=== PATIENT | male | born 1950 | race Caucasian/White ===

== ENCOUNTER 2016-06-23 19:14 | Inpatient (IN) | payer MEDICARE, OTHER ==
[~2016-06-23] VITALS: Ht 188 cm; Wt 160.0 kg
--- NOTE | ~2016-06-23 | HEMODYNAMI ---
PATIENT:MONIQUE BEDOLLA MEDICAL RECORD: [id number] : 46 LOCATION:[facility] D.2102 ADMISSION DATE: 06/23/16 Generatedon:06/27/20169:20 Patient name: MONIQUE BEDOLLA Patient #: [id number] SSN: DO B: 1950 Date of study: 06/27/2016 Page: Of Hemodynamic Procedure Report Patient Data Patient Demographics Procedure consent was obtained First Name: MONIQUE Gender: Male Last Name: GRAEME : 1950 Middle Initial: W Age: 66 year(s) Patient #: [id number] Race: Unknown Additional ID: [id number] Contact details [address]: [address] [place] [address] State: [place] City: [place] Zip code: [address] Past Medical History Allergies Allergen Reaction Date Comments Reported Other allergy 06/27/2016 POTASSIUM CHLORIDE Admission Admission Data Admission Date: 06/23/2016 Admission Time: 20:17 Room #: D2102 Lab Results Lab Result Date: 06/27/2016 Lab Result Time: 0:00 Biochemistry Name Units Result Min Max BUN mg/dl 31 --(----)-* 7 18 Creatinine mg/dl 1.2 --(---*)-- 0.6 1.3 CBC Name Units Result Min Max Hemoglobin g/dl 12.3 *-(----)-- 13.5 17.5 Coagulation Name Units Result Min Max INR units 1.59 --(----)-* 0.85 1.17 PT sec 18.9 --(----)-* 11.6 15 Procedure Procedure Types Cath Procedure Diagnostic Procedure [facility] w/Coronaries PCI Procedure Coronary Stent Initial Miscellaneous Procedures Moderate Sedation up to 45 minutes Procedure Description Procedure Date Procedure Date: 06/27/2016 Procedure Start Time: 8:50 Procedure End Time: 9:16 Procedure Staff Name Function Rogelio Whyte MD Performing Physician Nasrin Wolf RN Nurse Ron Suit RT Monitor Tai Diego RT Scrub Procedure Data Cath Procedure Fluoroscopy Diagnostic fluoroscopy Total fluoroscopy Time: time: 11.1 min 11.1 min Diagnostic fluoroscopy Total fluoroscopy dose: dose: 1395 mGy 1395 mGy Contrast Material Contrast Material Type Amount (ml) Isovue 300 131 Entry Location Entry Primary Successful Side Size Upsize Upsize Entry Closure Marcelino ccessful Closure Location (Fr) 1 (Fr) 2 (Fr) Remarks Device Remarks Radial Right 6 Fr Mechanical artery Short Compression Diagnostic catheters Device Type Used For End Catheter Placement Terumo 5Fr Plaza 110cm LV Angiography catheter Procedure Complications No complications Procedure Medications Medication Administration Route Dosage Oxygen NC 3 l/min Heparin Flush Bag added to field 2 bags (1000units/500ml NS) Lidocaine 2% added to field 20 Radial Cocktail added to field 1 syringe (Verapomil 2mg/Nitro 400mcg/Heparin 1500units) Versed I.V. 1 mg Fentanyl I.V. 50 mcg Versed I.V. 0.5 mg Fentanyl I.V. 25 mcg Fentanyl I.V. 25 mcg Versed I.V. 0.5 mg Radial Cocktail I.A. 1 syringe (Verapomil 2mg/Nitro 400mcg/Heparin 1500units) Integrilin (Bolus I.V. 11.3 ml 2mg/ml) Heparin Bolus I.V. 5000 units Plavix P.O. 600 mg Hemodynamics Rest HGB: 12.3 (g/dl) Heart Rate: 80 (bpm) Snapshots Pre Cath Intra NCS Post Cath Vital Signs Time Heart Resp SPO2 etCO2 OA6egmm NIBP (mmHg) Rhythm Pain Sedation Rate (ipm) (%) (mmHg) (mmHg) Status Level (bpm) 8:31:16 90 15 98 0 0 No Cuff NSR 0 (11) 10(A) , No pain 8:33:13 94 22 98 0 0 153/96(126) NSR 0 (11) 10(A) , No pain 8:37:39 91 16 99 0 0 154/95(121) NSR 0 (11) 10(A) , No pain 8:42:10 80 15 97 0 0 145/78(116) NSR 0 (11) 10(A) , No pain 8:47:09 101 19 96 0 0 Measuring NSR 0 (11) 10(A) , No pain 8:47:40 96 14 96 0 0 136/82(103) NSR 0 (11) 10(A) , No pain 8:52:04 94 13 96 0 0 136/78(105) NSR 0 (11) 10(A) , No pain 8:56:26 83 13 95 0 0 122/66(89) NSR 0 (11) 10(A) , No pain 9:00:48 93 15 97 0 0 118/66(85) NSR 0 (11) 10(A) , No pain 9:05:08 95 15 96 0 0 128/67(92) NSR 0 (11) 10(A) , No pain 9:09:32 93 15 96 0 0 128/68(102) NSR 0 (11) 10(A) , No pain 9:13:54 93 15 97 0 0 133/74(97) NSR 0 (11) 10(A) , No pain 9:15:27 93 15 96 0 0 127/71(103) NSR 0 (11) 10(A) , No pain Medications Time Medication Route Dose Verified Delivered Reason Notes Effectiveness by by 8:32:10 Oxygen NC 3 l/min Rogelio Nasrin Per physician Isabell Wolf RN 8:32:29 Heparin Flush added 2 bags Rogelio Rogelio used for Bag to Isabell Whyte MD procedure (1000units/500ml field NS) 8:32:36 Lidocaine 2% added 20ml Rogelio Rogelio used for to vial Isabell Whyte MD procedure field 8:32:44 Radial Cocktail added 1 Rogelio Rogelio used for (Verapomil to syringe Isabell Whyte MD procedure 2mg/Nitro field 400mcg/Heparin 1500units) 8:41:42 Versed I.V. 1 mg Rogelio Nasrin for sedation Isabell Wolf RN 8:41:48 Fentanyl I.V. 50 mcg Rogelio Nasrin for sedation Isabell Wolf RN 8:44:18 Versed I.V. 0.5 mg Rogelio Nasrin for sedation Isabell Wolf RN 8:45:29 Fentanyl I.V. 25 mcg Rogelio Nasrin for sedation Isabell Wolf RN 8:47:42 Fentanyl I.V. 25 mcg Rogelio Nasrin for sedation Isabell Wolf RN 8:51:42 Versed I.V. 0.5 mg Rogelio Ochoaca for sedation Isabell Wolf RN 8:51:47 Radial Cocktail I.A. 1 Rogelio Mercado for (Verapomil syringe Isabell Whyte MD vasodilation 2mg/Nitro 400mcg/Heparin 1500units) 8:57:32 Heparin Bolus I.V. 5000 Rogelio Alexandra for dose units Isabell Wolf RN anticoagulation verified with dr whyte 9:01:00 Integrilin I.V. 11.3 ml Rogelio Alexandra for 8.7 m l (Bolus 2mg/ml) Isabell Wolf RN antiplatelet wasted therapy 9:14:09 Plavix P.O. 600 mg Rogelio Nasrin for Isabell Wolf RN antiplatelet therapy Procedure Log Time Note 8:07:35 Tai Diego RT(R) sent for patient. Start room use. 8:07:36 Time tracking: Regular hours 8:07:40 Plan of Care:Hemodynamics will remain stable., Cardiac rhythm will remain stable., Comfort level will be maintained., Respiratory function will remain adequate., Patient/ family verbilizes understanding of procedure., Procedure tolerated without complication., Recovers from procedure without complications.. 8:16:20 Patient received from Med II to CCL 1 Alert and oriented. Tansferred to table in Supine position. 8:16:21 Warm blankets applied, and bassem hugger turned on for patient comfort. 8:16:21 Correct patient and procedure confirmed by team. 8:16:23 Signed procedure consent form obtained from patient. 8:16:23 ECG and BP/O2 sat monitors applied to patient. 8:16:43 H&P Date Dictated: 06/25/2016 Within 30 days and on chart.. 8:30:26 Vital chart was started 8:32:10 Oxygen 3 l/min NC was given by Nasrin Wolf RN; Per physician; 8:32:29 Heparin Flush Bag (1000units/500ml NS) 2 bags added to field was given by Rogelio Whyte MD; used for procedure; 8:32:36 Lidocaine 2% 20ml vial added to field was given by Rogelio Whyte MD; used for procedure; 8:32:44 Radial Cocktail (Verapomil 2mg/Nitro 400mcg/Heparin 1500units) 1 syringe added to field was given by Rogelio Whyte MD; used for procedure; 8:34:29 ACC Patient presents with Unstable Angina CCS Anginal Class 3--Marked limitation of physical activity, angina occurs with ordinary activity.. 8:34:31 Diagnostic Cath status Urgent 8:34:33 Baseline sample Acquired. 8:34:42 Rhythm: sinus rhythm 8:34:43 Full Disclosure recording started 8:34:44 Pre-procedure instructions explained to patient. 8:34:45 Pre-op teaching completed and patient verbalized understanding. 8:34:46 Family in waiting room. 8:34:48 Patient NPO since Midnight. 8:35:07 Patient allergic to Other allergyPOTASSIUM CHLORIDE 8:35:09 Is the patient allergic to Iodine/contrast media? No. 8:35:11 Was the patient premedicated? No 8:36:14 Is patient on blood thinner?Yes 8:36:21 Patient diabetic? No. 8:36:24 ----Pre-sedation anethsthesia assessment.---- 8:36:26 Previous problem with sedation/anesthesia? No ? 8:36:27 Snore? Yes 8:36:28 Sleep apnea? Yes 8:36:29 Deviated septum? No 8:36:31 Opens mouth fully? Yes 8:36:32 Sticks out tongue? Yes 8:36:39 Airway obstruction? Yes COPD 8:36:43 Dentures? No OUT 8:37:00 Pre procedure: right dorsailis pedis pulse 1+ Palpable, but thready & weak; easily obliterated 8:37:21 Modified Clayton's test Ulnar < 7 seconds 8:37:23 Patient pain scale 0/10 ?. 8:37:42 IV patent on arrival in left forearm with 0.9% NaCl at 10ml/hr. 8:40:15 Lab Result : BUN 31 mg/dl 8:40:15 Lab Result : Creatinine 1.2 mg/dl 8:40:15 Lab Result : Hemoglobin 12.3 g/dl 8:40:15 Lab Result : PT 18.9 sec 8:40:15 Lab Result : INR 1.59 units 8:41:07 Lab results completed and on chart. 8:41:09 Right Radial & Right Groin area was prepped with chlora-prep and draped in sterile fashion 8:41:10 Alarms reviewed by R. N. 8:41:11 Sharps counted by scrub and verified by R.N. 8:41:16 --------ALL STOP TIME OUT------ 8:41:16 Final Timeout: patient, procedure, and site verified with staff and physician. All members of the team are in agreement. 8:41:20 Right Radial & Right Groin site verified by team. 8:41:23 Physical assessment completed. ASA score P 2 - A patient with mild systemic disease as per Rogelio Whyte MD. 8:41:26 Sedation plan: IV Moderate Sedation Versed, Fentanyl 8:41:42 Versed 1 mg I.V. was given by Nasrin Wolf RN; for sedation; 8:41:48 Fentanyl 50 mcg I.V. was given by Nasrin Wolf RN; for sedation; 8:42:17 Use device set Radial Dx 8:42:18 Acist Syringe opened to sterile field. 8:42:18 Medline Cath Pack opened to sterile field. 8:42:18 Bag Decanter opened to sterile field. 8:42:19 Terumo 6Fr Slender Glidesheath opened to sterile field. 8:42:19 St Ralf 260cm J .035 wire opened to sterile field. 8:42:19 Acist Hand Control opened to sterile field. 8:42:20 Acist Manifold opened to sterile field. 8:42:20 Tegaderm 4 x 4 opened to sterile field. 8:44:18 Versed 0.5 mg I.V. was given by Nasrin Wolf RN; for sedation; 8:45:29 Fentanyl 25 mcg I.V. was given by Nasrin Wolf RN; for sedation; 8:45:43 Zero performed for pressure channel P1 8:47:14 Procedure started. 8:47:42 Fentanyl 25 mcg I.V. was given by Nasrin Wolf RN; for sedation; 8:50:45 Local anesthetic to right radial artery with Lidocaine 2% by Rogelio Whyte MD.INITIAL ACCESS ONLY 8:50:53 A 6 Fr Short sheath was inserted into the Right Radial artery 8:51:42 Versed 0.5 mg I.V. was given by Nasrin Wolf RN; for sedation; 8:51:47 Radial Cocktail (Verapomil 2mg/Nitro 400mcg/Heparin 1500units) 1 syringe I.A. was given by Rogelio Whyte MD; for vasodilation; 8:51:54 A Terumo 5Fr Plaza 110cm catheter was advanced over the wire and used for LV Angiography. 8:53:06 LV angiography performed. 8:53:13 EF : 40 % 8:53:15 LV gram done using SNYDER 8:53:17 Injector settings: Ml/sec: 5, Volume: 15, 8:53:49 RCA angiography performed. 8:54:48 Catheter removed. 8:55:18 6 Fr EBU 3.5 guide catheter was inserted over the wire 8:56:23 Medtronic Launcher 6Fr EBU 3.5 guide catheter opened to sterile field. 8:56:30 LCA angiography performed. 8:56:31 Catheter removed. 8:56:39 6 Fr AR 2 guide catheter was inserted over the wire 8:56:47 Medtronic Launcher 6Fr AR 2.0 guide catheter opened to sterile field. 8:56:49 Chambers Night Upisper J 300cm 0.014 guide wire opened to sterile field. 8:56:50 SIGFOX BasixCompak Inflation Kit opened to sterile field. 8:57:32 Heparin Bolus 5000 units I.V. was given by Nasrin Wolf RN; for anticoagulation; dose verified with dr whyte 8:57:32 WHISPER wire advanced. 9:00:41 The Medtronic Integrity 4.0 X 26 stent was advanced then removed because of failure to cross lesion 9:01:00 Integrilin (Bolus 2mg/ml) 11.3 ml I.V. was given by Nasrin Wolf RN; for antiplatelet therapy; 8.7 ml wasted 9:01:12 Inflation number: 1 A Sublimity Sci Martin 3.5 X 20 balloon was prepped and advanced across the Prox RCA1, then inflated to 13 RADHA for 0:07 (min:sec). 9:01:33 Inflation number: 2 The Sublimity Sci Martin 3.5 X 20 balloon was reinflated across the Prox RCA1, to 17 RADHA for 0:13 (min:sec). 9:01:43 Balloon removed over the wire. 9:01:53 ACC PCI Site: pRCA has 85% stenosis. 9:01:55 ACC Pre-intervention SANTIAGO Flow is 3. 9:03:30 The Medtronic Integrity 4.0 X 26 stent was advanced then removed because of failure to cross lesion 9:03:46 Sublimity Sci Choice PT Extra Support J 300cm .014 gu opened to sterile field. 9:04:04 CPTES wire advanced. 9:04:10 SHAHAB 9:05:32 The Medtronic Integrity 4.0 X 26 stent was advanced then removed because of failure to cross lesion 9:07:00 Inflation number: 1 A Euphora 4.0 x 20 Balloon was prepped and advanced across the Prox RCA, then inflated to 17 RADHA for 0:10 (min:sec). 9:07:40 Balloon removed over the wire. 9:09:25 Wire removed. 9:09:26 Inflation Number: 2 A Medtronic Integrity 4.0 X 26 stent was prepped and advanced across the Prox RCA. The stent was deployed at 21 RADHA for 0:13 (min:sec). 9:10:06 Inflation number: 3 The stent balloon was then re-inflated across the Prox RCA to 21 RADHA for 0:17 (min:sec). 9:12:43 Inflation Number: 4 A Medtronic Integrity 4.0 X 9 stent was prepped and advanced across the Prox RCA. The stent was deployed at 21 RADHA for 0:11 (min:sec). 9:13:15 Terumo TR Band Large opened to sterile field. 9:13:22 Stent catheter was removed intact over wire. 9:13:24 Wire removed. 9:13:25 Guide catheter removed. 9:14:09 Plavix 600 mg P.O. was given by Nasrin Wolf RN; for antiplatelet therapy; 9:14:10 Sheath removed intact; hemostasis achieved with Mechanical Compression to the Right Radial artery. 9:14:12 Procedure ended.(Physican Out) 9:14:47 Procedure type changed to Cath procedure, Diagnostic procedure, LHC, LHC w/Coronaries, PCI procedure, Coronary Stent Initial, Miscellaneous Procedures, Moderate Sedation up to 45 minutes 9:14:58 Fluoroscopy time 11.10 minutes. 9:15:04 Fluoroscopy dose: 1395 mGy 9:15:04 Flurop Dose total: 1395 9:15:08 Contrast amount:Isovue 300 131ml. 9:15:09 Sharps counted by scrub and verified by R.N. 9:15:12 TR band inflated with 10cc of air. 9:15:13 Insertion/operative site no bleeding no hematoma. 9:15:23 Post right radial artery:stable 9:15:25 Post Procedure Pulses reassessed and unchanged 9:15:27 Post procedure rhythm: sinus rhythm 9:15:34 Post procedure instruction explained to patient.Patient verbalizes understanding. 9:16:14 Procedure and supply charges have been captured, reviewed, submitted and are correct. 9:16:18 Procedure Complication : No complications 9:16:30 Vital chart was stopped 9:16:34 See physician's report for complete and final results. 9:16:36 Report given to PCU. 9:16:39 Patient transfered to PCU with Bed. 9:16:41 Procedure ended. 9:16:41 Full Disclosure recording stopped 9:16:44 End room use (Document Last) Intervention Summary Intervention Notes Time ActionType Lesion and Equipment Action# Pressure Duration Attributes Used 9:00:41 Discard Medtronic Stent Integrity 4.0 X 26 stent 9:01:12 Inflate Prox RCA1 Sublimity 1 13 00:07 balloon Sci Martin 3.5 X 20 balloon 9:01:33 Reinflate Prox RCA1 Sublimity 2 17 00:14 balloon Sci Martin 3.5 X 20 balloon 9:03:30 Discard Medtronic Stent Integrity 4.0 X 26 stent 9:05:32 Discard Medtronic Stent Integrity 4.0 X 26 stent 9:07:00 Inflate Prox RCA Euphora 1 17 00:10 balloon 4.0 x 20 Balloon 9:09:26 Place stent Prox RCA Medtronic 2 21 00:13 Integrity 4.0 X 26 stent 9:10:06 Reinflate Prox RCA Medtronic 3 21 00:17 stent Integrity balloon 4.0 X 26 stent 9:12:43 Place stent Prox RCA Medtronic 4 21 00:11 Integrity 4.0 X 9 stent Device Usage Item Name Manufacture Quantity Catalog Number Hospital Part Current Mini mal Lot# / Charge Number Stock Stock Serial# Code Acist Acist 1 60873 628616 199547 357729 20 [employer] Inc Medline Cardinal 1 [id number] 426310 59486 202324 5 Cath Pack Health Bag Microtek 1 [id number] 240195 81058 375532 5 Pymetrics Inc. Terumo 6Fr Terumo 1 [id number] 965798 606317 182721 [address] R[address] St Ralf 1 073669 527567 426322 222802 30 260cm J .035 wire Acist Hand Acist 1 12336 396777 169365 125153 5 Control Medical Systems Inc Acist Acist 1 95871 792841 438810 305087 5 Manifold Medical Systems Inc Tegaderm 4 3M 1 [id number] 231352 506614 783298 5 x 4 Terumo 5Fr Terumo 1 21-9622 184360 259291 752733 5 Plaza 110cm catheter Medtronic Medtronic 1 [id number] 298680 16436 086168 3 Launcher 6Fr EBU 3.5 guide catheter Medtronic Medtronic 1 [id number] 504616 02620 304794 1 Launcher 6Fr AR 2.0 guide catheter Chambers Chambers 1 [id number] 096443 477477 348009 5 Whisper J Vascular 300cm 0.014 guide wire Merit Merit 1 [id number] 753405 612834 659539 15 [facility]ation [facility] Medtronic Medtronic 1 [id number] 869888 975250 834822 7 [id number] Integrity 4.0 X 26 stent Sublimity Sci Sublimity 1 [id number] 388484 119662 835800 1 [id number] [employer] 3.5 X 20 balloon Sublimity Sci Sublimity 1 [id number] 709796 20181028 653589 5 Choice PT Scientific Extra Support J 300cm .014 gu Euphora 4.0 Medtronic 1 [id number] 403525 021566 649083 5 [id number] x 20 Balloon Medtronic Medtronic 1 [id number] 003569 898502 2327546 7 [id number] Integrity 4.0 X 9 stent Terumo TR Terumo 1 [id number] 417772 028519 40 Band Large Signature Audit [place] Stage Time Signature Unsigned Intra-Procedure 06/27/2016 Ron Fraga 9:20:29 AM RT(R) Signatures Monitor : Ron Fraga RT Signature : Date : Time : [address] [address] [place] [address]
[2016-06-23 19:45] LABS: BASOPHILS 0.4 % (0.0-2.0); EOSINOPHILS 5.5 % (0-7); HEMATOCRIT 43.5 % (42.0-54.0); IMMATURE GRANULOCYTES 0.4 % (0-5); LYMPHOCYTES 26.9 % (15-50); MCH 26.4 pg (26.0-34.0); MCHC 29.9 g/dL (31.0-37.0); MCV 88.4 fL (80.0-100.0); MEAN PLATELET VOLUME 8.8 fL (7.4-10.4); MONOCYTES 7.8 % (2-11); PLATELET COUNT 269 10x3/uL (130-400); RBC 4.92 10x6/uL (4.20-6.10); RDW 16.8 % (11.5-14.5); WBC 8.2 10x3/uL (4.8-10.8)
[2016-06-23 20:00] VITALS: BP 102/66
[2016-06-23 20:03] LABS: APTT 54.5 SECONDS (22.8-39.4); INR 3.19 (0.85-1.17)
[2016-06-23 20:04] LABS: D-DIMER-QUANTITATIVE 1.22 ug/mLFEU (0.20-0.54)
[2016-06-23 20:27] LABS: ALBUMIN 3.4 g/dL (3.4-5.0); ALKALINE PHOSPHATASE 138 U/L (46-116); ALT (SGPT) 17 U/L (10-68); AMYLASE - SERUM 50 U/L (25-115); CARBON DIOXIDE 34.1 mmol/L (21.0-32.0); CHLORIDE - SERUM 94 mmol/L (98-107); CREATINE KINASE 38 UL (21-232); CREATININE - SERUM 0.9 mg/dL (0.6-1.3); LIPASE 141 U/L (73-393); POTASSIUM - SERUM 4.6 mmol/L (3.5-5.1); PRO BNP 2216 pg/mL (0-125); SODIUM 133 mmol/L (136-145); TROPONIN-I 0.018 ng/mL (0.000-0.060); UREA NITROGEN 10 mg/dL (7-18); eGFR NON AFRICAN AMERICAN 89 mL/min (90-120)
[2016-06-23 20:28] LABS: CALC OSMOLALITY 267 mosm/kg (275-300); CALCIUM 9.1 mg/dL (8.5-10.1); GLUCOSE 154 mg/dL (74-106)
--- NOTE | 2016-06-23 21:16 | NUR ---
RECIEVED TO ROOM 2101 FROM ER VIA WC. PLACED ON TELEMETRY, SR PER MT. PLACED ON O2 AT 4 LITER VIA NC, ADDED HUMIDIFICATION FOR PTS COMFORT. IV TO LEFT ARM WITH LEVAQUIN INFUSING, SITE CLEAN AND DRY. DRSGS NOTED TO BILATERAL LOWER EXTREMITES, PT STATED THAT HE SEES DR NEGRETE AT THE [facility] FOR A FEW SORES ON HIS LEGS. SANDWHICH TRAY GIVEN AT PT REQUEST, DENIES PAIN OR NEEDS. WILL CONT TO MONITOR.
[2016-06-23] MEDS ORDERED: JANUMET XR 50-1 EACH PO (22:11)
[2016-06-23] MEDS ORDERED: COUMADIN10 MG PO (22:11)
[2016-06-23] MEDS ORDERED: LIPITOR20 MG PO (22:12)
[2016-06-23] MEDS ORDERED: ZESTRIL20 MG PO (22:12)
[2016-06-23] MEDS ORDERED: NEXIUM40 MG PO (22:12)
[2016-06-23] MEDS ORDERED: XALATAN 0.0052.5 ML EACH EYE (22:13)
[2016-06-23] MEDS ORDERED: CHOLESTYRAMIN4 G/PK1 PO (22:13)
[2016-06-23] MEDS ORDERED: GLIMEPIRIDE4 MG PO (22:14)
[2016-06-23] MEDS ORDERED: METOPROLOL TART25 MG PO (22:14)
[2016-06-23] MEDS ORDERED: LASIX40 MG PO (22:15)
--- NOTE | 2016-06-23 22:40 | NUR ---
ENTERED ROOM TO GIVEN PT LASIX AND NITRO PASTE THAT HAD BEEN ORDERED BY THE ER PHYSICIAN, INFORMED PT OF THE MEDICATIONS ORDERED, PT REFUSED NITRO PASTE STATING THAT HE IS NOT HAVING CHEST PAIN AND DOESNT WANT THE HEADACHE THAT COMES WITH IT AND DECLINED THE LASIX STATING THAT HE HAD ALREADY TAKEN HIS HOME DOSE OF LASIX AND IS ALREADY HAVING A HARD TIME GETTING UP TO GO TO THE BATHROOM AND DOESNT WANT ANYTHING ELSE THAT WILL MAKE HIM HAVE TO GO TO THE BATHROOM.
[2016-06-24] VITALS (7 sets, daily range): BP systolic 102–186; BP diastolic 66–98; BMI 45.7
--- NOTE | 2016-06-24 00:52 | NUR ---
RT AT BED SIDE FOR UPDRAFT.
[2016-06-24] MEDS ORDERED: AFRIN15 ML NASAL (03:20)
--- NOTE | 2016-06-24 04:41 | NUR ---
AFRIN NASAL 2 PUFFS GIVEN ORDERED.
--- NOTE | 2016-06-24 07:00 | NUR ---
RECEIVED REPORT. ASSUMED CARE OF PATIENT. PATIENT SITTING TO SIDE OF BED. ALERT/ORIENTED. RESP EVEN AND UNLABORED. REQUESTING COFFEE. CALL LIGHT WITHIN REACH. NO ACUTE DISTRESS.
--- NOTE | 2016-06-24 07:15 | NUR ---
BLACK COFFEE PROVIDED UPON REQUEST. SPOKE TO PATIENT IN REGARDS TO HIS BILATERAL LOWER EXTREMITIES WITH DRESSINGS INTACT. RIGHT LOWER EXTREMITY WITH SKIN SLEEVE TO HELP WITH SWELLING. NO LESIONS. LEFT LEFT HAS FEW SCABS BUT PATIENT REFUSED TO LET THIS MEDICATION AID REMOVE LAYERED DRESSING TO INSPECT SKIN. PATIENT STATES HE SEES FROM [facility]IN[facility] AND HE GOES EVERY SATURDAY AND HE STATED HE WOULD PREFER TO CONTINUE WITH HIS REGULAR SCHEDULE AND NOT CHANGE THE DRESSING.
--- NOTE | 2016-06-24 10:30 | NUR ---
NEW SLIDE PROOF SOCKS PLACED ON PATIENT AT THIS TIME. NO DISTRESS.
--- NOTE | 2016-06-24 11:19 | NUR ---
SITTING ON BEDSIDE. FAMILY VISITING WITH SMALL CHILDREN. NO DISTRES. DENIES NEEDS AT THIS TIME.
--- NOTE | 2016-06-24 16:46 | NUR ---
FSBS 156. REFUSED INSULIN AT THIS TIME. NO DISTRESS.
--- NOTE | 2016-06-24 17:15 | NUR ---
TECHS AT BEDSIDE FOR ECHO AND VENOUS DOPPLER AT THIS TIME.
--- NOTE | 2016-06-24 20:35 | NUR ---
PT AWAKE, ALERT, ORIENTED, SITTING IN CHAIR LOOKING AT TV. PT DENIES ANY NEEDS. PT DID ACCEPT HUMALOG THIS EVENING. I DID TEACHING ON WHY WE ARE USING HUMALOG FOR HIS GLUCOSE CONTROL. PT STATES THAT HE UNDERSTANDS AND DENIES ANY QUESTIONS. WILL CONTINUE TO MONITOR CLOSELY. PT REFUSES SCD'S R/T HIS CHRONIC LLE WOUND AND BLE EDEMA.
[2016-06-25] VITALS: BP 158/54
--- NOTE | 2016-06-25 01:27 | NUR ---
PT LYING IN BED ON HIS BACK, HOB 30 DEGREES, EYES CLOSED, RESPIRATIONS EVEN AND UNLABORED, ACTIVELY SNORING. CONTINUE TO MONITOR CLOSELY.
--- NOTE | 2016-06-25 02:00 | NUR ---
PT WAS FOUND WALKING AROUND THE UNIT, CONFUSED, DISORIENTED, AND VERY SLEEPY. PT DID DRIFT OFF TO SLEEP FOR 1 1/2 HOURS BEFORE BEING FOUND LIKE THIS. FSBS WAS 210. B/P IS 162/68, WHICH IS IN LINE WITH WHAT HIS PRESSURES HAVE BEEN. PT STATES HE DID FEEL SHAKEN UP BUT IS NOW BETTER. PT IS SITTING IN HIS CHAIR, LOOKING AT THE TV, DENIES ANY ACUTE NEEDS. WILL CONTINUE TO MONITOR CLOSELY.
[2016-06-25 04:00] VITALS: BP 150/62
[2016-06-25 05:10] LABS: BASOPHILS 0 % (0.0-2.0); EOSINOPHILS 0 % (0-7); HEMATOCRIT 40.8 % (42.0-54.0); HEMOGLOBIN 12.3 g/dL (13.5-17.5); IMMATURE GRANULOCYTES 0.2 % (0-5); LYMPHOCYTES 12.5 % (15-50); MCH 26.2 pg (26.0-34.0); MCHC 30.1 g/dL (31.0-37.0); MCV 86.8 fL (80.0-100.0); MONOCYTES 1.8 % (2-11); NEUTROPHILS 85.5 % (40-80); PLATELET COUNT 231 10x3/uL (130-400); RDW 16.4 % (11.5-14.5); WBC 5.7 10x3/uL (4.8-10.8)
[2016-06-25 05:20] LABS: INR 2.4 (0.85-1.17); PROTIME 26.3 SECONDS (11.6-15.0)
[2016-06-25 05:40] LABS: ALBUMIN 3.2 g/dL (3.4-5.0); ALKALINE PHOSPHATASE 112 U/L (46-116); ALT (SGPT) 16 U/L (10-68); BILIRUBIN - TOTAL 0.49 mg/dL (0.2-1.3); CHLORIDE - SERUM 93 mmol/L (98-107); POTASSIUM - SERUM 5.1 mmol/L (3.5-5.1); PROTEIN - SERUM 7.2 g/dL (6.4-8.2); SODIUM 133 mmol/L (136-145); eGFR NON AFRICAN AMERICAN 79 mL/min (90-120)
[2016-06-25 05:42] LABS: CALC OSMOLALITY 275 mosm/kg (275-300); GLUCOSE 253 mg/dL (74-106); UREA NITROGEN 16 mg/dL (7-18)
--- NOTE | 2016-06-25 06:13 | NUR ---
PT REMAINS AWAKE, ALERT, ORIENTED, SITTING IN CHAIR, DRINKING BLACK COFFEE. PT DENIES ANY ACUTE NEEDS AT THIS TIME. CONTINUE TO MONITOR CLOSELY.
--- NOTE | 2016-06-25 07:30 | NUR ---
AM ROUDNING- PT SITTING UP IN CHAIR WITH EYES OPEN WATCHING TV, PT STATES HE IS WAITING ON HIS BREAKFAST TRAY. ON MONITOR SHOWING SR, HR 79 WITH PVCS. FSBS ACHS THAT WAS COVERED THIS AM BY CAREER LAW CLERK NURSE GARRISON. ON HUMIDIFIED 02 AT 3L VIA NC. 20G IV SEEN TO LEFT WRIST THAT IS CURRENTLY SALINE LOCKED. PER REPORT PT REFUSES SCDS. DRESSING WITH WRAP SEEN TO LLE THAT PER REPORT PT GETS CHANGED AT DR. OFFICE. PER REPORT PT WILL NOT LET NURSE TOUCH HIS WRAP/DRESSING TO LOWER EXTREMITIES. PT IS ALERT AND ORIENTED. NO NEED AT CURRENT TIME. WILL CONTINUE TO MONITOR.
[2016-06-25 07:42] VITALS: BP 147/69
--- NOTE | 2016-06-25 08:44 | NUR ---
TO CT VIA BED.
[2016-06-25] MEDS ORDERED: LIPITOR40 MG PO (10:42)
[2016-06-25] MEDS ORDERED: COUMADIN7.5 MG PO (10:44)
[2016-06-25 11:50] VITALS: BP 141/63
[2016-06-25 12:15] VITALS: Ht 188 cm; Wt 160.0 kg
[2016-06-25 16:01] VITALS: BP 140/49
--- NOTE | 2016-06-25 17:40 | NUR ---
PT SITTING UP IN CHAIR WITH EYES OPEN WATCHING TV. DENIES ANY NEED AT CURRENT TIME. WILL CONTINUE TO MONITOR.
[2016-06-25 20:00] VITALS: BP 136/56
[2016-06-26] VITALS: BP 138/64
--- NOTE | 2016-06-26 01:22 | NUR ---
NURSE ROUNDS 19:30 - PT AWAKE, ALERT, ORIENTED, SITTING IN CHAIR AT BEDSIDE. PT REQUESTING SOMETHING FOR SLEEP. I DID SPEAK WITH NATASHA MADDOX, [employer] SMOOTHER FOR [employer]. SHE DID OK MELATONIN 6MG PO Q HS PRN. PT DENIES ANY NEEDS. CONTINUE TO MONITOR CLOSELY.
[2016-06-26 04:00] VITALS: BP 136/66
--- NOTE | 2016-06-26 05:08 | NUR ---
PT LYING IN BED, EYES CLOSED, RESPIRATIONS EVEN AND UNLABORED. CONTINUE TO MONITOR CLOSELY.
[2016-06-26 05:36] LABS: BASOPHILS 0 % (0.0-2.0); EOSINOPHILS 0 % (0-7); HEMATOCRIT 39.6 % (42.0-54.0); IMMATURE GRANULOCYTES 0.2 % (0-5); LYMPHOCYTES 10.9 % (15-50); MCH 26.3 pg (26.0-34.0); MCHC 30.3 g/dL (31.0-37.0); MCV 86.8 fL (80.0-100.0); MEAN PLATELET VOLUME 9.1 fL (7.4-10.4); MONOCYTES 5.8 % (2-11); NEUTROPHILS 83.1 % (40-80); PLATELET COUNT 251 10x3/uL (130-400); RBC 4.56 10x6/uL (4.20-6.10); RDW 16.7 % (11.5-14.5)
[2016-06-26 05:58] LABS: WBC 10.6 10x3/uL (4.8-10.8)
[2016-06-26 06:04] LABS: INR 1.8 (0.85-1.17); PROTIME 20.9 SECONDS (11.6-15.0)
[2016-06-26 06:13] LABS: ALBUMIN 3.2 g/dL (3.4-5.0); ANION GAP 15.8 mmol/L (8-16); BILIRUBIN - TOTAL 0.36 mg/dL (0.2-1.3); CALCIUM 9.1 mg/dL (8.5-10.1); CARBON DIOXIDE 29.3 mmol/L (21.0-32.0); CREATININE - SERUM 1.1 mg/dL (0.6-1.3); MAGNESIUM - SERUM 1.6 mg/dL (1.8-2.4); PHOSPHOROUS 4.3 mg/dL (2.5-4.9); POTASSIUM - SERUM 5.1 mmol/L (3.5-5.1); PROTEIN - SERUM 7.2 g/dL (6.4-8.2)
--- NOTE | 2016-06-26 07:50 | NUR ---
ASSESSMENT DONE. PT SITTING UP IN CHAIR AT BEDSIDE A/O. WEARING O2 AT 3LITERS VIA NC. STATES SOB IMPROVING. NO DISTRESS NOTED. DENIES NEEDS AT THIS TIME. CALL LIGHT WITH IN REACH. WILL CONT. TO MONITOR.
[2016-06-26 07:52] VITALS: BP 125/60
--- NOTE | 2016-06-26 10:32 | CN ---
PATIENT NAME:MONIQUE BEDOLLA MEDICAL RECORD: [id number] : 46 LOCATION:. D.2102 ADMIT DATE: 06/23/16 ACCOUNT: [id number] CONSULTING PHYSICIAN: MOHSEN DONALDSON MD REFERRING PHYSICIAN: LEROY VEGAS M.D. DATE OF CONSULTATION: 06/25/2016 DIAGNOSES: 1. Cardiomyopathy. 2. Shortness of breath, dyspnea on exertion. 3. Pneumonia. 4. Lower extremity edema. 5. Coumadin anticoagulation. 6. Smoking history. 7. Chronic obstructive pulmonary disease. 8. Hypertension. 9. Hyperlipidemia. HISTORY OF PRESENT ILLNESS: This is a gentleman who presents with shortness of breath and was treated for pneumonia. Echocardiogram reveals severe cardiomyopathy, ejection fraction 25%. He has not been told he has cardiomyopathy in the past. He has been followed by Dr. Moreno, but has not been told a lot about his heart function. He has chronic lower extremity edema, diabetes, hypertension, hyperlipidemia. PHYSICAL EXAMINATION: GENERAL APPEARANCE: Well-nourished, well-developed, appears stated age. Level of distress, comfortable. PSYCHIATRIC: Mental status, alert, normal affect. Orientation, oriented to time, place and person. EYES: Lids and conjunctiva, noninjected. No discharge, no pallor. ENT: Lips, teeth, gums, normal dentition. Oropharynx, no cyanosis, no pallor. NECK: Carotid arteries, bilateral normal upstroke, no bruits, no thrills. JUGULAR VEINS: No jugular venous pressure or distention. CERVICAL LYMPH NODES: Nontender, nonenlarged. THYROID: Not enlarged. Nontender. No nodules. LUNGS: Respiratory effort, unlabored. CHEST: Normal curvature. No thoracic deformity. No chest wall tenderness. Percussion, resonant. Auscultation, clear. No wheezes, no rales, no rhonchi. CARDIOVASCULAR: Precordial exam, nondisplaced. No heaves or pericardial thrills. Rate and rhythm, regular. Heart sounds, normal S1, normal S2. No S3, no gallop, no rub. Systolic murmur, not heard. Diastolic murmur, not heard. EXTREMITIES: No cyanosis, no edema. Peripheral pulses, full and equal in all extremities, except as noted. No bruits appreciated. ABDOMEN: Soft, nondistended. Normal aorta. No bruit. Nontender. No masses. Liver, nontender, no hepatomegaly. Spleen, nontender, no splenomegaly. MUSCULOSKELETAL: No joint tenderness. No joint swelling. No erythema. NEUROLOGICAL: Normal gait, normal strength, normal tone. SKIN: Warm and dry. REVIEW OF SYSTEMS: The patient reports easy bruising but reports no swollen glands. The patient reports no fever, no night sweats, no significant weight gain, no significant weight loss. No significant exercise tolerance. The patient reports no dry eyes, no irritation, no vision change. Patient reports no difficulty hearing and no ear pain. Patient reports no frequent nose bleeds CONSULT REPORT [id number] BEDOLLAMONIQUE W or nose and sinus problems. Patient reports on arm pain on exertion. No shortness of breath while lying down. No history of heart murmur. Patient reports no cough, no wheezing or coughing up blood. Patient reports no abdominal pain, no vomiting. Normal appetite. No diarrhea and not vomiting blood. No nausea and no constipation. Patient reports no incontinence. No difficulty urinating. No hematuria. No increased frequency. Patient reports no muscle aches. No weakness, no arthralgias, no back pain. No swelling of the extremities. Patient reports no abnormal mole, no jaundice, no rashes. Reports no loss of consciousness. No weakness and no numbness. No seizures, dizziness, or headaches. The patient reports no depression, no sleep disturbance, feeling safe in a relationship and no alcohol abuse. Patient reports on fatigue. Reports no runny nose or sinus pressure. No itching, no hives, and no frequent sneezing. OVERALL IMPRESSION: Severe cardiomyopathy. At this time, he is on Lasix. He was previously on Coumadin, it appears that his Coumadin is on hold. We will give him FFP. Plan for coronary angiography in the near future. TRANSINT:[id number] Voice Confirmation ID: [id number] DOCUMENT ID: [id number] MOHSEN DONALDSON MD at 1032 CC: [id number] DICTATION DATE: 06/25/16 1239 GARDENING MANAGER: 06/25/16 1619 [place] [address]
--- NOTE | 2016-06-26 10:42 | NUR ---
PATIENT SITTING UP ON SIDE OF BED. O2 ON VIA NC. EDEMA NOTED IN LLE. WILL CONITOR TO MONITOR.
[2016-06-26 11:34] VITALS: BP 138/60
--- NOTE | 2016-06-26 11:49 | NUR ---
PT WITH BILATERAL JAMES BOOTS WHICH PT HAD ON ADMISSION. PT REFUSES TO ALLOW STAFF TO REMOVE. STATES THE WOUND CARE CLINIC NURSE IS COMING SOMETIME TODAY TO CHANGE THE DRESSINGS.
--- NOTE | 2016-06-26 12:54 | NUR ---
HEART CATH PROCEDURE EXPLAINED TO PT AND CONSENTS SIGNED.
[2016-06-26 16:05] VITALS: BP 132/58
--- NOTE | 2016-06-26 16:36 | NUR ---
FFP FINISHED. PT TOLERATED WELL. DENIES CP, SOB OR REACTION S/S OF ANY KIND.
--- NOTE | 2016-06-26 16:58 | NUR ---
Patient Name: MONIQUE BEDOLLA Admission Status: ER Accout number: [id number] Admission Date: 06-23-2016 : 1950 Admission Diagnosis:SHORTNESS OF BREATH Attending: JEREMIAS Current LOS: 3 Anticipated DC Date: Planned Disposition: Home Primary Insurance: MEDICARE A & B Discharge Planning Comments: * Is the patient Alert and Oriented? Yes 0 * How many steps to enter\exit or inside your home? 7 0 * PCP DR. BERNAL 0 * [facility] * Preadmission Environment Home with Family 0 * ADLs Independent 0 * Equipment Nebulizer Oxygen 0 * Other Equipment HOME AND PORTABLE OXYGEN [facility] - MEDICAL EQUIPMENT PROVIDER 0 * List name and contact numbers for known caregivers / representatives who currently or will assist patient after discharge: ARIAN BEDOLLA,SPOUSE, VICTORIANO BEDOLLA, SON, DAVID BEDOLLA, SON, 0 * Community resources currently utilized None 0 * Please name any agencies selected above. NONE 0 * Additional services required to return to the preadmission environment? No 0 * Can the patient safely return to the preadmission environment? Yes 0 * Has this patient been hospitalized within the prior 30 days at any hospital? No 0 CM MET WITH PT IN ROOM TO DISCUSS DISCHARGE PLANNING AND NEEDS. PT REPORTS LIVING AT HOME INDEPENDENTLY WITH SPOUSE. PT HAS NEBULIZER, HOME AND PORTABLE OXYGEN FROM [facility]. PT HAS NO OUTSIDE SERVICES ASSISTING IN THE HOME. CM DISCUSSED AVAILABILITY OF HOME HEALTH, REHAB SERVICES AND MEDICAL EQUIPMENT. PT DENIES DISCHARGE NEEDS, REPORTS HAVING A SON THAT IS A NURSE THAT TAKES CARE OF ALL OF HIS DRESSING CHANGES AND WRAPS AT HOME. PT REPORTS HIS FAMILY WILL PICK HIM UP FOR DISCHARGE HOME. PT PLANS TO DISCHARGE HOME WITH SPOUSE, REPORTS HAVING ASSISTANCE OF HIS SON WHO IS A NURSE. PT DOES NOT ANTICIPATE ANY DISCHARGE NEEDS. CM TO FOLLOW AND ASSIST IF NEEDED. Slide Fastener Chain Assembler: Philip Patel
--- NOTE | 2016-06-26 17:37 | NUR ---
PT SITTING IN CHAIR AT BEDSIDE. DENIES NEEDS AT THIS TIME. NO DISTRESS NOTED. CALL LIGHT WITH IN REACH. WILL CONT. TO MONITOR. NURSE FROM WOUND CLINIC HAS YET TO SHOW UP. PT INSIST SHE IS COMING.
[2016-06-26 20:00] VITALS: BP 149/63
--- NOTE | 2016-06-26 20:05 | NUR ---
PT AWAKE, ALERT, ORIENTED, SITTING IN CHAIR. DENIES ANY ACUTE NEEDS. CONTINUE TO MONITOR CLOSELY.
[2016-06-27] VITALS: BP 135/82
[2016-06-27 04:00] VITALS: BP 148/71
--- NOTE | 2016-06-27 04:08 | NUR ---
PT SITTING IN CHAIR, EYES CLOSED, RESPIRATIONS EVEN AND UNLABORED. PT IS EASILY ROUSABLE TO VERBAL STIMULI. CONTINUE TO MONITOR CLOSELY.
[2016-06-27 05:04] LABS: BASOPHILS 0 % (0.0-2.0); EOSINOPHILS 0 % (0-7); HEMATOCRIT 41.4 % (42.0-54.0); HEMOGLOBIN 12.3 g/dL (13.5-17.5); IMMATURE GRANULOCYTES 0.3 % (0-5); LYMPHOCYTES 10.7 % (15-50); MCH 25.9 pg (26.0-34.0); MCHC 29.7 g/dL (31.0-37.0); MCV 87.2 fL (80.0-100.0); MEAN PLATELET VOLUME 9.2 fL (7.4-10.4); MONOCYTES 3.1 % (2-11); NEUTROPHILS 85.9 % (40-80); PLATELET COUNT 242 10x3/uL (130-400); RBC 4.75 10x6/uL (4.20-6.10); RDW 16.6 % (11.5-14.5); WBC 9.1 10x3/uL (4.8-10.8)
[2016-06-27 05:34] LABS: INR 1.59 (0.85-1.17); PROTIME 18.9 SECONDS (11.6-15.0)
[2016-06-27 05:51] LABS: ALBUMIN 3.3 g/dL (3.4-5.0); ANION GAP 9.9 mmol/L (8-16); BILIRUBIN - TOTAL 0.44 mg/dL (0.2-1.3); CALCIUM 9.3 mg/dL (8.5-10.1); CARBON DIOXIDE 34.2 mmol/L (21.0-32.0); CREATININE - SERUM 1.2 mg/dL (0.6-1.3); POTASSIUM - SERUM 5.1 mmol/L (3.5-5.1); PROTEIN - SERUM 7.2 g/dL (6.4-8.2)
--- NOTE | 2016-06-27 07:42 | NUR ---
ASSESSMENT DONE. PT SITTING IN CHAIR AT BEDSIDE. A/O. PT NPO FOR HEART CATH THIS AM. PT NOW REQUESTING WOUND CARE CONSULT D/T THE NURSE AT HIS WOUND CLINIC NOT COMING TO CHANGE HIS BILATERAL JAMES BOOTS YESTERDAY. CALL LIGHT WITH IN REACH. WILL CONT. TO MONITOR.
[2016-06-27 08:00] VITALS: BP 143/69
--- NOTE | 2016-06-27 08:13 | NUR ---
PT TO FIELD CROP FARMWORKER VIA BED. THIS NURSE EXPRESS TO FIELD CROP FARMWORKER NURSE MY CONCERN OF PT'S SOB WHEN LAYING FLAT, AND THE CONCERN IF DR. DONALDSON WAS TO GO THROUGH PT'S GROIN AND HE WOULD HAVE TO LAY FLAT FOR 4HRS. THIS NURE TOLD FIELD CROP FARMWORKER NURSE THAT PT HAS BEEN SLEEPING IN HIS CHAIR TO STAY UPRIGHT.
--- NOTE | 2016-06-27 08:47 | NUR ---
SPOKE WITH LEIGHA RN/WOUND CARE NURSE ABOUT CHANGING PT'S BILATERAL LEG DRESSINGS.
--- NOTE | 2016-06-27 09:19 | NUR ---
OUT OF ROOM FOR PROCEDURE AT THIS TIME. WILL CONT. PLAN OF CARE.
--- NOTE | 2016-06-27 09:35 | NUR ---
PT BACK FROM VAULT ATTENDANT. TR BAND TO RIGHT WRIST WITH WRIST SPLINT IN PLACE TO ALLOW PT TO KEEP WRIST STRAIGHT. NO S/S OF BLEEDING OR HEMATOMA. RIGHT BRACIAL PULSE PALPABLE. PT'S SPOUSE IN ROOM. PT A/O. HOB ELEVATED. SLIGHT SOB NOTED. WILL CONT. TO MONITOR.
--- NOTE | 2016-06-27 10:16 | NUR ---
PT SITTING UP IN BED WATCHING TV. REMINDED PT NOT TO USE RIGHT HAND OR ARM. PT'S SPOUSE IN ROOM. TR BAND TO RIGHT WRIST INTACT, NO S/S OF BLEEDING OR HEMATOMA. WILL CONT. TO MONITOR.
[2016-06-27 12:00] VITALS: BP 113/54
--- NOTE | 2016-06-27 12:33 | NUR ---
4ML OF AIR RELEASED FROM TR BAND AND SPLINT REMOVED. NO S/S OF BLEEDING OR HEMATOMA. WILL MONITOR.
--- NOTE | 2016-06-27 12:35 | NUR ---
3ML OF AIR (7ML) TOTAL REMOVED FROM TR BAND. NO BLEEDING NOTED. WILL CONT. TO MONITOR.
--- NOTE | 2016-06-27 12:37 | NUR ---
Nutrition follow-up: Diet: Low sodium PO intake 100% of meals Labs: FSBS elevated Wt: 355# PO intake is good at this time. Recommend changing diet to consistent CHO due to elevated glucose. RDN following.
--- NOTE | 2016-06-27 12:48 | NUR ---
REMAINDER OF AIR REMOVED FROM TR BAND. BAND LEFT IN PLACE. PT ATTEMPTED TO PULL SELF INTO A STANDING POSITION. NURSE NOTED BRUISING BEGINING TO FORM UNDER BAND. 12ML OF AIR INSERTED BACK INTO BAND AND SPLINT PLACED BACK ONTO PT'S WRIST. WILL CONT. TO MONITOR. RADIAL PULSE PALPABLE. BEFORE AIR REPLACE BACK INTO BAND.
--- NOTE | 2016-06-27 12:55 | NUR ---
ASSISTED PT TO RESTROOM. BRUISING UNDER TR BAND STABLE. WILL CONT. TO MONITOR. PT TRYING TO USE RIGHT HAND TO STEADY SELF WHILE AMBULATING. REMINDED PT SEVERAL TIMES TO AVOID USING RIGHT ARM/HAND AT ALL. PT HOLDING SYRINGE AND WEARING SPLINT TO ASSIST WITH REMINDING.
--- NOTE | 2016-06-27 13:52 | NUR ---
PT REFUSES BED ALARM. REFUSAL PAPER SIGNED. PT UNDERSTANDS FALL RISK. SPOUSE IN ROOM WELL.
--- NOTE | 2016-06-27 15:18 | NUR ---
PT SITTING IN CHAIR AT BEDSIDE. A/O. BRUISING UNDER TR BAND STABLE. WILL KEEP AIR IN BAND ANOTHER 30-45 MINS THEN ATTEMPT TO RELEASE AIR AGAIN. CALL LIGHT WITH IN REACH. WILL CONT. TO MONITOR.
[2016-06-27 16:00] VITALS: BP 126/55
--- NOTE | 2016-06-27 16:12 | NUR ---
5ML OF AIR RELEASED FROM TR BAND. BRUISING STABLE. WRIST SPLINT STILL IN PLACE FOR NOW. WILL CONT. TO MONITOR FOR INCREASE IN BRUISING/HEMATOMA FOR ARRPOX 15-20 MIN BEFORE LETTING ANYMORE AIR OUT. PT DOES NOT SEEM TO UNDERSTAND HE IS AT RISK FOR BLEEDING. NURSE HAVING TO REMIND PT OVER AND OVER TO KEEP FROM USING RIGHT HAND. PT GETS AGGITATED WHEN NURSE REMINDS PT OF RISK OF USING HAND. STATES " THAT BRACELET IS COMING OFF BEFORE MY SUPPER GETS HERE! I CAN'T EAT WITH MY LEFT HAND!" NURSE EDUCATED PT ON RISKS FOR HEMATOMA, OR BLEEDING WELL DEVELOPING A CLOT. PT SHOOK HIS HEAD AND DID NOT REPLY. WILL MONITOR.
--- NOTE | 2016-06-27 17:23 | NUR ---
PT CALLED NURSE INTO ROOM. STATES THE STRAP ON HIS SPLINT CAME LOOSE BECAUSE HE GOT IT CAUGHT ON THE CHAIR WHEN HE WAS ATTEMPTING TO GET UP TO USE THE RESTROOM. STATES " I WAS USING MY ARM TO PUSH UP. NOT MY HAND. MY WRIST DIDN'T BEND." BRUISING STABLE. FIRMNESS NOTED ON ULNAR SIDE OF FOREARM, BUT UNCHANGED FROM PREVIOUS EXAM. 2ML OF AIR REMOVED FROM TR BAND. WILL MONITOR.
--- NOTE | 2016-06-27 17:51 | NUR ---
REMAINDER OF AIR RELEASED FROM TR BAND, AND BAND REMOVED. BRUISING AND FIRMNESS STABLE. WILL MONITOR.
--- NOTE | 2016-06-27 18:24 | NUR ---
PT REFUSES TO URINATE IN URINAL OR [place] HAT. STATES HE IS TO [place] AND CANNOT SEE TO "GET IT IN THERE."
--- NOTE | 2016-06-27 19:20 | NUR ---
PT SITTING UP IN CHAIR, ASSESSMENT COMPLETED, NO ACUTE DISTRESS NOTED, DSG'S TO BLE INTACT, DENIES NEEDS AT THIS TIME, CL IN REACH, WILL MONITOR
--- NOTE | 2016-06-27 21:36 | NUR ---
MEDS GIVEN PER MAR, MARISSA WELL, DENIES PAIN OR NEEDS AT THIS TIME, CL IN REACH
[2016-06-27 21:56] VITALS: BP 85/46
--- NOTE | 2016-06-27 23:25 | NUR ---
PT UP TO RESTROOM, REMINDED THAT WE NEED A URINE SAMPLE, NO DISTRESS NOTED
[2016-06-28 00:53] LABS: APPEARANCE CLEAR (CLEAR); BILIRUBIN NEGATIVE (NEGATIVE); COLOR YELLOW (YELLOW); GLUCOSE 1000 mg/dL (NEGATIVE); KETONE NEGATIVE (NEGATIVE); LEUKOCYTE ESTERASE NEGATIVE (NEGATIVE); NITRITE NEGATIVE (NEGATIVE); PROTEIN NEGATIVE (NEGATIVE); SPECIFIC GRAVITY 1.015 (1.005-1.020); UROBILINOGEN NORMAL (NORMAL)
--- NOTE | 2016-06-28 01:09 | NUR ---
UP TO RESTROOM, NO DISTRESS NOTED, DENIES NEEDS, CL IN REACH
[2016-06-28 01:17] VITALS: BP 116/56
[2016-06-28 04:55] LABS: BASOPHILS 0 % (0.0-2.0); EOSINOPHILS 0 % (0-7); HEMATOCRIT 39.4 % (42.0-54.0); IMMATURE GRANULOCYTES 0.3 % (0-5); LYMPHOCYTES 10.1 % (15-50); MCH 26.6 pg (26.0-34.0); MCHC 30.5 g/dL (31.0-37.0); MCV 87.4 fL (80.0-100.0); MEAN PLATELET VOLUME 9.2 fL (7.4-10.4); MONOCYTES 3.9 % (2-11); NEUTROPHILS 85.7 % (40-80); PLATELET COUNT 248 10x3/uL (130-400); RBC 4.51 10x6/uL (4.20-6.10); RDW 16.7 % (11.5-14.5); WBC 8.9 10x3/uL (4.8-10.8)
[2016-06-28 05:04] LABS: INR 1.48 (0.85-1.17); PROTIME 17.9 SECONDS (11.6-15.0)
[2016-06-28 05:11] VITALS: BP 148/80
[2016-06-28 05:20] LABS: ALBUMIN 3.1 g/dL (3.4-5.0); ANION GAP 6.4 mmol/L (8-16); BILIRUBIN - TOTAL 0.4 mg/dL (0.2-1.3); CALCIUM 8.8 mg/dL (8.5-10.1); CARBON DIOXIDE 36.5 mmol/L (21.0-32.0); CREATININE - SERUM 1.1 mg/dL (0.6-1.3); POTASSIUM - SERUM 4.9 mmol/L (3.5-5.1); PROTEIN - SERUM 6.9 g/dL (6.4-8.2)
--- NOTE | 2016-06-28 07:39 | NUR ---
AM ROUNDING- PT SITTING UP IN CHAIR WITH EYES OPEN RESTING. ON MONITOR SHOWING SR, HR 73. FSBS ACHS 268 THIS AM THAT WAS COVERED BY DIRECTOR OF LAND ACQUISITION NURSE MAISHA. IV SEEN TO LEFT WRIST THAT IS CURRENTLY SALINE LOCKED. ON 02 AT 3L VIA NC. YELLOW ID BAND ON. PER REPORT PT SIGNED BED ALARM WAIVER THAT IS IN CHART PER REPORT FROM DIRECTOR OF LAND ACQUISITION NURSE MAISHA. BILATERAL WOUND DRESSINGS SEEN TO LE. PER REPORT PT GOES AND HAS THEM CHANGED AT A WOUND CARE CLINIC, PT WILL NOT LET NURSING STAFF CHANGE DRESSINGS HERE. NO NEED AT CURRENT TIME. WILL CONTINUE TO MONITOR.
[2016-06-28 08:10] VITALS: BP 126/72
[2016-06-28 12:25] VITALS: BP 141/71
--- NOTE | 2016-06-28 15:56 | NUR ---
PT IS WANTING HIS DRESSING CHANGED TO LOWER LEFT EXTREMITY. PT IS REQUESTING THE WOUND CARE NURSE TO CHANGE DRESSING. I INFORMED PT THAT THE WOUND CARE NURSE IS NOT HERE TODAY AND WILL NOT BE HERE TOMORROW. PT STATED THAT HE GOES TO THE WOUND CARE CLINIC EVERY WEEK TO HAVE IT CHANGED. ADRIANNA BELL, SCRUBBER SYSTEM ATTENDANT IS IN ROOM, INFORMED PT THAT ALESIA WITH WOUND CARE WILL BE BACK SATURDAY. I INFORMED PT THAT I WOULD BE HAPPY TO CHANGE IT FOR HIM TODAY. PT STATED HE WILL JUST WAIT BECAUSE HE STATED HE MIGHT BE GOING HOME TOMORROW. WILL PASS THIS ON AND CONTINUE TO MONITOR.
[2016-06-28 16:18] VITALS: BP 139/66
--- NOTE | 2016-06-28 17:32 | NUR ---
PT SITTING UP IN CHAIR WITH EYES OPEN WATCHING TV. DENIES ANY NEED AT CURRENT TIME. WILL CONTINUE TO MONITOR.
[2016-06-28 20:00] VITALS: BP 109/54
[2016-06-29] VITALS: BP 134/71
--- NOTE | 2016-06-29 03:32 | NUR ---
API PRODUCT MANAGER AT BEDSIDE TO OBTAIN VITALS, CALL LIGHT IN REACH. WILL CONTINUE WITH PLAN OF CARE.
[2016-06-29 04:00] VITALS: BP 139/74
[2016-06-29 06:22] LABS: BASOPHILS 0 % (0.0-2.0); EOSINOPHILS 0.3 % (0-7); HEMATOCRIT 42.7 % (42.0-54.0); HEMOGLOBIN 12.7 g/dL (13.5-17.5); IMMATURE GRANULOCYTES 0.5 % (0-5); LYMPHOCYTES 25.7 % (15-50); MCH 26.2 pg (26.0-34.0); MCHC 29.7 g/dL (31.0-37.0); MCV 88.2 fL (80.0-100.0); MEAN PLATELET VOLUME 9.3 fL (7.4-10.4); MONOCYTES 8.4 % (2-11); NEUTROPHILS 65.1 % (40-80); PLATELET COUNT 232 10x3/uL (130-400); RBC 4.84 10x6/uL (4.20-6.10); RDW 16.7 % (11.5-14.5); WBC 9.4 10x3/uL (4.8-10.8)
[2016-06-29 06:28] LABS: INR 1.32 (0.85-1.17); PROTIME 16.3 SECONDS (11.6-15.0)
[2016-06-29 06:42] LABS: ALBUMIN 3.3 g/dL (3.4-5.0); ALKALINE PHOSPHATASE 78 U/L (46-116); BILIRUBIN - TOTAL 0.54 mg/dL (0.2-1.3); CALC OSMOLALITY 280 mosm/kg (275-300); CALCIUM 9.2 mg/dL (8.5-10.1); CARBON DIOXIDE 36.6 mmol/L (21.0-32.0); CHLORIDE - SERUM 95 mmol/L (98-107); GLUCOSE 162 mg/dL (74-106); POTASSIUM - SERUM 4.4 mmol/L (3.5-5.1); PROTEIN - SERUM 6.9 g/dL (6.4-8.2); SODIUM 135 mmol/L (136-145); UREA NITROGEN 32 mg/dL (7-18); eGFR NON AFRICAN AMERICAN 79 mL/min (90-120)
[2016-06-29 06:43] LABS: ALT (SGPT) 33 U/L (10-68)
--- NOTE | 2016-06-29 07:29 | NUR ---
FSBS 162 PT. REFUSED COVERAGE STATES MY AT HOME SAYS IF SUGAR IS UNDER 200 I DON'T NEED INSULIN COVERAGE
--- NOTE | 2016-06-29 07:30 | NUR ---
AM ROUNDING- PT SITTING UP ON SIDE OF THE BED WITH EYES OPEN RESTING ON SIDE TABLE. DENIES ANY NEED AT CURRENT TIME. PT STATES THE DOCTOR SAYS HE CAN GO HOME TODAY BUT HE IS NOT SURE IF HE IS READY FOR THAT. PT STATES HE THINKS HE NEEDS TO BUILD UP HIS STRENGTH BEFORE GOING HOME. FSBS ACHS, 162 THIS AM. PT REFUSED INSULIN ORDERED PER SLIDING SCALE. PT STATED TO SQUADRON WORKER NURSE HE WILL NOT TAKE INSULIN IF HIS BS IS LESS THAN 200. ON 02 AT 3L VIA NC. IV SEEN TO LEFT WRIST THAT IS CURRENTLY SALINE LOCKED. ON MONITOR SHOWING SR, HR 77. NO NEED AT CURRENT TIME. WILL CONTINUE TO MONITOR AND FOLLOW PLAN OF CARE.
[2016-06-29 07:56] VITALS: BP 134/80
[2016-06-29 12:22] VITALS: BP 149/68
--- NOTE | 2016-06-29 13:21 | NUR ---
CALLED NATASHA TO SEE WHAT SHE WANTED ME TO DO ABOUT PTS DRESSINGS WITH WRAPS TO LOWER EXTREMIEITES. NATASHA STATED SHE CONSULTED WOUND CARE. I INFORMED NATASHA MADDOX NP THAT ALESIA WITH WOUND CARE WAS GONE AND WOUNLD'NT BE BACK UNTIL SATURDAY. NATASHA STATED TO CALL PTS USUAL WOUND CARE CLINIC TO SEE WHAT THEY DO. INFORMED NATASHA THAT PT STATED WOUND CARE CLINIC IS CLOSED EARLY ON [place]IDA[place] AND WOULD NOT BE OPEN. NATASHA MADDOX NP STATED TO ASK ADRIANNA BELL, UNDERGROUND CONDUIT INSTALLER WHAT WOULD BE THE BEST OPTION. ADRIANNA BELL INFORMED ME THAT IF PTS DRESSING WAS NOT BOTHERING HIM TO TRY AND WAIT UNITL SATURDAY IF PT WILL STILL BE HERE FOR THE WOUND CARE NURSEALESIA TO CHANGE PTS DRESSING WOUND CARE CLINIC DOES. ASKED PT IF DRESSING WAS BOTHERING HIM OR IF HE WAS EXPERIENCING ANY PAIN. PT STATED HE FELT FINE AND IT IS CURRENTLY NOT BOTHERING HIM. PT STATED TO ME THAT IT WAS OKAY TO WAIT UNTIL SATURDAY WHEN WOUND CARE NURSE WOULD BE HERE TO CHANGE IT WOUND CARE CLINIC DOES. I INFORMED PT THAT I WOULD BE HAPPY TO CHANGE IT TODAY, PT STATED HE WOULD WAIT UNTIL SATURDAY. WILL CHANGE HOSE TO RLE WHEN GETS BACK WITH NEW HOSE PT HAS AT HOME. WILL CONTINUE TO MONITOR.
--- NOTE | 2016-06-29 14:28 | NUR ---
NUTRITION MONITORING & EVAL CHART REVIEWED. PT VISIT. TOLERATING CURRENT DIET, 100% INTAKE RECENT MEALS. RD FOLLOWING
[2016-06-29 16:06] VITALS: BP 115/63
--- NOTE | 2016-06-29 16:06 | NUR ---
Rehab Prescreening Consult recieved and the chart has been reviewed. According to the PT notes he walked 250 ft on 02, which is what he uses at home. He walked without device. This is to high functioning to qualify for IRF at this time. Heather Thompson RN Clinical Liaison, Rehab
--- NOTE | 2016-06-29 17:02 | NUR ---
CHANGED PTS HOSE (FROM HOME) TO RLE. SKIN TEARS SEEN. COVERED WITH 4X4 GAUZE PADS AND COVERED WITH KERLIX. APPLIED PTS CLEAN HOSE FROM HOME THAT BROUGHT AND APPLIED NEW NON-SKID SOCKS REQUESTED BY PT. TOLERATED WELL.
--- NOTE | 2016-06-29 17:47 | NUR ---
PT SITTING UP IN CHAIR WITH EYES OPEN RESING WATCHING TV. DENIES ANY NEED AT CURRENT TIME. WILL CONTINUE TO MONITOR.
[2016-06-29 20:31] VITALS: BP 131/60
--- NOTE | 2016-06-29 21:27 | NUR ---
PT LAYING IN BED NO DISTRESS OBSERVED CALL LIGHT IN REACH SRX2 BED LOW AND LOCKED WILL MONITOR
[2016-06-30 00:15] VITALS: BP 140/70
[2016-06-30 04:30] VITALS: BP 129/59
--- NOTE | 2016-06-30 04:57 | NUR ---
PT DENIES NEED OR WANT FOR NITRO PATCH R/T NO CHEST PAIN. PT IS RESTING QUIETLY IN BEDSIDE CHAIR. DENIES ANY CURRENT NEEDS AT THIS TIME. CL IN REACH. WILL CPOC.
[2016-06-30 04:59] LABS: BASOPHILS 0 % (0.0-2.0); EOSINOPHILS 0.5 % (0-7); HEMATOCRIT 43.1 % (42.0-54.0); HEMOGLOBIN 12.9 g/dL (13.5-17.5); IMMATURE GRANULOCYTES 0.7 % (0-5); LYMPHOCYTES 14.1 % (15-50); MCH 26.2 pg (26.0-34.0); MCHC 29.9 g/dL (31.0-37.0); MCV 87.6 fL (80.0-100.0); MONOCYTES 4.8 % (2-11); NEUTROPHILS 79.9 % (40-80); PLATELET COUNT 221 10x3/uL (130-400); RBC 4.92 10x6/uL (4.20-6.10); RDW 16.5 % (11.5-14.5); WBC 8.4 10x3/uL (4.8-10.8)
[2016-06-30 05:08] LABS: INR 1.37 (0.85-1.17); PROTIME 16.7 SECONDS (11.6-15.0)
[2016-06-30 05:22] LABS: CALCIUM 9.3 mg/dL (8.5-10.1); CARBON DIOXIDE 35.2 mmol/L (21.0-32.0); CHLORIDE - SERUM 95 mmol/L (98-107); SODIUM 133 mmol/L (136-145); UREA NITROGEN 29 mg/dL (7-18); eGFR NON AFRICAN AMERICAN 79 mL/min (90-120)
[2016-06-30 05:23] LABS: CALC OSMOLALITY 279 mosm/kg (275-300); GLUCOSE 243 mg/dL (74-106); POTASSIUM - SERUM 5.1 mmol/L (3.5-5.1)
--- NOTE | 2016-06-30 07:10 | NUR ---
PT REC'D FROM [facility]. SITTING UP IN CHAIR AT BEDSIDE WATCHING TV. AAOX4. NO COMPLAINTS OF PAIN. DRESSING TO BLE DIANA, DRY, AND INTACT. +2 PEDAL PULSES. PIV TO L WRIST FREE OF REDDNESS AND SWELLING. BED LOW, CALL LIGHT IN REACH, DENIES NEEDS. CPOC.
[2016-06-30 07:55] VITALS: BP 145/75
--- NOTE | 2016-06-30 08:25 | NUR ---
MORNING MEDS PASSED AT THIS TIME. STILL SITTING UP IN CHAIR AT BEDSIDE. BREAKFAST TRAY IN ROOM. BED LOW, CALL LIGHT IN REACH, DENIES NEEDS, CPOC.
--- NOTE | 2016-06-30 10:05 | NUR ---
UP IN CHAIR. BILAT LOWER EXTREMETRY DSGS INTACT. CALL LIGHT IN REACH. WILL MONITOR.
[2016-06-30 11:47] VITALS: BP 159/87
--- NOTE | 2016-06-30 12:00 | NUR ---
CURRENT FSBS 273. 10 UNITS OF INSULIN ADMINISTERED PER SS. LUNCH TRAY IN ROOM. BED LOW, CALL LIGHT IN REACH, DENIES NEEDS. CPOC.
[2016-06-30 15:30] VITALS: BP 151/75
--- NOTE | 2016-06-30 19:17 | NUR ---
INITIAL ROUNDS COMPLETED. PT SITTING UP IN A CHAIR. DENIES ANY DISCOMFORT. CALL LIGHT WITHIN REACH.
[2016-06-30 20:26] VITALS: BP 139/64
--- NOTE | 2016-06-30 22:14 | NUR ---
ASSESSMENT COMPLETED AT 1950 HRS. VSS. SR PER CM HR 75. IV TO L HAND SL. BILAT LEG DRESSING CLEAN. DRY AND INTACT. PT STATED WOUND CARE NURSE WILL CHANGE ON SATURDAY. DECLINED OFFER TO CHANGE. NO LEAKAGE NOTED. PALBABLE PEDAL PULSES. 2+ BILAT PEDAL EDEMA NOTED. FEET WARM TO TOUCH WITH BRISK CAP REFILL TO TOES. LUNGS DIMINISHED TO LOWER LOBES WITH SCATTERED INSP WHEEZES NOTED TO LLL. R WRIST CLEAN, DRY AND INTACT. O2 2LNC. PM FSBS 185. DECLINED INSULIN. PM SNACK SERVED. PT CURRENTLY WATCHING TV. DENIES ANY DISCOMFORT. SR UP X2, CALL LIGHT WITHIN REACH.
--- NOTE | 2016-06-30 23:16 | NUR ---
OFFERED TO RESITE IV. PT DECLINED AT THIS TIME STATING HE WANTS TO SLEEP AND MAYBE RESITE IN AM.
[2016-07-01] VITALS (7 sets, daily range): BP systolic 136–168; BP diastolic 56–76
--- NOTE | 2016-07-01 00:24 | NUR ---
PT UP IN RECLINER RESTING WITH EYES CLOSED. RESP EVEN AND REGULAR. CALL LIGHT WITHIN REACH.
--- NOTE | 2016-07-01 02:57 | NUR ---
PT RESTING WITH EYES CLOSED IN RECLINER. RESP EVEN AND REGULAR. SR UP X2, CALL LIGHT WITHIN REACH.
--- NOTE | 2016-07-01 04:21 | NUR ---
PT SITTING UP IN A CHAIR. DENIES ANY DISCOMFORT. WILL CONTINUE TO MONITOR.
--- NOTE | 2016-07-01 04:48 | NUR ---
ATTEMPTED X2 NEW IV SITE WITHOUT SUCCESS. PT TOLERATED ACTIVITY WELL. IV TO L WRIST REDRESSED. SITE CLEAN AND DRY WITH NO REDNESS NOTED. GOOD FLASHBACK. WILL CONTINUE TO MONITOR.
[2016-07-01 05:03] LABS: BASOPHILS 0.1 % (0.0-2.0); EOSINOPHILS 1.5 % (0-7); HEMATOCRIT 42.4 % (42.0-54.0); HEMOGLOBIN 12.9 g/dL (13.5-17.5); IMMATURE GRANULOCYTES 1.5 % (0-5); LYMPHOCYTES 15.7 % (15-50); MCH 26.4 pg (26.0-34.0); MCHC 30.4 g/dL (31.0-37.0); MCV 86.9 fL (80.0-100.0); MEAN PLATELET VOLUME 9.4 fL (7.4-10.4); MONOCYTES 5.7 % (2-11); NEUTROPHILS 75.5 % (40-80); PLATELET COUNT 235 10x3/uL (130-400); RBC 4.88 10x6/uL (4.20-6.10); RDW 16.4 % (11.5-14.5); WBC 8.8 10x3/uL (4.8-10.8)
[2016-07-01 05:30] LABS: CALC OSMOLALITY 280 mosm/kg (275-300); CALCIUM 9.4 mg/dL (8.5-10.1); CARBON DIOXIDE 35.8 mmol/L (21.0-32.0); CHLORIDE - SERUM 96 mmol/L (98-107); CREATININE - SERUM 0.9 mg/dL (0.6-1.3); GLUCOSE 224 mg/dL (74-106); POTASSIUM - SERUM 5.1 mmol/L (3.5-5.1); SODIUM 134 mmol/L (136-145); UREA NITROGEN 28 mg/dL (7-18); eGFR NON AFRICAN AMERICAN 89 mL/min (90-120)
[2016-07-01 05:33] LABS: INR 1.59 (0.85-1.17); PROTIME 18.9 SECONDS (11.6-15.0)
--- NOTE | 2016-07-01 06:38 | NUR ---
VSS THROUGHOUT NIGHT. SR PER CM. PT DENIED ANY DISCOMFORT. AM FSBS 197. PT STAES WILL DECLINE IT IS LESS THAN 200. NEEDS MET; WILL CONTINUE TO MONTIOR.
--- NOTE | 2016-07-01 14:48 | NUR ---
ALERT AND ORIENTED X4. SITTING UP IN CHAIR. GUEST IN ROOM. DENIES SOB OR PAIN. ASK AGAIN TO CHANGE LEG DRESSINGS BILATERALLY. REFUSE DRESSING CHANGE. CONTINUE PLAN OF CARE. BED LOCKED AND LOW. CALL LIGHT IN REACH. TWO SIDERAILS UP. SINUS RHYTHM 81bpm ON TELEMETRY.
--- NOTE | 2016-07-01 20:24 | NUR ---
INITIAL ROUNDS COMPLETED AT 1930 HRS. PT RESTING WITH EYES CLOSED IN RECLINER. RESP EVEN AND REGULAR. ASSESSMENT COMPLETED AT 2009 HRS. VSS. SR PER CM HR 73. IV TO L WRIST SL. DRESSING TO BILAT LOWER LEGS CLEAN, DRY AND INTACT. PT DECLINES OFFFER TO JORDAN DRESSINGS. STATES WOUND CARE NURSE WILL DUE IN AM. 2+ PEDAL EDEMA NOTED. PALPABLE PEDAL PULSES. TOES WARM TO TOUCH WITH BRISK CAP REFILL. O2 2LNC. LUNGS DIMINISHED IN BASES BILAT. PM FSBS 201. PT DECLINES INSULIN. WILL CONTINUE TO MONITOR. CALL LIGHT WITHIN REACH.
--- NOTE | 2016-07-01 21:54 | NUR ---
PM MEDS GIVEN. PT DENIES ANY DISCOMFORT. WILL CONTINUE TO MONITOR.
--- NOTE | 2016-07-01 23:39 | NUR ---
PT RESTING WITH EYES CLOSED IN THE RECLINER. RESP EVEN AND REGULAR. CALL LIGHT WITHIN REACH.
[2016-07-02 00:30] VITALS: BP 132/55
--- NOTE | 2016-07-02 02:07 | NUR ---
PT RESTING WITH EYES CLOSED. RESP EVEN AND REGULAR. CALL LIGHT WITHIN REACH.
--- NOTE | 2016-07-02 04:41 | NUR ---
PT RESTING WITH EYES CLOSED IN THE RECLINER. RESP EVEN AND REGULAR. CALL LIGHT WITH IN REACH.
[2016-07-02 04:45] VITALS: BP 145/66
[2016-07-02 05:24] LABS: BASOPHILS 0.1 % (0.0-2.0); EOSINOPHILS 3.8 % (0-7); HEMATOCRIT 41.8 % (42.0-54.0); HEMOGLOBIN 12.7 g/dL (13.5-17.5); IMMATURE GRANULOCYTES 1.9 % (0-5); LYMPHOCYTES 23.4 % (15-50); MCH 26.3 pg (26.0-34.0); MCHC 30.4 g/dL (31.0-37.0); MCV 86.5 fL (80.0-100.0); MEAN PLATELET VOLUME 9.3 fL (7.4-10.4); MONOCYTES 6.4 % (2-11); NEUTROPHILS 64.4 % (40-80); PLATELET COUNT 218 10x3/uL (130-400); RBC 4.83 10x6/uL (4.20-6.10); RDW 16.5 % (11.5-14.5); WBC 9.3 10x3/uL (4.8-10.8)
[2016-07-02 05:53] LABS: INR 1.82 (0.85-1.17); PROTIME 21.1 SECONDS (11.6-15.0)
[2016-07-02 06:07] LABS: CALC OSMOLALITY 280 mosm/kg (275-300); CALCIUM 9.2 mg/dL (8.5-10.1); CARBON DIOXIDE 38.5 mmol/L (21.0-32.0); CHLORIDE - SERUM 94 mmol/L (98-107); CREATININE - SERUM 0.8 mg/dL (0.6-1.3); GLUCOSE 164 mg/dL (74-106); POTASSIUM - SERUM 4.5 mmol/L (3.5-5.1); SODIUM 136 mmol/L (136-145); UREA NITROGEN 27 mg/dL (7-18); eGFR NON AFRICAN AMERICAN > 90 mL/min (90-120)
--- NOTE | 2016-07-02 06:14 | NUR ---
VSS THROUGHOUT NIGHT. SR PER CM. PT DENIED ANY DISCOMFORT. AM FSBS 152. PT DECLINED INSULIN. NEEDS MET; WILL CONTINUE TO MONITOR.
--- NOTE | 2016-07-02 07:24 | NUR ---
PT SITTING UP IN CHAIR. DENIES NEEDS WILL CONT TO MONITOR.
[2016-07-02 08:00] VITALS: BP 145/57
[2016-07-02 12:00] VITALS: BP 159/89
--- NOTE | 2016-07-02 12:26 | NUR ---
PT SITTING UP IN CHAIR DENIES NEEDS. PT WAS REFUSING FOR STAFF TO CHANGE HIS BILATERAL DRESSINGS ON HIS LEGS. WANTED WOUND CARE NURSE TO DO THEM. ALESIA DID THEM THIS MORNING.
--- NOTE | 2016-07-02 12:51 | NUR ---
WOUND CARE CONSULT: NOTED PT TO HAVE A PROFORE 4 LAYER COMPRESSION DRESSING ON HIS LEFT LOWER LEG. REMOVED DRESSING AND NOTED DRY, FLAKY, SCALEY SKIN WITH EDEMA. HE IS A CURRENT PT OF DR. ALEGRE AT WOUND CLINIC (WEEKLY FOR COMPRESSION DRESSING CHANGES). NOTED 2 SCABBED AREAS THAT RESTORE SILVER DRESSING WAS APPLIED. THESE WOUND ARE ALMOST HEALED. CLEANSED WELL WITH WOUND PLANT UTILITIES ENGINEER AND 4X4S AND PATTED DRY. APPLIED UNNA BOOT TO LEFT LOWER LEG AND COVERED WITH COBAN. RIGHT LOWER LEG IS WEEPING AND IS EDEMATOUS. IT IS COVERED BY COMPRESSION SPANDAGE STOCKING. CLEANSED WELL AND DRIED. PLACED MAXORB AG OVER WEEPING AREAS, COVERED WITH 4X4S AND SECURED WITH KERLIX THEN APPLIED CLEAN SPANDAGE. PT TOLERATED WELL. WILL CONTINUE TO MONITOR.
--- NOTE | 2016-07-02 14:20 | NUR ---
Patient Name: MONIQUE BEDOLLA Encounter No: [id number] : 1950 Primary Insurance: MEDICARE A & B Anticipated DC Date: Planned Disposition: Inpatient Rehab External Planned Provider: [facility] DCP follow-up note: CM SPOKE TO [facility] OF INPATIENT REHAB, THEY PLAN TO ACCEPT PT TODAY FOR REHAB. PT NOTIFIED, IN AGREEMENT WITH DISCHARGE TO INPATIENT REHAB. IMPORTANT MESSAGE FROM MEDICARE PROVIDED AND EXPLAINED. [facility] TO CONTACT MED 2 NURSE WITH ROOM NUMBER WHEN READY TO ACCEPT PT AND NURSE REPORT. Philip Patel, CASE MANAGEMENT
[2016-07-02] MEDS ORDERED: BROVANA15 MCG/2 M INH (15:31)
[2016-07-02] MEDS ORDERED: COUMADIN10 MG PO (15:31)
[2016-07-02] MEDS ORDERED: IPRAT-ALBUT 0.5-3 ML INH (15:31)
[2016-07-02] MEDS ORDERED: BENZONATATE200 MG PO (15:32)
[2016-07-02] MEDS ORDERED: PULMICORT0.5 MG/21 UPD (15:32)
[2016-07-02] MEDS ORDERED: COREG12.5 MG PO (15:32)
[2016-07-02] MEDS ORDERED: MUCINEX DM ER1 EAC1 PO (15:32)
[2016-07-02] MEDS ORDERED: MELATONIN 3 MG1 TAB PO (15:33)
[2016-07-02] MEDS ORDERED: HUMALOG 30100 UNITS/ SC (15:35)
--- NOTE | 2016-07-02 18:03 | NUR ---
PT SITTING UP IN CHAIR. HAVE TRIED TO CALL REPORT TO REHAB X3 NOW STILL NO ANSWER WILL KEEP TRYING
--- NOTE | 2016-07-02 18:18 | NUR ---
CALLED REPORT TO [facility]ANO IN REHAB. WENT OVER DC PAPERWORK WITH PT. PT VERBALIZES UNDERSTANDING. DC PIV WITH CATHETER TIP INTACT. GIVEN PT CARDIAC STENT CARD. PT GOING TO REHAB ON TELE. COMPUTER REPAIRER TO TAKE PT DOWNSTAIRS.
--- NOTE | 2016-07-02 18:43 | NUR ---
EDGE BANDING MACHINE OFFBEARER WHEELED PT DOWNSTAIRS TO REHAB ROOM [id number]
--- NOTE | 2016-07-09 10:08 | OP ---
PATIENT NAME: MONIQUE BEDOLLA MEDICAL RECORD: [id number] :48 LOCATION:D.M2 D.2102 ADMISSION DATE:06/23/16 SURGEON: MOHSNE DONALDSON MD DATE OF OPERATION: 06/27/2016 PROCEDURES: 1. PTCA stent RCA. 2. Left heart catheterization. 3. Selective coronary angiography. 4. Left ventriculogram. INDICATION: Angina and coronary artery disease. PROCEDURE IN DETAIL: After informed consent was obtained and after detailed explanation of risks, benefits as well as alternative therapies, the patient elected to proceed with angiogram and angioplasty. The right radial area was prepped and draped in normal sterile fashion. The right radial artery was cannulated via modified Seldinger technique with placement of 6-Chinese sheath. All catheters exchanged through this sheath. FINDINGS: The left ventriculogram was performed in the standard 30-degree SNYDER view reveals global hypokinesis. Overall ejection fraction in the 25% to 30% range. SELECTIVE CORONARY ANGIOGRAPHY: 1. Left main has no significant angiographic disease. 2. Left anterior descending has mild irregularities, but no flow-limiting stenosis. 3. The left circumflex has mild irregularities, but no flow-limiting stenosis. 4. The right coronary is very large, dominant with a 95% stenosis in the proximal vessel. PTCA STENT OF THE RCA: The stents used were 4.0 x 26 and 4.0 x 9 both Integrity stents. Result was 0% residual stenosis. OVERALL IMPRESSION: Successful percutaneous transluminal coronary angioplasty stent of the right coronary artery going from 90% to 95% initial stenosis to 0% residual. TRANSINT:[id number] Voice Confirmation ID: [id number] DOCUMENT ID: [id number] MOHSEN DONALDSON MD at 1008 CC: [id number] DICTATION DATE: 06/27/16 0918 DIRECTOR HEALTH: 06/27/16 1311 DIS IN 07/02/16 [place] [address]
--- NOTE | 2016-07-17 08:17 | EC ---
PATIENT:MONIQUE BEDOLLA DATE OF SERVICE: 06/23/16 SEX: M MEDICAL RECORD: [id number] DATE OF : [birth year] LOCATION:D.M2 D.210 AGE OF PATIENT: 66 ADMISSION DATE: 06/23/16 REFERRING PHYSICIAN: INTERPRETING PHYSICIAN: CAREY WADE M.D. ECHOCARDIOGRAM REPORT ECHO CHARGES 4 ECHO COMPLETE CLINICAL DIAGNOSIS: DYSPNEA ECHOCARDIOGRAPHIC MEASUREMENTS (adult normal given) AC root (d.<3.7cm) 3.5 LV Septum d (<1.2 cm> 1.4 Valve Excursion 2.3 LV Septum (systole) 1.7 Left Atria (s.<4.0cm> 5.0 LVPW d(<1.2cm) 1.4 RV (d.<2.3cm) 4.6 LVPW (sytole) 1.8 LV diastole(<5.6CM) 7.1 MV E-F(>70mm/sec) LV systole 5.6 LVOT Diameter 2.2 MV exc.(>10mm) Est.ejection fraction (50-75%) Pericardial Effusion N DOPPLER: LVIT A 48.0 E 77.0 LA RVSP 51.4 LVOT 76.0 AOP1/2T Asc. Ao 108 RVOT 42.0 RA PA 64.0 AV Gradient Peak 4.7 AV Mean 2.4 AV Area 2.7 MV Gradient Peak 5.2 MV Mean 1.6 MV Area COMMENTS: Lawyer Probate: Jacki BONDOE Pay Station Attendant:2 Dr. Wade TAPE# PACS DATE OF SERVICE: 06/24/2016 REFERRING PHYSICIAN: Aly Dee MD. INDICATION: Dyspnea. DESCRIPTION: Left ventricle was moderately to severely dilated. There is severe LV dysfunction noted. Estimated ejection is in the order of 25%. Mitral valve is structurally normal. There is mild regurgitation seen. Left atrium is moderately dilated. The aortic valve is trileaflet. There is no stenosis or ECHOCARDIOGRAM REPORT [id number] MONIQUE BEDOLLA regurgitation seen. Right ventricle is mildly dilated. Tricuspid valve is normal. There is moderate regurgitation seen. Right ventricular systolic pressure is elevated at 51 mmHg. There is no pericardial effusion noted. IMPRESSION: 1. Moderate to severe left ventricular dilation with severe left ventricular dysfunction with ejection fraction of 25%. 2. Mild mitral regurgitation. 3. Moderate tricuspid regurgitation with elevated pulmonary pressures. TRANSINT:[id number] Voice Confirmation ID: [id number] DOCUMENT ID: [id number] CAREY WADE M.D. at 0817 CC: [id number] DICTATION DATE: 06/25/16 0729 DITCH RIDER: 06/25/16 1011 DIS IN 07/02/16 [place] [id number] [place] [id number]
--- NOTE | 2016-07-20 13:49 | CN ---
PATIENT NAME:MONIQUE BEDOLLA MEDICAL RECORD: [id number] : 46 LOCATION:[facility] D.2102 ADMIT DATE: 06/23/16 ACCOUNT: [id number] CONSULTING PHYSICIAN: ENRIQUE REN MD REFERRING PHYSICIAN: LEROY VEGAS M.D. DATE OF CONSULTATION: 06/24/2016 CONSULT REQUESTING PHYSICIAN: Leroy Vegas MD. REASON FOR CONSULTATION: Pneumonia, COPD, pulmonary edema. HISTORY OF PRESENT ILLNESS: Mr. Bedolla is a 66-year-old gentleman who has a history of COPD, home oxygen dependent. According to patient, he is fighting cold for the last 3 weeks, he cough with white yellow color sputum production. But for the last few days, he has worsening shortness of breath with swelling of the lower extremity as well as weakness of the legs. He is also having orthopnea and he started using his oxygen a little bit more regular. The patient came into the ER, workup showed that he had pneumonia and pulmonary edema. REVIEW OF SYSTEMS: Mainly in the history of present illness. PAST MEDICAL HISTORY: 1. Chronic obstructive pulmonary disease, home oxygen dependent. 2. Hyperlipidemia. 3. Hypertension. 4. Diabetes mellitus. 5. History of deep venous thrombosis. PAST SURGICAL HISTORY: 1. He has Tonsillectomy. 2. Hemorrhoidectomy. ALLERGIES: HE IS ALLERGIC TO POTASSIUM CHLORIDE. PRESENT MEDICATIONS: On [employer] was reviewed. PERSONAL AND SOCIAL HISTORY: The patient was active smoker. He quitted a year ago. He is a nondrinker. FAMILY HISTORY: Noncontributory. PHYSICAL EXAMINATION: GENERAL: Now, the patient is sitting in chair. He is not in acute distress. He is wearing nasal cannula oxygen. VITAL SIGNS: The blood pressure is 168/84, pulse is 87, respiration is 18, temperature 97.7, and SpO2 is 98%, 3.5 liter nasal cannula. HEENT: Conjunctivae pink, sclerae nonicteric. NECK: Supple, no JVD. CHEST: Bilateral crackles. No wheezing. HEART: Rhythm regular, normal sound, no murmur. ABDOMEN: Soft. Bowel sounds present. No hepatosplenomegaly. RECTAL: Deferred. EXTREMITIES: No cyanosis, no clubbing. There is 3+ pedal edema. SKIN: Warm, normal turgor. CONSULT REPORT [id number] MONIQUE BEDOLLA CENTRAL NERVOUS SYSTEM: The patient is awake and alert. There are no obvious cranial nerve abnormality. The gait was not tested. IMPRESSION: 1. Acute exacerbation of chronic obstructive pulmonary disease. 2. Pneumonia, right middle lobe, possible community-acquired pneumonia. 3. Pulmonary edema. 4. Congestive heart failure, most likely suspect systolic dysfunction. 5. Nxesw-xn-vxaicnz hypoxic respiratory failure. 6. Bilateral lower extremity ulcer, possible stasis ulcers. RECOMMENDATION: 1. Continue Levaquin. I will add Rocephin. 2. Supplemental oxygen. 3. Methylprednisolone IV. 4. Start Brovana and budesonide nebulizers. 5. Albuterol and ipratropium nebulizer. 6. Follow up labs and chest radiograph in the morning. Dr. Vegas, once again thanks for involving me in the care of Mr. Bedolla. TRANSINT:[id number] Voice Confirmation ID: [id number] DOCUMENT ID: [id number] ENRIQUE REN MD at 1349 CC: CONNIE BERNAL MD [id number] DICTATION DATE: 06/24/16 1537 ASSISTANT ASSOCIATE PROFESSOR: 06/24/16 1739 DIS IN 07/02/[address] [facility] [address] [place] [address]
== END 2016-07-02 18:43 | DRG 248 ==
LOC: D.ER 19:14 → D.M2 20:17
PROVIDERS: Emergency Medicine; Family Medicine; Internal Medicine Interventional Cardiology; ADMIT Family Medicine
PROC: B211YZZ Fluoroscopy of Multiple Coronary Arteries using Other Contrast (ICD-10-PCS; 2016-06-27)
PROC: B215YZZ Fluoroscopy of Left Heart using Other Contrast (ICD-10-PCS; 2016-06-27)
PROC: 02703DZ Dilation of Coronary Artery, One Artery with Intraluminal Device, Percutaneous Approach (ICD-10-PCS; principal; 2016-06-27 08:30)
PROC: 4A023N7 Measurement of Cardiac Sampling and Pressure, Left Heart, Percutaneous Approach (ICD-10-PCS; 2016-06-27 08:30)
DX: I11.0 Hypertensive heart disease with heart failure (principal); J96.21 Acute and chronic respiratory failure with hypoxia; J15.6 Pneumonia due to other Gram-negative bacteria; J13 Pneumonia due to Streptococcus pneumoniae; J44.0 Chronic obstructive pulmonary disease with (acute) lower respiratory infection; J44.1 Chronic obstructive pulmonary disease with (acute) exacerbation; I50.23 Acute on chronic systolic (congestive) heart failure; I42.9 Cardiomyopathy, unspecified; E11.65 Type 2 diabetes mellitus with hyperglycemia; E11.40 Type 2 diabetes mellitus with diabetic neuropathy, unspecified; Z86.718 Personal history of other venous thrombosis and embolism; Z79.01 Long term (current) use of anticoagulants; E78.5 Hyperlipidemia, unspecified; G47.33 Obstructive sleep apnea (adult) (pediatric); I27.2 Other secondary pulmonary hypertension; I08.1 Rheumatic disorders of both mitral and tricuspid valves; Z99.81 Dependence on supplemental oxygen; I25.10 Atherosclerotic heart disease of native coronary artery without angina pectoris; Z87.891 Personal history of nicotine dependence

== ENCOUNTER 2016-07-02 18:34 | Inpatient (IN) | payer MEDICARE, OTHER ==
[~2016-07-02] VITALS: Ht 190.5 cm; Wt 113.4 kg
[~2016-07-02 18:34] MED LIST: AFRIN15 ML NASAL; BENZONATATE200 MG PO; BROVANA15 MCG/2 M INH; CHOLESTYRAMIN4 G/PK1 PO; COREG12.5 MG PO; COUMADIN10 MG PO; COUMADIN7.5 MG PO; GLIMEPIRIDE4 MG PO; HUMALOG 30100 UNITS/ SC; IPRAT-ALBUT 0.5-3 ML INH; JANUMET XR 50-1 EACH PO; LASIX40 MG PO; LIPITOR20 MG PO; LIPITOR40 MG PO; MELATONIN 3 MG1 TAB PO; METOPROLOL TART25 MG PO; MUCINEX DM ER1 EAC1 PO; NEXIUM40 MG PO; PULMICORT0.5 MG/21 UPD; XALATAN 0.0052.5 ML EACH EYE; ZESTRIL20 MG PO
--- NOTE | 2016-07-02 19:30 | NUR ---
PT IN BED AT 45 DEGREES. NO COMPLAINTS MADE KNOWN. DID REQUEST A SNACK WHICH PUDDING AND 2%MILK GIVEN PER REQUEST. NO SIGN/SYMPTOMS OF DISTRESS. ORIENTED TO ROOM, PHONE, AND CALL LIGHT SYSTEM. CALL LIGHT IN REACH. WILL CONTINUE TO OBSERVE.
[2016-07-02 23:33] VITALS: BP 138/78
--- NOTE | 2016-07-03 00:25 | NUR ---
PT IN BED WITH LIGHTS OUT EXCEPT FOR VANITY AND BATHROOM PER REQUEST. SUPERVISION ASSIST WHILE AMBULATING TO BATHROOM NO DIFFICULTIES NOTED. SLOW STEADY GAIT. CALL LIGHT IN REACH.
--- NOTE | 2016-07-03 05:12 | NUR ---
PT IN BED WATCHING TV. SLEPT FOR A FEW HOURS. NO CONCERNS OR NEEDS MADE KNOWN. CALL LIGHT IN REACH.
[2016-07-03 05:57] LABS: BASOPHILS 0.1 % (0.0-2.0); EOSINOPHILS 3.7 % (0-7); HEMATOCRIT 40.7 % (42.0-54.0); HEMOGLOBIN 12.3 g/dL (13.5-17.5); IMMATURE GRANULOCYTES 1.7 % (0-5); LYMPHOCYTES 24.1 % (15-50); MCH 26.2 pg (26.0-34.0); MCHC 30.2 g/dL (31.0-37.0); MCV 86.8 fL (80.0-100.0); MEAN PLATELET VOLUME 9.1 fL (7.4-10.4); MONOCYTES 5.9 % (2-11); NEUTROPHILS 64.5 % (40-80); PLATELET COUNT 189 10x3/uL (130-400); RBC 4.69 10x6/uL (4.20-6.10); RDW 16.6 % (11.5-14.5); WBC 10.7 10x3/uL (4.8-10.8)
[2016-07-03 06:27] LABS: CALC OSMOLALITY 279 mosm/kg (275-300); CALCIUM 9.4 mg/dL (8.5-10.1); CHLORIDE - SERUM 97 mmol/L (98-107); GLUCOSE 138 mg/dL (74-106); POTASSIUM - SERUM 4.8 mmol/L (3.5-5.1); SODIUM 137 mmol/L (136-145); UREA NITROGEN 25 mg/dL (7-18); eGFR NON AFRICAN AMERICAN 79 mL/min (90-120)
--- NOTE | 2016-07-03 08:00 | NUR ---
PT IS RESTING IN HIS ROOM SITTING ON THE SIDE OF HIS BED. ALERT AND ORIENTED X 4. DENIES ACUTE DISCOMFORT AT THIS TIME. NO SOB NOTED. 02 IS ON @ 2LPM PER NC. TELEMETRY BOX IS ON AND INTACT. KRISS. LEG DRESSINGS ARE CDI. SR'S ARE UP X 2 IN BED. CALL LIGHT AND BEDSIDE TABLE ARE WITHIN EASY REACH.
--- NOTE | 2016-07-03 09:16 | NUR ---
PT IS PARTICIPATING IN THERAPY AT THIS TIME.
[2016-07-03 09:44] VITALS: BP 144/67
--- NOTE | 2016-07-03 12:13 | NUR ---
PT IS FEEDING SELF LUNCH IN HIS ROOM. NO NEEDS VOICED.
[2016-07-03 13:48] VITALS: Ht 190.5 cm; Wt 113.4 kg
--- NOTE | 2016-07-03 15:09 | NUR ---
PT IS RESTING IN HIS ROOM TALKING TO HIS NEW ROOMMATE. NO NEEDS VOICED.
--- NOTE | 2016-07-03 17:00 | NUR ---
SITTING UP IN BED.DENIES NEEDS.
--- NOTE | 2016-07-03 17:54 | NUR ---
PT IS RESTING IN HIS ROOM VISITING HIS ROOM MATE. PT DENIES PAIN OR DISCOMFORT. NO SOB NOTED.
[2016-07-03 19:00] VITALS: BP 143/61
--- NOTE | 2016-07-03 19:30 | NUR ---
PT IN RECEIVED IN BED WATCHING TV. NO COMPLAINTS OR CONCERNS NOTED. NO SIGN/SYMPTOMS OF DISTRESS. WATER AND CALL LIGHT IN REACH.
--- NOTE | 2016-07-04 04:08 | NUR ---
PT IN BED WITH EYES CLOSED AND CHEST RISING. UP FREQUENTLY STATING UNABLE TO SLEEP. SLEEPING MORE TONIGHT THAN PREVIOUS. NO COMPLAINTS OF PAIN OR OTHER NEEDS NOTED. CALL LIGHT IN REACH.
[2016-07-04 07:15] LABS: BASOPHILS 0.1 % (0.0-2.0); EOSINOPHILS 5.3 % (0-7); HEMATOCRIT 40.8 % (42.0-54.0); HEMOGLOBIN 12.2 g/dL (13.5-17.5); IMMATURE GRANULOCYTES 1.5 % (0-5); LYMPHOCYTES 20.2 % (15-50); MCH 26.2 pg (26.0-34.0); MCHC 29.9 g/dL (31.0-37.0); MCV 87.7 fL (80.0-100.0); MEAN PLATELET VOLUME 9.2 fL (7.4-10.4); MONOCYTES 7.3 % (2-11); NEUTROPHILS 65.6 % (40-80); PLATELET COUNT 199 10x3/uL (130-400); RBC 4.65 10x6/uL (4.20-6.10); RDW 16.6 % (11.5-14.5); WBC 10.1 10x3/uL (4.8-10.8)
[2016-07-04 07:36] LABS: CALC OSMOLALITY 280 mosm/kg (275-300); CALCIUM 9.4 mg/dL (8.5-10.1); CHLORIDE - SERUM 97 mmol/L (98-107); CREATININE - SERUM 0.9 mg/dL (0.6-1.3); GLUCOSE 119 mg/dL (74-106); POTASSIUM - SERUM 4.7 mmol/L (3.5-5.1); SODIUM 138 mmol/L (136-145); UREA NITROGEN 24 mg/dL (7-18); eGFR NON AFRICAN AMERICAN 89 mL/min (90-120)
--- NOTE | 2016-07-04 07:40 | NUR ---
RECEIVED RESTING QUIETLY IN BED WITH EYES CLOSED.AROUSES EASILY.DENIES NEEDS.ASSESSMENT COMPLETED.CL IN EASY REACH,BED IN LOW POSITION.NO SIGNS OF ACUTE DISTRESS.
[2016-07-04 09:42] VITALS: BP 151/69
--- NOTE | 2016-07-04 15:00 | NUR ---
CARE TEAM MEETING: PATIENT TENATIVE DISCHARGE DATE IS 07/13/16. PCP IS [facility] ON [address]. PATIENT HAS NEBULIZER AND O2 FROM [facility]. WILL CONTINUE TO FOLLOW WITH PATIENT UNTIL DISCHARGED.
[2016-07-04 19:00] VITALS: BP 131/55
--- NOTE | 2016-07-04 19:40 | NUR ---
PT. IN BED WITH HOB AND FOB ELEVATED FOR COMFORT. LE DRESSINGS C/D/I AND SOCKS REMOVED FOR ASSESSMENT OF EXPOSED TOES/TOPS OF FEET. ASSESSMENT COMPLETED. PT. SIGNED BED/CHAIR ALARM WAIVER. CALL LIGHT WITHIN REACH FOR ANY NEEDS.
--- NOTE | 2016-07-04 22:51 | NUR ---
PT. IN BED WITH HOB UP FOR COMFORT WITH EYES CLOSED AND RESP. DEEP AND EVEN. CALL LIGHT IS WITHIN REACH.
--- NOTE | 2016-07-05 01:01 | NUR ---
PT. HAS BEEN UP TO THE BR A COUPLE OF TIMES AND IS NOW IN BED WATCHING TV. HAS NO VOICED NEEDS AT THIS TIME AND HAS HIS CALL LIGHT WITHIN REACH.
--- NOTE | 2016-07-05 03:20 | NUR ---
PT. CALLED ME INTO HIS ROOM TO LET ME KNOW WHY HE WAS SITTING UP IN THE CHAIR-HE CAN'T SLEEP, AND HE JUST WANTED TO LET ME KNOW WHAT WAS GOING ON. CALL LIGHT WITHIN REACH.
--- NOTE | 2016-07-05 04:11 | NUR ---
PT. SITTING UP IN RECLINER WITH EYES CLOSED AND RESP. EVEN. CALL LIGHT IS WITHIN HIS REACH.
[2016-07-05 06:43] LABS: INR 1.97 (0.85-1.17); PROTIME 22.5 SECONDS (11.6-15.0)
--- NOTE | 2016-07-05 07:40 | NUR ---
RECEIVED RESTING QUIETLY IN BED WITH EYES CLOSED,AROUSES EASILY.NO SIGNS OF ACUTE DISTRESS.DENIES NEEDS.ASSESSMENT COMPLETED.CL IN EASY REACH,BED IN LOW POSITION.HAS SIGNED BED ALARM WAIVER.
[2016-07-05 09:00] VITALS: BP 139/65
--- NOTE | 2016-07-05 10:06 | RHP ---
PATIENT: MONIQUE BEDOLLA MEDICAL RECORD: [id number] ACCOUNT: [id number] LOCATION:[facility]1112 : 48 ADMISSION DATE: 07/02/16 REHABILITATION HISTORY AND PHYSICAL EXAMINATION POST ADMISSION PHYSICIAN EXAMINATION DATE OF ADMISSION: 07/02/2016 ADMITTING DIAGNOSES: Acute exacerbation of chronic obstructive pulmonary disease, right middle lobe pneumonia and pulmonary edema. HISTORY OF PRESENT ILLNESS: The patient is a gentleman, who is admitted to inpatient rehabilitation for acute exacerbation of COPD, right middle lobe pneumonia and pulmonary edema. He is a 66-year-old gentleman, who has got a history of COPD, oxygen dependence. According to Mr. Bedolla, he was fighting the cold for about 3 weeks prior to coming in. He had cough with white yellow sputum at times, stated that he had been having worsening shortness of breath with swelling of the lower extremity as well as weakness of his legs a few days prior to ____. He was also having some orthopnea, started noticing that he is having to use his oxygen a lot more than normal. The patient came in to the ER. Workup showed he had pneumonia and pulmonary edema. He has got a history of cardiac workup during his acute hospital stay with an echo showing an EF of 25% to 30%. A heart cath was done on June 27 with stent placement and the patient states he feels much better and stronger since having this done. He is doing somewhat better. He is morbidly obese and is diabetic with chronic wounds to bilateral lower extremities. He lives at home with his . He has 6 steps to get into his house, independent with ADLs and mobility prior hospitalization. He is currently max assist with all mobility and ADLs. He is also very eager to participate in therapy, so he can return back home and get back to his prior level of function. COMORBIDITIES: In this patient, include pneumonia, COPD, [id number] respiratory failure, morbid obesity, cardiomegaly, cardiomyopathy, congestive heart failure, central vascular congestion on his x-ray; diabetes, history of DVT, chronic Coumadin anticoagulation, smoking history, chronic hypertension, and hyperlipidemia. PAST MEDICAL HISTORY: Significant for chronic obstructive pulmonary disease, hyperlipidemia, hypertension, diabetes, history of DVT and neuropathy. PAST SURGICAL HISTORY: Includes tonsillectomy, hemorrhoidectomy and gallbladder surgery. ALLERGIES: POTASSIUM. CURRENT MEDICATIONS: Include Januvia 50 mg b.i.d., metformin 500 mg b.i.d., polyethylene glycol 17 grams in 8 ounces of water daily, Brovana 15 mcg b.i.d., warfarin 10 mg daily, lisinopril 20 mg daily, Amaryl 4 mg daily, furosemide 40 mg b.i.d., Protonix 40 mg daily, Afrin nasal spray p.r.n., melatonin 6 mg q.h.s., Xalatan eye drops daily, and DuoNeb updrafts as needed. He is on intermediate resistance sliding scale with Humalog. He is on Mucinex D b.i.d., Questran 1 packet b.i.d., carvedilol 12.5 mg b.i.d., Pulmicort 0.5 mg b.i.d., Tessalon Perles 200 mg t.i.d., and atorvastatin 40 mg at q.h.s. HABITS: Does have a history of tobacco use. HISTORY AND PHYSICAL [id number] MONIQUE BEDOLLA FAMILY HISTORY: Noncontributory. SOCIAL HISTORY: The patient hopes to return back home with his and get back to his prior level of functioning. REVIEW OF SYSTEMS: GENERAL: Does complain of weakness and fatigue. HEENT: Denies cold, cough, or congestion. CARDIOVASCULAR: Denies any chest pain now since he is having a stent placed. LUNGS: Does complain of shortness of breath with ambulation. PHYSICAL EXAMINATION: VITAL SIGNS: Stable. He is afebrile. GENERAL: A morbidly obese gentleman, in no acute distress, alert upon exam. HEENT: Normocephalic and atraumatic. Mucosa moist. NECK: Supple. No lymphadenopathy. LUNGS: Clear at this time, although he does have a few diffuse wheezes. HEART: Regular rate and rhythm. ABDOMEN: Benign. EXTREMITIES: Does have changes consistent with chronic venous stasis. NEUROLOGIC: Intact. LABORATORY DATA: His white count is 10.7, H&H of 12 and 41 and platelet count was noted to be 189. Sodium 137, potassium 4.8, BUN and creatinine of 25 and 1.0 and blood sugar is noted to be 138. His INR is noted to be 1.82. ASSESSMENT: This 66-year-old gentleman admitted to the rehab with a working diagnosis of acute exacerbation of chronic obstructive pulmonary disease complicated by right middle lobe pneumonia and pulmonary edema. The patient has potential to make improvement. We instituted the following multidisciplinary therapies including to, but not limited to physical, occupational, respiratory, speech, nutritional services, prosthetics and orthotics. Given his complex condition and risk for more complications, rehabilitation services cannot be provided at a low level of care such as a residential facility. PLAN: 1. Admit to [facility] rehab for intensive inpatient therapy to include the following disciplines: A. Physical therapy to improve gait, all transfer skills and bed mobility to a modified independent level. B. Occupational therapy to improve activities of daily living to a modified independent level. C. Case management to assist with discharge planning and placement options. D. Nutrition to assist with nutritional needs. E. Rehabilitation nursing to assist in monitoring the patient's underlying medical conditions and to assist with any type of bowel or bladder management. 2. The patient's current medications and medical care will be continued. 3. The patient will be placed on standard fall precautions. 4. Watch his INR closely during his stay along with his blood counts. 5. We will discuss this patient during care team staff meeting this week. TRANSINT:[id number] Voice Confirmation ID: [id number] DOCUMENT ID: [id number] HISTORY AND PHYSICAL [id number] MONIQUE BEDOLLA SCOTT MD at 1006 CC: [id number] DICTATION DATE: 07/03/16 0951 STATISTICAL CONSULTANT: 07/03/16 1128 ADM IN [id number] [place] [address]
[2016-07-05 19:00] VITALS: BP 148/61
--- NOTE | 2016-07-05 19:45 | NUR ---
PT. SITTING UP IN CHAIR IN HIS ROOM WATCHING TV. ASSESSMENT COMPLETED. NO VOICED NEEDS AT THIS TIME. CALL LIGHT WITHIN REACH.
--- NOTE | 2016-07-05 23:00 | NUR ---
PT. SITTING IN CHAIR AND HIS EYES ARE CLOSED AND RESP. EVEN. PT. WAS WATCHING TV AND IT IS STILL ON. CALL LIGHT IS WITHIN REACH.
--- NOTE | 2016-07-06 03:00 | NUR ---
PT. SITTIN UP IN CHAIR WITH EYES CLOSED AND RESP. EVEN. CALL LIGHT WITHIN REACH.
--- NOTE | 2016-07-06 07:00 | NUR ---
Pt. was received at the beginning of this shift awake and oriented x 3. Pt. denied any pain or discomfort. Vital signs: WNL. Call light in reach. Will be monitoring him throughout this shift.
[2016-07-06 08:18] LABS: BASOPHILS 0.1 % (0.0-2.0); EOSINOPHILS 4.2 % (0-7); HEMATOCRIT 38.8 % (42.0-54.0); HEMOGLOBIN 11.5 g/dL (13.5-17.5); IMMATURE GRANULOCYTES 1.5 % (0-5); LYMPHOCYTES 21.5 % (15-50); MCH 26.1 pg (26.0-34.0); MCHC 29.6 g/dL (31.0-37.0); MCV 88.2 fL (80.0-100.0); MEAN PLATELET VOLUME 9.4 fL (7.4-10.4); MONOCYTES 5.8 % (2-11); NEUTROPHILS 66.9 % (40-80); PLATELET COUNT 187 10x3/uL (130-400); RDW 16.9 % (11.5-14.5)
[2016-07-06 08:30] LABS: CALC OSMOLALITY 281 mosm/kg (275-300); CALCIUM 8.9 mg/dL (8.5-10.1); CARBON DIOXIDE 38.6 mmol/L (21.0-32.0); CHLORIDE - SERUM 98 mmol/L (98-107); GLUCOSE 152 mg/dL (74-106); POTASSIUM - SERUM 4.2 mmol/L (3.5-5.1); SODIUM 138 mmol/L (136-145); UREA NITROGEN 21 mg/dL (7-18); eGFR NON AFRICAN AMERICAN 79 mL/min (90-120)
[2016-07-06 09:00] VITALS: BP 134/63
--- NOTE | 2016-07-06 18:54 | NUR ---
Pt. had an uneventful shift. No verbal complaints or distress found.
[2016-07-06 19:00] VITALS: BP 154/82
--- NOTE | 2016-07-06 20:40 | NUR ---
PT TOOK HS MEDS WITHOUT DIFFICULTY. PT REFUSED INSULIN STATING "I DONT TAKE INSULIN UNLESS MY BLOOD SUGAR IS OVER 200." PT DENIES NEEDS AT THIS TIME. BED LOW. CL IN REACH.
--- NOTE | 2016-07-06 23:35 | NUR ---
PT RESTING, EYES CLOSED. BED LOW. Glenn HERNANDEZ. RAEANN.
--- NOTE | 2016-07-07 01:15 | NUR ---
PT RESTING, EYES CLOSED. BED LOW. CL IN [facility].
--- NOTE | 2016-07-07 03:49 | NUR ---
PT AWAKE WATCHING TV, DENIES NEEDS. WCTM. BED LOW. CL IN REACH.
--- NOTE | 2016-07-07 06:08 | NUR ---
PT AM MEDS TAKEN IWTHOUT DIFFICULTY. PT DENIES NEEDS AT THIS TIME. BED LOW. CL IN REACH.
[2016-07-07 07:00] VITALS: BP 132/65
--- NOTE | 2016-07-07 07:05 | NUR ---
PT UP IN CHAIR WITH EYES CLOSED. NO DISTRESS NOTED. TELEMENTRY INTACT. WILL MONITOR.
--- NOTE | 2016-07-07 08:00 | NUR ---
SITTING UP IN BED.DENIES NEEDS.
--- NOTE | 2016-07-07 11:45 | NUR ---
PT UP IN CHAIR FSBS 146 NO COVERAGE NEEDED. DENIES PAIN AT THIS TIME. UNNA BOOTS INTACT. UP IN CHAIR FOR LUNCH.
--- NOTE | 2016-07-07 15:30 | NUR ---
PT WITH THERAPY AMBULATING DOWN THE GILL AND GIVING SHOWER. NO C/O VOICED AT THIS TIME. WILL MONITOR.
--- NOTE | 2016-07-07 17:10 | NUR ---
FSBS 233 PT TOOK 8 UNITS HUMALOG TO RIGHT ARM SQ. PT C/O TOP OF RIGHT FOOT SOCK HAD RUBBED IT RAW THAT HAD CAUSED A ABRASION, THAT WAS OOZING THRU SOCK. EXAMINED THE AREA AND WAS RED WITH WHAT APPEARED TO BE FIRST LAYER OF SKIN RUBBED OFF, AREA WAS CLEANED AND PLACED ADAPTIC OVER THE REDDED AREA AND PLACED 4X4 OVER THE ADAPTIC AND WRAPPED WITH STAN. PLACED SOCKS BACK OVER HIS FEET. PT REMAINED IN CHAIR TO FINISH MEAL.
[2016-07-07 22:54] VITALS: BP 131/81
--- NOTE | 2016-07-07 23:34 | NUR ---
PT RECEIVED IN BED WITH EYES OPEN WATCHING TV. NO CONCERNS NOTED. MEDICATIONS GIVEN PER MAR. 2100 FSBS 216 WITH 8 UNITS HUMULOG GIVEN PER MAR. NO OTHER CONCERNS NOTED AT THIS TIME. UP IN CHAIR AT BEDSIDE WATCHING TV AT THIS TIME. NO SIGN/SYMPTOMS OF DISTRESS NOTED. CALL LIGHT IN REACH.
--- NOTE | 2016-07-08 00:52 | NUR ---
PT IN BED WITH EYES OPEN WATCHING TV. NO COMPLAINTS OR CONCERNS NOTED AT THIS TIME. CALL LIGHT IN REACH.
--- NOTE | 2016-07-08 06:39 | NUR ---
PT IN CHAIR AT BEDSIDE WATCHING TV. MORNING MEDICATIONS GIVEN PER MAR. REFUSED INSULIN FOR FSBS OF 175. PT REFUSED INSULIN FOR READINGS BELOW 200. NO NEEDS OR CONCERNS. CALL LIGHT IN REACH.
[2016-07-08 07:00] VITALS: BP 133/76
--- NOTE | 2016-07-08 07:40 | NUR ---
SLEEPING IN BED.
--- NOTE | 2016-07-08 09:10 | NUR ---
ASSISTED TO BR AND VOIDED.
--- NOTE | 2016-07-08 11:44 | NUR ---
BS 264, 10 UNIT OF HUMALOG GIVEN. ALERT AND TALKING TO VISITOR.
--- NOTE | 2016-07-08 13:54 | NUR ---
SITTING IN WHEELCHAIR BY THE BED.
--- NOTE | 2016-07-08 15:57 | NUR ---
SITTING IN CHAIR WITH CALLIGHT IN REACH.
--- NOTE | 2016-07-08 17:53 | NUR ---
sitting in CHAIR EATING DINNER.
--- NOTE | 2016-07-08 20:00 | NUR ---
SITTING UP AT BEDSIDE, BUT C/O COLD. SAYS HE JUST RETURNED FROM TOILETING IN BR. VS COMPLETE AND REPORTED TO HIS PRIMARY NURSE.
[2016-07-08 20:20] VITALS: BP 169/79
--- NOTE | 2016-07-08 20:20 | NUR ---
PT SITTING ON THE EDGE OF BED, COMPLAINS OF BEING COLD, I OFFERED TO PUT HIS BLANKET AROUND HIM AND HE STATED THAT HE DIDN'T WANT IT. PT REQUESTED A CUP OF COFFEE.
--- NOTE | 2016-07-09 00:21 | NUR ---
PT IN BED WITH HOB UP FOR COMFORT, EYES CLOSED, CHEST RISING AND FALLING, 02 @ 3L VIA N/C, BED IN LOWEST POSITION AND CALL LIGHT WITHIN REACH.
--- NOTE | 2016-07-09 04:20 | NUR ---
PT SITTING UP IN CHAIR, EYES CLOSED, CHEST RISING AND FALLING, CALL LIGHT WITHIN REACH.
[2016-07-09 06:05] LABS: BASOPHILS 0.2 % (0.0-2.0); EOSINOPHILS 2.5 % (0-7); HEMATOCRIT 40.3 % (42.0-54.0); HEMOGLOBIN 11.3 g/dL (13.5-17.5); IMMATURE GRANULOCYTES 1.1 % (0-5); LYMPHOCYTES 20.3 % (15-50); MCH 25.9 pg (26.0-34.0); MCV 92.2 fL (80.0-100.0); MONOCYTES 5.9 % (2-11); PLATELET COUNT 207 10x3/uL (130-400); RBC 4.37 10x6/uL (4.20-6.10); RDW 17.2 % (11.5-14.5); WBC 10.1 10x3/uL (4.8-10.8)
[2016-07-09 06:28] LABS: CALC OSMOLALITY 279 mosm/kg (275-300); CALCIUM 8.8 mg/dL (8.5-10.1); CARBON DIOXIDE 39.7 mmol/L (21.0-32.0); CHLORIDE - SERUM 98 mmol/L (98-107); GLUCOSE 175 mg/dL (74-106); SODIUM 137 mmol/L (136-145); UREA NITROGEN 19 mg/dL (7-18); eGFR NON AFRICAN AMERICAN 79 mL/min (90-120)
[2016-07-09 09:25] VITALS: BP 125/68
[2016-07-09 13:14] LABS: INR 1.77 (0.85-1.17); PROTIME 20.6 SECONDS (11.6-15.0)
--- NOTE | 2016-07-09 19:30 | NUR ---
UP IN W/C AT BEDSIDE. DENIES NEEDS.
[2016-07-09 19:37] VITALS: BP 113/52
--- NOTE | 2016-07-09 20:50 | NUR ---
ASSISTED PATIENT BACK TO BED. ASSESSMENT AND HS MEDS COMPLETE. AGAIN C/O HAS NOT BEEN SLEEPING WELL AT NIGHT. APPARENTLY, THIS WAS NOT ADDRESSED WITH DR. VALDEZ ON DAY SHIFT TODAY. WILL PURSUE ORDER FOR NIGHTLY SEDATIVE FOR PATIENT WITH DR. VALDEZ TOMORROW.
--- NOTE | 2016-07-09 22:05 | NUR ---
PATIENT AWAKE, BUT DROWSY. IN BED WITH HOB UP 45 DEGREES. CONTINUES ON O2 @3L PER N/C. EARLIER FSBS WAS 212 AT 2049 MED new test company. GAVE PATIENT 8 UNITS HUMALOG INSULIN SC IN RIGHT UPPER ARM PER SLIDING SCALE.
--- NOTE | 2016-07-10 | NUR ---
RESTING IN BED, EYES CLOSED, HOB UP 45 DEGREES. NO DISTRESS NOTED AT THIS TIME.
--- NOTE | 2016-07-10 02:40 | NUR ---
HAS BEEN DOZING, SEATED IN [facility]CLIN[facility] AT THAT TIME SAID HE IS NOT COMFORTABLE LYING IN THE BED IN ANY POSITION.
--- NOTE | 2016-07-10 04:30 | NUR ---
REMAINS SEATED IN W/C AT BEDSIDE. CURRENTLY AWAKE.
--- NOTE | 2016-07-10 05:40 | NUR ---
GAVE PATIENT TYLENOL 650MG PO FOR PAIN LEVEL OF 3/10 LOWER LEGS AND BACK, ALONG WITH SCHEDULED EARLY AM MEDS. FSBS 200. GAVE PATIENT 4 UNITS HUMALOG SLIDING SCALE INSULIN SC IN HIS RIGHT UPPER ARM. DENIES FURTHER NEEDS.
[2016-07-10 09:04] VITALS: BP 129/60
--- NOTE | 2016-07-10 11:00 | NUR ---
Nutrition Follow Up: Pt was in therapy at the time of RD visit. Interview deferred. Chart reviewed. Pt is eating 100% meal avg on an diabetic low cholesterol low fat diet. +BM 07/10/16. No new wt to assess. Labs noted - Glucose elevated. Meds noted including Januvia, Metformin, Amaryl, Lasix, Questran, Humalog. Pt with excellent po intake. Rec continue current diet. RD following.
--- NOTE | 2016-07-10 13:30 | NUR ---
SITTING UP IN CHAIR.DENIES NEEDS.
--- NOTE | 2016-07-10 13:43 | NUR ---
WOUND CARE REASSESSMENT/UNNA BOOT CHANGE: REMOVED UNNA BOOT DRESSING FROM LEFT LOWER EXTREMITY. NOTED THERE ARE NO OPEN WOUNDS BUT THERE CONTINUES TO BE SOME EDEMA. CLEANSED LEG WELL AND PATTED DRY. APPIED UNNA BOOT AND WRAPPED WITH COBAN. ON RIGHT LOWER LEG REMOVED KERLIX AND COMPRESSION HOSE. LEG CONTINUES TO BE EDEMATOUS AND WEEPING IN SMALL AREAS. CLEANSED AND COVERED WITH W 4X4S, KERLIX AND A NEW COMPRESSION SLEEVE. PT TOLERATED WELL.
--- NOTE | 2016-07-10 14:52 | NUR ---
PT IN BEDSIDE CHAIR EATING LUNCH TOLERATING WELL WILL MONITER
[2016-07-10 19:15] VITALS: BP 131/63
--- NOTE | 2016-07-10 19:53 | NUR ---
PT RESTING IN BED WATCHING TV, DENIES NEEDS. BED LOW. CL IN REACH.
--- NOTE | 2016-07-10 20:45 | NUR ---
PT TOOK HS MEDS WITHOUT DIFFICULTY. PT REFUSED INSULIN DUE TO FSBS BEING BELOW 200. PT DENIES NEEDS AT THIS TIME. BED LOW. CL IN REACH.
--- NOTE | 2016-07-10 23:30 | NUR ---
PT RESTING, EYES CLOSED. BED LOW. CL IN REACH. WCTM.
--- NOTE | 2016-07-11 02:17 | NUR ---
PT RESTING, EYES CLOSED. BED LOW. CL IN REACH.
--- NOTE | 2016-07-11 06:08 | NUR ---
PT UP DRINKING COFFEE IN BEDSIDE CHAIR. AM MEDS ADMINISTERED. PT DENIES NEEDS. CL IN REACH.
[2016-07-11 06:13] LABS: BASOPHILS 0.1 % (0.0-2.0); EOSINOPHILS 3.6 % (0-7); HEMATOCRIT 39.2 % (42.0-54.0); HEMOGLOBIN 11.3 g/dL (13.5-17.5); IMMATURE GRANULOCYTES 0.7 % (0-5); LYMPHOCYTES 20.8 % (15-50); MCH 26.7 pg (26.0-34.0); MCHC 28.8 g/dL (31.0-37.0); MCV 92.7 fL (80.0-100.0); MEAN PLATELET VOLUME 9.3 fL (7.4-10.4); MONOCYTES 7.1 % (2-11); NEUTROPHILS 67.7 % (40-80); PLATELET COUNT 213 10x3/uL (130-400); RBC 4.23 10x6/uL (4.20-6.10); RDW 17.5 % (11.5-14.5); WBC 8.6 10x3/uL (4.8-10.8)
[2016-07-11 06:36] LABS: CALC OSMOLALITY 277 mosm/kg (275-300); CARBON DIOXIDE 37.3 mmol/L (21.0-32.0); CHLORIDE - SERUM 98 mmol/L (98-107); GLUCOSE 161 mg/dL (74-106); POTASSIUM - SERUM 4.8 mmol/L (3.5-5.1); SODIUM 136 mmol/L (136-145); UREA NITROGEN 20 mg/dL (7-18); eGFR NON AFRICAN AMERICAN 79 mL/min (90-120)
[2016-07-11 07:56] VITALS: BP 140/70
--- NOTE | 2016-07-11 08:15 | NUR ---
PT RESTING IN BED WITH EYES OPEN SITTING IN BEDSIDE CHAIR EATING BREAKFAST CALL LIGHT IN REACH
--- NOTE | 2016-07-11 12:20 | NUR ---
PT IN BED SIDE CHAIR EATING LUNCH TOLERATING WELL WILL MONITER
--- NOTE | 2016-07-11 15:40 | NUR ---
CARE TEAM MEETING: PATIENT TENATIVE DISCHARGE DATE IS 07/13/16 TO HOME. PATIENT HAS NEBULIZER AND O2 FROM [facility] . HE WILL BE IN NEED OF ROLLING WALKER FOR DISCHARGE. DR. BERNAL IS PCP AND [facility] [address] IS PHARMACY OF CHOICE. WILL CONTINUE TO FOLLOW WITH PATIENT UNTIL DISCHARGED
--- NOTE | 2016-07-11 16:00 | NUR ---
RESTING QUIETLY IN CHAIR;WATCHING TV.CL IN REACH.
--- NOTE | 2016-07-11 18:34 | NUR ---
PT RESTING IN BED WITH EYES OPEN CALL LIGHT IN REACH WILL MONITER
--- NOTE | 2016-07-11 19:25 | NUR ---
PATIENT IN BED. DENIES NEEDS.
[2016-07-11 20:04] VITALS: BP 127/53
--- NOTE | 2016-07-11 21:25 | NUR ---
PATIENT WAS JUST UP TO BR. CURRENTLY SITTING IN RECLINER AT BEDSIDE. FSBS 240. ASSESSMENT COMPLETE. GAVE PATIENT SCHEDULED HS MEDS PO. ALSO GAVE HIM 8 UNITS HUMALOG INSULIN SC IN LEFT UPPER ARM FOR HIS ELEVATED BLOOD SUGAR. DENIES NEEDS AT THIS TIME. CONTINUES ON O2 PER N/C @ 3L FLOW.
--- NOTE | 2016-07-12 00:10 | NUR ---
IN BED, EYES CLOSED. NO DISTRESS NOTED.
--- NOTE | 2016-07-12 01:40 | NUR ---
UP IN W/C AT BEDSIDE, DOZING.
--- NOTE | 2016-07-12 04:15 | NUR ---
RESTING IN BED EYES CLOSED. RESPIRATIONS ARE UNLABORED.
--- NOTE | 2016-07-12 06:30 | NUR ---
GAVE PATIENT WARM BLANKET AND FRESH CUP OF COFFEE. PATIENT TO PO MEDS. FSBS 155. REFUSED SLIDING SCALE INSULIN.
--- NOTE | 2016-07-12 07:00 | NUR ---
Pt. was received in his room sitting in the wheelchair at the beginning of this shift. Awake and oriented x 3. Denies any pain or discomfort at this time. Telemetry on and working properly. Vital signs: Temp. 98.3, pulse 85, resp 16, b/p 132/63, 02sat 98%. Will be monitoring him throughout this shift and assisting prn with adl's.
[2016-07-12 08:20] VITALS: BP 132/63
--- NOTE | 2016-07-12 11:47 | NUR ---
Pt. went to therapy this morning and worked hard. His battery's were changed out in his telemetry device this am too. Pt. will be dc'ing tomorrow.
--- NOTE | 2016-07-12 17:16 | NUR ---
Pt. has been to therapy several times today and has worked hard. He is talking about going home tomorrow. He is currently in his room talking on his cell phone. No discomfort or distress found.
[2016-07-12 19:05] VITALS: BP 121/61
--- NOTE | 2016-07-12 20:00 | NUR ---
PT. IN BED WITH HOB UP FOR COMFORT AND IS WATCHING TV. ASSESSMENT COMPLETED. NO VOICED NEEDS AT THIS TIME AND HE HAS HIS CALL LIGHT WITHIN REACH.
--- NOTE | 2016-07-12 23:28 | NUR ---
PT. SITTING UP IN CHAIR WITH EYES CLOSED AND RESP. DEEP AND EVEN. O2 ON VIA N/C AT 3L/MIN AND PT. HAS HIS WALKER AND CALL LIGHT WITHIN REACH.
--- NOTE | 2016-07-13 01:24 | NUR ---
PT. SITTING UP IN RECLINER AND REQUESTING COFFEE, BLACK. COMPLIED WITH PT'S REQUEST. PT. HAS HIS WALKER, URINAL AND CALL LIGHT WITHIN REACH AND IS WEARING IS NASAL 02.
--- NOTE | 2016-07-13 04:02 | NUR ---
PT. SITTING UP IN RECLINER AND WATCHING TV. PT. REQUESTING ANOTHER CUP OF COFFEE. COMPLIED WITH PT. REQUEST. PT. HAS NO OTHER VOICED NEEDS AND HAS HIS CALL LIGHT WITHIN REACH. O2 IS ON VIA N/C AT 3L/MIN.
[2016-07-13 06:16] LABS: BASOPHILS 0.3 % (0.0-2.0); EOSINOPHILS 3.8 % (0-7); HEMATOCRIT 38.7 % (42.0-54.0); HEMOGLOBIN 11.1 g/dL (13.5-17.5); IMMATURE GRANULOCYTES 0.1 % (0-5); LYMPHOCYTES 23.7 % (15-50); MCH 26.2 pg (26.0-34.0); MCHC 28.7 g/dL (31.0-37.0); MCV 91.5 fL (80.0-100.0); MEAN PLATELET VOLUME 9.4 fL (7.4-10.4); MONOCYTES 9.3 % (2-11); NEUTROPHILS 62.8 % (40-80); PLATELET COUNT 188 10x3/uL (130-400); RBC 4.23 10x6/uL (4.20-6.10); RDW 17.4 % (11.5-14.5); WBC 6.9 10x3/uL (4.8-10.8)
[2016-07-13 06:34] LABS: CALC OSMOLALITY 284 mosm/kg (275-300); CALCIUM 8.7 mg/dL (8.5-10.1); CHLORIDE - SERUM 97 mmol/L (98-107); CREATININE - SERUM 0.9 mg/dL (0.6-1.3); GLUCOSE 164 mg/dL (74-106); POTASSIUM - SERUM 4.7 mmol/L (3.5-5.1); SODIUM 139 mmol/L (136-145); UREA NITROGEN 20 mg/dL (7-18); eGFR NON AFRICAN AMERICAN 89 mL/min (90-120)
--- NOTE | 2016-07-13 07:00 | NUR ---
PT. WAS RECEIVED AT THE BEGINNING OF THIS SHIFT SITTING UP IN CHAIR BESIDE HIS BED. HE WAS AWAKE AND ORIENTED X 3. NO VERBAL COMPLAINTS OR CONCERNS. HE DID TALK ABOUT DISCHARGING TODAY. VITAL SIGNS; TEMP. 98.2, PULSE 59, RESP. 17, B/P 149/60, 02SAT. 98%. WILL BE MONITORING HIM THROUGH THIS DAY UNTIL HE DISCHARGES. STABLE CONDITION OBSERVED.
[2016-07-13 08:37] VITALS: BP 149/60
--- NOTE | 2016-07-13 10:32 | NUR ---
PATIENT DISCHARGING HOME WITH FAMILY. [facility] IS PATIENT CHOICE FOR [facility] HEALTH. [facility] ROLLING WALKER. DR. BERNAL 07/19/16 @ 1:30. PATIENT EDUCATED ON SIGNS AND SYMPTOMS OF INFECTION IN LEGGS. PATIENT CHOICE FORM FOR HOME HEALTH AND [facility] FORM SIGNED, EXPLAINED AND PATIENT VOICED UNDERSTANDING. ORDERS HAVE BEEN FAXED WITH CONFORMATION RECIEVED
--- NOTE | 2016-07-13 13:26 | NUR ---
PT DISCHARGED HOME WITH IN PERSONAL CAR. ALL OF HIS PERSONAL BELONGINGS WERE SENT HOME WITH HIM. HE TOOK WITH HIM HIS DISCHARGE PAPERWORK AND UNDERSTOOD THE MEDICATIONS AND UPCOMING MD APPT. HIS DISCHARGE MEDICATIONS WERE PHONED INTO HIS PHARMACY. STABLE CONDITION OBSERVED UPON DISCHARGE. HE WAS TAKEN OUT TO AWAITING CAR VIA A WHEELCHAIR.
== END 2016-07-13 13:28 | disposition home health service (06) | DRG 190 ==
LOC: D.REHAB 18:34
PROVIDERS: ADMIT Emergency Medicine
DX: J44.1 Chronic obstructive pulmonary disease with (acute) exacerbation (principal); J18.9 Pneumonia, unspecified organism; J96.20 Acute and chronic respiratory failure, unspecified whether with hypoxia or hypercapnia; I42.9 Cardiomyopathy, unspecified; I50.20 Unspecified systolic (congestive) heart failure; Z68.42 Body mass index [BMI] 45.0-49.9, adult; R60.9 Edema, unspecified; E66.01 Morbid (severe) obesity due to excess calories; I11.0 Hypertensive heart disease with heart failure; Z86.718 Personal history of other venous thrombosis and embolism; Z79.01 Long term (current) use of anticoagulants; Z87.891 Personal history of nicotine dependence; E78.5 Hyperlipidemia, unspecified; E11.65 Type 2 diabetes mellitus with hyperglycemia

== ENCOUNTER 2016-07-14 15:46 | Inpatient (IN) | payer MEDICARE, OTHER ==
[~2016-07-14] VITALS: Ht 190.5 cm; Wt 160.5 kg
[2016-07-14 16:54] LABS: BASOPHILS 0.4 % (0.0-2.0); EOSINOPHILS 2.4 % (0-7); HEMATOCRIT 40.9 % (42.0-54.0); HEMOGLOBIN 11.9 g/dL (13.5-17.5); IMMATURE GRANULOCYTES 0.5 % (0-5); LYMPHOCYTES 18.8 % (15-50); MCH 26.6 pg (26.0-34.0); MCHC 29.1 g/dL (31.0-37.0); MCV 91.5 fL (80.0-100.0); MEAN PLATELET VOLUME 9.2 fL (7.4-10.4); MONOCYTES 6.5 % (2-11); NEUTROPHILS 71.4 % (40-80); PLATELET COUNT 180 10x3/uL (130-400); RBC 4.47 10x6/uL (4.20-6.10); RDW 17.1 % (11.5-14.5); WBC 7.8 10x3/uL (4.8-10.8)
[2016-07-14 17:36] LABS: ALBUMIN 3.6 g/dL (3.4-5.0); ALKALINE PHOSPHATASE 190 U/L (46-116); ALT (SGPT) 44 U/L (10-68); BILIRUBIN - TOTAL 0.56 mg/dL (0.2-1.3); CALCIUM 8.7 mg/dL (8.5-10.1); CHLORIDE - SERUM 100 mmol/L (98-107); PRO BNP 2570 pg/mL (0-125); PROTEIN - SERUM 7.1 g/dL (6.4-8.2); SODIUM 143 mmol/L (136-145); UREA NITROGEN 22 mg/dL (7-18); eGFR NON AFRICAN AMERICAN 79 mL/min (90-120)
[2016-07-14 17:37] LABS: CALC OSMOLALITY 294 mosm/kg (275-300); GLUCOSE 223 mg/dL (74-106)
[2016-07-14 17:38] LABS: CARBON DIOXIDE 42.9 mmol/L (21.0-32.0)
[2016-07-14 20:38] LABS: CKMB 1.2 U/L (0.0-3.6); CREATINE KINASE 35 UL (21-232); TROPONIN-I 0.017 ng/mL (0.000-0.060)
[2016-07-14 21:05] LABS: MAGNESIUM - SERUM 1.9 mg/dL (1.8-2.4); PHOSPHOROUS 4.1 mg/dL (2.5-4.9)
[2016-07-14 22:28] VITALS: BP 172/80; BMI 44.4
[2016-07-15] VITALS: BP 156/72
--- NOTE | 2016-07-15 01:12 | NUR ---
ASSESSED AT THE TIME OF ARRIVAL FROM THE ER. HE IS ALERT AND ORIENTED, ABLE TO VERBALIZE NEEDS. HE IS UP ABOUT ROOM WITH HIS WALKER TO GO TO THE BATHROOM TO VOID. MOST OF THE TIME HE IS SITTING UP IN THE BEDSIDE CHAIR. O2 IS ON AT 4 LITERS AND RESPIRATORY HAS CHECKED ON HIM. HE HAS IV FLUIDS ORDERED AND A PRODUCT MANAGEMENT CONSULTANT FOR ANY PAIN CONTROL HE NEEDS. THE DOOR TO HIS ROOM IS OPEN AND HE HAS THE TV ON FOR ENTERTAINMENT. THE CHAIR IS LOCKED AND HIS IV IS DRAPED OVER THE BED SO IT WILL MAKE IT TO THE BATHROOM EASILY.
[2016-07-15 03:29] LABS: CKMB 1.5 U/L (0.0-3.6); CREATINE KINASE 37 UL (21-232); MAGNESIUM - SERUM 1.8 mg/dL (1.8-2.4); PHOSPHOROUS 3.6 mg/dL (2.5-4.9); TROPONIN-I 0.025 ng/mL (0.000-0.060)
[2016-07-15 04:00] VITALS: BP 171/82
[2016-07-15 07:53] VITALS: BP 139/63
--- NOTE | 2016-07-15 07:54 | NUR ---
AWAKE AND ALERT. ORIENTED X3. NO C/O AT THIS TIME. SITTING UP IN CHAIR AT BEDSIDE WITH O2 AT 4L NC. SKIN IS INTACT WITHOUT REDNESS, BUT HAS PRESSURE WRAP IN LEFT LEG AND STOCKINGS TO BOTH LEGS TO HELP KEEP EDEMA DOWN. LUNGS ARE DIMINISHED THROUGHOUT LUNG BRANNON, OCCASSIONAL DRY COUGH NOTED. IV TO LEFT FOREARM PATENT WITHOUT REDNESS AT INSERTION SITE. DENIES NEEDS.
[2016-07-15 08:29] LABS: CKMB 1.4 U/L (0.0-3.6); CREATINE KINASE 33 UL (21-232); TROPONIN-I 0.021 ng/mL (0.000-0.060)
--- NOTE | 2016-07-15 10:21 | NUR ---
ATE ALL OF BREAKFAST. NO C/O AT THIS TIME.
[2016-07-15 11:10] VITALS: BP 133/61
--- NOTE | 2016-07-15 12:30 | NUR ---
SITTING UP IN CHAIR AT BEDSIDE EATING LUNCH. DENIES NEEDS.
[2016-07-15 15:46] LABS: INR 2.44 (0.85-1.17); PROTIME 26.6 SECONDS (11.6-15.0)
[2016-07-15 15:56] VITALS: BP 154/74
--- NOTE | 2016-07-15 17:00 | NUR ---
FSBS 397. NATASHA MADDOX NOTIFIED OF SAME. NEW ORDERS FOR SS RECEIVED. GIVEN 10 UNITS HUMALOG SUB Q. WILL MONITOR.
--- NOTE | 2016-07-15 18:33 | NUR ---
ATE ALL OF SUPPER. NO CHANGES NOTED. DENIES NEEDS.
--- NOTE | 2016-07-15 18:34 | HP ---
PATIENT: MONIQUE BEDOLLA MEDICAL RECORD: [id number] ACCOUNT: [id number] LOCATION:D.MS [id number] : 48 ADMISSION DATE: 07/14/16 HISTORY AND PHYSICAL EXAMINATION HISTORY OF PRESENT ILLNESS: Mr. Bedolla is a 66-year-old white male that comes in the Emergency Room last evening with increasing shortness of breath. He has a history of COPD and congestive heart failure. He is EF is around 25%. He ____was running in the 70s at home. He was brought in the Emergency Room and admitted. His breathing is improved. He is sitting up in a chair. He is morbidly obese. He states that nobody will tell him what is wrong with him and he wants to know, so he can get better. I discussed with them at length that he needs to lose weight, try to get as much exercise and taking his meds appropriately. PAST MEDICAL HISTORY: Significant for known diabetes, hypertension, coronary artery disease with stent, sleep apnea, COPD, xsvuv-xp-chabidf heart failure, pulmonary hypertension, GERD, hyperlipidemia, neuropathy secondary to his diabetes. PAST SURGICAL HISTORY: Includes cataracts, cardiac stents with angioplasty, gallbladder, T&A and hemorrhoids. HOME MEDICATIONS: Include Brovana, DuoNeb, warfarin 10 mg daily, atorvastatin 40 mg a day, Coreg 12.5 b.i.d., cholestyramine, lisinopril 20 daily, furosemide 40 b.i.d., benzonatate 200 mg t.i.d., Pulmicort 0.5, Mucinex DM, Xalatan eye drops, Afrin nasal spray, Nexium 40 mg a day, glimepiride 4 mg a day, insulin intermediate scale, metformin and sitagliptin XR daily and melatonin. FAMILY HISTORY: Noncontributory. SOCIAL HISTORY: The patient smoked for over 50 years, quit a few years ago. He is disabled, lives at home with . REVIEW OF SYSTEMS: Denies any fever, does complain of increasing shortness of breath, swelling of both lower legs and has been having Unna dressings applied to them, home health has been doing this, he has marked edema. He had no recent change in bladder or bowel habits. No chest pain, does have shortness of breath. PHYSICAL EXAMINATION: GENERAL: Sitting in chair, in no distress at this time, morbidly obese. HEENT: Sclerae are nonicteric. NECK: Soft and supple. HEART: Regular. LUNGS: Diminished. ABDOMEN: Soft. LOWER EXTREMITIES: With edema with dressings bilaterally. NEUROLOGIC: Without any gross deficits. IMPRESSION: Chronic obstructive pulmonary disease exacerbation, systolic congestive heart failure, morbid obesity, hyperlipidemia, hypertension, sleep apnea; refuses sleep study and to wear CPAP. PLAN: Admit, pulmonary consult with Dr. Alvarado, diuresis, pulmonary toilet, HISTORY AND PHYSICAL [id number] MONIQUE BEDOLLA monitor blood sugars. See orders for plan. TRANSINT:[id number] Voice Confirmation ID: [id number] DOCUMENT ID: [id number] CLEM CISNEROS DO at 1834 CC: [id number] DICTATION DATE: 07/15/16 141 FACILITIES MAINTENANCE ASSISTANT: 07/15/[address] [facility] [address] [place] [address]
[2016-07-15 18:58] LABS: HEMOGLOBIN A1C 7.8 % (4.8-6.0)
[2016-07-15 19:00] VITALS: BP 120/61
[2016-07-16] VITALS: BP 124/62
--- NOTE | 2016-07-16 03:13 | NUR ---
EYES CLOSED RESPIRATIONS WITH EASE AND UNLABORED.
--- NOTE | 2016-07-16 03:56 | NUR ---
WENT TO DO AN ABG ON PATIENT AND PATIENT JERKED AND I GOT VENOUS BLOOD. TOLD PATIENT THAT I WOULD HAVE TO RE-STICK HIM AND PATIENT REFUSED ANOTHER STICK. INFORMED THE NURSE AND TOLD HER THAT I WOULD DOCUMENT IN THE CHART
[2016-07-16 04:00] VITALS: BP 130/66
[2016-07-16 06:20] LABS: BASOPHILS 0 % (0.0-2.0); EOSINOPHILS 0 % (0-7); HEMATOCRIT 38.2 % (42.0-54.0); HEMOGLOBIN 11.3 g/dL (13.5-17.5); IMMATURE GRANULOCYTES 0.2 % (0-5); LYMPHOCYTES 9.8 % (15-50); MCH 26.4 pg (26.0-34.0); MCHC 29.6 g/dL (31.0-37.0); MEAN PLATELET VOLUME 9.5 fL (7.4-10.4); MONOCYTES 3.1 % (2-11); NEUTROPHILS 86.9 % (40-80); PLATELET COUNT 188 10x3/uL (130-400); RBC 4.28 10x6/uL (4.20-6.10); RDW 17.4 % (11.5-14.5); WBC 9.2 10x3/uL (4.8-10.8)
[2016-07-16 06:26] LABS: MCV 89.3 fL (80.0-100.0)
[2016-07-16 06:33] LABS: INR 2.37 (0.85-1.17)
[2016-07-16 06:42] LABS: ANION GAP 5.6 mmol/L (8-16); CALCIUM 8.7 mg/dL (8.5-10.1); CARBON DIOXIDE 39.4 mmol/L (21.0-32.0); CREATININE - SERUM 1.2 mg/dL (0.6-1.3)
--- NOTE | 2016-07-16 07:31 | NUR ---
PATIENT IS AWAKE, ALERT AND ORIENTED X'S 4. RESPIRATIONS ARE EVEN AND UNLABORED ON 4L/MIN OF OXYGEN VIA NASAL CANNULA. SITTING UP IN THE CHAIR. PATIENT DENIES NEEDS.
--- NOTE | 2016-07-16 07:35 | NUR ---
SITTING IN CHAIR AT BEDSIDE, AWAKE AND ALERT, DENIES NEEDS, CALL LIGHT IN REACH, WILL CONTINUE TO MONTOR
[2016-07-16 08:14] VITALS: BP 144/81
[2016-07-16 12:07] VITALS: BP 127/62
[2016-07-16 15:17] VITALS: Ht 190.5 cm; Wt 160.5 kg
[2016-07-16 15:29] VITALS: BP 120/55
[2016-07-17] VITALS: BP 119/80
[2016-07-17 04:00] VITALS: BP 125/73
--- NOTE | 2016-07-17 04:29 | NUR ---
PATIENT SITTING UP IN CHAIR. ALERT AND ORIENTED X4. RESPIRATIONS EVEN AND UNLABORED AT THE TIME. DENIES PAIN @ THIS TIME. BOWELS ACTIVE X4. DENIES NEEDS AT THIS TIME. PATIENT IS TO HAVE A CT THOROCENTIS DONE 07/17/16. CONSENT FORMS ARE SIGNED AND IN CHART. INFORMED AID OF THE PROCEDURE. INSTRUCTED PATIENT TO CALL IF NEEDED ANYTHING. VERBALIXED UNDERSTANDING. CALL LIGHT IN REACH.
[2016-07-17 05:08] LABS: BASOPHILS 0 % (0.0-2.0); EOSINOPHILS 0 % (0-7); HEMATOCRIT 38.8 % (42.0-54.0); HEMOGLOBIN 11.6 g/dL (13.5-17.5); IMMATURE GRANULOCYTES 0.3 % (0-5); MCHC 29.9 g/dL (31.0-37.0); MCV 90.2 fL (80.0-100.0); MEAN PLATELET VOLUME 9.6 fL (7.4-10.4); MONOCYTES 2.9 % (2-11); NEUTROPHILS 86.8 % (40-80); PLATELET COUNT 194 10x3/uL (130-400); RDW 17.7 % (11.5-14.5); WBC 11.2 10x3/uL (4.8-10.8)
[2016-07-17 05:21] LABS: ANION GAP 7.7 mmol/L (8-16); CALCIUM 8.5 mg/dL (8.5-10.1); CARBON DIOXIDE 39.1 mmol/L (21.0-32.0); CREATININE - SERUM 1.2 mg/dL (0.6-1.3); POTASSIUM - SERUM 4.8 mmol/L (3.5-5.1)
[2016-07-17 06:32] LABS: APTT 38.5 SECONDS (22.8-39.4); INR 3.07 (0.85-1.17)
--- NOTE | 2016-07-17 07:45 | NUR ---
PT SITTING IN A CHAIR IN HIS ROOM WITH EYES OPEN. ALERT AND ORIENTED X 3. DENIES ACUTE DISCOMFORT AT THIS TIME. NO SOB NOTED. DRESSINGS ARE INTACT TO BLE. IV IS INFUSING TO LFA WITHOUT DIFFICULTY. O2 IS ON @ 4LPM PER NC. CALL LIGHT AND BEDSIDE TABLE ARE WITHIN EASY REACH. PT NPO FOR A THORACENTESIS TODAY.
[2016-07-17 07:58] VITALS: BP 128/81
--- NOTE | 2016-07-17 10:02 | NUR ---
I CALLED RADIOLOGY TO CHECK ON THE TIME FOR PTS PROCEDURE. THEY STATED HIS INR WAS TO HIGH, AND IT WOULD NOT BE TODAY. THEY WILL COME DOWN TO SPEAK WITH PT.
--- NOTE | 2016-07-17 11:23 | NUR ---
PATIENT SITTING UP IN CHAIR AT THIS THIS TIME. DRESSING TO LEG CDI. NO COMPLAINTS OR SIGNS OF DISTRESS. CALL LIGHT WITHIN REACH.
[2016-07-17 11:45] VITALS: BP 124/58
--- NOTE | 2016-07-17 12:52 | NUR ---
PT IS RESTING IN HIS ROOM FEEDING SELF LUNCH. NO ACUTE DISTRESS NOTED.
--- NOTE | 2016-07-17 13:58 | NUR ---
WOUND CARE CONSULT: FAMILIAR WITH THIS PT. HE IS A [facility]OUND [facility]IN[facility]/DR. ALEGRE PT AND HAS AN UNNA BOOT APPLIED ONCE/WEEK. HE WAS DISCHARGED FROM REHAB LAST WEEK AND HOME HEALTH CAME OUT ON SATURDAY AND APPLIED NEW UNNA BOOT. IT IS INTACT. TODAY HE REQUESTS WOUND CARE TO HIS ROOM. SMALL AMOUNT OF BLOOD IS NOTED ON SOCK ON LEFT FOOT. UPON REMOVAL OF SOCK NOTED THE TOENAIL ON THE #5 TOE HAD FALLEN OFF. CLEANSED AND PATTED DRY (SMALL AMOUNT OF BLEEDING NOTED) APPLIED A SMALL PIECE OF MAXORB AG TO TOENAIL BED, COVERED WITH GAUZE AND SECURED WITH TAPE. WOUND CARE CONTINUES TO MONITOR.
[2016-07-17 15:16] VITALS: BP 121/49
--- NOTE | 2016-07-17 15:34 | NUR ---
PT IS SLEEPING IN HIS CHAIR IN HIS ROOM AT THIS TIME. NO DISTRESS NOTED.
--- NOTE | 2016-07-17 18:21 | NUR ---
PT IS RESTING IN HIS ROOM WATCHING TV. NO NEEDS VOICED.
[2016-07-17 20:00] VITALS: BP 127/61
--- NOTE | 2016-07-17 20:58 | NUR ---
SITTING UP IN BED NO ACUTE DISTRESS NOTED VOICES ALL NEEDS OT STAFF REMAINS NPO PER ORDER PRESSURE DRESSING NOTED FOR WEEPING EDEMA TO LEFT LLE. WILL MONITRO CALL LIGHT IN REACH SIDE RAILS UP X 2
[2016-07-18] VITALS: BP 119/64
--- NOTE | 2016-07-18 02:30 | NUR ---
PT SITTING UP IN CHAIR NO ACUTE DISTRESS NOTED VOICES ALL NEEDS TO STAFF. CALL LIGHT IN REACH NPO AFTER MN FOR THORACENTESIS IN AM.
[2016-07-18 04:00] VITALS: BP 138/62
[2016-07-18 06:13] LABS: BASOPHILS 0 % (0.0-2.0); EOSINOPHILS 0 % (0-7); HEMOGLOBIN 11.6 g/dL (13.5-17.5); IMMATURE GRANULOCYTES 0.3 % (0-5); LYMPHOCYTES 11.7 % (15-50); MCH 26.1 pg (26.0-34.0); MCV 89.9 fL (80.0-100.0); MEAN PLATELET VOLUME 9.7 fL (7.4-10.4); MONOCYTES 3.9 % (2-11); NEUTROPHILS 84.1 % (40-80); PLATELET COUNT 201 10x3/uL (130-400); RBC 4.45 10x6/uL (4.20-6.10); RDW 17.5 % (11.5-14.5); WBC 9.6 10x3/uL (4.8-10.8)
[2016-07-18 06:32] LABS: APTT 38.2 SECONDS (22.8-39.4); INR 2.87 (0.85-1.17); PROTIME 30.3 SECONDS (11.6-15.0)
[2016-07-18 06:34] LABS: ALBUMIN 3.1 g/dL (3.4-5.0); ANION GAP 9.6 mmol/L (8-16); BILIRUBIN - TOTAL 0.49 mg/dL (0.2-1.3); CALCIUM 8.3 mg/dL (8.5-10.1); CARBON DIOXIDE 38.3 mmol/L (21.0-32.0); CREATININE - SERUM 1.2 mg/dL (0.6-1.3); POTASSIUM - SERUM 4.9 mmol/L (3.5-5.1); PROTEIN - SERUM 6.7 g/dL (6.4-8.2)
--- NOTE | 2016-07-18 08:03 | NUR ---
SITTING IN CHAIR, DENIES NEEDS, HAS SMALL SORES ON INSIDE OF THIGHS BY HIS BOTTOM, APPLYING CREAM BUT NOT HELPING, WILL APPLY BANDAGES, CALL LIGHT IN REACH, WILL CONTINUE TO MONITOR
[2016-07-18 08:26] VITALS: BP 134/71
[2016-07-18 12:18] VITALS: BP 122/57
[2016-07-18 16:29] VITALS: BP 138/60
--- NOTE | 2016-07-18 17:41 | NUR ---
AWAKE ALERT COLOR ADQ SKIN WARM AND DRY WITHOUT REDDNESS OR EDEMA AT PRESENT.
[2016-07-18 19:00] VITALS: BP 124/65
--- NOTE | 2016-07-18 21:22 | NUR ---
WATCVHING TV QUIETLY. NO COMPLAINTS VOICED. IV INFUSING TO LEFT FOREARM WIHTOUT REDNESS OR EDEMA NOTED. CL IN REACH.
--- NOTE | 2016-07-18 23:45 | NUR ---
PT IS ASLEEP SITTING UP IN A BED SIDE CHAIR. THE O2 IS IN PLACE AT 4 LITERS PER N/C. NO DISTRESS NOTED. THE CHAIR IS LOCKED AND HE HAS THE CALL LIGHT NEAR HIS HAND.
[2016-07-19] VITALS (12 sets, daily range): BP systolic 80–150; BP diastolic 47–70
[2016-07-19 05:33] LABS: BASOPHILS 0 % (0.0-2.0); EOSINOPHILS 0 % (0-7); HEMATOCRIT 39.8 % (42.0-54.0); IMMATURE GRANULOCYTES 0.3 % (0-5); LYMPHOCYTES 11.7 % (15-50); MCH 26.7 pg (26.0-34.0); MCHC 30.2 g/dL (31.0-37.0); MCV 88.6 fL (80.0-100.0); MEAN PLATELET VOLUME 9.1 fL (7.4-10.4); MONOCYTES 6.4 % (2-11); NEUTROPHILS 81.6 % (40-80); PLATELET COUNT 166 10x3/uL (130-400); RBC 4.49 10x6/uL (4.20-6.10); RDW 17.2 % (11.5-14.5); WBC 8.7 10x3/uL (4.8-10.8)
[2016-07-19 05:55] LABS: INR 1.54 (0.85-1.17); PROTIME 18.4 SECONDS (11.6-15.0)
[2016-07-19 06:04] LABS: ALBUMIN 3.1 g/dL (3.4-5.0); ANION GAP 7.8 mmol/L (8-16); BILIRUBIN - TOTAL 0.9 mg/dL (0.2-1.3); CALCIUM 8.9 mg/dL (8.5-10.1); CREATININE - SERUM 1.1 mg/dL (0.6-1.3); POTASSIUM - SERUM 4.8 mmol/L (3.5-5.1); PROTEIN - SERUM 6.6 g/dL (6.4-8.2)
--- NOTE | 2016-07-19 06:15 | NUR ---
NO CHANGE IN ASSESSMENT. CL IN REACH.
--- NOTE | 2016-07-19 08:21 | NUR ---
JUST LEFT FLOOR FOR THOROCENTISIS, ALERT AND ORIENTED, SITTING IN CHAIR DENIES NEEDS, ASSESSMENT COMPLETE, WILL CONTINUE TO MONIIOTR
--- NOTE | 2016-07-19 09:43 | NUR ---
BACK FROM THROROCENTISIS, DENIES PAIN, SITTING IN BED EATING BREAKFAST
[2016-07-19 09:50] LABS: PROTEIN - BODY FLUID 2.8 G/DL
[2016-07-19 10:01] LABS: LYMPH - BF 95 %; MACROPHAGES BF 2 %; MESOTHELIALS BF 1 %; NEUT - BF 2 %
--- NOTE | 2016-07-19 12:51 | NUR ---
SITTING AT BEDSIDE EATING LUNCH AT THIS TIME. RESPIRATIONS EVEN AND NON LABORED. DENIES NEEDS AT THIS TIME. CALL LIGHT IN REACH. WILL CONTINUE WITH PLAN OF CARE.
--- NOTE | 2016-07-19 14:31 | NUR ---
NUTRITION MONITORING & EVAL CHART REVIEWED. PT CURRENTLY NPO FOR PROCEDURE. 100% INTAKE RECENT MEALS. WILL PROVIDE DIET WHEN RESUMED, MONITOR PT PROGRESS. RD FOLLOWING
--- NOTE | 2016-07-19 19:30 | NUR ---
PT RECEIVED SITTING UP IN CHAIR IN ROOM WATCHING TELEVISION. PT ALERT AND ORIENTED X4. RESPIRATIONS EVEN AND UNLABORED. SEE SHIFT ASSESSMENT. PT DENIES PAIN AT THIS TIME. IV TO LEFT FOREARM NOTED, SALINE LOCKED AT THIS TIME. PT REFUSES NS @30, STATES IT IS TOO MUCH OF A HASSLE TO GO TO THE BATHROOM AND MOVE AROUND THE ROOM WITH IV. EDUCATED PT ON IV FLUIDS, PT STATES, "I DON'T NEED THAT. I DRINK PLENTY OF WATER. PT NOTED TO BE NPO AFTER MIDNIGHT. DENIES PAIN AT THIS TIME. CALL LIGHT AND H2O IN PT REACH.
--- NOTE | 2016-07-19 21:30 | NUR ---
PT SITTING UP IN CHAIR WATCHING TELEVISION. NO S/S OF DISTRESS NOTED. RESP EVEN AND UNLABORED. PT DENIES PAIN OR NEEDS AT THIS TIME. PT CONTINUES TO REFUSE NS. PT REFUSED CALMOSEPTIN AND NYSTATIN, STATES, "THEY JUST PUT IT ON ME. I DON'T NEED IT RIGHT NOW, THEY CAN DO IT AGAIN IN THE MORNING." CALL LIGHT AND H2O IN PT REACH.
--- NOTE | 2016-07-19 23:30 | NUR ---
PT RESTING IN CHAIR WITH EYES CLOSED. NO S/S OF DISTRESS NOTED. RESP EVEN AND UNLABORED. CALL LIGHT AND H2O IN PT REACH.
[2016-07-20] VITALS: BP 112/49
[2016-07-20 04:00] VITALS: BP 120/59
--- NOTE | 2016-07-20 04:00 | NUR ---
PATIENT SLEEPING WITH NO DISTRESS NOTED. AGREE WITH [employer] ENGINEER ASSESSMENT.
[2016-07-20 04:47] LABS: BASOPHILS 0 % (0.0-2.0); EOSINOPHILS 0 % (0-7); HEMATOCRIT 38.7 % (42.0-54.0); HEMOGLOBIN 11.9 g/dL (13.5-17.5); IMMATURE GRANULOCYTES 0.4 % (0-5); LYMPHOCYTES 12.9 % (15-50); MCH 26.8 pg (26.0-34.0); MCHC 30.7 g/dL (31.0-37.0); MCV 87.2 fL (80.0-100.0); MEAN PLATELET VOLUME 9.8 fL (7.4-10.4); NEUTROPHILS 80.7 % (40-80); PLATELET COUNT 195 10x3/uL (130-400); RBC 4.44 10x6/uL (4.20-6.10); RDW 17.1 % (11.5-14.5); WBC 9.2 10x3/uL (4.8-10.8)
[2016-07-20 05:12] LABS: ANION GAP 7.1 mmol/L (8-16); BILIRUBIN - TOTAL 0.98 mg/dL (0.2-1.3); CALCIUM 8.8 mg/dL (8.5-10.1); CARBON DIOXIDE 39.8 mmol/L (21.0-32.0); CREATININE - SERUM 1.1 mg/dL (0.6-1.3); POTASSIUM - SERUM 4.9 mmol/L (3.5-5.1); PROTEIN - SERUM 6.3 g/dL (6.4-8.2)
[2016-07-20 07:40] VITALS: BP 130/68
--- NOTE | 2016-07-20 07:59 | NUR ---
SITTING IN CHAIR READING HIS NEWSPAPER, DENIES NEEDS, ANXIOUS TO GO HOME, NO DISTRESS NOTED, CALL LIGHT IN REACH, ASSESSMENT COMPLETE, WILL CONTINUE TO MONITOR
--- NOTE | 2016-07-20 08:26 | NUR ---
SITTING UP IN CHAIR AT THIS TIME EATING BREAKFAST. OXYGEN ON 4L VIA NC. DENIES NEEDS AT PRESENT TIME. RESPIRATIONS EVEN AND NON LABORED. CALL LIGHT IN REACH, WILL CONTINUE WITH PLAN OF CARE.
--- NOTE | 2016-07-20 09:49 | NUR ---
Patient Name: MONIQUE BEDOLLA Admission Status: ER Accout number: [id number] Admission Date: 07-16-2016 : 1950 Admission Diagnosis:HYPERTENSIVE HEART DISEASE WITH HEART FAILURE Attending: CAITY Current LOS: 4 Anticipated DC Date: 07-23-2016 Planned Disposition: Home with Home Health Primary Insurance: MEDICARE A & B Discharge Planning Comments: CM MET WITH PATIENT REGARDING D/C NEEDS AND PLANS. PATIENT STATED HE LIVES WITH HIS SPOUSE (JANET) AND HAS 7 STEPS W/RAILS TO ENTER HOME AND NO STAIRS INSIDE. PATIENT STATED HE IS INDEPENDENT WITH HIS CARE AND HAS OXYGEN, NEBULIZER, PORT O2, AND WALKER AT HOME. PATIENTS OXYGEN IS SUPPLIED BY [facility]. PATIENTS PCP IS DR. BERNAL AND USES [facility] ON [address] [place] [address] FOR HIS PHARMACY. PATIENTS SON (RN AT [facility]) HAS SET HIS DAD UP WITH TENDER CARE AT DISCHARGE. PATIENT WAS RECENTLY D/C FROM REHAB. CM WILL CONTINUE TO FOLLOW PATIENT WITH D/C NEEDS AND PLANS. PCP DR[facility] [address] AT [facility]-- [phone] JANET () [phone] OR [phone] Career And Technology Education Teacher: Magdalena Holcomb
--- NOTE | 2016-07-20 09:56 | NUR ---
Is the patient Alert and Oriented? Yes 0 * How many steps to enter\exit or inside your home? 7 W/RAILS 0 * PCP DR. BERNAL 0 * Pharmacy [address] 0 * Preadmission Environment Home with Family 0 * ADLs Independent 0 * Equipment Nebulizer Oxygen Walker 0 * List name and contact numbers for known caregivers / representatives who currently or will assist patient after discharge: JANET (SPOUSE) H [phone] 0 * Community resources currently utilized Other 0 * Please name any agencies selected above. SON HAS TENDER CARE SET UP WHEN PATIENT DISCHARGES 0 * Additional services required to return to the preadmission environment? Yes 0 * Can the patient safely return to the preadmission environment? Yes 0 * Has this patient been hospitalized within the prior 30 days at any hospital? No 0 Grand Total: 0
[2016-07-20 12:12] VITALS: BP 151/68
[2016-07-20] MEDS ORDERED: NYSTATIN OINTME15 GM TOPICAL (12:28)
[2016-07-20] MEDS ORDERED: STERAPRED DS 1010 MG PO (12:28)
--- NOTE | 2016-07-20 12:52 | NUR ---
CM REASSESSMENT NOTE: PATIENT IS DISCHARGING HOME TODAY-FAMILY DRIVING. PATIENT STATED TENDER CARE WILL BE SEEING HIM AFTER D/C. PATIENT DENIED ANY OTHER NEEDS FOR DISCHARGE. PATIENT WAS SERVED THE IMM NOTICE AND IT WAS SIGNED.
[2016-07-20 13:18] LABS: FUNGUS STAIN Final report (())
--- NOTE | 2016-07-20 13:24 | NUR ---
CM REASSESSMENT NOTE: PATIENTS STATED HE HAS [facility] NOT [facility]. PATIENT DID NOT KNOW THE CORRECT NAME SHE STATED. PATIENTS SON IS WITH [facility] AND HAS SET HIM UP WHEN DISCHARGED TODAY.
--- NOTE | 2016-07-20 13:33 | NUR ---
PT WISHES TO CALL AND MAKE FOLLOW UP APPOINTMENT WITH DOLOR[facility] SINCE HE IS READY TO DISCHARGE AND HE DOES NOT WANT TO WAIT ON THE CLINIC TO OPEN BACK UP AT 2PM.
--- NOTE | 2016-07-20 14:06 | NUR ---
DISCHARGE INSTRUCTIONS AND PAPERS GIVEN TO PT AND SPOUSE, QUESTIONS ANSWERED, IV REMOVED TIP INTACT, PT DISCHARGED PER WC WITH BELONGINGS
[2016-07-20 15:22] LABS: ACID FAST SMEAR Negative (()); AFB SPECIMEN PROCESSING Concentration (())
[2016-08-15 07:28] LABS: FUNGUS MYCOLOGY CULTURE Final report (())
== END 2016-07-20 14:38 | disposition home health service (06) | DRG 291 ==
LOC: D.ER 15:46 → D.MS 20:19 → OBSVTIME 20:19 → D.MS 07-16 14:48
PROVIDERS: Family Medicine; General Practice; Internal Medicine Pulmonary Disease; Physician Assistant Medical; Radiology Diagnostic Radiology; Specialist; Surgery; ADMIT Family Medicine
PROC: 0W993ZZ Drainage of Right Pleural Cavity, Percutaneous Approach (ICD-10-PCS; principal; 2016-07-19 08:16)
DX: I11.0 Hypertensive heart disease with heart failure (principal); J96.22 Acute and chronic respiratory failure with hypercapnia; J96.21 Acute and chronic respiratory failure with hypoxia; J44.1 Chronic obstructive pulmonary disease with (acute) exacerbation; J90 Pleural effusion, not elsewhere classified; J98.11 Atelectasis; Z68.41 Body mass index [BMI] 40.0-44.9, adult; I50.23 Acute on chronic systolic (congestive) heart failure; E11.40 Type 2 diabetes mellitus with diabetic neuropathy, unspecified; I25.10 Atherosclerotic heart disease of native coronary artery without angina pectoris; K21.9 Gastro-esophageal reflux disease without esophagitis; E78.5 Hyperlipidemia, unspecified; G47.33 Obstructive sleep apnea (adult) (pediatric); E66.01 Morbid (severe) obesity due to excess calories; I27.2 Other secondary pulmonary hypertension; D64.9 Anemia, unspecified; I08.1 Rheumatic disorders of both mitral and tricuspid valves; Z91.19 Patient's noncompliance with other medical treatment and regimen; Z86.718 Personal history of other venous thrombosis and embolism

== ENCOUNTER 2016-08-07 12:45 | Inpatient (IN) | payer MEDICARE, OTHER ==
[~2016-08-07] VITALS: Ht 190.5 cm; Wt 147.4 kg
[~2016-08-07 12:45] MED LIST changes: +NYSTATIN OINTME15 GM TOPICAL; +STERAPRED DS 1010 MG PO
[2016-08-07 13:34] LABS: BASOPHILS 0.1 % (0.0-2.0); EOSINOPHILS 1.5 % (0-7); IMMATURE GRANULOCYTES 0.3 % (0-5); LYMPHOCYTES 16.3 % (15-50); MCHC 30.6 g/dL (31.0-37.0); MCV 88.5 fL (80.0-100.0); MEAN PLATELET VOLUME 8.7 fL (7.4-10.4); MONOCYTES 4.8 % (2-11); PLATELET COUNT 168 10x3/uL (130-400); RBC 4.07 10x6/uL (4.20-6.10); RDW 17.5 % (11.5-14.5); WBC 7.5 10x3/uL (4.8-10.8)
[2016-08-07 13:42] LABS: INR 3.29 (0.85-1.17); PROTIME 33.8 SECONDS (11.6-15.0)
[2016-08-07 13:50] LABS: ALKALINE PHOSPHATASE 135 U/L (46-116); ALT (SGPT) 25 U/L (10-68); BILIRUBIN - TOTAL 0.55 mg/dL (0.2-1.3); CALC OSMOLALITY 269 mosm/kg (275-300); CALCIUM 8.7 mg/dL (8.5-10.1); CARBON DIOXIDE 33.4 mmol/L (21.0-32.0); CHLORIDE - SERUM 96 mmol/L (98-107); POTASSIUM - SERUM 4.5 mmol/L (3.5-5.1); PROTEIN - SERUM 6.9 g/dL (6.4-8.2); SODIUM 134 mmol/L (136-145); UREA NITROGEN 13 mg/dL (7-18); eGFR NON AFRICAN AMERICAN 79 mL/min (90-120)
[2016-08-07 13:51] LABS: GLUCOSE 137 mg/dL (74-106)
[2016-08-07 13:57] LABS: CREATINE KINASE 27 UL (21-232); PRO BNP 2790 pg/mL (0-125); TROPONIN-I 0.022 ng/mL (0.000-0.060)
--- NOTE | 2016-08-07 16:00 | NUR ---
ARRIVE TO ROOM VIA WHEELCHAIR FROM ER ACCOMPANIED BY ER STAFF. REPORT RECIEVED FROM ROSEMARIE JAMESON IN ER. ALERT AND ORIENTED X4. UP WITH ASSIST. STANDING SCALE WEIGHT 325.4LBS. HAS HOME O2. TELEMETRY MONITORING INITIATED. UNCONTROLLED A-FIB 106bpm ON TELEMETRY. LT FA IV SL. DENIES PAIN. CONTINUE ADMISSION PROCESS. BED LOCKED AND LOW. CALL LIGHT IN REACH. TWO SIDERAILS UP.
[2016-08-07] MEDS ORDERED: MYCOSTATIN 15 G15 GM TOPICAL (16:45)
[2016-08-07 17:30] VITALS: BP 139/51; BMI 40.7
[2016-08-07 19:00] VITALS: BP 148/62
--- NOTE | 2016-08-08 06:51 | NUR ---
MEDITECH DOWN THROUGHOUT THE SHIFT, SEE NARRATIVE PAPER CHARTING.
[2016-08-08 07:46] LABS: BASOPHILS 0.1 % (0.0-2.0); EOSINOPHILS 2.3 % (0-7); HEMATOCRIT 36.1 % (42.0-54.0); HEMOGLOBIN 11.1 g/dL (13.5-17.5); IMMATURE GRANULOCYTES 0.3 % (0-5); LYMPHOCYTES 24.1 % (15-50); MCH 26.9 pg (26.0-34.0); MCHC 30.7 g/dL (31.0-37.0); MCV 87.4 fL (80.0-100.0); MEAN PLATELET VOLUME 8.9 fL (7.4-10.4); MONOCYTES 8.3 % (2-11); NEUTROPHILS 64.9 % (40-80); PLATELET COUNT 193 10x3/uL (130-400); RBC 4.13 10x6/uL (4.20-6.10); RDW 17.6 % (11.5-14.5); WBC 6.9 10x3/uL (4.8-10.8)
[2016-08-08 07:59] LABS: CALC OSMOLALITY 270 mosm/kg (275-300); CALCIUM 9.3 mg/dL (8.5-10.1); CARBON DIOXIDE 36.9 mmol/L (21.0-32.0); CHLORIDE - SERUM 94 mmol/L (98-107); GLUCOSE 127 mg/dL (74-106); POTASSIUM - SERUM 4.4 mmol/L (3.5-5.1); SODIUM 134 mmol/L (136-145); UREA NITROGEN 15 mg/dL (7-18); eGFR NON AFRICAN AMERICAN 79 mL/min (90-120)
[2016-08-08 08:37] VITALS: BP 139/74
[2016-08-08 12:32] VITALS: BP 151/55
[2016-08-08 13:45] VITALS: Ht 190.5 cm; Wt 147.4 kg
--- NOTE | 2016-08-08 13:56 | NUR ---
THIS AM PATIENT HAS BEEN SITTING UP IN CHAIR BECAUSE HE IS MORE COMFORTABLE IN THE CHAIR. WOUND CARE NURSE WILL BE ASSESSING WOUNDS ON LOWER EXTREMITIES. WILL CONTINUE TO MONITOR.
[2016-08-08 16:07] VITALS: BP 106/51
--- NOTE | 2016-08-08 16:23 | NUR ---
WOUND CARE CONSULT: PT HAS ULCERATED OPEN WOUND ON RIGHT LOWER LEG RUPTURED BLISTER ON LEFT FOOT AT #5 TOE. BLE ARE EDEMATOUS AND RED. PT STATES EDEMA HAS DECREASED SINCE HE GOT HIS "FLUID MEDICINE" HE IS WEARING LIGHT COMPRESSION LEGGINGS. HE HAS NOT MADE A NEW APPT TO SEE DR. ALEGRE AT WOUND CLINIC. WILL CONTINUE TO MONITOR
--- NOTE | 2016-08-08 18:37 | NUR ---
STILL SITTING UP IN CHAIR NO APPARENT DISTRESS.
[2016-08-08 20:57] VITALS: BP 116/58
--- NOTE | 2016-08-08 21:09 | NUR ---
UP IN BEDSIDE CHAIR, EATING BEDTIME SNACK.
[2016-08-08 23:00] VITALS: BP 116/42
--- NOTE | 2016-08-09 02:02 | NUR ---
PT UP AND STANDING IN DOORWAY TO ROOM. CALLING OUT FOR HELP. TELLING NURSE THE POTASSIUM HE TOOK IS MAKING HIM CRAZY. TIME FOR A NEW BAG OF BUMEX, SPENT SOME TIME TALKING TO PATIENT AND HE BECOMES MORE APPROPRIATE IN CONVERSATION HE TALKS.
--- NOTE | 2016-08-09 02:40 | NUR ---
PT ACCIDENTALLY PULLED OUT IV. RESITED 20G TO RFA AND RESUMMED IV BUMEX DRIP. PT STILL NOT COMFORTABLE, MEDICATED WITH PAIN PILL X 1 AND PT IS NOW GOING TO TRY AND REST.
--- NOTE | 2016-08-09 04:13 | NUR ---
PT UP AND DOWN IN BEDSIDE CHAIR. NO DISTRESS. VERY TIRED, BUT CANNOT SLEEP COMFORTABLY IN THE BED. CPOC. CALL LIGHT IN REACH.
[2016-08-09 05:47] VITALS: BP 116/60
[2016-08-09 07:47] VITALS: BP 100/56
--- NOTE | 2016-08-09 08:47 | NUR ---
ASSESSMENT COMPLETED. TELEMERTY SHOWS FLUTTER. O2 AT 4 L/M. COMPRESSION SOCKS ON. RIGHT FA WITH A BUMEX DRIP AT 10. EDEMA TO BOTH LEGS WILL MONITOR
--- NOTE | 2016-08-09 09:34 | NUR ---
Patient Name: MONIQUE BEDOLLA Admission Status: ER Accout number: [id number] Admission Date: 08-07-2016 : 1950 Admission Diagnosis: Attending: ELOINA Current LOS: 2 Anticipated DC Date: 08-09-2016 Planned Disposition: Home with Home Health Primary Insurance: MEDICARE A & B PLANNED EXTERNAL PROVIDER: [facility] Discharge Planning Comments: * Is the patient Alert and Oriented? Yes 0 * How many steps to enter\exit or inside your home? 7 W/RAILS 0 * PCP DR. BERNAL 0 * Pharmacy [facility] 0 * Preadmission Environment Home with Family 0 * ADLs Independent 0 * Equipment Nebulizer Oxygen Walker 0 * Other Equipment HOME AND PORTABLE OXYGEN [facility] - MEDICAL EQUIPMENT PROVIDER 0 * List name and contact numbers for known caregivers / representatives who currently or will assist patient after discharge: JANET BEDOLLA, SPOUSE, [place] [phone] 0 * Community resources currently utilized Home Health 0 * Please name any agencies selected above. [facility] 0 * Additional services required to return to the preadmission environment? No 0 * Can the patient safely return to the preadmission environment? Yes 0 * Has this patient been hospitalized within the prior 30 days at any hospital? Yes 0 CM MET WITH PT IN ROOM TO DISCUSS DISCHARGE PLANNING AND NEEDS. PT REPORTS LIVING AT HOME INDEPENDENTLY WITH HIS SPOUSE. PT REPORTS HAVING ALL NEEDED MEDICAL EQUIPMENT AT HOME. PT HAS HOME. CM DISCUSSED AVAILABILITY OF HOME HEALTH, REHAB SERVICES AND MEDICAL EQUIPMENT. PT DENIES DISCHARGE NEEDS, REPORTS HIS FAMILY WILL PICK HIM UP FOR DISCHARGE HOME. IMPORTANT MESSAGE FROM MEDICARE PROVIDED AND EXPLAINED. CM CALLED [facility], , SPOKE TO MARILYN WHO VERIFIED PT IS ACTIVE AND PT DID CALL THIS MORNING. [facility] TO RESUME SERVICES AT HOME WITH PT TOMORROW. CM FAXED DISCHARGE INFORMATION TO [facility] AT [phone]. Director Educational Radio: Philip Patel
--- NOTE | 2016-08-09 09:51 | NUR ---
PT DISCHARGED. IV DCD WITH TIP INTACT. INSTRUCTIONS GIVEN
--- NOTE | 2016-08-10 10:19 | HP ---
PATIENT: MONIQUE BEDOLLA MEDICAL RECORD: [id number] ACCOUNT: [id number] LOCATION:[address] : 46 ADMISSION DATE: 08/07/16 HISTORY AND PHYSICAL EXAMINATION ADMITTING DIAGNOSES: 1. Congestive heart failure, chronic systolic dysfunction. 2. Cardiomyopathy. 3. Coronary artery disease. 4. Status post recent PTCA stent RCA. 5. Atrial fibrillation ablation, chronic. 6. Hypertension. HISTORY OF PRESENT ILLNESS: Mr. Bedolla presents with increasing shortness of breath and increasing lower extremity edema, found to be in decompensated heart failure. He does have a cardiomyopathy, ejection fraction 25% to 30%. He does have a history of coronary artery disease, status post recent PTCA stent of the RCA, he has had no anginal symptomatology, has atrial fibrillation for which he is on Coumadin. Atrial fibrillation rate is controlled and this is not new. PHYSICAL EXAMINATION: GENERAL APPEARANCE: Well-nourished, well-developed, appears stated age. Level of distress, comfortable. PSYCHIATRIC: Mental status, alert, normal affect. Orientation, oriented to time, place and person. EYES: Lids and conjunctiva, noninjected. No discharge, no pallor. ENT: Lips, teeth, gums, normal dentition. Oropharynx, no cyanosis, no pallor. NECK: Carotid arteries, bilateral normal upstroke, no bruits, no thrills. JUGULAR VEINS: No jugular venous pressure or distention. CERVICAL LYMPH NODES: Nontender, nonenlarged. THYROID: Not enlarged. Nontender. No nodules. LUNGS: He has bibasilar crackles. CHEST: Normal curvature. No thoracic deformity. No chest wall tenderness. Percussion, resonant. Auscultation, clear. No wheezes, no rales, no rhonchi. CARDIOVASCULAR: Irregularly irregular in atrial fibrillation. EXTREMITIES: In lower extremity, he has +3 pitting edema. ABDOMEN: Soft, nondistended. Normal aorta. No bruit. Nontender. No masses. Liver, nontender, no hepatomegaly. Spleen, nontender, no splenomegaly. MUSCULOSKELETAL: No joint tenderness. No joint swelling. No erythema. NEUROLOGICAL: Normal gait, normal strength, normal tone. SKIN: Warm and dry. OVERALL IMPRESSION: Decompensated congestive heart failure with chronic systolic function. We will bring him in put him on a Bumex drip and possibly inotropic drip with dobutamine as well. TRANSINT:[id number] Voice Confirmation ID: [id number] DOCUMENT ID: [id number] HISTORY AND PHYSICAL [id number] MONIQUE BEDOLLA JEFFREY MD at 1019 CC: [id number] DICTATION DATE: 08/07/16 1530 PAST DUE ACCOUNTS CLERK: 08/07/16 1707 DIS IN 08/09/16 [address] [place] [address]
--- NOTE | 2016-08-10 10:19 | DS ---
PATIENT:MONIQUE BEDOLLA :46 MEDICAL RECORD: [id number] DISCHARGE SUMMARY ADMISSION DATE: 08/07/16 DISCHARGE DATE: 08/09/16 DISCHARGE DIAGNOSES: 1. Congestive heart failure, chronic systolic dysfunction. 2. Cardiomyopathy. 3. Coronary artery disease. 4. Hypertension. 5. Hyperlipidemia. HOSPITAL COURSE: Mr. Bedolla presents with decompensated congestive heart failure, was placed on a Bumex drip, had an excellent diuresis. His heart failure symptomatology cleared. He was discharged home to go back to his Lasix 40 mg b.i.d. Follow up with [facility] in 1 month. TRANSINT:[id number] Voice Confirmation ID: [id number] DOCUMENT ID: [id number] MOHSEN DONALDSON MD at 1019 CC: [id number] DICTATION DATE: 08/09/16818 SPECIAL EDUCATION SCIENCE TEACHER: 08/09/162049 DIS IN 08/09/16 [address] [id number] [place] [id number]
== END 2016-08-09 09:57 | disposition home health service (06) | DRG 293 ==
LOC: D.ER 12:45 → D.M2 15:22
PROVIDERS: Emergency Medicine; ADMIT Internal Medicine Interventional Cardiology
DX: I11.0 Hypertensive heart disease with heart failure (principal); I50.23 Acute on chronic systolic (congestive) heart failure; I42.9 Cardiomyopathy, unspecified; I25.10 Atherosclerotic heart disease of native coronary artery without angina pectoris; E78.5 Hyperlipidemia, unspecified; I48.2 Chronic atrial fibrillation

== ENCOUNTER 2016-08-13 17:13 | Emergency (ER) | payer MEDICARE, OTHER ==
[2016-08-08 13:45] VITALS: BMI 40.6
[~2016-08-13 17:13] MED LIST changes: +MYCOSTATIN 15 G15 GM TOPICAL
== END 2016-08-13 19:51 | disposition left against medical advice (07) ==
LOC: D.ER 17:13
DX: M54.5 Low back pain (principal)

== ENCOUNTER 2016-09-07 01:39 | Inpatient (IN) | payer MEDICARE, OTHER ==
[~2016-09-07] VITALS: Ht 190.5 cm; Wt 136.4 kg
--- NOTE | ~2016-09-07 | EC ---
PATIENT:MONIQUE BEDOLLA DATE OF SERVICE: 09/07/16 SEX: M MEDICAL RECORD: [id number] DATE OF : 46 LOCATION:D.M2 D.213 AGE OF PATIENT: 66 ADMISSION DATE: 09/07/16 REFERRING PHYSICIAN: INTERPRETING PHYSICIAN: CAREY MICHAEL M.D. ECHOCARDIOGRAM REPORT ECHO CHARGES 4 ECHO COMPLETE CLINICAL DIAGNOSIS: CHF HX CAD/STENT X 2 ECHOCARDIOGRAPHIC MEASUREMENTS (adult normal given) AC root (d.<3.7cm) 3.6 LV Septum d (<1.2 cm> 1.4 Valve Excursion 1.8 LV Septum (systole) 1.5 Left Atria (s.<4.0cm> 5.2 LVPW d(<1.2cm) 1.4 RV (d.<2.3cm) 5.5 LVPW (sytole) 1.6 LV diastole(<5.6CM) 5.4 MV E-F(>70mm/sec) LV systole 3.9 LVOT Diameter 2.3 MV exc.(>10mm) 1.6 Est.ejection fraction (50-75%) Pericardial Effusion N DOPPLER: LVIT A 43.0 E 103 LA RVSP 45 LVOT 71 AOP1/2T Asc. Ao 128 RVOT 61 RA PA 99 AV Gradient Peak 6.51 AV Mean 3.5 AV Area 2.2 MV Gradient Peak 5.36 MV Mean 2.40 MV Area COMMENTS: Security System Installer: Gricelda TRAVIS Cnc Router Operator:Marcell García TAPE# PACS DATE OF SERVICE: 09/07/2016 REFERRING PHYSICIAN: Nagi Dorman MD. INDICATION: Congestive heart failure. DESCRIPTION: Left ventricle demonstrates left ventricular hypertrophy. No wall motion abnormalities are seen. Estimated ejection fraction is 55%. Mitral valve is structurally normal. There is mild to moderate regurgitation noted. Left atrium is moderately dilated. The aortic valve is trileaflet. There is no ECHOCARDIOGRAM REPORT [id number] MONIQUE BEDOLLA stenosis or regurgitation seen. Right ventricle is moderately dilated. Tricuspid valve is normal. There is mild regurgitation seen. Right atrium is normal in size. There is no pericardial effusion seen. IMPRESSION: 1. Left ventricular hypertrophy with preserved ejection fraction of 55%. 2. Mild to moderate mitral regurgitation. 3. Mild tricuspid regurgitation. TRANSINT:[id number] Voice Confirmation ID: [id number] DOCUMENT ID: [id number] CAREY MICHAEL M.D. CC: [id number] DICTATION DATE: 09/07/16 1441 SAND SCREENER OPERATOR: 09/07/16 1636 ADM IN [id number] [place] [address]
[2016-09-07 02:06] LABS: BASOPHILS 0.3 % (0-2); EOSINOPHILS 6.8 % (0-7); HEMATOCRIT 35.5 % (42.0-54.0); HEMOGLOBIN 10.7 g/dL (13.5-17.5); IMMATURE GRANULOCYTES 0.5 % (0-5); MCH 27.6 pg (26.0-34.0); MCHC 30.1 g/dL (31.0-37.0); MCV 91.7 fL (80.0-100.0); MEAN PLATELET VOLUME 8.6 fL (7.4-10.4); MONOCYTES 5.1 % (2-11); NEUTROPHILS 65.3 % (40-80); PLATELET COUNT 180 10x3/uL (130-400); RBC 3.87 10x6/uL (4.20-6.10); WBC 9.8 10x3/uL (4.8-10.8)
[2016-09-07 02:20] LABS: APTT 44.2 SECONDS (22.8-39.4); INR 2.88 (0.85-1.17); PROTIME 30.4 SECONDS (11.6-15.0)
[2016-09-07 02:25] LABS: ALBUMIN 3.5 g/dL (3.4-5.0); ALKALINE PHOSPHATASE 132 U/L (46-116); ALT (SGPT) 21 U/L (10-68); BILIRUBIN - TOTAL 0.49 mg/dL (0.2-1.3); CALC OSMOLALITY 269 mosm/kg (275-300); CALCIUM 8.9 mg/dL (8.5-10.1); CARBON DIOXIDE 38.3 mmol/L (21.0-32.0); CHLORIDE - SERUM 94 mmol/L (98-107); CREATININE - SERUM 0.9 mg/dL (0.6-1.3); GLUCOSE 159 mg/dL (74-106); POTASSIUM - SERUM 4.1 mmol/L (3.5-5.1); PROTEIN - SERUM 7.3 g/dL (6.4-8.2); SODIUM 134 mmol/L (136-145); UREA NITROGEN 11 mg/dL (7-18); eGFR NON AFRICAN AMERICAN 89 mL/min (90-120)
[2016-09-07 02:37] LABS: CKMB 1.6 U/L (0.0-3.6); CREATINE KINASE 49 UL (21-232); PRO BNP 2942 pg/mL (0-125); THYROID STIMULATING HORMONE 3.08 uIU/mL (0.36-3.74); TROPONIN-I 0.028 ng/mL (0.000-0.060)
--- NOTE | 2016-09-07 04:00 | NUR ---
RECIEVED TO ROOM 2138 FROM ER VIA WC. PT A&O. O2 AT 2 LITER VIA NC. IV TO LEFT HAND SL, SITE CLEAN AND DRY. VITALS STABLE. DRSG TO LEFT LEG, PT STATED THAT HE HAD A BLISER ON HIS FOOT THAT GOT INFECTED AND THAT IT TURNED INTO A LARGE WOUND AND IS CURRENTLY BEING TREATED BY DR ALEGRE AT THE WOUND CLINIC. PT DENIES PAIN OR NEEDS AT THIS TIME, BED LOW, CL IN REACH.
--- NOTE | 2016-09-07 05:13 | NUR ---
LONGER 02 TUBING WITH HUMIDIFICATION PLACED ON PT.
--- NOTE | 2016-09-07 07:38 | NUR ---
AM ROUNDING DONE WITH PATIENT SITTING ON SIDE OF BED. SALINE LOCK SEEN TO LEFT HAND, ON 3 L PER NC. ON HEART MONITOR SHOWING SR,HR 78. URINAL GIVEN TO PATIENT AND INSTRUCTED TO USE THIS FOR ACCURATE OUTPUT. BILATERAL BEIGE COMPRESSION HOSE ON WITH DRESSING SEEN TO LEFT FOOT. WILL UNDRESS THIS DURING ASSESSMENT. DENIES NEEDS AT PRESENT TIME. WILL CONTINUE TO MONITOR.
[2016-09-07 08:00] VITALS: BP 135/75
[2016-09-07 12:00] VITALS: BP 138/76
--- NOTE | 2016-09-07 13:39 | NUR ---
SITTING ON SIDE OF BED TALKING WITH . DENIES NEEDS AT PRESENT TIME. WANTS TO BE DISCHARGED.
[2016-09-07 14:49] VITALS: Ht 190.5 cm; Wt 136.4 kg
[2016-09-07 16:45] VITALS: BP 132/69
--- NOTE | 2016-09-07 18:20 | NUR ---
SITTING IN CHAIR WITH NO NEEDS VOICED. LASIX GIVEN SLOW IVP TO LEFT HAND. WILL CONTINUE TO MONITOR.
--- NOTE | 2016-09-07 19:36 | NUR ---
PT RECEIVED SITTING UP IN CHAIR BY BED. PT HAS DRESSING TO LEFT FOOD THAT IS NOTED TO BE CLEAN, DRY, AND INTACT. PT REFUSES DRESSING CHANGES, STATES, "MY WOUND DOCTOR CHANGES IT ON TUESDAYS." PT DENIES PAIN OR NEEDS AT THIS TIME. CALL LIGHT AND H2O IN PT REACH.
[2016-09-07 21:22] VITALS: BP 121/65
--- NOTE | 2016-09-08 00:21 | NUR ---
PT CURRENTLY SITTING UP IN CHAIR, RESTING WITH EYES CLOSED. PT REFUSES TO LAY IN BED, STATING CHAIR IS MORE COMFORTABLE. PT DENIES PAIN OR NEEDS AT THIS TIME. CALL LIGHT AND H2O IN PT REACH.
[2016-09-08 01:14] VITALS: BP 139/68
[2016-09-08 05:10] LABS: BASOPHILS 0.1 % (0-2); EOSINOPHILS 8.9 % (0-7); HEMATOCRIT 36.2 % (42.0-54.0); IMMATURE GRANULOCYTES 0.3 % (0-5); LYMPHOCYTES 27.1 % (15-50); MCH 27.8 pg (26.0-34.0); MCHC 30.4 g/dL (31.0-37.0); MCV 91.6 fL (80.0-100.0); MEAN PLATELET VOLUME 8.9 fL (7.4-10.4); MONOCYTES 6.3 % (2-11); NEUTROPHILS 57.3 % (40-80); PLATELET COUNT 204 10x3/uL (130-400); RBC 3.95 10x6/uL (4.20-6.10); RDW 17.9 % (11.5-14.5); WBC 7.7 10x3/uL (4.8-10.8)
[2016-09-08 05:20] LABS: INR 2.99 (0.85-1.17); PROTIME 31.3 SECONDS (11.6-15.0)
[2016-09-08 05:34] LABS: ALBUMIN 3.4 g/dL (3.4-5.0); ALKALINE PHOSPHATASE 126 U/L (46-116); ALT (SGPT) 19 U/L (10-68); BILIRUBIN - TOTAL 0.55 mg/dL (0.2-1.3); CALCIUM 9.4 mg/dL (8.5-10.1); CHLORIDE - SERUM 95 mmol/L (98-107); CREATININE - SERUM 0.9 mg/dL (0.6-1.3); GLUCOSE 160 mg/dL (74-106); POTASSIUM - SERUM 4.3 mmol/L (3.5-5.1); PROTEIN - SERUM 7.2 g/dL (6.4-8.2); SODIUM 137 mmol/L (136-145); eGFR NON AFRICAN AMERICAN 89 mL/min (90-120)
[2016-09-08 05:35] LABS: CALC OSMOLALITY 278 mosm/kg (275-300); UREA NITROGEN 18 mg/dL (7-18)
[2016-09-08 06:06] VITALS: BP 133/69
--- NOTE | 2016-09-08 07:20 | NUR ---
AM ROUNDS DONE AT THIS TIME. PT UP TO SIDE OF BED AT THIS TIME. ASKED WHAT TIME DR. VALDEZ WAS GOING TO MAKE ROUNDS TO DAY. TOLD PT THAT I DID NOT KNOW EXACTLY WHAT TIME HE WAS COMING AROUND, THAT I MIGHT BE AROUND NOON. PT DENIES ANY NEEDS AT THIS TIME. PT ASSESED AT THIS TIME. CALL LIGHT IN REACH, NAD NOTED, WILL CONTINUE TO MONITOR.
--- NOTE | 2016-09-08 08:49 | NUR ---
ADMINISTERED MORNING MEDICATIONS, AND 10MG OF NORCO FOR PAIN LEVEL OF 5/10. PT UP TO SIDE OF BED, DENIES ANY NEEDS AT THIS TIME. CALL LIGHT IN REACH, NAD NOTED, WILL CONT TO MONITOR.
[2016-09-08 08:54] VITALS: BP 145/56
--- NOTE | 2016-09-08 11:40 | NUR ---
BLOOD SUGAR OF 203, 8UNITS OF HUMALOG GIVEN PER S/S. PT UP TO CHAIR, DENIES ANY NEEDS AT THIS TIME. CALL LIGHT IN REACH, NAD NOTED, WILL CONTINUE TO MONITOR.
[2016-09-08 12:20] VITALS: BP 117/64
--- NOTE | 2016-09-08 16:17 | NUR ---
BLOOD SUGAR OF 118, NO COVERAGE NEEDED PER SLIDING SCALE. PT WAITING ON DR. VALDEZ TO SEE IF HE IS GOING TO GET TO GO HOME TODAY. PT DENIES ANY NEEDS AT THIS TIME. CALL LIGHT IN REACH, NAD NOTED, WILL CONTINUE TO MONITOR.
[2016-09-08 17:16] VITALS: BP 149/85
--- NOTE | 2016-09-08 17:39 | NUR ---
D/C LEFT HAND IV, TIP INTACT, PT DENIES ANY NEEDS JUST WAITING ON D/C PAPERS. NAD NOTED, WILL CONTINUE TO MONITOR.
--- NOTE | 2016-09-10 13:19 | CN ---
PATIENT NAME:MONIQUE BEDOLLA MEDICAL RECORD: [id number] : 46 LOCATION:[facility] D.2139 ADMIT DATE: 09/07/16 ACCOUNT: [id number] CONSULTING PHYSICIAN: YUUSF KING MD REFERRING PHYSICIAN: LOY VALDEZ MD DATE OF CONSULTATION: 09/07/2016 HISTORY OF PRESENT ILLNESS: A 66-year-old gentleman with known history of coronary artery disease, status post a stent in the right coronary artery, has history of cardiomyopathy, atrial flutter. Really just presented with marked exertional dyspnea, reports he has not had the strength since a procedure performed previously. He has a history of diabetes, reports he is somewhat apprehensive to exercise to the point of shortness of breath. We are asked to see him concerning his cardiovascular status. PAST MEDICAL HISTORY: Includes: 1. History of hypertension. 2. Diabetes mellitus. 3. Dyslipidemia. 4. Obstructive pulmonary disease. 5. Gastroesophageal reflux disease. MEDICATIONS: Include Janumet, insulin per scale, Amaryl 4 mg daily, Nexium 40 daily, Lasix 40 daily, lisinopril 20 daily, Coreg 12.5 daily, atorvastatin 40 daily. ALLERGIES: POTASSIUM. SOCIAL HISTORY: Lives here in [place]. He is a nonsmoker. No set exercise program. Reports is in poor health. REVIEW OF SYSTEMS: The patient reports easy bruising but reports no swollen glands. The patient reports no fever, no night sweats, no significant weight gain, no significant weight loss. No significant exercise tolerance. The patient reports no dry eyes, no irritation, no vision change. Patient reports no difficulty hearing and no ear pain. Patient reports no frequent nose bleeds or nose and sinus problems. Patient reports on arm pain on exertion. No shortness of breath while lying down. No history of heart murmur. Patient reports no cough, no wheezing or coughing up blood. Patient reports no abdominal pain, no vomiting. Normal appetite. No diarrhea and not vomiting blood. No nausea and no constipation. Patient reports no incontinence. No difficulty urinating. No hematuria. No increased frequency. Patient reports no muscle aches. No weakness, no arthralgias, no back pain. No swelling of the extremities. Patient reports no abnormal mole, no jaundice, no rashes. Reports no loss of consciousness. No weakness and no numbness. No seizures, dizziness, or headaches. The patient reports no depression, no sleep disturbance, feeling safe in a relationship and no alcohol abuse. Patient reports on fatigue. Reports no runny nose or sinus pressure. No itching, no hives, and no frequent sneezing. PHYSICAL EXAMINATION: GENERAL: Pleasant gentleman, in no acute distress. VITAL SIGNS: Blood pressure 135/75, pulse 81 and irregular. HEENT: Normocephalic, atraumatic. NECK: No JVD or bruit. CONSULT REPORT [id number] MONIQUE BEDOLLA HEART: Regular. LUNGS: Fairly good air excursion. ABDOMEN: Soft, nontender. EXTREMITIES: Pulse 2+ with no edema. DIAGNOSTIC DATA: ECG shows atrial flutter with variable block. IMPRESSION: Appears fairly euvolemic at this point. BNP appears to be a baseline. He is currently on KAY inhibitor as well as beta-blockade. We will add Aldactone to his current medical regime, might benefit from something such as an outpatient cardiac rehab for structured exercise program. TRANSINT:[id number] Voice Confirmation ID: [id number] DOCUMENT ID: [id number] YUSUF KING MD at 1319 CC: [id number] DICTATION DATE: 09/07/16 0843 UROLOGIC SURGEON: 09/07/162041 DIS IN 09/08/16 [id number] [place] [address]
== END 2016-09-08 19:40 | disposition home or self-care (01) | DRG 292 ==
LOC: D.ER 01:39 → D.M2 02:49
PROVIDERS: Emergency Medicine; ADMIT Emergency Medicine
DX: I11.0 Hypertensive heart disease with heart failure (principal); I48.92 Unspecified atrial flutter; Z68.41 Body mass index [BMI] 40.0-44.9, adult; I50.9 Heart failure, unspecified; I25.10 Atherosclerotic heart disease of native coronary artery without angina pectoris; Z95.5 Presence of coronary angioplasty implant and graft; I42.9 Cardiomyopathy, unspecified; E11.40 Type 2 diabetes mellitus with diabetic neuropathy, unspecified; Z79.4 Long term (current) use of insulin; K21.9 Gastro-esophageal reflux disease without esophagitis; J44.9 Chronic obstructive pulmonary disease, unspecified; E78.5 Hyperlipidemia, unspecified; E66.01 Morbid (severe) obesity due to excess calories; Z87.891 Personal history of nicotine dependence

== ENCOUNTER 2016-09-07 02:49 | Outpatient (CLI) | payer MEDICARE, OTHER ==
[2016-09-07 14:49] VITALS: BMI 37.7
== END 2016-09-08 19:40 | disposition short-term general hospital (02) ==
LOC: D.OPS 02:49
DX: I10 Essential (primary) hypertension (principal); E11.9 Type 2 diabetes mellitus without complications; E78.5 Hyperlipidemia, unspecified; J44.9 Chronic obstructive pulmonary disease, unspecified; K21.9 Gastro-esophageal reflux disease without esophagitis; Z01.812 Encounter for preprocedural laboratory examination

== ENCOUNTER 2016-10-21 06:46 | Inpatient (IN) | payer MEDICARE, OTHER ==
[~2016-10-21] VITALS: Ht 190.5 cm; Wt 132.5 kg
--- NOTE | ~2016-10-21 | HEMODYNAMI ---
PATIENT:MONIQUE BEDOLLA MEDICAL RECORD: [id number] : 46 LOCATION:[facility] D.2103 ADMISSION DATE: 10/21/16 Generatedon:10/22/201615:31 Patient name: MONIQUE BEDOLLA Patient #: [id number] SSN: [id number] : 1950 Date of study: 10/22/2016 Page: Of Hemodynamic Procedure Report Patient Data Patient Demographics Procedure consent was obtained First Name: MONIQUE Gender: Male Last Name: GRAEME : 1950 Middle Initial: W Age: 66 year(s) Patient #: [id number] Race: Unknown SSN: [id number] Additional ID: [id number] Contact details Address: [address] [place] [address] State: [place] City: [facility] Zip code: [address] Past Medical History Allergies Allergen Reaction Date Comments Reported Other allergy 06/27/2016 POTASSIUM CHLORIDE Other allergy 10/22/2016 Potassium Admission Admission Data Admission Date: 10/21/2016 Admission Time: 11:34 Arrival Date: 10/22/2016 Arrival Time: 0:00 Admit Source: Other Room #: .2103 Lab Results Lab Result Date: 10/22/2016 Lab Result Time: 0:00 Biochemistry Name Units Result Min Max BUN mg/dl 21 --(----)-* 7 18 Creatinine mg/dl 0.9 --(-*--)-- 0.6 1.3 CBC Name Units Result Min Max Hemoglobin g/dl 13.1 -*(----)-- 13.5 17.5 Procedure Procedure Types Cath Procedure Diagnostic Procedure [facility] w/Coronaries Miscellaneous Procedures Moderate Sedation up to 30 minutes Procedure Description Procedure Date Procedure Date: 10/22/2016 Procedure Start Time: 15:12 Procedure End Time: 15:30 Procedure Staff Name Function Madelyn Sultana RT Scrub Sage Swan RN Nurse Ron Fraga RT Monitor Amari Wade MD Performing Physician Procedure Data Cath Procedure Fluoroscopy Diagnostic fluoroscopy Total fluoroscopy Time: 3.2 time: 3.2 min min Diagnostic fluoroscopy Total fluoroscopy dose: 973 dose: 973 mGy mGy Contrast Material Contrast Material Type Amount (ml) Isovue 300 57 Entry Location Entry Primary Successful Side Size Upsize Upsize Entry Closure Marcelino ccessful Closure Location (Fr) 1 (Fr) 2 (Fr) Remarks Device Remarks Radial Right 6 Fr Mechanical artery Short Compression Diagnostic catheters Device Type Used For End Catheter Placement Terumo 5Fr Donald 110cm LV Angiography catheter Procedure Complications No complications Procedure Medications Medication Administration Route Dosage Oxygen NC 3 l/min Lidocaine 2% added to field 20 Heparin Flush Bag added to field 2 bags (1000units/500ml NS) 0.9% NaCl I.V. 100 ml/hr Versed I.V. 1 mg Fentanyl I.V. 50 mcg Versed I.V. 1 mg Fentanyl I.V. 50 mcg Versed I.V. 1 mg Fentanyl I.V. 50 mcg Versed I.V. 1 mg Fentanyl I.V. 50 mcg Radial Cocktail I.A. 1 syringe (Verapomil 2mg/Nitro 400mcg/Heparin 1500units) Hemodynamics Rest HGB: 13.1 (g/dl) Heart Rate: 82 (bpm) Pressure Samples Time Site Value (mmHg) Purpose Heart Use Rate(bpm) 15:17 LV 93/24,13 EDP 133 15:18 AO 93/50(70) Pullback 92 15:18 LV 104/-3,8 Pullback 92 Gradients Valve Time Site 1 Site 2 Mean SEP/DFP Peak To Heart Use (mmHg) (sec/min) Peak Rate (mmHg) (bpm) Aortic 15:18 LV AO 14 11 11 92 104/-3,8 93/50(70) Calculations Valve P-P Mean Valve Index Valve Source Name Gradient Area Flow (cm2) Aortic 11 14 11 14 Snapshots Pre Cath Intra NCS Post Cath Vital Signs Time Heart Resp SPO2 etCO2 MO9lnfe NIBP (mmHg) Rhythm Pain Sedati on Rate (ipm) (%) (mmHg) (mmHg) Status Level (bpm) 15:00:00 82 16 99 0 0 128/86(112) A-Flutter 0 (11) 10(A) , No pain 15:04:18 84 15 98 0 0 124/67(95) A-Flutter 0 (11) 10(A) , No pain 15:08:36 101 16 96 0 0 113/66(80) A-Flutter 0 (11) 10(A) , No pain 15:12:54 80 15 93 0 0 112/65(87) A-Flutter 0 (11) 9(A) , No pain 15:17:16 91 15 94 0 0 94/52(71) A-Flutter 0 (11) 9(A) , No pain 15:21:30 81 16 94 0 0 96/60(77) A-Flutter 0 (11) 9(A) , No pain 15:25:44 87 15 94 0 0 98/65(80) A-Flutter 0 (11) 10(A) , No pain 15:29:58 88 17 94 0 0 103/66(88) A-Flutter 0 (11) 10(A) , No pain Medications Time Medication Route Dose Verified Delivered Reason Notes Effectiveness by by 14:57:17 Oxygen NC 3 l/min Amari Buffie used for Mauro Swan RN procedure 14:57:24 Lidocaine 2% added 20ml Amari Buffie used for to vial Mauro Swan RN procedure field 14:57:30 Heparin Flush added 2 bags Amari Buffie used for Bag to Mauro Swan RN procedure (1000units/500ml field NS) 14:58:27 0.9% NaCl I.V. 100 Amari Buffie Per ml/hr Mauro Swan RN physician 15:01:23 Versed I.V. 1 mg Amari Buffie for sedation Mauro Swan RN 15:01:36 Fentanyl I.V. 50 mcg Amari Buffie for sedation Mauro Swan RN 15:06:29 Versed I.V. 1 mg Amari Buffie for sedation Mauro Swan RN 15:06:32 Fentanyl I.V. 50 mcg Amari Buffie for sedation Mauro Swan RN 15:13:22 Versed I.V. 1 mg Amari Buffie for sedation Mauro Swan RN 15:13:26 Fentanyl I.V. 50 mcg Amari Buffie for sedation Mauro Swan RN 15:14:45 Radial Cocktail I.A. 1 Amari Amari for (Verapomil syringe Wade MD Wade MD vasodilation 2mg/Nitro 400mcg/Heparin 1500units) 15:18:36 Versed I.V. 1 mg Amari Cazares for sedation Mauro Swan RN 15:18:40 Fentanyl I.V. 50 mcg Amari Cazares for sedation Mauro Swan RN Procedure Log Time Note 14:33:40 Admit Source: Other 14:33:45 Arrival Date: 10/22/2016 12:00:00 AM 14:37:14 Lab Result : Creatinine 0.9 mg/dl 14:37:14 Lab Result : BUN 21 mg/dl 14:37:14 Lab Result : Hemoglobin 13.1 g/dl 14:37:45 Sage Swan RN sent for patient. Start room use. 14:45:51 Time tracking: Regular hours 14:45:58 Plan of Care:Hemodynamics will remain stable., Cardiac rhythm will remain stable., Comfort level will be maintained., Respiratory function will remain adequate., Patient/ family verbilizes understanding of procedure., Procedure tolerated without complication., Recovers from procedure without complications.. 14:46:05 Patient received from Med II to CCL 1 Alert and oriented. Tansferred to table in Supine position. 14:46:06 Warm blankets applied, and bassem hugger turned on for patient comfort. 14:46:07 Correct patient and procedure confirmed by team. 14:46:12 Signed procedure consent form obtained from patient. 14:46:20 H&P Date Dictated: 10/21/2016 Within 30 days and on chart.. 14:46:27 Family in patients room. 14:46:29 Patient NPO since Midnight. 14:46:49 Patient allergic to Other allergyPotassium 14:46:52 Is the patient allergic to Iodine/contrast media? No. 14:46:55 Is patient on blood thinner?Yes 14:46:58 ACC The patient was administered the following blood thiners within the last 24 hours: Coumadin 14:47:04 Patient diabetic? Yes. 14:47:09 If diabetic: On Metformin? Yes 14:47:13 If on Metformin: Last Dose? 10/21/2016 14:47:17 Snore? Yes 14:47:20 Sleep apnea? Yes 14:47:28 Airway obstruction? Yes COPD 14:47:49 Patient pain scale 0/10 ?. 14:48:04 IV patent on arrival in left forearm with 0.9% NaCl at [facility]. 14:48:09 Lab results completed and on chart. 14:48:14 Right Radial & Right Groin area was prepped with chlora-prep and draped in sterile fashion 14:48:16 Alarms reviewed by R. N. 14:48:17 Sharps counted by scrub and verified by R.N. 14:48:18 Physician paged 14:57:17 Oxygen 3 l/min NC was administered by Sage Swan RN; used for procedure; 14:57:24 Lidocaine 2% 20ml vial added to field was administered by Sage Swan RN; used for procedure; 14:57:30 Heparin Flush Bag (1000units/500ml NS) 2 bags added to field was administered by Sage Swan RN; used for procedure; 14:58:27 0.9% NaCl 100 ml/hr I.V. was administered by Sage Swan RN; Per physician; 14:58:54 Vital chart was started 15:00:41 --------ALL STOP TIME OUT------ 15:00:41 Final Timeout: patient, procedure, and site verified with staff and physician. All members of the team are in agreement. 15:00:43 Right Radial & Right Groin site verified by team. 15:01:01 Baseline sample Acquired. 15:01:03 Rhythm: sinus rhythm 15:01:04 Full Disclosure recording started 15:01:05 Pre-procedure instructions explained to patient. 15:01:08 Pre-op teaching completed and patient verbalized understanding. 15:01:15 Deviated septum? No 15:01:16 Opens mouth fully? Yes 15:01:18 Sticks out tongue? Yes 15:01:21 Dentures? No ? 15:01:23 Versed 1 mg I.V. was administered by Sage Swan RN; for sedation; 15:01:31 Physical assessment completed. ASA score P 2 - A patient with mild systemic disease as per Amari Wade MD. 15:01:36 Fentanyl 50 mcg I.V. was administered by Sage Swan RN; for sedation; 15:01:36 Sedation plan: IV Moderate Sedation Versed, Fentanyl 15:02:17 Use device set Radial Dx 15:02:18 Acist Syringe opened to sterile field. 15:02:19 Medline Cath Pack opened to sterile field. 15:02:19 Bag Decanter opened to sterile field. 15:02:19 Terumo 6Fr Slender Glidesheath opened to sterile field. 15:02:20 St Ralf 260cm J .035 wire opened to sterile field. 15:02:20 Acist Hand Control opened to sterile field. 15:02:20 Acist Manifold opened to sterile field. 15:02:21 Tegaderm 4 x 4 opened to sterile field. 15:02:21 MBrace Wrist Support opened to sterile field. 15:02:53 ACC Patient presents with Unstable Angina CCS Anginal Class 4--Inability to carry out any physical activity w/o angina. Angina may occur at rest. 15:02:58 Diagnostic Cath status Urgent 15:03:00 ECG and BP/O2 sat monitors applied to patient. 15:03:10 Pre procedure: right dorsailis pedis pulse 1+ Palpable, but thready & weak; easily obliterated 15:03:34 Modified Clayton's test Ulnar > 7 seconds. 15:06:29 Versed 1 mg I.V. was administered by Sage Swan RN; for sedation; 15:06:32 Fentanyl 50 mcg I.V. was administered by Sage Swan RN; for sedation; 15:11:59 Procedure started. 15:12:46 Local anesthetic to right radial artery with Lidocaine 2% by Amari Wade MD.INITIAL ACCESS ONLY 15:13:20 A 6 Fr Short sheath was inserted into the Right Radial artery 15:13:22 Versed 1 mg I.V. was administered by Sage Swan RN; for sedation; 15:13:26 Fentanyl 50 mcg I.V. was administered by Sage Swan RN; for sedation; 15:14:28 A Terumo 5Fr Donald 110cm catheter was advanced over the wire and used for LV Angiography. 15:14:32 Zero performed for pressure channel P1 15:14:43 LV angiography performed. 15:14:45 Radial Cocktail (Verapomil 2mg/Nitro 400mcg/Heparin 1500units) 1 syringe I.A. was administered by Amari Wade MD; for vasodilation; 15:14:45 LV gram done using SNYDER 15:14:46 LV hemodynamics recorded. 15:14:51 Injector settings: Ml/sec: 7, Volume: 15, 15:17:36 EF : 50 % 15:18:36 Versed 1 mg I.V. was administered by Sage Swan RN; for sedation; 15:18:40 Fentanyl 50 mcg I.V. was administered by Sage Swan RN; for sedation; 15:19: LCA angiography performed. 15:19:33 RCA angiography performed. 15:26:20 Catheter removed. 15:: Contrast amount:Isovue 300 57ml. 15::35 Sheath removed intact; hemostasis achieved with Mechanical Compression to the Right Radial artery. 15::42 Terumo TR Band Standard opened to sterile field. 15::44 Procedure ended.(Physican Out) 15::56 Fluoroscopy time 03.20 minutes. 15:: Flurop Dose total: 973 15:: Fluoroscopy dose: 973 mGy 15:27:06 Sharps counted by scrub and verified by R.N. 15:29:24 TR band inflated with 10cc of air. 15:29:26 Insertion/operative site no bleeding no hematoma. 15:29:30 Post right radial artery:stable 15:29:32 Post Procedure Pulses reassessed and unchanged 15::34 Post procedure: right dorsailis pedis pulse 1+ Palpable, but thready & weak; easily obliterated. 15:29:41 Post procedure rhythm: sinus rhythm 15:29:43 Post procedure instruction explained to patient.Patient verbalizes understanding. 15:30:03 Procedure type changed to Cath procedure, Diagnostic procedure, LHC, LHC w/Coronaries, Miscellaneous Procedures, Moderate Sedation up to 30 minutes 15:30:14 Procedure and supply charges have been captured, reviewed, submitted and are correct. 15:30:34 Procedure Complication : No complications 15:30:36 Vital chart was stopped 15:30:36 See physician's report for complete and final results. 15:30:39 Report given to PCU. 15:30:43 Patient transfered to PCU with Bed. 15:30:45 Procedure ended. 15:30:45 Full Disclosure recording stopped 15:30:48 End room use (Document Last) Device Usage Item Name Manufacture Quantity Catalog Hospital Part Current Minimal Lot# / Number Charge Number Stock Stock Serial# Code [facility] 1 67422 [id number] 073349 130032 20 Syringe Medical Systems Inc Medline Cardinal 1 [id number] 63433 268861 5 Cath Pack Health Bag Microtek 1 134519 97324 911738 5 Decanter [employer] Inc. Terumo 6Fr Terumo 1 [id number] 210896 971074 879880 [address] Ralf St Ralf 1 012882 658900 631576 305604 30 260cm J .035 wire Acist Hand Acist 1 44123 039230 573806 342529 5 Control Medical Systems Inc Acist Acist 1 53018 350394 619448 610402 5 Manifold Medical Systems Inc Tegaderm 4 3M 1 1626W 984940 804796 313621 5 x 4 MBrace Advanced 1 140-0250-00 174256 45510 019209 5 Wrist Vascular Support Dynamics Terumo 5Fr Terumo 1 55-9410 548683 207621 300114 5 Donald 110cm catheter Terumo TR Terumo 1 [id number] 787593 072290 577043 40 Band Standard Signature Audit [place] Stage Time Signature Unsigned Intra-Procedure 10/22/2016 Ron Fraga 3:31:14 PM RT(R) Signatures Monitor : Ron Fraga RT Signature : Date : Time : [id number] [place] [address]
[~2016-10-21 06:46] MED LIST changes: +JANUMET 50-1,001 TAB PO; -JANUMET XR 50-1 EACH PO
[2016-10-21 07:32] LABS: BASOPHILS 0.5 % (0-2); EOSINOPHILS 4.4 % (0-7); HEMATOCRIT 39.8 % (42.0-54.0); HEMOGLOBIN 12.4 g/dL (13.5-17.5); IMMATURE GRANULOCYTES 1.2 % (0-5); LYMPHOCYTES 28.2 % (15-50); MCHC 31.2 g/dL (31.0-37.0); MCV 93.2 fL (80.0-100.0); MEAN PLATELET VOLUME 9.1 fL (7.4-10.4); MONOCYTES 6.5 % (2-11); NEUTROPHILS 59.2 % (40-80); RBC 4.27 10x6/uL (4.20-6.10); RDW 15.8 % (11.5-14.5); WBC 8.1 10x3/uL (4.8-10.8)
[2016-10-21 07:35] LABS: PLATELET COUNT 284 10x3/uL (130-400)
[2016-10-21 07:46] LABS: APTT 34.7 SECONDS (22.8-39.4); INR 1.51 (0.85-1.17); PROTIME 18.1 SECONDS (11.6-15.0)
[2016-10-21 07:50] LABS: ALBUMIN 3.5 g/dL (3.4-5.0); ALKALINE PHOSPHATASE 119 U/L (46-116); ALT (SGPT) 20 U/L (10-68); BILIRUBIN - TOTAL 0.42 mg/dL (0.2-1.3); CALC OSMOLALITY 273 mosm/kg (275-300); CALCIUM 9.4 mg/dL (8.5-10.1); CARBON DIOXIDE 32.2 mmol/L (21.0-32.0); CHLORIDE - SERUM 96 mmol/L (98-107); GLUCOSE 190 mg/dL (74-106); POTASSIUM - SERUM 3.7 mmol/L (3.5-5.1); PROTEIN - SERUM 7.2 g/dL (6.4-8.2); SODIUM 135 mmol/L (136-145); UREA NITROGEN 11 mg/dL (7-18); eGFR NON AFRICAN AMERICAN 79 mL/min (90-120)
[2016-10-21 07:58] LABS: CREATINE KINASE 39 UL (21-232); MAGNESIUM - SERUM 1.3 mg/dL (1.8-2.4); PRO BNP 1727 pg/mL (0-125); THYROID STIMULATING HORMONE 2.23 uIU/mL (0.36-3.74)
[2016-10-21] MEDS ORDERED: COUMADIN10 MG PO (12:20)
[2016-10-21] MEDS ORDERED: COUMADIN10 MG (12:22)
[2016-10-21 12:26] VITALS: BP 150/73; BMI 37.3
[2016-10-21 12:50] VITALS: BP 150/73
--- NOTE | 2016-10-21 13:00 | NUR ---
PT ARRIVED TO UNIT A&O. ADMISSION ASSESSMENT COMPLETED. PTS CONDITION IS CHRONIC BUT HES BEEN HAVING DIFFICULTY BREATHING FOR THE PAST TWO DAYS. PT WEARS NC@3L AT HOME AND WAS STILL HAVING DIFFICULTIES. RR CURRENTLY NON LABORED WITH NC @3L IN PLACE. UPPER LOBES CTA BUT LOWER ARE DIMINISHED. PT HAS A DRSG ON HIS L.FOOT BUT HE WOULD NOT ALLOW ME TO ASSESS IT AND STATES "MY WOUND DOCTOR IS THE ONLY ONE WHO CAN" SO WOUND CARE CONSULT WAS PLACED AND WE WILL GO FROM THERE. PT DENIES ANY FURTHER NEEDS AT THIS TIME. CL IN REACH, BED IN LOWEST, SIDE RAILS X2. WILL CPOC.
[2016-10-21 15:43] LABS: BASOPHILS 0.4 % (0-2); EOSINOPHILS 3.4 % (0-7); HEMATOCRIT 41.1 % (42.0-54.0); HEMOGLOBIN 12.8 g/dL (13.5-17.5); IMMATURE GRANULOCYTES 1.1 % (0-5); LYMPHOCYTES 30.6 % (15-50); MCH 29.2 pg (26.0-34.0); MCHC 31.1 g/dL (31.0-37.0); MCV 93.6 fL (80.0-100.0); MEAN PLATELET VOLUME 9.1 fL (7.4-10.4); MONOCYTES 7.2 % (2-11); NEUTROPHILS 57.3 % (40-80); PLATELET COUNT 314 10x3/uL (130-400); RBC 4.39 10x6/uL (4.20-6.10); RDW 15.8 % (11.5-14.5); WBC 8.5 10x3/uL (4.8-10.8)
[2016-10-21 15:52] LABS: ANION GAP 9.8 mmol/L (8-16); CALCIUM 9.3 mg/dL (8.5-10.1); CARBON DIOXIDE 34.2 mmol/L (21.0-32.0)
[2016-10-21 16:00] LABS: CREATININE - SERUM 1.3 mg/dL (0.6-1.3)
[2016-10-21 17:05] LABS: % SATURATION 12 % (15-55); IRON 42 ug/dl (35-150); TOTAL IRON BIND CAPACITY 333 ug/dl (260-445); UNSAT IRON BIND CAPACITY 291 ug/dl (150-375)
--- NOTE | 2016-10-21 17:06 | NUR ---
FSBS 194. PT REFUSED SS INSULIN R/T USUALLY BEING CONTROLLED BY PO MEDS. PT DENIES THE NEED BUT STATES HE WILL TAKE IT IF HES OVER 250. PT SITTING UP ON EDGE OF BED EATING DINNER. RR NONLABORED HE STILL C/O SOB UPON EXERTION BUT IS SCHEDULED FOR A CATH TOMORROW WITH AND VERBALIZED UNDERSTANDING OF PROCEDURE. CHANGED PTS L.FA PIV DRSG R/T IT HURTING HIM, NEW TEGADERM IN PLACE AND PT STATES IT FEELS BETTER. CL IN REACH, BED IN LOWEST, SIDE RAILS X2. WILL CTM.
--- NOTE | 2016-10-21 19:30 | NUR ---
REST IN BED AND WATCH TV.
[2016-10-21 20:00] VITALS: BP 109/64
--- NOTE | 2016-10-21 23:30 | NUR ---
CONSENT SIGNED FOR BAND MANAGER TOMORROW.
[2016-10-22 04:00] VITALS: BP 118/61
[2016-10-22 05:10] LABS: BASOPHILS 0.5 % (0-2); HEMATOCRIT 41.7 % (42.0-54.0); HEMOGLOBIN 13.1 g/dL (13.5-17.5); IMMATURE GRANULOCYTES 1.1 % (0-5); LYMPHOCYTES 28.7 % (15-50); MCH 29.4 pg (26.0-34.0); MCHC 31.4 g/dL (31.0-37.0); MCV 93.7 fL (80.0-100.0); MEAN PLATELET VOLUME 9.2 fL (7.4-10.4); MONOCYTES 7.8 % (2-11); NEUTROPHILS 57.9 % (40-80); PLATELET COUNT 317 10x3/uL (130-400); RBC 4.45 10x6/uL (4.20-6.10); RDW 15.9 % (11.5-14.5); WBC 8.4 10x3/uL (4.8-10.8)
[2016-10-22 05:20] LABS: CALCIUM 9.9 mg/dL (8.5-10.1); CARBON DIOXIDE 33.8 mmol/L (21.0-32.0); CHLORIDE - SERUM 95 mmol/L (98-107); GLUCOSE 209 mg/dL (74-106); POTASSIUM - SERUM 3.8 mmol/L (3.5-5.1); SODIUM 135 mmol/L (136-145); eGFR NON AFRICAN AMERICAN 89 mL/min (90-120)
[2016-10-22 05:21] LABS: CALC OSMOLALITY 278 mosm/kg (275-300); CREATININE - SERUM 0.9 mg/dL (0.6-1.3); UREA NITROGEN 21 mg/dL (7-18)
--- NOTE | 2016-10-22 07:38 | NUR ---
AM ROUNDS - PT IS AWAKE IN BED. O2 AT 3L VIA NC. MONITOE SHOWING SR, HR 77. IV TO LEFT FA, SL. BED AT LOWEST POSITION, CALL MORALES IN USE/REACH, SIDE RAILS UP X2. NO NEEDS AT THIS TIME. WILL CONTINUE TO MONITOR
[2016-10-22 08:21] VITALS: BP 133/77
[2016-10-22 08:28] LABS: INR 1.4 (0.85-1.17); PROTIME 17.1 SECONDS (11.6-15.0)
[2016-10-22 10:56] VITALS: Ht 190.5 cm; Wt 132.5 kg
[2016-10-22 11:51] VITALS: BP 136/73
--- NOTE | 2016-10-22 14:25 | NUR ---
PREOP FOR CATH IS COMPLETE
--- NOTE | 2016-10-22 18:49 | NUR ---
TR BAND REMOVED. NO BLEEDING NOTED. DRESSING 2X2 APPLIED, SECURED WITH TAPE. PT SITTING ON SIDE OF BED DOING A CROSSWORD PUZZLE. NO NEEDS AT THIS TIME. WILL CONTINUE TO MONITOR
--- NOTE | 2016-10-22 20:25 | NUR ---
PT SITTING ON SIDE OF BED. NO S/S OF DISTRESS. DENIES ANY NEEDS WILL CONTINUE TO MONITOR
[2016-10-22 21:25] VITALS: BP 90/59
--- NOTE | 2016-10-22 21:37 | NUR ---
pt blood sugar is 280. pt refused humalog. eye drops xalatan not given. will give when pharmacy brings some up. they are not in room or cassette
[2016-10-23 01:00] VITALS: BP 118/65
--- NOTE | 2016-10-23 02:32 | NUR ---
PT ASLEEP IN BED HOB 35. RESPIRATIONS EVEN AND UNLABORED. NO S/S OF DISTRESS. WILL CONTINUE TO MONITOR
[2016-10-23 04:00] VITALS: BP 100/65
--- NOTE | 2016-10-23 04:25 | NUR ---
PT ASLEEP ON BACK HOB 40. OXYGEN VIA NC ON 3.5 L. RESPIRATIONS EVEN AND UNLABORED. NO S/S OF DISTRESS WILL CONTINUE TO MONITOR
[2016-10-23 04:48] LABS: BASOPHILS 0.4 % (0-2); HEMATOCRIT 39.6 % (42.0-54.0); HEMOGLOBIN 12.4 g/dL (13.5-17.5); IMMATURE GRANULOCYTES 1.1 % (0-5); LYMPHOCYTES 29.6 % (15-50); MCH 29.5 pg (26.0-34.0); MCHC 31.3 g/dL (31.0-37.0); MCV 94.1 fL (80.0-100.0); MEAN PLATELET VOLUME 9.2 fL (7.4-10.4); MONOCYTES 6.9 % (2-11); PLATELET COUNT 284 10x3/uL (130-400); RBC 4.21 10x6/uL (4.20-6.10); RDW 15.7 % (11.5-14.5); WBC 7.8 10x3/uL (4.8-10.8)
[2016-10-23 05:00] LABS: ANION GAP 9.7 mmol/L (8-16); CALCIUM 9.3 mg/dL (8.5-10.1); CREATININE - SERUM 1.1 mg/dL (0.6-1.3); POTASSIUM - SERUM 3.7 mmol/L (3.5-5.1)
--- NOTE | 2016-10-23 06:21 | NUR ---
PT SITTING ON SIDE OF BED DOING CROSS WORD PUZZLE DRINKING COFFEE. DENIES ANY NEEDS NO S/S OF DISTRESS WILL CONTINUE TO MONITOR
[2016-10-23 08:00] VITALS: BP 113/83
[2016-10-23 08:19] LABS: FOLATE (FOLIC ACID) - SERUM 14.8 ng/mL (>3.0)
--- NOTE | 2016-10-23 08:45 | NUR ---
PATIENT GIVEN AND TOOK ORAL MEDICATIONS WITHOUT DIFFICULTY. HE C/O NASAL CONGESTION. THAT IS RATHER CHRONIC FOR HIM. HE HAS A FLONASE NASAL SPRAY ON HIS OVER BED TABLE WELL A AFRIN. INSTRUCTED HIM NOT TO BE TAKING THE AFRIN WHILE HERE. HE STATES THAT HE USES IT MANY TIMES A DAY TO HELP HIME BREATH. READ THE INSTRUCTION ON THE BACK TO HIM AND INSTRUCTED HIM TO PUT THENM AWAY WHILE IN HOSPITAL. ALSO TALKED ABOUT THE HARMFUL EFFECTS OF TAKING TOO MUCH. HE HAS QUESTIONS ABOUT HIS RHYTHM, STATES THAT DR. MICHAEL MENTIONED ADDING A MEDICATION. WILL ENQUIRE. ALSO C/O CONSTIPATION, APPLE JUICE GIVEN.
--- NOTE | 2016-10-23 11:26 | NUR ---
PATIENT STANDING IN THE DOOR FRAME TO HIS ROOM. HE DENIES NEEDS.
--- NOTE | 2016-10-23 11:36 | NUR ---
Wound Care Consult; Pt is wearing light compression tubing on BLE. There are scabs and a small amount of drainage noted on LLE. On left 5th metatarsal bone there is an open ulcer measuring 2cm x 1.5cm x 0.3cm. The edges are macerated and there is an odor noted from drainage on dressing. Drainage on dressing is brown in color. Pt sees Dr. Phillips weekly for debridement and treatment of wound. He missed this weeks appt. Cleansed well with left foot ulcer with wound laboratory equipment cleaner and patted dry, covered with maxorb ag and 4x4, wrapped lower extremity with cast padding and kerlix. Applied new tubing over kerlix wrap. Instructed pt to keep his legs elevated by sitting in recliner in his room. He states it is not comfortable and prefers to sit on side of bed with feet on floor. Explained that doing so will not help with swelling or circulation. He said he knew. Wound care will continue monitoring.
[2016-10-23 12:00] VITALS: BP 137/62
[2016-10-23 16:00] VITALS: BP 117/62
--- NOTE | 2016-10-23 19:18 | NUR ---
Patient Name: MONIQUE BEDOLLA Admission Status: ER Accout number: [id number] Admission Date: 10-21-2016 : 1950 Admission Diagnosis:ANGINA PECTORIS, UNSPECIFIED Attending: FRANCK Current LOS: 2 Anticipated DC Date: Planned Disposition: Home with Home Health Primary Insurance: MEDICARE A & B Discharge Planning Comments: CM MET WITH PATIENT TO DISCUSS DISCHARGE PLANNING/NEEDS. HIS SON ELVIE BEDOLLA WAS PRESENT IN THE ROOM. PATIENT STATED THAT HE LIVES AT HOME WITH HIS (WHO HE SAYS IS ALSO SICK), AND THAT IS WHERE HE PLANS TO RETURN. STATED HE RECEIVES HOME HEALTH SERVICES FOR MEDICAL MANAGEMENT, WOUND CARE, AND PHYSICAL THERAPY THROUGH [facility]. HE STATED THAT AT THIS TIME HE HAS ALL THE MEDICAL EQUIPMENT THAT HE FEELS HE NEEDS. HE HAS 7 STEPS TO THE BACK OF HIS HOUSE AND 6 TO THE FRONT, BOTH OF WHICH HAVE RAILS. HE STATED HE WAS A VA PATIENT THAT DOES NOT GO TO THE VA FOR MEDICAL CARE SECONDARY TO THE WHEAT OF HIS COPAYS. HE STATED HE COULD NOT AFFORD THE CO-PAYS. HIS SON, ELVIE, ASKED IF THERE WAS ANY WAY WE COULD CHECK WITH THE VA ABOUT THE POSSIBILITY OF IN HOME ASSISTANCE THAT MAY BE ABLE TO ASSIST WITH COOKING, LIGHT HOUSE WORK, TRANSPORT, ETC. THE PATIENT IS UNSURE OF WHAT SERVICES HE QUALIFIES FOR AND DOES NOT. I EXPLAINED THAT WE COULD TRY AND CHECK FOR HIM. OTHER THAN THE ABOVE STATED, THE PATIENT DENIES ANY DISCHARGE NEEDS. CM WILL CONTINUE TO FOLLOW AND ASSIST NEEDED. Greige Goods Marker: Tavia Jenkins Is the patient Alert and Oriented? Yes * How many steps to enter\exit or inside your home? SEE NOTE * PCP DR BERNAL, BUT MOSTLY SEES NORA JEAN * Pharm[facility] * Preadmission Environment Home with Family * ADLs Partial Dependent * Partial ADLs (Assistance needed) Medication Management * Equipment Glucometer Nebulizer Other Oxygen Rolling Walker Wound Supplies * Other Equipment BILATERAL COMPRESSION PANTS (HASN'T BEEN ABLE TO USE LATELY SECONDARY TO SORES ON LEGS AND FLUID) STATED HE ALSO HAS B/P MACHINE, PULSE OX * List name and contact numbers for known caregivers / representatives who currently or will assist patient after discharge: JANET BEDOLLA, , ELVIE BEDOLLA, SON, * Community resources currently utilized Home Health * Please name any agencies selected above. [facility] PAT[facility] SUPPLIES OXYGEN [facility] * Additional services required to return to the preadmission environment? No * Can the patient safely return to the preadmission environment? Yes * Has this patient been hospitalized within the prior 30 days at any hospital? Yes
--- NOTE | 2016-10-23 19:23 | NUR ---
PT SITTING ON SIDE OF BED. C/O CONSTIPATION AND NASAL CONGESTION. DOCTOR CALLED AND MILK OF MAG 30 ML BID PRN ORDERED AND ANGELA 60MG ONCE A DAY ORDERED. PT DENIES ANY OTHER NEEDS WILL CONTINUE TO MONITOR
[2016-10-23 20:47] VITALS: BP 111/56
[2016-10-24 00:39] VITALS: BP 109/56
--- NOTE | 2016-10-24 00:49 | NUR ---
PT ASLEEP IN ROOM. RESPIRATIONS EVEN AND UNLABORED. NO S/S OF DISTRESS WILL CONTINUE TO MONITOR
--- NOTE | 2016-10-24 05:00 | NUR ---
PT IN BED SLEEPING. RESPIRATIONS EVEN AND UNLABORED. NO S/S OF DISTRESS. WILL CONTINUE TO MONITOR
[2016-10-24 05:11] LABS: BASOPHILS 0.4 % (0-2); EOSINOPHILS 4.6 % (0-7); HEMATOCRIT 38.4 % (42.0-54.0); IMMATURE GRANULOCYTES 1.4 % (0-5); LYMPHOCYTES 32.5 % (15-50); MCH 29.3 pg (26.0-34.0); MCHC 31.3 g/dL (31.0-37.0); MCV 93.9 fL (80.0-100.0); MEAN PLATELET VOLUME 9.3 fL (7.4-10.4); MONOCYTES 6.1 % (2-11); PLATELET COUNT 279 10x3/uL (130-400); RBC 4.09 10x6/uL (4.20-6.10); RDW 15.6 % (11.5-14.5)
[2016-10-24 05:33] LABS: CALC OSMOLALITY 274 mosm/kg (275-300); CARBON DIOXIDE 34.1 mmol/L (21.0-32.0); CHLORIDE - SERUM 93 mmol/L (98-107); GLUCOSE 186 mg/dL (74-106); POTASSIUM - SERUM 3.8 mmol/L (3.5-5.1); SODIUM 133 mmol/L (136-145); UREA NITROGEN 25 mg/dL (7-18); eGFR NON AFRICAN AMERICAN 79 mL/min (90-120)
[2016-10-24 05:49] VITALS: BP 95/43
[2016-10-24 05:53] LABS: CALCIUM 9.2 mg/dL (8.5-10.1)
--- NOTE | 2016-10-24 07:55 | NUR ---
AM ROUNDING- RECEIVED REPORT FROM VALVE ASSEMBLER NURSE EDY. PT IS CURRENTLY SITTING UP ON SIDE OF BED. ON 02 AT 3L VIA NC. ON MONITOR SHOWING CONTROLLED A-FIB, HR 90. IV SEEN TO LEFT FOREARM THAT IS CURRENTLY SALINE LOCKED. NO NEED AT CURRENT TIME. WILL CONTINUE TO MONITOR AND CONTINUE WITH PLAN OF CARE.
[2016-10-24 08:00] VITALS: BP 131/61
--- NOTE | 2016-10-24 09:26 | NUR ---
Patient Name: MONIQUE BEDOLLA Encounter No: [id number] : 1950 Primary Insurance: MEDICARE A & B Anticipated DC Date: Planned Disposition: Home with Home Health External Planned Provider: [facility] DCP follow-up note: CM CALLED [facility], , SPOKE TO ERICA, VERFIED PT'S ACTIVE WITH HOME HEALTH AND ON HOLD. CM PROVIDED PT WITH [place] ELIGIBILITY AND CLINIC PHONE NUMBERS, PROVIDED PT WITH [facility] ON AGING PHONE NUMBER THEY HAVE A CONTRACT WITH [place] FOR HOME SERVICES. CM EXPLAINED TO PT THAT HE WOULD HAVE TO SEE A DOCTOR AT [place] AND HAVE [facility] REFERRAL FOR HOME SERVICES PROVIDED TO [facility] FOR THEM TO PROVIDE [place] CONTRACTED HOME SERVICES. PT INDICATED THAT HE IS NOT INTERESTED HE IS NOT GOING TO GO TO THE [place] TO GET THE REFERRAL. PT PLANS TO DISCHARGE HOME WITH [facility] AND [facility]. FOR DISCHARGE, NOTIFY [facility] AT [phone], FAX DISCHARGE INFORMATION TO [facility] AT [phone]. CM TO CONTINUE TO FOLLOW AND ASSIST IF NEEDED. Philip Patel, CASE MANAGEMENT
[2016-10-24 12:46] VITALS: BP 106/54
--- NOTE | 2016-10-24 13:54 | OP ---
PATIENT NAME: MONIQUE BEDOLLA MEDICAL RECORD: [id number] :[birth year] LOCATION:D. D.2103 ADMISSION DATE:10/21/16 SURGEON: CAREY MICHAEL M.D. DATE OF OPERATION: 10/22/2016 Catheterization Report REFERRING PHYSICIAN: Yrn Higgins MD PROCEDURES PERFORMED: 1. Selective coronary angiography. 2. Left heart catheterization with ventriculogram. INDICATION: A 66-year-old gentleman presents with recurrent dyspnea and angina. EQUIPMENT USED: A 5-Estonian Donald catheter. TECHNIQUE: A 6-Estonian sheath was inserted in retrograde fashion in the right radial artery. Next, selective coronary angiography was performed in standard views 5-Estonian Donald catheter. Left heart catheterization was performed using the Donald catheter as well. CORONARY ANATOMY: 1. Left main: Left main trunk is large in caliber. It gives rise to the LAD and circumflex. There is no obstruction. 2. LAD: This is a smooth-walled vessel extending to the apex. It is angiographically normal. 3. Circumflex: This vessel is moderate in caliber. It supplies the lateral branch proximal segment. This vessel is smooth-walled and angiographically normal. 4. Right coronary artery: This vessel is moderate in caliber and dominant. The proximal mid vessel has been stented. The stents are widely patent. There is no evidence of restenosis. 5. Left ventricle: Left ventricle is normal in size. Estimated ejection fraction is hard to calculate as this patient appears to be in atrial flutter. It appears to be around 50%. IMPRESSION: Widely patent stent in the right coronary artery without evidence of restenosis. RECOMMENDATIONS: At this point, we will focus on his atrial flutter as this may be causing his dyspnea. TRANSINT:[id number] Voice Confirmation ID: [id number] DOCUMENT ID: [id number] CAREY MICHAEL M.D. at 1354 CC: [id number] DICTATION DATE: 10/22/16 1545 VICE PRESIDENT CORPORATE COMMUNICATIONS: 10/22/16 2315 ADM IN [facility] [address] [place] [address]
[2016-10-24 15:58] VITALS: BP 104/59
--- NOTE | 2016-10-24 18:00 | NUR ---
PT IS CURRENTLY SITTING UP ON SIDE OF BED. PT DENIES ANY NEED AT CURRENT TIME. WILL CONTINUE TO MONITOR.
[2016-10-24 19:00] VITALS: BP 103/50
--- NOTE | 2016-10-24 20:30 | NUR ---
SHIFT ASSESSMENT COMPLETED. LYING IN BED RESTING, NO VOICED NEEDS. TELEMETRY SHOWS ATRIAL FLUTTER AT 76. O2 @ 3L/NC. BED IN LOW POSITION. CALL LIGHT IN REACH. WILL CONTINUE TO MONITOR.
[2016-10-25] VITALS: BP 105/59
[2016-10-25 04:00] VITALS: BP 120/65
[2016-10-25 05:17] LABS: BASOPHILS 0.2 % (0-2); EOSINOPHILS 5.5 % (0-7); HEMATOCRIT 39.5 % (42.0-54.0); HEMOGLOBIN 12.4 g/dL (13.5-17.5); MCH 29.2 pg (26.0-34.0); MCHC 31.4 g/dL (31.0-37.0); MCV 93.2 fL (80.0-100.0); MEAN PLATELET VOLUME 9.4 fL (7.4-10.4); MONOCYTES 6.4 % (2-11); NEUTROPHILS 58.9 % (40-80); PLATELET COUNT 294 10x3/uL (130-400); RBC 4.24 10x6/uL (4.20-6.10); RDW 15.7 % (11.5-14.5); WBC 8.6 10x3/uL (4.8-10.8)
[2016-10-25 05:27] LABS: INR 1.32 (0.85-1.17); PROTIME 16.3 SECONDS (11.6-15.0)
[2016-10-25 05:37] LABS: ANION GAP 9.2 mmol/L (8-16); CALCIUM 9.1 mg/dL (8.5-10.1); POTASSIUM - SERUM 4.2 mmol/L (3.5-5.1)
[2016-10-25 05:38] LABS: CREATININE - SERUM 1.3 mg/dL (0.6-1.3)
[2016-10-25 07:54] VITALS: BP 125/68
--- NOTE | 2016-10-25 08:33 | NUR ---
ASSESS DONE, DENIES NEEDS.
--- NOTE | 2016-10-25 09:28 | NUR ---
RESP UL ON . UP SOB WITH CALL LIGHT IN REACH. WILL CONT. PLAN OF CARE.
[2016-10-25] MEDS ORDERED: MULTAQ400 MG PO (12:01)
[2016-10-25 12:20] VITALS: BP 134/71
--- NOTE | 2016-10-25 13:02 | NUR ---
DC GIVEN TO PT
--- NOTE | 2016-10-25 13:22 | NUR ---
Patient Name: MONIQUE BEDOLLA Encounter No: [id number] : 1950 Primary Insurance: MEDICARE A & B Anticipated DC Date: 10-25-2016 Planned Disposition: Home with Home Health External Planned Provider: [facility] DCP follow-up note: CM RECEIVED DISCHARGE ORDER, MET WITH PT IN ROOM AND DISCUSSED DISCHARGE PLAN. PT WILL DISCHARGE HOME TODAY, SPOUSE TO PRINT DECORATOR. PT WANTS HOME HEALTH RESUMPTION WITH [facility]. IMPORTANT MESSAGE FROM MEDICARE PROVIDED AND EXPLAINED. CM CALLED [facility] AT [phone], NOTIFIED LEIGHA OF PT'S DISCHARGE HOME TODAY, FAXED DISCHARGE INFORMATION TO [facility] AT [phone]. HOME HEALTH TO RESUME TOMORROW. PT NOTIFIED, DENIED FURTHER DISCHARGE NEEDS. Philip Patel, CASE MANAGEMENT
--- NOTE | 2016-10-25 13:29 | NUR ---
DC HOME PER PERSONAL CAR
== END 2016-10-25 13:30 | disposition home health service (06) | DRG 286 ==
LOC: D.ER 06:46 → D.M2 11:34
PROVIDERS: Emergency Medicine; Internal Medicine Cardiovascular Disease; ADMIT Family Medicine
PROC: B2151ZZ Fluoroscopy of Left Heart using Low Osmolar Contrast (ICD-10-PCS; 2016-10-22)
PROC: 4A023N7 Measurement of Cardiac Sampling and Pressure, Left Heart, Percutaneous Approach (ICD-10-PCS; 2016-10-22)
PROC: B2111ZZ Fluoroscopy of Multiple Coronary Arteries using Low Osmolar Contrast (ICD-10-PCS; principal; 2016-10-22 15:00)
DX: I25.10 Atherosclerotic heart disease of native coronary artery without angina pectoris (principal); I50.21 Acute systolic (congestive) heart failure; I48.92 Unspecified atrial flutter; I48.91 Unspecified atrial fibrillation; J44.9 Chronic obstructive pulmonary disease, unspecified; I11.0 Hypertensive heart disease with heart failure; E11.40 Type 2 diabetes mellitus with diabetic neuropathy, unspecified; E11.65 Type 2 diabetes mellitus with hyperglycemia; D63.8 Anemia in other chronic diseases classified elsewhere; E66.01 Morbid (severe) obesity due to excess calories; Z95.5 Presence of coronary angioplasty implant and graft; Z68.37 Body mass index [BMI] 37.0-37.9, adult; Z86.718 Personal history of other venous thrombosis and embolism

== ENCOUNTER 2016-10-31 04:21 | Observation (INO) | payer MEDICARE, OTHER ==
[~2016-10-31] VITALS: Ht 190.5 cm; Wt 134.5 kg
[~2016-10-31 04:21] MED LIST changes: +COUMADIN10 MG; +MULTAQ400 MG PO
[2016-10-31 05:00] LABS: BASOPHILS 0.3 % (0-2); EOSINOPHILS 6.5 % (0-7); HEMATOCRIT 38.8 % (42.0-54.0); HEMOGLOBIN 12.5 g/dL (13.5-17.5); IMMATURE GRANULOCYTES 0.7 % (0-5); LYMPHOCYTES 28.8 % (15-50); MCH 29.5 pg (26.0-34.0); MCHC 32.2 g/dL (31.0-37.0); MCV 91.5 fL (80.0-100.0); MEAN PLATELET VOLUME 9.2 fL (7.4-10.4); MONOCYTES 7.1 % (2-11); NEUTROPHILS 56.6 % (40-80); PLATELET COUNT 250 10x3/uL (130-400); RBC 4.24 10x6/uL (4.20-6.10); RDW 15.2 % (11.5-14.5); WBC 10.9 10x3/uL (4.8-10.8)
[2016-10-31 05:08] LABS: APTT 37.4 SECONDS (22.8-39.4); INR 1.45 (0.85-1.17); PROTIME 17.5 SECONDS (11.6-15.0)
[2016-10-31 05:13] LABS: ALBUMIN 3.5 g/dL (3.4-5.0); ALKALINE PHOSPHATASE 118 U/L (46-116); ALT (SGPT) 25 U/L (10-68); BILIRUBIN - TOTAL 0.29 mg/dL (0.2-1.3); CALC OSMOLALITY 270 mosm/kg (275-300); CALCIUM 9.4 mg/dL (8.5-10.1); CARBON DIOXIDE 30.6 mmol/L (21.0-32.0); CHLORIDE - SERUM 94 mmol/L (98-107); CREATININE - SERUM 1.3 mg/dL (0.6-1.3); GLUCOSE 183 mg/dL (74-106); POTASSIUM - SERUM 4.7 mmol/L (3.5-5.1); PROTEIN - SERUM 7.4 g/dL (6.4-8.2); SODIUM 131 mmol/L (136-145); UREA NITROGEN 20 mg/dL (7-18); eGFR NON AFRICAN AMERICAN 58 mL/min (90-120)
[2016-10-31 05:21] LABS: CREATINE KINASE 55 UL (21-232); PRO BNP 1803 pg/mL (0-125)
[2016-10-31 05:22] LABS: TROPONIN-I < 0.017 ng/mL (0.000-0.060)
[2016-10-31 06:23] VITALS: BP 136/67; BMI 36.3
[2016-10-31 08:00] VITALS: BP 127/59
--- NOTE | 2016-10-31 08:00 | NUR ---
INTRODUCED MYSELF TO PT PRIMARY RN FOR TODAYS SHIFT. PT IS A&O AND RESTING SITTING UP IN BEDSIDE CHAIR. SHIFT ASSESSMENT COMPLETED HOWEVER PT HAS BILAT LEG DRSGS AND STATES "ONLY THE WOUND CARE NURSE CAN REMOVE THEM" SO I TALKED WITH LEIGHA OUR LAUNDRY MACHINE OPERATOR AND SHE WILL GO SEE HIM AND PUT IN DRSG CHANGE ORDERS. PT DENIES ANY CURRENT PAIN OR NEEDS. RR NONLABORED WITH NC @3L BUT PT STATES WHEN HE GETS UP AND AROUND HE STARTS HAVING TROUBLE BREATHING. CL IN REACH, BED IN LOWEST, SIDE RAILS X2. WILL CPOC.
--- NOTE | 2016-10-31 11:00 | NUR ---
PT WANTED HIS QUESTRAN MIXED WITH APPLE JUICE AND WAS PROVIDED WITH IT. PT SITTING UP IN BEDSIDE CHAIR. PT STATES HE IS DOING FINE AND DENIES ANY FURTHER NEEDS. CL IN REACH. WILL CPOC.
[2016-10-31 12:00] VITALS: BP 118/47
[2016-10-31 16:00] VITALS: BP 117/51
[2016-10-31 19:00] VITALS: BP 117/56
--- NOTE | 2016-10-31 19:24 | NUR ---
PT SITTING UP IN BED VISITING WITH FAMILY. PT STATES HE HAS HAD A GOOD DAY OVERALL AND STATES HIS BREATHING SEEMS TO BE BETTER COMPARED TO ADMISSION. NC @3L STILL IN PLACE. RR NONLABORED AT THIS TIME. PT HAS CL IN REACH, BED IN LOWEST, SIDE RAILS X2. WILL CPOC.
[2016-10-31] MEDS ORDERED: FEXOFENADINE HC60 MG PO (20:58)
--- NOTE | 2016-10-31 21:05 | NUR ---
HS MEDS GIVEN, PT DECLINED THE QUESTRAN, STATED THAT HE ONLY TAKES IT ONCE A DAY AND THAT HE ALREADY HAD IT EARLIER.
[2016-11-01] VITALS: BP 138/75
--- NOTE | 2016-11-01 03:12 | NUR ---
CYTOGENETICS TECHNOLOGIST AT BEDSIDE TO OBTAIN VITALS, CALL LIGHT IN REACH. WILL CONTINUE TO MONITOR.
--- NOTE | 2016-11-01 03:36 | NUR ---
UP IN CHAIR ASLEEP, NO S/S DISTRESS NOTED.
[2016-11-01 04:00] VITALS: BP 115/48
[2016-11-01 08:15] VITALS: BP 141/66
--- NOTE | 2016-11-01 09:45 | NUR ---
ASSESSMENT CONTINUED. TELEMERTY SHOWS FLUTTER 71. 02 AT 3 L/M PER NC. DRSG TO LOWER LEGD. DENIES ANY NEEDS. CALL LIGHT IN REACH
--- NOTE | 2016-11-01 12:35 | NUR ---
Patient Name: MONIQUE BEDOLLA Admission Status: ER Accout number: [id number] Admission Date: 10-31-2016 : 1950 Admission Diagnosis: Attending: ZOHRA Current LOS: 1 Anticipated DC Date: Planned Disposition: HOME Primary Insurance: MEDICARE A & B Discharge Planning Comments: CM PROVIDED AND [facility]. PT HAD NO QUESTIONS. COPY TO PT, COPY TO CHART. CM TO FOLLOW AND ASSIST IF NEEDED. Etched Circuit Processor: Philip Patel
[2016-11-01 13:09] VITALS: BP 122/53
--- NOTE | 2016-11-01 13:15 | NUR ---
RESTING QUIETLY RESP UNLABORED NAD NOTED
[2016-11-01 13:43] VITALS: Ht 190.5 cm; Wt 134.5 kg
[2016-11-01 16:26] VITALS: BP 143/65
--- NOTE | 2016-11-01 17:50 | NUR ---
UP TO SINK FOR SPONGE BATH. DENIES ANY NEEDS. CALL LIGHT IN REACH TELEMERTY SHOWS FLUTTER.
--- NOTE | 2016-11-01 19:49 | NUR ---
RESUMED CARE OF PT, UP IN CHAIR RESPIRATIONS EVEN AND UNLABORED ON 3LPM VIA NC. 92 FLUTTER ON TELEMETRY. LEFT WRIST SALINE LOCKED. DRESSINGS TO LOWER EXTREMITIES C/D/I. NO NEEDS AT THIS TIME. WILL CONTINUE TO MONITOR. SEE NURSE ASSESSMENT. CALL LIGHT IN REACH.
[2016-11-01 20:00] VITALS: BP 116/49
[2016-11-02] VITALS: BP 120/44
[2016-11-02 04:00] VITALS: BP 106/45
--- NOTE | 2016-11-02 07:13 | NUR ---
AM ROUNDS- PT UP TO SIDE OF BED, STATES THAT HE NEEDS HIS LEGS DRESSINGS CHANGE. WILL DO THEM THIS AM. PT DENIES ANY NEEDS AT THIS TIME. BED LOW AND WHEELS LOCKED. BEDSIDE RAILS X2, CALL LIGHT IN REACH, NAD NOTED, WILL CONTINUE TO MONITOR.
[2016-11-02 08:18] VITALS: BP 113/52
--- NOTE | 2016-11-02 09:10 | NUR ---
AM MEDS GIVEN, LEFT HAND IV, INFILTRATED, WILL D/C AND RESTART IV, PT IN BED, DENIES ANY NEEDS AT THIS TIME. CALL LIGHT IN REACH, NAD NOTED, WILL CONTINUE TO MONITOR.
--- NOTE | 2016-11-02 09:57 | NUR ---
Pt has a chronic ulcer on the lateral plantar surface of left foot. It measures 1cm x 2cm. He is being treated at the [facility] wound clinic and sees home health for dressing changes every other day. Recommend continuing with every other day dressing changes using Maxorb AG. Wound care will monitor.
[2016-11-02 11:44] VITALS: BP 124/56
[2016-11-02 14:13] LABS: BASOPHILS 0.2 % (0-2); EOSINOPHILS 7.3 % (0-7); HEMATOCRIT 38.2 % (42.0-54.0); HEMOGLOBIN 12.2 g/dL (13.5-17.5); IMMATURE GRANULOCYTES 0.7 % (0-5); LYMPHOCYTES 24.2 % (15-50); MCH 29.5 pg (26.0-34.0); MCHC 31.9 g/dL (31.0-37.0); MCV 92.3 fL (80.0-100.0); MEAN PLATELET VOLUME 9.5 fL (7.4-10.4); MONOCYTES 5.8 % (2-11); NEUTROPHILS 61.8 % (40-80); PLATELET COUNT 250 10x3/uL (130-400); RBC 4.14 10x6/uL (4.20-6.10); RDW 15.1 % (11.5-14.5)
[2016-11-02 14:26] LABS: ANION GAP 9.6 mmol/L (8-16); CALCIUM 9.3 mg/dL (8.5-10.1); CARBON DIOXIDE 35.7 mmol/L (21.0-32.0); CREATININE - SERUM 1.3 mg/dL (0.6-1.3); POTASSIUM - SERUM 4.3 mmol/L (3.5-5.1)
[2016-11-02 15:28] VITALS: BP 119/54
[2016-11-02 20:00] VITALS: BP 156/56
[2016-11-03] VITALS: BP 127/80
[2016-11-03 04:00] VITALS: BP 126/57
[2016-11-03 06:58] LABS: BASOPHILS 0.4 % (0-2); EOSINOPHILS 6.6 % (0-7); HEMATOCRIT 38.3 % (42.0-54.0); HEMOGLOBIN 12.2 g/dL (13.5-17.5); IMMATURE GRANULOCYTES 0.7 % (0-5); LYMPHOCYTES 32.7 % (15-50); MCH 29.3 pg (26.0-34.0); MCHC 31.9 g/dL (31.0-37.0); MCV 91.8 fL (80.0-100.0); MEAN PLATELET VOLUME 9.4 fL (7.4-10.4); MONOCYTES 6.5 % (2-11); NEUTROPHILS 53.1 % (40-80); PLATELET COUNT 239 10x3/uL (130-400); RBC 4.17 10x6/uL (4.20-6.10); RDW 15.2 % (11.5-14.5); WBC 9.1 10x3/uL (4.8-10.8)
[2016-11-03 07:01] LABS: INR 1.93 (0.85-1.17); PROTIME 22.1 SECONDS (11.6-15.0)
[2016-11-03 07:13] LABS: ANION GAP 9.4 mmol/L (8-16); CALCIUM 9.3 mg/dL (8.5-10.1); CARBON DIOXIDE 34.9 mmol/L (21.0-32.0); CREATININE - SERUM 1.1 mg/dL (0.6-1.3); POTASSIUM - SERUM 4.3 mmol/L (3.5-5.1)
[2016-11-03 08:04] VITALS: BP 129/61
--- NOTE | 2016-11-03 09:46 | NUR ---
RESP UL ON 02 3L NC. TELEMETRY ATRIAL FLUTTER. CALL LIGHT IN REACH. WILL CONT. PLAN OF CARE.
[2016-11-03 12:00] VITALS: BP 112/59
[2016-11-03] MEDS ORDERED: PROPAFENONE HC150 MG PO (12:53)
[2016-11-03] MEDS ORDERED: ZOFRAN ODT4 MG/UDTAB PO (13:54)
--- NOTE | 2016-11-03 14:24 | NUR ---
IV AND TELEMETRY DCD. DC PLANS GIVEN. UNDERSTANDING VOICED. ESCORTED TO CAR BY W/C.
== END 2016-11-03 14:26 | disposition home or self-care (01) ==
LOC: D.ER 04:21 → OBSVTIME 05:40 → D.M2 05:40
PROVIDERS: Emergency Medicine; Internal Medicine Cardiovascular Disease; ADMIT Emergency Medicine
DX: I48.92 Unspecified atrial flutter (principal); I25.10 Atherosclerotic heart disease of native coronary artery without angina pectoris; Z95.5 Presence of coronary angioplasty implant and graft; E11.9 Type 2 diabetes mellitus without complications; J44.9 Chronic obstructive pulmonary disease, unspecified; Z99.81 Dependence on supplemental oxygen; I11.0 Hypertensive heart disease with heart failure; I50.9 Heart failure, unspecified; E78.5 Hyperlipidemia, unspecified; Z87.891 Personal history of nicotine dependence; D63.8 Anemia in other chronic diseases classified elsewhere; Z86.718 Personal history of other venous thrombosis and embolism; E66.01 Morbid (severe) obesity due to excess calories; Z68.36 Body mass index [BMI] 36.0-36.9, adult

== ENCOUNTER 2016-12-20 20:01 | Observation (INO) | payer MEDICARE, OTHER ==
--- NOTE | ~2016-12-20 | CN ---
PATIENT NAME:MONIQUE BEDOLLA MEDICAL RECORD: [id number] : [birth year] LOCATION:. D.2116 ADMIT DATE: 12/20/16 ACCOUNT: [id number] CONSULTING PHYSICIAN: MOHSEN DONALDSON MD REFERRING PHYSICIAN: HAROLDO SALINAS MD DATE OF CONSULTATION: 12/21/2016 Cardiology Consultation ADMITTING DIAGNOSES: 1. Chest pain. 2. Coronary artery disease. 3. Previous percutaneous transluminal coronary angioplasty stent. 4. Atrial fibrillation, chronic. 5. Chronic Coumadin anticoagulation. 6. Hypertension. 7. Hyperlipidemia. HISTORY OF PRESENT ILLNESS: This is a gentleman, who presents with chest and shoulder pain, more shoulder pain. It was atypical for his previous angina. He presented last month with the same; underwent cardiac catheterization revealing wide patency of the stents in the RCA. No significant disease elsewise. He has no EKG changes. Troponin is normal. PHYSICAL EXAMINATION: GENERAL APPEARANCE: Well-nourished, well-developed, appears stated age. Level of distress, comfortable. PSYCHIATRIC: Mental status, alert, normal affect. Orientation, oriented to time, place and person. EYES: Lids and conjunctiva, noninjected. No discharge, no pallor. ENT: Lips, teeth, gums, normal dentition. Oropharynx, no cyanosis, no pallor. NECK: Carotid arteries, bilateral normal upstroke, no bruits, no thrills. JUGULAR VEINS: No jugular venous pressure or distention. CERVICAL LYMPH NODES: Nontender, nonenlarged. THYROID: Not enlarged. Nontender. No nodules. LUNGS: Respiratory effort, unlabored. CHEST: Normal curvature. No thoracic deformity. No chest wall tenderness. Percussion, resonant. Auscultation, clear. No wheezes, no rales, no rhonchi. CARDIOVASCULAR: Precordial exam, nondisplaced. No heaves or pericardial thrills. Rate and rhythm, regular. Heart sounds, normal S1, normal S2. No S3, no gallop, no rub. Systolic murmur, not heard. Diastolic murmur, not heard. EXTREMITIES: No cyanosis, no edema. Peripheral pulses, full and equal in all extremities, except as noted. No bruits appreciated. ABDOMEN: Soft, nondistended. Normal aorta. No bruit. Nontender. No masses. Liver, nontender, no hepatomegaly. Spleen, nontender, no splenomegaly. MUSCULOSKELETAL: No joint tenderness. No joint swelling. No erythema. NEUROLOGICAL: Normal gait, normal strength, normal tone. SKIN: Warm and dry. OVERALL IMPRESSION: Chest pain, noncardiac in etiology. No other cardiac workup or treatment is necessary at this time. TRANSINT:[id number] Voice Confirmation ID: [id number] DOCUMENT ID: [id number] CONSULT REPORT [id number] MONIQUE BEDOLLA JEFFREY MD CC: [id number] DICTATION DATE: 12/21/16944 REFRIGERATION PERSON: 12/21/161423 ADM IN [facility] [address] [id number]
[~2016-12-20 20:01] MED LIST changes: +FEXOFENADINE HC60 MG PO; +PROPAFENONE HC150 MG PO; +ZOFRAN ODT4 MG/UDTAB PO
[2016-12-20 20:24] LABS: APPEARANCE CLEAR (CLEAR); BILIRUBIN NEGATIVE (NEGATIVE); COLOR YELLOW (YELLOW); GLUCOSE NEGATIVE (NEGATIVE); KETONE NEGATIVE (NEGATIVE); LEUKOCYTE ESTERASE NEGATIVE (NEGATIVE); NITRITE NEGATIVE (NEGATIVE); PROTEIN NEGATIVE (NEGATIVE); SPECIFIC GRAVITY 1.015 (1.005-1.020); UROBILINOGEN NORMAL (NORMAL)
[2016-12-20 20:47] LABS: BASOPHILS 0.2 % (0-2); HEMATOCRIT 38.9 % (42.0-54.0); HEMOGLOBIN 12.3 g/dL (13.5-17.5); IMMATURE GRANULOCYTES 0.3 % (0-5); LYMPHOCYTES 23.5 % (15-50); MCH 29.1 pg (26.0-34.0); MCHC 31.6 g/dL (31.0-37.0); MCV 92.2 fL (80.0-100.0); MEAN PLATELET VOLUME 8.9 fL (7.4-10.4); PLATELET COUNT 237 10x3/uL (130-400); RBC 4.22 10x6/uL (4.20-6.10); RDW 15.3 % (11.5-14.5); WBC 9.3 10x3/uL (4.8-10.8)
[2016-12-20 20:56] LABS: APTT 39.1 SECONDS (22.8-39.4); INR 2.08 (0.85-1.17); PROTIME 23.4 SECONDS (11.6-15.0)
[2016-12-20 21:04] LABS: ALBUMIN 3.4 g/dL (3.4-5.0); ALKALINE PHOSPHATASE 112 U/L (46-116); ALT (SGPT) 20 U/L (10-68); BILIRUBIN - TOTAL 0.33 mg/dL (0.2-1.3); CALC OSMOLALITY 274 mosm/kg (275-300); CALCIUM 8.7 mg/dL (8.5-10.1); CARBON DIOXIDE 32.9 mmol/L (21.0-32.0); CHLORIDE - SERUM 96 mmol/L (98-107); GLUCOSE 161 mg/dL (74-106); POTASSIUM - SERUM 3.9 mmol/L (3.5-5.1); PROTEIN - SERUM 7.1 g/dL (6.4-8.2); SODIUM 136 mmol/L (136-145); UREA NITROGEN 13 mg/dL (7-18); eGFR NON AFRICAN AMERICAN 79 mL/min (90-120)
[2016-12-20 21:16] LABS: CKMB 1.1 U/L (0.0-3.6); CREATINE KINASE 42 UL (21-232); PRO BNP 1900 pg/mL (0-125); TROPONIN-I 0.018 ng/mL (0.000-0.060)
--- NOTE | 2016-12-20 22:55 | NUR ---
RECEIVED FROM ER, VIA WHEELCHAIR, PT IS A&O, UP ABLIB, IV-L.HAND-SL, COMMUNICATIONS COORDINATOR GETTING VITALS AND PLACING TELEMTRY ON, WILL COMPLETE ASSESSMENT, WILL CONTINUE PLAN OF CARE
[2016-12-20] MEDS ORDERED: PROPAFENONE HC150 MG PO (23:14)
[2016-12-21] VITALS: BP 124/69
--- NOTE | 2016-12-21 03:53 | NUR ---
PT SLEEPING IN CHAIR, CALL LIGHT IN REACH, WILL CONTINUE TO MONITOR
--- NOTE | 2016-12-21 04:07 | NUR ---
CHIEF EMBALMER AT BEDSIDE TO OBTAIN VITALS, CALL LIGHT IN REACH. WILL CONTINUE WITH PLAN OF CARE.
[2016-12-21 08:00] VITALS: BP 150/87
--- NOTE | 2016-12-21 12:10 | NUR ---
TELEMETRY Kentrell BASSETT. RESP UL ON . UP IN CHAIR WITH CALL LIGHT IN REACH. WILL CONT. PLAN OF CARE.
[2016-12-21 13:33] VITALS: BP 135/67
--- NOTE | 2016-12-21 15:25 | NUR ---
IV AND TELEMETRY DCD. DC PLANS GIVEN. UNDERSTANDING VOICED. ESCORTED TO CAR BY W/C.
== END 2016-12-21 15:26 | disposition home or self-care (01) ==
LOC: D.ER 20:01 → D.M2 21:58 → OBSVTIME 21:58 → D.M2 12-21 15:26
PROVIDERS: Emergency Medicine; Nurse Practitioner Acute Care; ADMIT Family Medicine
DX: R07.89 Other chest pain (principal); M25.512 Pain in left shoulder; I48.2 Chronic atrial fibrillation; Z79.01 Long term (current) use of anticoagulants; I25.10 Atherosclerotic heart disease of native coronary artery without angina pectoris; Z95.5 Presence of coronary angioplasty implant and graft; E78.5 Hyperlipidemia, unspecified; J44.9 Chronic obstructive pulmonary disease, unspecified; E11.40 Type 2 diabetes mellitus with diabetic neuropathy, unspecified; I42.9 Cardiomyopathy, unspecified; I11.0 Hypertensive heart disease with heart failure; I50.9 Heart failure, unspecified; E66.9 Obesity, unspecified; I48.92 Unspecified atrial flutter; D63.8 Anemia in other chronic diseases classified elsewhere; Z86.718 Personal history of other venous thrombosis and embolism; Z87.891 Personal history of nicotine dependence

== ENCOUNTER 2016-12-30 10:58 | Inpatient (IN) | payer MEDICARE, OTHER ==
[~2016-12-30] VITALS: Ht 190.5 cm; Wt 131.5 kg
--- NOTE | ~2016-12-30 | CN ---
PATIENT NAME:MONIQUE WATT MEDICAL RECORD: [id number] : [birth year] LOCATION:[facility] D.2110 ADMIT DATE: 12/30/16 ACCOUNT: [id number] CONSULTING PHYSICIAN: MOHSEN DONALDSON MD REFERRING PHYSICIAN: LEROY VEGAS M.D. DATE OF CONSULTATION: 12/31/2016 Cardiology Consultation DIAGNOSES: 1. Shortness of breath, dyspnea on exertion. 2. Edema, chronic. 3. Atrial flutter, chronic. 4. Coumadin anticoagulation. 5. Coronary artery disease. 6. Previous percutaneous transluminal coronary angioplasty stent. 7. Hypertension. 8. Hyperlipidemia. HISTORY OF PRESENT ILLNESS: Mr. Watt presented with shortness of breath and a sensation of not being able to breathe through his nose, stuffed-up; head cold. He really did not have any shortness of breath. He definitely did not have any chest pain. He has chronic lower extremity edema, this is not in a worse. He has chronic atrial flutter; however the ejection fraction is normal at 55%. No significant valvular heart disease. Last cardiac intervention was July 13. He has no EKG changes. Troponin is negative. PHYSICAL EXAMINATION: GENERAL APPEARANCE: Well-nourished, well-developed, appears stated age. Level of distress, comfortable. PSYCHIATRIC: Mental status, alert, normal affect. Orientation, oriented to time, place and person. EYES: Lids and conjunctiva, noninjected. No discharge, no pallor. ENT: Lips, teeth, gums, normal dentition. Oropharynx, no cyanosis, no pallor. NECK: Carotid arteries, bilateral normal upstroke, no bruits, no thrills. JUGULAR VEINS: No jugular venous pressure or distention. CERVICAL LYMPH NODES: Nontender, nonenlarged. THYROID: Not enlarged. Nontender. No nodules. LUNGS: Respiratory effort, unlabored. CHEST: Normal curvature. No thoracic deformity. No chest wall tenderness. Percussion, resonant. Auscultation, clear. No wheezes, no rales, no rhonchi. CARDIOVASCULAR: Precordial exam, nondisplaced. No heaves or pericardial thrills. Rate and rhythm, regular. Heart sounds, normal S1, normal S2. No S3, no gallop, no rub. Systolic murmur, not heard. Diastolic murmur, not heard. EXTREMITIES: No cyanosis, no edema. Peripheral pulses, full and equal in all extremities, except as noted. No bruits appreciated. ABDOMEN: Soft, nondistended. Normal aorta. No bruit. Nontender. No masses. Liver, nontender, no hepatomegaly. Spleen, nontender, no splenomegaly. MUSCULOSKELETAL: No joint tenderness. No joint swelling. No erythema. NEUROLOGICAL: Normal gait, normal strength, normal tone. SKIN: Warm and dry. REVIEW OF SYSTEMS: The patient reports easy bruising but reports no swollen glands. The patient reports no fever, no night sweats, no significant weight gain, no significant weight loss. No significant exercise tolerance. The CONSULT REPORT [id number] MONIQUE WATT patient reports no dry eyes, no irritation, no vision change. Patient reports no difficulty hearing and no ear pain. Patient reports no frequent nose bleeds or nose and sinus problems. Patient reports on arm pain on exertion. No shortness of breath while lying down. No history of heart murmur. Patient reports no cough, no wheezing or coughing up blood. Patient reports no abdominal pain, no vomiting. Normal appetite. No diarrhea and not vomiting blood. No nausea and no constipation. Patient reports no incontinence. No difficulty urinating. No hematuria. No increased frequency. Patient reports no muscle aches. No weakness, no arthralgias, no back pain. No swelling of the extremities. Patient reports no abnormal mole, no jaundice, no rashes. Reports no loss of consciousness. No weakness and no numbness. No seizures, dizziness, or headaches. The patient reports no depression, no sleep disturbance, feeling safe in a relationship and no alcohol abuse. Patient reports on fatigue. Reports no runny nose or sinus pressure. No itching, no hives, and no frequent sneezing. OVERALL IMPRESSIONS: His symptomatology is from head cold not secondary to any cardiac etiology. At this time, continue current cardiac medications. No other cardiac workup or treatment is necessary at this time. TRANSINT:[id number] Voice Confirmation ID: [id number] DOCUMENT ID: [id number] MOHSEN DONALDSON MD CC: [id number] DICTATION DATE: 12/31/16 1038 GOVERNMENT OPERATIONS CONSULTANT: 12/31/16 1054 ADM IN [id number] [place] [address]
[2016-12-30 12:11] LABS: BASOPHILS 0.2 % (0-2); EOSINOPHILS 5.9 % (0-7); HEMATOCRIT 39.3 % (42.0-54.0); HEMOGLOBIN 12.5 g/dL (13.5-17.5); IMMATURE GRANULOCYTES 0.4 % (0-5); LYMPHOCYTES 22.4 % (15-50); MCH 29.1 pg (26.0-34.0); MCHC 31.8 g/dL (31.0-37.0); MCV 91.4 fL (80.0-100.0); MEAN PLATELET VOLUME 9.5 fL (7.4-10.4); MONOCYTES 7.7 % (2-11); NEUTROPHILS 63.4 % (40-80); PLATELET COUNT 275 10x3/uL (130-400); RDW 15.2 % (11.5-14.5); WBC 10.5 10x3/uL (4.8-10.8)
[2016-12-30 12:12] LABS: INR 2.2 (0.85-1.17); PROTIME 24.5 SECONDS (11.6-15.0)
[2016-12-30 12:21] LABS: ALBUMIN 3.4 g/dL (3.4-5.0); ALKALINE PHOSPHATASE 124 U/L (46-116); ALT (SGPT) 21 U/L (10-68); BILIRUBIN - TOTAL 0.56 mg/dL (0.2-1.3); CALC OSMOLALITY 283 mosm/kg (275-300); CARBON DIOXIDE 35.4 mmol/L (21.0-32.0); CHLORIDE - SERUM 97 mmol/L (98-107); CREATININE - SERUM 0.9 mg/dL (0.6-1.3); GLUCOSE 205 mg/dL (74-106); POTASSIUM - SERUM 3.7 mmol/L (3.5-5.1); PROTEIN - SERUM 7.2 g/dL (6.4-8.2); SODIUM 139 mmol/L (136-145); UREA NITROGEN 13 mg/dL (7-18); eGFR NON AFRICAN AMERICAN 89 mL/min (90-120)
[2016-12-30 12:27] LABS: PRO BNP 6650 pg/mL (0-125)
[2016-12-30 12:29] LABS: TROPONIN-I < 0.017 ng/mL (0.000-0.060)
[2016-12-30 14:19] VITALS: BP 125/53; BMI 36.3
--- NOTE | 2016-12-30 14:30 | NUR ---
PT ARRIVED TO ROOM AND WAS SITUATED AND ORIENTED TO SITUATION. PT FAMILIAR WITH OUR FACILITY AND HAS BEEN ADMITTED SEVERAL TIMES WITH SAME DX. PT DENIES ANY CURRENT NEEDS AT THIS TIME. WILL CPOC.
--- NOTE | 2016-12-30 15:00 | NUR ---
PT REFUSED SCDS R/T LEG SORES. PT ON COUMADIN AND IS AMBULATORY VERY OFTEN THROUGHOUT THE DAY.
--- NOTE | 2016-12-30 16:43 | NUR ---
FSBS 190 PT REFUSED TX AND STATES HE ONLY NEEDS COVERAGE IF ABOVE 200. PT SITTING UP ON EDGE OF BED RESTING QUIETLY WITH FAMILY AT BEDSIDE. PT DENIES ANY CURRENT NEEDS. CL IN REACH. WILL CPOC.
[2016-12-30 16:50] VITALS: BP 125/53
--- NOTE | 2016-12-30 18:22 | NUR ---
PT FINISHED DINNER AND IS RESTING QUIETLY SITTING ON EDGE OF BED WITH FAMILY AT BEDSIDE. PT DENIES ANY CURRENT PAIN OR NEEDS. WILL PASS ON TO NIGHTSHIFT NURSE.
--- NOTE | 2016-12-30 19:53 | NUR ---
PT SITTING ON SIDE OF BED. FREQUENT BLOWING OF NOSE AND SNUFFLING ABOUT HIS SINUSES. HE HAS USED FLONASE AND HAS SALINE OCEAN SPRAY AT BEDSIDE. O2 @ 3L/NC WITH MILD SHORTNESS OF BREATH NOTED. PIV TO RFA SALINE LOCKED. PT BEING TREATED WITH IV LASIX FOR CHF. BLE ARE WRAPPED WITH DRESSINGS/COMPRESSION STOCKINGS AND PT STATES HIS WOUND CARE IS DONE ONLY BY DR ONEIL. DRESSINGS ARE C/D/I WITH NO NOTED BREAKTHROUGH DRAINAGE. SEE SHIFT ASSESSMENT AND CPOC.
[2016-12-30 20:00] VITALS: BP 111/46
--- NOTE | 2016-12-30 20:01 | NUR ---
TELEMETRY: 71/ FLUTTER WITH BBB
--- NOTE | 2016-12-30 20:47 | NUR ---
HS MEDS GIVEN. EYE DROPS ADMINISTERED. FSBS 150.
--- NOTE | 2016-12-30 22:01 | NUR ---
BEDTIME MEDS GIVEN. FSBS 150, NO ACTION REQUIRED. IV LASIX ADMINISTERED. HS SNACK PROVIDED. XALATAN DROP TO EACH EYE. NO OTHER NEEDS. CPOC.
--- NOTE | 2016-12-30 23:35 | NUR ---
RECLINER PROVIDED AT PT REQUEST AND HE IS NOW UP IN RECLINER WORKING ON A CROSSWORD PUZZLE. CALL LIGHT IN REACH. CPOC.
[2016-12-31] VITALS: BP 132/66
[2016-12-31 04:00] VITALS: BP 124/71
[2016-12-31 05:35] LABS: BASOPHILS 0.4 % (0-2); EOSINOPHILS 8.7 % (0-7); HEMATOCRIT 38.2 % (42.0-54.0); HEMOGLOBIN 12.1 g/dL (13.5-17.5); IMMATURE GRANULOCYTES 0.4 % (0-5); LYMPHOCYTES 28.9 % (15-50); MCH 29.2 pg (26.0-34.0); MCHC 31.7 g/dL (31.0-37.0); MCV 92.3 fL (80.0-100.0); MEAN PLATELET VOLUME 9.4 fL (7.4-10.4); MONOCYTES 8.5 % (2-11); NEUTROPHILS 53.1 % (40-80); PLATELET COUNT 244 10x3/uL (130-400); RBC 4.14 10x6/uL (4.20-6.10); RDW 15.4 % (11.5-14.5)
[2016-12-31 05:40] LABS: WBC 7.8 10x3/uL (4.8-10.8)
[2016-12-31 05:54] LABS: INR 2.16 (0.85-1.17); PROTIME 24.1 SECONDS (11.6-15.0)
[2016-12-31 06:06] LABS: CALC OSMOLALITY 282 mosm/kg (275-300); CALCIUM 9.1 mg/dL (8.5-10.1); CARBON DIOXIDE 36.7 mmol/L (21.0-32.0); CHLORIDE - SERUM 97 mmol/L (98-107); GLUCOSE 159 mg/dL (74-106); POTASSIUM - SERUM 3.5 mmol/L (3.5-5.1); SODIUM 140 mmol/L (136-145); UREA NITROGEN 15 mg/dL (7-18); eGFR NON AFRICAN AMERICAN 79 mL/min (90-120)
[2016-12-31 07:41] VITALS: BP 132/70
--- NOTE | 2016-12-31 07:51 | NUR ---
AM ROUNDS - PT IS AWAKE SITTING UP IN CHAIR. 3L O2 VIA NC. CALL MORALES IN USE/REACH. BED AT LOWEST POSITION. SIDE RAILS UP X1. MONITOR SHOWING FLUTTER WITH BBB, HR 77. BOOT/SHOE TO LEFT FOOT ON. IV TO RIGHT FA, SL. NO NEEDS AT THIS TIME. WILL CONTINUE TO MONITOR
[2016-12-31 12:00] VITALS: BP 146/56
[2016-12-31 12:48] VITALS: Ht 190.5 cm; Wt 131.5 kg
--- NOTE | 2016-12-31 14:17 | NUR ---
PT SITTING UP IN CHAIR. JUST FINNISHED LUNCH. NO NEEDS AT THIS TIME. WILL CONTINUE TO MONITOR
[2016-12-31 16:00] VITALS: BP 136/97
--- NOTE | 2016-12-31 20:16 | NUR ---
AMBULATING FROM BR TO SINK. ORIENTED X 4. DENIES PAIN OR ANY NEEDS. IV IN R FA INTACT SL. DRSG ON BILATERAL LEGS C/D/I. TELEMETRY LEADS IN PLACE. ORIENTED TO CL FOR ANY NEEDS.
[2016-12-31 21:15] VITALS: BP 124/60
[2017-01-01 01:29] VITALS: BP 121/64
[2017-01-01 04:36] VITALS: BP 125/63
[2017-01-01 05:15] LABS: BASOPHILS 0.2 % (0-2); EOSINOPHILS 7.1 % (0-7); HEMATOCRIT 39.4 % (42.0-54.0); HEMOGLOBIN 12.5 g/dL (13.5-17.5); IMMATURE GRANULOCYTES 0.2 % (0-5); MCH 28.9 pg (26.0-34.0); MCHC 31.7 g/dL (31.0-37.0); MEAN PLATELET VOLUME 9.2 fL (7.4-10.4); MONOCYTES 7.5 % (2-11); PLATELET COUNT 249 10x3/uL (130-400); RBC 4.33 10x6/uL (4.20-6.10); RDW 15.1 % (11.5-14.5); WBC 8.3 10x3/uL (4.8-10.8)
[2017-01-01 05:26] LABS: INR 2.34 (0.85-1.17); PROTIME 25.7 SECONDS (11.6-15.0)
[2017-01-01 05:44] LABS: CALC OSMOLALITY 278 mosm/kg (275-300); CALCIUM 9.4 mg/dL (8.5-10.1); CARBON DIOXIDE 36.7 mmol/L (21.0-32.0); CHLORIDE - SERUM 96 mmol/L (98-107); GLUCOSE 154 mg/dL (74-106); POTASSIUM - SERUM 3.6 mmol/L (3.5-5.1); PRO BNP 1233 pg/mL (0-125); SODIUM 137 mmol/L (136-145); eGFR NON AFRICAN AMERICAN 79 mL/min (90-120)
[2017-01-01 05:48] LABS: UREA NITROGEN 19 mg/dL (7-18)
--- NOTE | 2017-01-01 07:53 | NUR ---
AM ROUNDING- RECEIVED REPORT FROM LAB SYSTEMS ANALYST NURSE MORALES. PT IS CURRENTLY SITTING UP IN CHAIR WITH EYES OPEN RESTING. PT STATES HE HAS BEEN SOB. PT STATES HE FEELS THAT THE ANGELA HE WAS STARTED IS NOT HELPING AND IS CONCERNED. PT ALSO STATES HE DOES NOT UNDERSTAND WHY THEY TOOK HIM OFF HIS HOME MEDICATION (METFORMIN) AND NOW HIS BS HAVE BEEN OVER 200. I INFORMED PT TO LET DOCTOR KNOW OF HIS CONCERNS WHEN MAKING ROUNDS TODAY. PT STATES HE WILL. NO NEED AT THIS CURRENT TIME. WILL CONTINUE TO MONITOR AND CONTINUE WITH PLAN OF CARE.
[2017-01-01 08:00] VITALS: BP 150/63
[2017-01-01 12:00] VITALS: BP 114/60
[2017-01-01 16:00] VITALS: BP 138/68
--- NOTE | 2017-01-01 17:44 | NUR ---
PT IS CURRENTLY SITTING UP IN CHAIR WITH EYES OPEN RESTING. PT DENIES ANY NEED AT THIS CURRENT TIME. WILL CONTINUE TO MONITOR.
[2017-01-01 19:00] VITALS: BP 128/85
--- NOTE | 2017-01-01 21:00 | NUR ---
PT SITTING UP IN CHAIR AT THIS TIME. A&O X4, PERRLA, 3 MM, BRISK REACTION TO LIGHT. GLASSES ARE BEING WORN. NC @ 3L/MIN. R FOREARM PIV SALINE LOC. S1S2 AUDIBLE HR 87 A-FLUTTER, DIMINISHED LUNG SOUDNS THROUGHOUT ALL LOBES. BS ACTIVE X4. ABD IS DISTENDED, NON-TENDER TO TOUCH. DRESSING CDI ON LOWER EXT. ORTHO SHOE NOTED ON L FOOT. PT IS ABLE TO GET UP WITHOUT ANY ASSISTANCE. GAIT IS STEADY. HE COMPLAINS THAT HE FEELS CONGESTED. ADMINISTERED NASAL SPRAY, HE STATES THAT HE FEELS IF IT IS GETTING BETTER. BLOOD SUGAR 245 ADMINISTERED 4 UN HUMALOG PER SLIDING SCALE. HE IS IN GOOD SPIRITS. WILL CONT WITH POC.
--- NOTE | 2017-01-02 | NUR ---
PT IS SLEEPING IN CHAIR WITH NO S/S OF ACUTE DISTRESS NOTED. WILL CONT TO MONITOR.
[2017-01-02 00:46] VITALS: BP 122/54
--- NOTE | 2017-01-02 02:45 | NUR ---
PT UP TO USE RESTROOM. GAIT IS STEADY. HE GAVE HIMSELF A BATH WITH NO ASSISTANCE NECESSARY. WILL CONT TO MONITOR.
[2017-01-02 05:12] VITALS: BP 139/79
[2017-01-02 05:34] LABS: BASOPHILS 0.5 % (0-2); EOSINOPHILS 5.7 % (0-7); HEMATOCRIT 39.6 % (42.0-54.0); HEMOGLOBIN 12.5 g/dL (13.5-17.5); IMMATURE GRANULOCYTES 0.5 % (0-5); MCH 28.9 pg (26.0-34.0); MCHC 31.6 g/dL (31.0-37.0); MCV 91.7 fL (80.0-100.0); MEAN PLATELET VOLUME 9.1 fL (7.4-10.4); MONOCYTES 7.5 % (2-11); NEUTROPHILS 55.8 % (40-80); PLATELET COUNT 266 10x3/uL (130-400); RBC 4.32 10x6/uL (4.20-6.10); RDW 15.3 % (11.5-14.5); WBC 8.2 10x3/uL (4.8-10.8)
[2017-01-02 06:07] LABS: INR 2.23 (0.85-1.17); PROTIME 24.8 SECONDS (11.6-15.0)
--- NOTE | 2017-01-02 06:09 | NUR ---
PT REFUSED INSULIN. HE STATES THAT HE DOES NOT WANT TO TAKE ANY INSULIN UNLESS HIS BLOOD SUGAR IS OVER 200. HIS BLOOD SUGAR IS 174. HE DOES EXPRESS CONCERNS REGUARDING HIS DM PO MEDICATION. WILL REPORT CONCERNS TO ONCOMING NURSE. NO FURTHER REQUESTS. WILL CONT WITH POC.
--- NOTE | 2017-01-02 06:20 | NUR ---
PT UP AND WALKING AROUND ROOM. HE IS NOW BACK IN THE CHAIR. HE DENIES ANY NEEDS AT THIS TIME. WILL CONT WITH POC.
[2017-01-02 06:31] LABS: CALC OSMOLALITY 281 mosm/kg (275-300); CHLORIDE - SERUM 94 mmol/L (98-107); CREATININE - SERUM 0.9 mg/dL (0.6-1.3); GLUCOSE 138 mg/dL (74-106); POTASSIUM - SERUM 3.8 mmol/L (3.5-5.1); SODIUM 138 mmol/L (136-145); UREA NITROGEN 23 mg/dL (7-18); eGFR NON AFRICAN AMERICAN 89 mL/min (90-120)
--- NOTE | 2017-01-02 07:36 | NUR ---
AM ROUNDING- RECEIVED REPORT FROM BUTTER GRADER NURSE MARCUS. PT IS CURRENLTY SITTING UP IN CHAIR WITH EYES CLOSED RESTING. ON 02 AT 3L VIA NC. ON MONITOR SHOWING A-FLUTTER, HR 79 (PER REPORT PT HAS HX OF CHRONIC A-FLUTTER). IV SEEN TO RIGHT FOREARM THAT IS CURRENTLY SALINE LOCKED. BLE DRESSINGS SEEN THAT ARE CDI. NO NEED AT THIS CURRENT TIME. WILL CONTINUE TO MONITOR AND CONTINUE WITH PLAN OF CARE.
[2017-01-02 08:32] VITALS: BP 129/72
[2017-01-02] MEDS ORDERED: FLUTICASONE PRO16 GM NASAL (11:22)
[2017-01-02] MEDS ORDERED: FEXOFENADINE HC60 MG PO (11:22)
[2017-01-02 12:34] VITALS: BP 109/49
--- NOTE | 2017-01-02 13:03 | NUR ---
D/C INSTRUCTIONS EXPLAINED TO PT. D/C PAPERWORK SIGNED BY PT AND PLACED IN CHART. HEART MONITOR REMOVED AND RETURNED TO SPRING IN TELEMETRY. IV TO RIGHT FOREARM REMOVED WITH CATH TIP INTACT. COVERED SITE WTIH 2X2 GUAZE PADS AND SECURED WITH TAPE. AWAITING PTS TO GET HERE TO TAKE PT HOME.
--- NOTE | 2017-01-02 13:24 | NUR ---
PT D/C VIA WHEELCHAIR.
--- NOTE | 2017-01-02 13:36 | NUR ---
Patient Name: MONIQUE BEDOLLA Admission Status: ER Accout number: [id number] Admission Date: 12-30-2016 : 1950 Admission Diagnosis: Attending: LEROY VEGAS Current LOS: 3 Anticipated DC Date: 01-02-2017 Planned Disposition: Home with Home Health Primary Insurance: MEDICARE A & B PLANNED EXTERNAL PROVIDER: [facility] LATE ENTRY Discharge Planning Comments: * Is the patient Alert and Oriented? Yes 0 * How many steps to enter\exit or inside your home? 7 W/RAILS 0 * PCP DR. BERNAL 0 * Pharmacy [facility] 0 * Preadmission Environment Home with Family 0 * ADLs Independent 0 * Equipment Glucometer Nebulizer Other Oxygen Rolling Walker Wound Supplies 0 * Other Equipment BILATERAL COMPRESSION PANTS (STILL NOT WEARING DUE TO LEG WOUNDS) BLOOD PRESSURE MACHINE PULSE [facility] HOME AND PORTABLE OXYGEN FROM [facility] PATIENT 0 * List name and contact numbers for known caregivers / representatives who currently or will assist patient after discharge: JANET BEDOLLA, SPOUSE, 0 * Community resources currently utilized Home Health 0 * Please name any agencies selected above. [facility], WOUND CARE 3X PER WEEK 0 * Additional services required to return to the preadmission environment? No 0 * Can the patient safely return to the preadmission environment? Yes 0 * Has this patient been hospitalized within the prior 30 days at any hospital? No 0 CM MET WITH PT IN ROOM TO DISCUSS DISCHARGE PLANNING AND NEEDS. PT REPORTS LIVING AT HOME INDEPENDENTLY WITH HIS SPOUSE. PT REPORTS HAVING ALL NEEDED MEDICAL EQUIPMENT AND [facility] NURSE CHANGING HIS DRESSING ON LEG 3X PER WEEK. PT DOES NOT HAVE PHYSICAL THERAPY AND WILL NOT UNTIL HIS FOOT IS HEALED. CM DISCUSSED AVAILABILITY OF HOME HEALTH, REHAB SERVICES AND MEDICAL EQUIPMENT. PT DENIES DISCHARGE NEEDS OTHER THAN HAVING HOME HEALTH RESUME, REPORTS HIS WILL PICK HIM UP FOR DISCHARGE HOME TODAY. IMPORTANT MESSAGE FROM MEDICARE PROVIDED AND EXPLAINED CM CALLED AND SPOKE TO CYNTHIA AT [facility], , INFORMED OF PT'S DISCHARGE HOME TODAY, [facility] WILL RESUME HOME HEALTH FOR WOUND CARE. CM FAXED DISCHARGE AND CHART INFORMATION TO [facility] AT [phone]. Plug Assembler: Philip Patel
== END 2017-01-02 13:24 | disposition home health service (06) | DRG 292 ==
LOC: D.ER 10:58 → D.M2 12:59
PROVIDERS: Emergency Medicine; ADMIT Family Medicine
DX: I11.0 Hypertensive heart disease with heart failure (principal); I48.92 Unspecified atrial flutter; I50.9 Heart failure, unspecified; Z79.01 Long term (current) use of anticoagulants; I25.10 Atherosclerotic heart disease of native coronary artery without angina pectoris; E78.5 Hyperlipidemia, unspecified; E11.65 Type 2 diabetes mellitus with hyperglycemia; J44.9 Chronic obstructive pulmonary disease, unspecified; D63.8 Anemia in other chronic diseases classified elsewhere; I42.9 Cardiomyopathy, unspecified; E66.01 Morbid (severe) obesity due to excess calories; Z95.5 Presence of coronary angioplasty implant and graft; Z68.36 Body mass index [BMI] 36.0-36.9, adult; Z86.718 Personal history of other venous thrombosis and embolism; Z87.891 Personal history of nicotine dependence

== ENCOUNTER → 2017-02-06 15:32 | Outpatient (CLI) | payer MEDICARE, OTHER ==
[2016-12-31 12:48] VITALS: BMI 36.2
[~2017-02-06 15:32] MED LIST changes: +ALDACTONE25 MG PO; +COUMADIN5 MG PO; +FEXOFENADINE H180 MG PO; +FLUTICASONE PRO16 GM NASAL; +GLUCOPHAGE500 MG PO; +IPRAT-ALBUT 0.5-3 ML UPD; +JANUVIA50 MG PO; +LOVENOX150 MG/ML SC; +STERAPRED 5MG 125 MG PO; +VIBRAMYCIN 100100 MG PO
[2017-02-07 06:15] LABS: INR 1.99 (0.85-1.17); PROTIME 22.6 SECONDS (11.6-15.0)
== END | disposition home or self-care (01) ==
LOC: D.LABREF 15:32
PROVIDERS: Family Medicine
DX: I50.9 Heart failure, unspecified (principal)

== ENCOUNTER 2017-02-15 12:03 | Inpatient (IN) | payer MEDICARE, OTHER ==
[~2017-02-15 12:03] MED LIST changes: -ALDACTONE25 MG PO; -COUMADIN5 MG PO; -FEXOFENADINE H180 MG PO; -GLUCOPHAGE500 MG PO; -IPRAT-ALBUT 0.5-3 ML UPD; -JANUVIA50 MG PO; -LOVENOX150 MG/ML SC; -STERAPRED 5MG 125 MG PO; -VIBRAMYCIN 100100 MG PO
--- NOTE | 2017-02-15 12:27 | NUR ---
PT RECIEVED TO ROOM FROM ADMISSIONS. RR EVEN AND UNLABORED, PT ON 3L PERSONAL NC. PT REQUESTING TO EAT. WILL ORDER PT TRAY WHEN DIET ORDER IS IN. WILL CTM.
[2017-02-15 12:29] VITALS: BP 162/88; BMI 39.7
[2017-02-15 13:26] LABS: BASOPHILS 0.1 % (0-2); HEMATOCRIT 40.5 % (42.0-54.0); HEMOGLOBIN 12.2 g/dL (13.5-17.5); IMMATURE GRANULOCYTES 0.1 % (0-5); LYMPHOCYTES 25.1 % (15-50); MCH 28.4 pg (26.0-34.0); MCHC 30.1 g/dL (31.0-37.0); MCV 94.4 fL (80.0-100.0); MEAN PLATELET VOLUME 8.9 fL (7.4-10.4); MONOCYTES 7.1 % (2-11); NEUTROPHILS 65.6 % (40-80); RBC 4.29 10x6/uL (4.20-6.10); RDW 15.7 % (11.5-14.5); WBC 7.5 10x3/uL (4.8-10.8)
[2017-02-15 13:34] LABS: PLATELET COUNT 207 10x3/uL (130-400)
--- NOTE | 2017-02-15 13:45 | NUR ---
20 G IV STARTED TO LEFT WRIST 1 STICK. DRESSING CDI. WILL CTM.
[2017-02-15 13:58] LABS: INR 2.06 (0.85-1.17); PROTIME 23.2 SECONDS (11.6-15.0)
[2017-02-15 14:00] LABS: D-DIMER-QUANTITATIVE 0.65 ug/mLFEU (0.20-0.54)
[2017-02-15 14:15] LABS: ALBUMIN 3.6 g/dL (3.4-5.0); ALKALINE PHOSPHATASE 114 U/L (46-116); ALT (SGPT) 21 U/L (10-68); BILIRUBIN - TOTAL 0.47 mg/dL (0.2-1.3); CALC OSMOLALITY 289 mosm/kg (275-300); CALCIUM 9.1 mg/dL (8.5-10.1); CHLORIDE - SERUM 100 mmol/L (98-107); GLUCOSE 117 mg/dL (74-106); MAGNESIUM - SERUM 1.7 mg/dL (1.8-2.4); POTASSIUM - SERUM 4.1 mmol/L (3.5-5.1); PROTEIN - SERUM 7.1 g/dL (6.4-8.2); SODIUM 144 mmol/L (136-145); UREA NITROGEN 17 mg/dL (7-18); eGFR NON AFRICAN AMERICAN 79 mL/min (90-120)
[2017-02-15 16:20] VITALS: BP 138/70
--- NOTE | 2017-02-15 18:32 | NUR ---
PT RESTING QUIELTY, FAMILY AT BEDSIDE. RR EVEN AND UNLABORED, PT DENIES NEEDS AT THIS TIME. WILL GIVE REPORT ON PT CONDTION FOR THE DAY.
[2017-02-15 19:00] VITALS: BP 140/76
--- NOTE | 2017-02-15 19:38 | NUR ---
PT SITTING UP IN CHAIR. 3L OF O2 NC WITH HUMIDITY. PT STATES HE IS NOT GETTING MUCH AIR NEEDED AND ASKS FOR A BREATHING TREATMENT. REPORTED THIS TO RESPIRATORY THERAPIST SHIRA. PT DENIES ANY NEEDS AT THIS TIME. HAS NO S/S OF DISTRESS. WILL CP
--- NOTE | 2017-02-15 19:40 | NUR ---
PT ASKS FOR FOUR PNT BUTTERS, 3 GRAMCRACKERS, AND A MILK. PT FSBS WAS 193 AND HE REFUSED INSULIN. PT DENIES ANY NEEDS. WILL CPOC
--- NOTE | 2017-02-15 23:19 | NUR ---
IV DRSG CHANGED. NOW CDI. PT DENIES ANY NEEDS. NO S/S OF DISTRESS. WILL CPOC
[2017-02-16] VITALS: BP 136/58
--- NOTE | 2017-02-16 00:47 | NUR ---
PT UP IN CHAIR. PT ASLEEP. AROUSES TO VERBAL STIMULI. PT DENIES ANY NEEDS. NO S/S OF DISTRESS. WILL CPOC
[2017-02-16 04:00] VITALS: BP 132/60
[2017-02-16 05:45] LABS: BASOPHILS 0 % (0-2); EOSINOPHILS 0 % (0-7); HEMOGLOBIN 11.7 g/dL (13.5-17.5); IMMATURE GRANULOCYTES 0.2 % (0-5); LYMPHOCYTES 20.4 % (15-50); MCH 28.6 pg (26.0-34.0); MCHC 30.8 g/dL (31.0-37.0); MCV 92.9 fL (80.0-100.0); MEAN PLATELET VOLUME 9.2 fL (7.4-10.4); MONOCYTES 1.5 % (2-11); NEUTROPHILS 77.9 % (40-80); PLATELET COUNT 206 10x3/uL (130-400); RBC 4.09 10x6/uL (4.20-6.10); RDW 15.6 % (11.5-14.5)
[2017-02-16 05:47] LABS: WBC 4.7 10x3/uL (4.8-10.8)
[2017-02-16 05:59] LABS: INR 1.92 (0.85-1.17)
[2017-02-16 06:07] LABS: ALBUMIN 3.2 g/dL (3.4-5.0); ALKALINE PHOSPHATASE 106 U/L (46-116); ALT (SGPT) 20 U/L (10-68); BILIRUBIN - TOTAL 0.45 mg/dL (0.2-1.3); CALC OSMOLALITY 286 mosm/kg (275-300); CALCIUM 9.1 mg/dL (8.5-10.1); CARBON DIOXIDE 36.9 mmol/L (21.0-32.0); CHLORIDE - SERUM 99 mmol/L (98-107); POTASSIUM - SERUM 4.4 mmol/L (3.5-5.1); SODIUM 140 mmol/L (136-145); UREA NITROGEN 20 mg/dL (7-18); eGFR NON AFRICAN AMERICAN 79 mL/min (90-120)
[2017-02-16 06:08] LABS: GLUCOSE 187 mg/dL (74-106)
[2017-02-16 08:00] VITALS: BP 145/73
--- NOTE | 2017-02-16 08:00 | NUR ---
ASSESSMENT COMPLETED. DENIES ANY NEEDS. TELEMERY SHOWS FLUTTER AT 76. EDEMA TO BOTH LEGD WITH SCALLY SKIN. ALERT AND ORIENTD. UP IN CHAIR
[2017-02-16 13:19] VITALS: BMI 39.5
--- NOTE | 2017-02-16 16:36 | NUR ---
RESTING QUIETLY RESP UNLABORED NAD NOTED
--- NOTE | 2017-02-16 18:27 | NUR ---
UP IN BEDSIDE CHAIR. DENIES ANY NEEDS. CALL LIGHT IN REACH. WILL MONITOR
--- NOTE | 2017-02-16 19:46 | NUR ---
RESUMED CARE OF PT, UP IN CHAIR RESPIRATIONS EVEN AND UNLABORED ON 3LPM VIA NC. 79 FLUTTER ON TELEMETRY. LEFT WRIST SALINE LOCKED. NO NEEDS AT THIS TIME, CALL LIGHT IN REACH. WILL CONTINUE TO MONITOR. SEE NURSE ASSESSMENT.
[2017-02-16 22:23] VITALS: BP 114/50
--- NOTE | 2017-02-17 01:22 | NUR ---
UP IN CHAIR WITH EYES CLOSED, CALL LIGHT IN REACH.
[2017-02-17 01:35] VITALS: BP 126/58
[2017-02-17 05:36] LABS: BASOPHILS 0 % (0-2); EOSINOPHILS 0 % (0-7); HEMOGLOBIN 11.8 g/dL (13.5-17.5); IMMATURE GRANULOCYTES 0.3 % (0-5); LYMPHOCYTES 11.8 % (15-50); MCH 28.4 pg (26.0-34.0); MCHC 30.3 g/dL (31.0-37.0); MEAN PLATELET VOLUME 9.3 fL (7.4-10.4); MONOCYTES 3.4 % (2-11); NEUTROPHILS 84.5 % (40-80); PLATELET COUNT 218 10x3/uL (130-400); RBC 4.15 10x6/uL (4.20-6.10); RDW 15.7 % (11.5-14.5); WBC 9.4 10x3/uL (4.8-10.8)
[2017-02-17 05:45] LABS: INR 1.62 (0.85-1.17); PROTIME 19.2 SECONDS (11.6-15.0)
[2017-02-17 05:48] VITALS: BP 118/51
[2017-02-17 06:10] LABS: ALBUMIN 3.3 g/dL (3.4-5.0); ANION GAP 2.7 mmol/L (8-16); BILIRUBIN - TOTAL 0.38 mg/dL (0.2-1.3); CALCIUM 9.3 mg/dL (8.5-10.1); CARBON DIOXIDE 39.7 mmol/L (21.0-32.0); CREATININE - SERUM 1.1 mg/dL (0.6-1.3); POTASSIUM - SERUM 4.4 mmol/L (3.5-5.1)
--- NOTE | 2017-02-17 07:30 | NUR ---
RESTING QUIETLY SITTING IN A CHAIR RESP UNLABORED AAOX4 DENIES ANY NEEDS AT THIS TIME
[2017-02-17 08:00] VITALS: BP 151/70
--- NOTE | 2017-02-17 08:00 | NUR ---
ASSESSMENT COMPLETED. UP IN BEDSIDE CHAIR. DENIES ANY NEEDS. TELEMERTY SHOWS FLUTTER AT 84. LEGS SWOLLEN BILATERALY WITH THE LEFT ONE BEING BIGGER. LEFT LEG WITH SCALES AND REDDNESS.LEFT WRIST SL PATENT. WILL MONITOR
[2017-02-17 12:00] VITALS: BP 119/48
--- NOTE | 2017-02-17 15:30 | NUR ---
UP IN BEDSIDE CHAIR. DENIES ANY NEEDS, TELEMERTY SHOWS FLUTTER
[2017-02-17 16:00] VITALS: BP 145/69
--- NOTE | 2017-02-17 19:55 | NUR ---
RESUMED CARE OF PT, UP IN CHAIR RESPIRATIONS EVEN AND UNLABORED ON 3LPM VIA NC. UPDRAFT IN PROGRESS. 79 FLUTTER ON TELEMETRY. NO NEEDS VOICED AT THIS TIME, CALL LIGHT IN REACH. WILL CONTINUE TO MONITOR. SEE NURSE ASSESSMENT.
[2017-02-17 20:25] VITALS: BP 104/48
[2017-02-18 00:51] VITALS: BP 115/59
[2017-02-18 05:19] VITALS: BP 123/63
[2017-02-18 06:28] LABS: BASOPHILS 0 % (0-2); EOSINOPHILS 0 % (0-7); HEMATOCRIT 40.5 % (42.0-54.0); HEMOGLOBIN 12.2 g/dL (13.5-17.5); IMMATURE GRANULOCYTES 0.2 % (0-5); LYMPHOCYTES 11.7 % (15-50); MCH 28.6 pg (26.0-34.0); MCHC 30.1 g/dL (31.0-37.0); MCV 94.8 fL (80.0-100.0); MEAN PLATELET VOLUME 9.3 fL (7.4-10.4); MONOCYTES 3.5 % (2-11); NEUTROPHILS 84.6 % (40-80); PLATELET COUNT 236 10x3/uL (130-400); RBC 4.27 10x6/uL (4.20-6.10); RDW 15.9 % (11.5-14.5); WBC 9.2 10x3/uL (4.8-10.8)
[2017-02-18 06:41] LABS: INR 1.43 (0.85-1.17); PROTIME 17.4 SECONDS (11.6-15.0)
[2017-02-18 06:51] LABS: ALBUMIN 3.2 g/dL (3.4-5.0); ANION GAP 6.3 mmol/L (8-16); BILIRUBIN - TOTAL 0.5 mg/dL (0.2-1.3); CALCIUM 9.2 mg/dL (8.5-10.1); CARBON DIOXIDE 39.2 mmol/L (21.0-32.0); CREATININE - SERUM 1.1 mg/dL (0.6-1.3); POTASSIUM - SERUM 4.5 mmol/L (3.5-5.1); PROTEIN - SERUM 6.7 g/dL (6.4-8.2)
--- NOTE | 2017-02-18 07:15 | NUR ---
ASSESSMENT DONE. DENIES NEEDS.
[2017-02-18 08:21] VITALS: BP 116/57
--- NOTE | 2017-02-18 08:30 | NUR ---
TO X-RAY PER BED.
--- NOTE | 2017-02-18 10:34 | NUR ---
SITTING UP IN CHAIR WITH CALL LIGHT IN REACH. WILL MONITOR NEEDS.
--- NOTE | 2017-02-18 11:08 | EC ---
PATIENT:MONIQUE BEDOLLA DATE OF SERVICE: 02/15/17 SEX: M MEDICAL RECORD: [id number] DATE OF : [birth year] LOCATION:D.M2 D.212 AGE OF PATIENT: 67 ADMISSION DATE: 02/16/17 REFERRING PHYSICIAN: INTERPRETING PHYSICIAN: YUSUF KING MD ECHOCARDIOGRAM REPORT ECHO CHARGES 4 ECHO COMPLETE CLINICAL DIAGNOSIS: CHF ECHOCARDIOGRAPHIC MEASUREMENTS (adult normal given) AC root (d.<3.7cm) 3.6 cm LV Septum d (<1.2 cm> 1.6 cm Valve Excursion 2.0 cm LV Septum (systole) 2.1 cm Left Atria (s.<4.0cm> 5.8 cm LVPW d(<1.2cm) 1.7 cm RV (d.<2.3cm) 4.8 cm LVPW (sytole) 2.1 cm LV diastole(<5.6CM) 5.9 cm MV E-F(>70mm/sec) cm LV systole 4.6 cm LVOT Diameter 1.9 cm MV exc.(>10mm) cm Est.ejection fraction (50-75%) % Pericardial Effusion N DOPPLER: LVIT cm/sec A cm/sec E 121 cm/sec LA cm/sec RVSP 51.0 mmHg LVOT 66.0 cm/sec AOP1/2T m/s Asc. Ao 113 cm/sec RVOT 49.0 cm/sec RA cm/sec PA 89.0 cm/sec AV Gradient Peak 5.1 mmHg AV Mean 2.2 mmHg AV Area 2.1 cm MV Gradient Peak 6.3 mmHg MV Mean 3.1 mmHg MV Area cm COMMENTS: Form Setter: 1 ALBERT BONDOE Political Science Faculty Member: 3 Dr. García TAPE# PACS DATE OF SERVICE: 02/16/2017 Adequate 2D, color flow, spectral Doppler, M-mode. LVH is present. LV internal dimensions are normal. LV is mildly globally hypo consistent with underlying atrial fibrillation and variable R-R intervals. Overall, LV function mildly reduced at 40%-45%. Aortic valve sclerosis without stenosis by Doppler interrogation. The left atrium is dilated at 5.8 cm. Mitral valve shows no prolapse. Bjdq-go-xygngthq MR. Right-sided chamber is grossly normal. Trace TR. ECHOCARDIOGRAM REPORT [id number] MONIQUE BEDOLLA TRANSINT:[id number] Voice Confirmation ID: [id number] DOCUMENT ID: [id number] YUSUF KING MD at 1108 CC: [id number] DICTATION DATE: 02/16/17 121 FINISHING ROOM OPERATOR: 02/16/17 1335 ADM IN [place] [place] [address]
--- NOTE | 2017-02-18 11:08 | CN ---
PATIENT NAME:MONIQUE BEDOLLA MEDICAL RECORD: [id number] : 46 LOCATION:D. D.2129 ADMIT DATE: 02/16/17 ACCOUNT: [id number] CONSULTING PHYSICIAN: YUSUF KING MD REFERRING PHYSICIAN: CONNIE BERNAL MD DATE OF CONSULTATION: 02/16/2017 HISTORY OF PRESENT ILLNESS: A 67-year-old gentleman with known history of coronary artery disease, status post intervention. Had a history of cardiomyopathy, improved on therapy. Atrial fibrillation, probably chronic at this point in time, on Coumadin for CVA prophylaxis with a therapeutic INR. Admitted with volume overload. We are asked to see him concerning his cardiovascular status. PAST MEDICAL HISTORY: Includes: 1. History of obstructive pulmonary disease, O2 dependent. 2. Hyperlipidemia. 3. Hypertension. 4. Diabetes mellitus. 5. Cardiomyopathy, improved on therapy. Initially 20%, last EF 40%. ALLERGIES: MULTAQ, CIPRO, POTASSIUM. MEDICATIONS: Nicolasa 60 b.i.d., Coumadin per scale, carvedilol 12.5 every day, lisinopril 20 every day, propafenone 150 b.i.d., Lasix 40 b.i.d., Nexium 40 every day, Amaryl 4 mg b.i.d., and Janumet 50 gram one tablet b.i.d. SOCIAL HISTORY: He lives in [place]. Quit smoking several years back. Nondrinker. Difficulty with his ADLs due to multiple medical problems. REVIEW OF SYSTEMS: The patient reports easy bruising but reports no swollen glands. The patient reports no fever, no night sweats, no significant weight gain, no significant weight loss. No significant exercise tolerance. The patient reports no dry eyes, no irritation, no vision change. Patient reports no difficulty hearing and no ear pain. Patient reports no frequent nose bleeds or nose and sinus problems. Patient reports on arm pain on exertion. No shortness of breath while lying down. No history of heart murmur. Patient reports no cough, no wheezing or coughing up blood. Patient reports no abdominal pain, no vomiting. Normal appetite. No diarrhea and not vomiting blood. No nausea and no constipation. Patient reports no incontinence. No difficulty urinating. No hematuria. No increased frequency. Patient reports no muscle aches. No weakness, no arthralgias, no back pain. No swelling of the extremities. Patient reports no abnormal mole, no jaundice, no rashes. Reports no loss of consciousness. No weakness and no numbness. No seizures, dizziness, or headaches. The patient reports no depression, no sleep disturbance, feeling safe in a relationship and no alcohol abuse. Patient reports on fatigue. Reports no runny nose or sinus pressure. No itching, no hives, and no frequent sneezing. PHYSICAL EXAMINATION: GENERAL: In no acute distress. VITAL SIGNS: Blood pressure 132/60, pulse 76 and irregular. HEENT: Normocephalic, atraumatic. HEART: Irregular, rate controlled. A II/ systolic ejection murmur. LUNGS: Diminished air movement, typically right base. CONSULT REPORT [id number] MONIQUE BEDOLLA ABDOMEN: Soft, nontender. EXTREMITIES: A 2+ pulses and 1+ edema. NEUROLOGIC: Grossly intact. IMPRESSION AND PLAN: Volume overload, combination of systolic dysfunction with underlying atrial fibrillation. We will add Aldactone to his medications. I suspect some of this dyspnea is a matter of deconditioning as well. Further recommendations based on the above. TRANSINT:[id number] Voice Confirmation ID: [id number] DOCUMENT ID: [id number] YUSUF KING MD at 1108 CC: [id number] DICTATION DATE: 02/16/17913 INFECTION PREVENTION SPECIALIST: 02/16/17 1057 ADM IN [facility] [address] [place] [address]
[2017-02-18 12:26] VITALS: BP 114/48
[2017-02-18 15:58] VITALS: BP 129/55
--- NOTE | 2017-02-18 16:04 | NUR ---
Wound care consult: Pt is seen weekly at outpatient clinic by Dr. Phillips. He was due to have a dressing change today to wound on plantar left foot. Dried and calloused skin noted - nearly healed area. Pt stated he pulled off some dry skin earlier and it is noted there is now a small open area. Covered with maxorb ag - 2x2s and secured with medipore tape. Wound care will monitor as necessary.
[2017-02-18 16:18] LABS: PROTEIN - BODY FLUID 2.7 G/DL
--- NOTE | 2017-02-18 17:38 | NUR ---
WITHOUT CHANGES OR DISTRESS NOTED AT THIS TIME. DENIES NEEDS.
[2017-02-18 18:00] LABS: MACROPHAGES BF 18 %; MESOTHELIALS BF 1 %; NEUT - BF 1 %
--- NOTE | 2017-02-18 19:23 | NUR ---
ASSESSSMENT COMPLETE, A&O. SITTING UP IN CHAIR. RESPERATIONS EVEN ON 02 AT 3 LITER VIA NC. IV TO LEFT WRIST SL, SITE CLEAN AND DRY. DRSG TO LEFT FOOT, C/D/I. PT DENIES PAIN OR NEEDS, BED LOW, CL IN REACH.
[2017-02-18 19:32] VITALS: BP 123/60
[2017-02-19] VITALS: BP 125/50
--- NOTE | 2017-02-19 02:52 | NUR ---
RESTING WITH EYES CLOSED, RESPERATIONS EVEN, NO S/S DISTRESS NOTED.
[2017-02-19 04:04] VITALS: BP 130/64
[2017-02-19 04:21] LABS: BASOPHILS 0 % (0-2); EOSINOPHILS 0 % (0-7); HEMATOCRIT 39.6 % (42.0-54.0); IMMATURE GRANULOCYTES 0.4 % (0-5); LYMPHOCYTES 10.2 % (15-50); MCH 28.6 pg (26.0-34.0); MCHC 30.3 g/dL (31.0-37.0); MCV 94.5 fL (80.0-100.0); MEAN PLATELET VOLUME 9.3 fL (7.4-10.4); MONOCYTES 2.9 % (2-11); NEUTROPHILS 86.5 % (40-80); PLATELET COUNT 232 10x3/uL (130-400); RBC 4.19 10x6/uL (4.20-6.10); RDW 15.8 % (11.5-14.5); WBC 9.2 10x3/uL (4.8-10.8)
[2017-02-19 04:35] LABS: INR 1.27 (0.85-1.17); PROTIME 15.8 SECONDS (11.6-15.0)
[2017-02-19 04:43] LABS: ALBUMIN 3.2 g/dL (3.4-5.0); ANION GAP 8.7 mmol/L (8-16); BILIRUBIN - TOTAL 0.35 mg/dL (0.2-1.3); CALCIUM 9.2 mg/dL (8.5-10.1); CREATININE - SERUM 1.2 mg/dL (0.6-1.3); POTASSIUM - SERUM 4.7 mmol/L (3.5-5.1); PROTEIN - SERUM 6.8 g/dL (6.4-8.2)
--- NOTE | 2017-02-19 05:00 | NUR ---
PT RESTING IN BED WITH NO DISTRESS. NO NEEDS VOICED. CPOC.
[2017-02-19 07:42] VITALS: BP 136/75
--- NOTE | 2017-02-19 07:47 | NUR ---
ASSESSMENT DONE. PATIENT SITTING IN CHAIR AT BEDSIDE WATCHING TV. NO C/O PAIN OR DISCOMFORT. STATES NO NEEDS AT THIS TIME.
[2017-02-19 11:23] VITALS: BP 108/48
--- NOTE | 2017-02-19 13:33 | NUR ---
ALERT AND ORIENTED X4. SITTING UP IN CHAIR. AT BEDSIDE. DENIES PAIN. O2-3L NC. A-FLUTTER 70bpm ON TELEMETRY. REFUSE SCDs. DENIES ANY NEEDS. CHAIR LOCKED. CALL LIGHT IN REACH.
[2017-02-19 15:22] LABS: AFB SPECIMEN PROCESSING Not Indicated (())
[2017-02-19 16:03] VITALS: BP 125/68
--- NOTE | 2017-02-19 18:01 | NUR ---
PATIENT SITTING IN CHAIR AT BED SIDE. NO CHANGES NOTED. NO C/O PAIN OR DISCOMFORT. STATES NO NEEDS AT THIS TIME.
[2017-02-19 19:00] VITALS: BP 142/61
--- NOTE | 2017-02-19 19:00 | NUR ---
ROUNDING NOTE: AT CHANGE OF SHIFT, PT IS SITTING UP IN BEDSIDE CHAIR. HE IS ALERT AND ORIENTED X3. HE'S WEARING 3L OF OXYGEN VIA NC. HE IS IN ATRIAL FLUTTER ON THE MONITOR W/ RATE OF 103. IV ACCESS VIA LEFT WRIST SALINE LOC. PT DENIES ANY NEEDS OTHER THAN A FRESH ICE WATER AND PAIN MEDS WITH HIS NIGHTTIME MED PASS. WILL CONT TO MONITOR.
--- NOTE | 2017-02-19 22:00 | NUR ---
PT'S HS FINGERSTICK= 420. PER ORDERS, CALLED THE ANSWERING SERVICE TO SPEAK WITH SURVEY PROJECT MANAGER PROVIDER FOR CRITICAL GLUCOSE >400. SPOKE WITH SHANTELLE SANDOVAL APN WHO GAVE ADDITIONAL ORDERS. PT TO RECEIVE 28U FOR BLOOD SUGAR OF 422 NOW PER HIGH RESISTANCE SLIDING SCALE, AND THEN REPEAT BLOOD SGUAR IN 2 HOURS X1 AND TREAT PER HIGH RESISTANCE SLIDING SCALE. SHANTELLE DOES NOT WANT TO BE CALLED BACK WITH RESULTS. PT STATES THAT "INSULIN DOESN'T WORK FOR HIM." PT IS ASYMPTOMATIC. HYPERGLYCEMIA IS STEROID-INDUCED. WILL CONT TO MONITOR.
[2017-02-20] VITALS: BP 112/61
--- NOTE | 2017-02-20 00:30 | NUR ---
PT'S REPEAT FINGERSTICK= 322. PER ORDER, PT TREATED WITH A ONE TIME DOSE OF 20 UNITS OF HUMALOG INSULIN.
[2017-02-20 04:00] VITALS: BP 127/76
[2017-02-20 05:46] LABS: BASOPHILS 0.1 % (0-2); EOSINOPHILS 0 % (0-7); HEMATOCRIT 41.2 % (42.0-54.0); HEMOGLOBIN 12.4 g/dL (13.5-17.5); IMMATURE GRANULOCYTES 0.9 % (0-5); LYMPHOCYTES 16.5 % (15-50); MCH 28.4 pg (26.0-34.0); MCHC 30.1 g/dL (31.0-37.0); MCV 94.3 fL (80.0-100.0); MEAN PLATELET VOLUME 9.5 fL (7.4-10.4); MONOCYTES 9.2 % (2-11); NEUTROPHILS 73.3 % (40-80); PLATELET COUNT 259 10x3/uL (130-400); RBC 4.37 10x6/uL (4.20-6.10); RDW 15.7 % (11.5-14.5); WBC 10.2 10x3/uL (4.8-10.8)
[2017-02-20 05:59] LABS: INR 1.13 (0.85-1.17); PROTIME 14.4 SECONDS (11.6-15.0)
[2017-02-20 06:13] LABS: ALBUMIN 3.3 g/dL (3.4-5.0); ALKALINE PHOSPHATASE 96 U/L (46-116); CALCIUM 9.3 mg/dL (8.5-10.1); CHLORIDE - SERUM 97 mmol/L (98-107); PRO BNP 2593 pg/mL (0-125); PROTEIN - SERUM 6.9 g/dL (6.4-8.2); SODIUM 142 mmol/L (136-145); UREA NITROGEN 33 mg/dL (7-18); eGFR NON AFRICAN AMERICAN 79 mL/min (90-120)
[2017-02-20 06:41] LABS: ALT (SGPT) 39 U/L (10-68); CALC OSMOLALITY 291 mosm/kg (275-300); GLUCOSE 129 mg/dL (74-106); POTASSIUM - SERUM 3.8 mmol/L (3.5-5.1)
[2017-02-20 07:43] VITALS: BP 141/78
--- NOTE | 2017-02-20 08:10 | NUR ---
INTRODUCED MYSELF TO PT PRIMARY RN FOR TODAYS SHIFT. PT A&O SITTING UP IN BEDSIDE CHAIR WAITING ON BREAKFAST. SHIFT ASSESSMENT COMPLETED. PT HAS A L.FOOT DRSG IN PLACE THAT HE REFUSES FOR ME TO ASSESS AND STATES WOUND CARE NURSE IS ADDRESSING IT, THIS IS CHRONIC FOR PT WILL MAKE SURE SOMEONE IS MANAGING IT. PT HAS A L.WRIST PIV WITH DRSG CDI AND SWAB CAPS IN USE, FLUSHES WITHOUT ANY RESISTANCE MET. PT STATES HE IS FEELING BACK TO HIS NORMAL BASELINE AND HOPES TO BE RELEASED TODAY OR TOMORROW. PT DENIES ANY FURTHER NEEDS AT THIS TIME. CL IN REACH. WILL CPOC.
--- NOTE | 2017-02-20 10:44 | NUR ---
PROVIDED PT WITH HIS QUESTRAN MIXED IN APPLE JUICE REQUESTED. PT STILL SITTING UP IN BEDSIDE CHAIR RESTING AND DENIES ANY CURRENT PAIN OR NEEDS AT THIS TIME. CL IN REACH, WILL CPOC.
[2017-02-20 11:36] VITALS: BP 112/58
[2017-02-20 13:16] LABS: FUNGUS STAIN Final report (())
--- NOTE | 2017-02-20 13:56 | NUR ---
PT DOING SELF BATH AND WAS PROVIDED WITH SUPPLIES. DENIES ANY CURRENT NEEDS AT THIS TIME. WILL CPOC.
[2017-02-20 15:09] VITALS: BP 147/69
[2017-02-20 19:00] VITALS: BP 115/51
--- NOTE | 2017-02-20 19:44 | NUR ---
RESUMED CARE OF PT, UP IN CHAIR RESPIRATIONS EVEN AND UNLABORED ON 3LPM VIA NC. 90 FLUTTER ON TELEMETRY. LEFT WRIST SALINE LOCKED. PLAN OF CARE DISCUSSED. CALL LIGHT IN REACH. WILL CONTINUE TO MONITOR. SEE NURSE ASSESSMENT.
[2017-02-21] VITALS: BP 124/69
--- NOTE | 2017-02-21 05:18 | NUR ---
CALL LIGHT IN REACH, WILL CONTINUE WITH PLAN OF CARE.
[2017-02-21 05:24] VITALS: BP 120/64
[2017-02-21 05:43] LABS: BASOPHILS 0.1 % (0-2); EOSINOPHILS 1.2 % (0-7); HEMATOCRIT 41.4 % (42.0-54.0); HEMOGLOBIN 12.4 g/dL (13.5-17.5); IMMATURE GRANULOCYTES 1.3 % (0-5); LYMPHOCYTES 33.6 % (15-50); MCH 28.5 pg (26.0-34.0); MCV 95.2 fL (80.0-100.0); MEAN PLATELET VOLUME 9.4 fL (7.4-10.4); MONOCYTES 8.1 % (2-11); NEUTROPHILS 55.7 % (40-80); PLATELET COUNT 252 10x3/uL (130-400); RBC 4.35 10x6/uL (4.20-6.10); RDW 15.7 % (11.5-14.5); WBC 8.9 10x3/uL (4.8-10.8)
[2017-02-21 05:56] LABS: INR 1.07 (0.85-1.17); PROTIME 13.7 SECONDS (11.6-15.0)
[2017-02-21 06:11] LABS: CALCIUM 9.3 mg/dL (8.5-10.1); CHLORIDE - SERUM 98 mmol/L (98-107); MAGNESIUM - SERUM 1.9 mg/dL (1.8-2.4); PHOSPHOROUS 4.7 mg/dL (2.5-4.9); SODIUM 140 mmol/L (136-145); UREA NITROGEN 35 mg/dL (7-18); eGFR NON AFRICAN AMERICAN 79 mL/min (90-120)
[2017-02-21 06:21] LABS: CALC OSMOLALITY 289 mosm/kg (275-300); CARBON DIOXIDE 39.9 mmol/L (21.0-32.0); GLUCOSE 150 mg/dL (74-106); POTASSIUM - SERUM 4.5 mmol/L (3.5-5.1)
--- NOTE | 2017-02-21 07:30 | NUR ---
ASSESSMENT COMPLETED.PT UP IN A CHAIR. DENIES ANY NEEDS. TELEMERTY SHOWS FLUTTER. BILATERAL EDEMA TO BOTH LEGS, WORSE ON THE LEFT. DRSG TO LEFT FOOT. LEFT WRIST SL. WILL MONITOR
[2017-02-21 08:07] VITALS: BP 130/64
--- NOTE | 2017-02-21 09:45 | NUR ---
RESTING QUIETLY RESP UNLABORED DENIES ANY NEEDS OR DISCOMFORT AT THIS TIME
[2017-02-21 11:53] VITALS: BP 107/68
[2017-02-21] MEDS ORDERED: FEXOFENADINE H180 MG PO ×2 (15:10→15:28)
[2017-02-21] MEDS ORDERED: VIBRAMYCIN 100100 MG PO ×2 (15:10→15:28)
[2017-02-21] MEDS ORDERED: BROVANA15 MCG/2 M INH (15:10)
[2017-02-21] MEDS ORDERED: IPRAT-ALBUT 0.5-3 ML UPD (15:11)
[2017-02-21] MEDS ORDERED: COUMADIN5 MG PO ×2 (15:14→15:28)
[2017-02-21] MEDS ORDERED: ALDACTONE25 MG PO ×2 (15:14→15:28)
[2017-02-21] MEDS ORDERED: LOVENOX150 MG/ML SC ×2 (15:14→15:28)
[2017-02-21] MEDS ORDERED: LASIX40 MG PO ×2 (15:16→15:28)
[2017-02-21] MEDS ORDERED: PULMICORT0.5 MG/21 UPD (15:16)
[2017-02-21] MEDS ORDERED: MUCINEX DM ER1 EAC1 PO ×2 (15:17→15:28)
[2017-02-21] MEDS ORDERED: GLUCOPHAGE500 MG PO ×2 (15:17→15:28)
[2017-02-21] MEDS ORDERED: JANUVIA50 MG PO ×2 (15:17→15:28)
[2017-02-21] MEDS ORDERED: STERAPRED 5MG 125 MG PO ×2 (15:18→15:28)
--- NOTE | 2017-02-21 16:06 | NUR ---
Patient Name: MONIQUE BEDOLLA Admission Status: Urgent Accout number: [id number] Admission Date: 02-16-2017 : 1950 Admission Diagnosis:SHORTNESS OF BREATH Attending: CONNIE BERNAL Current LOS: 5 Anticipated DC Date: 02-21-2017 Planned Disposition: Home with Home Health Primary Insurance: MEDICARE A & B PLANNED EXTERNAL PROVIDER Discharge Planning Comments: * Is the patient Alert and Oriented? Yes 0 * How many steps to enter\exit or inside your home? 7 W/RAILS 0 * PCP DR. BERNAL 0 * Pharmacy [facility] 0 * Preadmission Environment Home with Family 0 * ADLs Independent 0 * Equipment Glucometer Nebulizer Other Oxygen Rolling Walker Wound Supplies 0 * Other Equipment BLOOD PRESSURE MACHINE PULSE OXIMETER HOME AND PORTABLE OXYGEN FROM [facility] PATIENT 0 * List name and contact numbers for known caregivers / representatives who currently or will assist patient after discharge: SABAS MALDONADO, 0 * Community resources currently utilized Home Health 0 * Please name any agencies selected above. [facility], 0 * Additional services required to return to the preadmission environment? No 0 * Can the patient safely return to the preadmission environment? Yes 0 * Has this patient been hospitalized within the prior 30 days at any hospital? Yes 0 CM MET WITH PT IN ROOM TO DISCUSS DISCHARGE PLANNING AND NEEDS. PT REPORTS LIVING AT HOME INDEPENDENTLY WITH SPOUSE. PT REPORTS HAVING ALL NEEDED MEDICAL EQUIPMENT PROVIDED BY [facility] PATIENT. PT HAS [facility] FOR NURSING. CM DISCUSSED AVAILABILITY OF HOME HEALTH, REHAB SERVICES AND MEDICAL EQUIPMENT. PT DENIES DISCHARGE NEEDS OTHER THAN HOME HEALTH RESUMPTION, REPORTS HIS SPOUSE WILL PICK HIM UP FOR DISCHARGE HOME. IMPORTANT MESSAGE FROM MEDICARE PROVIDED AND EXPLAINED. Entertainment Reporter: Philip Patel
--- NOTE | 2017-02-21 17:47 | NUR ---
PT DISCHARGED. IV DCD WITH TIP INTACT. TO PRIVATE CAR PER WHEELCHAIR
--- NOTE | 2017-03-01 10:35 | CN ---
PATIENT NAME:MONIQUE BEDOLLA MEDICAL RECORD: [id number] : [birth year] LOCATION:[facility] D.2129 ADMIT DATE: 02/16/17 ACCOUNT: [id number] CONSULTING PHYSICIAN: ENRIQUE REN MD REFERRING PHYSICIAN: CONNIE BERNAL MD DATE OF CONSULTATION: 02/15/2017 CONSULT REQUESTING PHYSICIAN: Aly Dee MD REASON FOR CONSULTATION: Acute exacerbation of COPD, congestive heart failure, and right-sided pleural effusion. HISTORY OF PRESENT ILLNESS: Mr. Bedolla is a 67-year-old gentleman. He has worsening shortness of breath for the last few days. He has orthopnea and PND. He is coughing. Cough is productive of very little sputum production. Denies any fever or chills. He does not hear himself wheezing. He feels like he is filling up with fluid. Also worsening swelling of the lower extremities. PAST MEDICAL HISTORY: 1. COPD, home oxygen dependent. 2. Hyperlipidemia. 3. Hypertension. 4. Diabetes mellitus and neuropathy. 5. Chronic DVT, on Coumadin. 6. Congestive heart failure with chronic systolic dysfunction with EF of 20% to 25%. PAST SURGICAL HISTORY: 1. Cholecystectomy. 2. T&A. 3. Hemorrhoidectomy. ALLERGIES: HE IS ALLERGIC TO POTASSIUM. HOME MEDICATIONS: ____ home medication is reviewed. He is on albuterol/ipratropium nebulizer and warfarin. PERSONAL AND SOCIAL HISTORY: The patient is an ex-smoker. He is nondrinker. FAMILY HISTORY: Noncontributory. PHYSICAL EXAMINATION: GENERAL: Now, the patient is sitting in bed and wearing nasal cannula oxygen. He is not in acute distress. VITAL SIGNS: Blood pressure 138/70, pulse is 83, respirations 20, temperature 96.4, and SpO2 is 98% on 3 liters nasal cannula. HEENT: Conjunctivae pink. Sclerae nonicteric. NECK: Supple. No JVD. CHEST: There are decreased breath sounds at the right base. There are crackles at the left base. No wheeze. HEART: Rhythm regular. Normal sounds with grade II/ systolic murmur. ABDOMEN: Soft. Bowel sounds present. No hepatosplenomegaly. RECTAL: Deferred. EXTREMITIES: No cyanosis. No clubbing. There is 3+ pedal edema. SKIN: The skin is warm. Normal turgor. There are static changes in the lower CONSULT REPORT [id number] MONIQUE BEDOLLA extremities. CENTRAL NERVOUS SYSTEM: There is no obvious cranial nerve abnormality. The gait is not tested. The cranial nerves are intact. IMAGING DATA: CT scan of the chest, preliminary report; there are bilateral pleural effusions, right more than left. OTHER LABORATORY DATA: CBC; WBC is 7.5, hemoglobin is 12.2, hematocrit 40.5, and platelet count 407. Chemistry; sodium 144, potassium 4.1, chloride 100, BUN is 70, and creatinine is 1. INR is 2.06. The D-dimers are elevated. IMPRESSION: 1. Acute exacerbation of COPD. 2. Acute bronchitis. 3. Dyspnea on exertion. 4. Bnfxg-sv-ikqlict congestive heart failure with chronic systolic dysfunction with EF of 20% to 25%. 5. Bilateral pleural effusions, right more than left. 6. Chronic hypoxic respiratory failure. 7. Dependent edema secondary to CHF. 8. Chronic DVT, positive D-dimer. I would doubt acute thromboembolism as the patient's Coumadin is therapeutic. RECOMMENDATIONS: 1. I will hold the warfarin. 2. Doxycycline 100 mg b.i.d., methylprednisolone IV, Lasix 40 mg IV q. 8 hourly, albuterol/ipratropium nebulizer, and Brovana and budesonide nebulizer. We will proceed with thoracentesis, most likely on Saturday. Followup series of PT/INR and labs. Dr. Dee, thank you for involving me in the care of Mr. Bedolla. TRANSINT:[id number] Voice Confirmation ID: [id number] DOCUMENT ID: [id number] ENRIQUE REN MD at 1035 CC: CONNIE BERNAL MD [id number] DICTATION DATE: 02/15/17 1627 UNIT LEADER: 02/15/17 1843 DIS IN 02/21/17 [facility] [address] [facility] [place] [address]
[2017-03-18 08:09] LABS: FUNGUS MYCOLOGY CULTURE Final report (())
--- NOTE | 2017-03-18 09:15 | EC ---
PATIENT:MONIQUE BEDOLLA DATE OF SERVICE: 02/16/17 SEX: M MEDICAL RECORD: [id number] DATE OF : [birth year] LOCATION:D.M2 D.212 AGE OF PATIENT: 67 ADMISSION DATE: 02/16/17 REFERRING PHYSICIAN: INTERPRETING PHYSICIAN: MYNOR MONTEMAYOR MD ECHOCARDIOGRAM REPORT ECHO CHARGES 4 ECHO COMPLETE CLINICAL DIAGNOSIS: CHF ECHOCARDIOGRAPHIC MEASUREMENTS (adult normal given) AC root (d.<3.7cm) 3.6 cm LV Septum d (<1.2 cm> 1.6 cm Valve Excursion 2.0 cm LV Septum (systole) 2.1 cm Left Atria (s.<4.0cm> 5.8 cm LVPW d(<1.2cm) 1.7 cm RV (d.<2.3cm) 4.8 cm LVPW (sytole) 2.1 cm LV diastole(<5.6CM) 5.9 cm MV E-F(>70mm/sec) cm LV systole 4.6 cm LVOT Diameter 1.9 cm MV exc.(>10mm) cm Est.ejection fraction (50-75%) % Pericardial Effusion N DOPPLER: LVIT cm/sec A cm/sec E 121 cm/sec LA cm/sec RVSP 51.0 mmHg LVOT 66.0 cm/sec AOP1/2T m/s Asc. Ao 113 cm/sec RVOT 49.0 cm/sec RA cm/sec PA 89.0 cm/sec AV Gradient Peak 5.1 mmHg AV Mean 2.2 mmHg AV Area 2.1 cm MV Gradient Peak 6.3 mmHg MV Mean 3.1 mmHg MV Area cm COMMENTS: Professor Of Physics: Jacki BONDOE Smokehouse Operator: 3 Dr. García TAPE# PACS DATE OF SERVICE: 02/16/2017 PROCEDURE: Transthoracic echocardiogram. FINDINGS: 1. Left ventricle shows moderate concentric left ventricular hypertrophy. The endocardium was not well visualized. There appears to be mild global hypokinesis without regional wall motion abnormalities with an overall ejection fraction of 45%. 2. The left atrium is severely dilated and there is zaohksox-it-kmdldo mitral ECHOCARDIOGRAM REPORT [id number] MONIQUE BEDOLLA regurgitation that appears mostly centralized 10-inch regurgitant jet. Inflow characteristics suggest the patient is in atrial flutter and we are not able to get a good waveform through it. 3. The right ventricle is severely dilated and mildly hypokinetic. 4. The tricuspid valve has mild tricuspid regurgitation with an RVSP of 50-60 mmHg indicating moderate pulmonary hypertension. 5. The aortic valve appears to be normal. 6. The right atrium is severely dilated. 7. The pericardium appears to be normal. 8. The IVC was not well visualized on this echocardiogram. CONCLUSION: The patient has evidence of hypertensive heart disease with severe dilatation of the left atrium, right atrium, and right ventricle. There is what appears to be a mild cardiomyopathy and may be hypertensive and valvular in nature. There also appears to moderate pulmonary hypertension. TRANSINT:[id number] Voice Confirmation ID: [id number] DOCUMENT ID: [id number] 02/22/2017 Edited to correct date of service, dm. MYNOR MONTEMAYOR MD at 0915 CC: [id number] DICTATION DATE: 02/18/17 0929 VISCOSITY TESTER: 02/18/17 1104 DIS IN 02/21/17 [facility] [address] [place] [address]
--- NOTE | 2017-03-26 10:49 | DS ---
PATIENT:MONIQUE BEDOLLA :[birth year] MEDICAL RECORD: [id number] DISCHARGE SUMMARY ADMISSION DATE: 02/16/17 DISCHARGE DATE: 02/21/17 This is a discharge dated 02/21/2017 from the inpatient hospital. DISCHARGE DIAGNOSES: 1. Rpouc-di-wtubcfk systolic congestive heart failure. 2. Chronic obstructive pulmonary disease exacerbation. 3. Xzncj-wg-hrlhark hypoxic respiratory failure. 4. Atrial fibrillation/flutter. 5. Coronary artery disease. 6. Cardiomyopathy. 7. Acute bronchitis. 8. Left lower extremity wound. 9. Hypomagnesemia. 10. Hyperlipidemia. 11. Hypertension. 12. Diabetes. 13. History of deep venous thrombosis. 14. Right pleural effusion. 15. Morbid obesity. 16. Anemia. CONSULTS THIS HOSPITALIZATION: 1. Pulmonary with Luigi Eastman MD 2. Cardiology with Cole García MD PROCEDURES THIS HOSPITALIZATION: Right-sided thoracentesis by interventional radiology on 02/15/2017 with 1 liter of fluid removed. Echocardiogram on 02/16/2017 with an EF of 40% to 45%, lhzw-lw-zfshhhcq mitral regurgitation and a trace of tricuspid regurgitation. HOSPITAL COURSE: Full H&P is located elsewhere on the chart on this 67-year-old male who was admitted for treatment of his COPD exacerbation. Chest x-ray was consistent with a pleural effusion. Pulmonary was consulted. He was seen by Dr. Eastman. He was started on diuretics, remained on supplemental oxygen to keep sats greater than 90%. Cardiology was consulted. He was seen by Dr. García. Medications were adjusted for diuresis. Electrolytes were managed by protocol. He underwent thoracentesis with removal of 1 liter of fluid. He was on doxycycline for antibiotic coverage and started on IV steroids for COPD exacerbation. He was on nebulized medications including DuoNeb, Brovana and budesonide. He had wound care to left lower extremity wound. Fingerstick blood sugars were monitored throughout his hospital stay with appropriate adjustment in medications as needed. Steroids were tapered to oral. Diuretics were changed to oral. His symptoms improved and he was stable for discharge home on 02/21/2017. DISCHARGE MEDICATIONS: As per discharge medication reconciliation. DISCHARGE DISPOSITION: The patient is discharged home. He will continue his current diet and level of activity. He will be seen by [facility] house calls. He will follow up with primary care and consultants as directed. At least 30 minutes was spent in this discharge activity. DISCHARGE SUMMARY REPORT [id number] BEDOLLAMONIQUE Van TRANSINT:[id number] Voice Confirmation ID: [id number] DOCUMENT ID: [id number] Dictated By: NATA KELLY I have interviewed/examined the above patient and agree with these documented findings. HAROLDO SALINAS MD at 1358 at 1049 CC: [id number] DICTATION DATE: 03/17/17 1638 PAID INTERNSHIP: 03/17/17 1824 DIS IN 02/21/17 [facility] [address] [place] [address]
[2017-04-12 10:18] LABS: ACID FAST CULTURE Negative (()); ACID FAST SMEAR Negative (())
== END 2017-02-21 17:47 | disposition home health service (06) | DRG 291 ==
LOC: D.M2 12:03 → OBSVTIME 12:04 → D.M2 02-16 19:06
PROVIDERS: Family Medicine; Internal Medicine Pulmonary Disease; Specialist; ADMIT Family Medicine
PROC: 0W993ZZ Drainage of Right Pleural Cavity, Percutaneous Approach (ICD-10-PCS; principal; 2017-02-18 08:30)
DX: I11.0 Hypertensive heart disease with heart failure (principal); J96.21 Acute and chronic respiratory failure with hypoxia; J44.0 Chronic obstructive pulmonary disease with (acute) lower respiratory infection; I82.509 Chronic embolism and thrombosis of unspecified deep veins of unspecified lower extremity; J90 Pleural effusion, not elsewhere classified; J44.1 Chronic obstructive pulmonary disease with (acute) exacerbation; I48.92 Unspecified atrial flutter; I50.23 Acute on chronic systolic (congestive) heart failure; J20.9 Acute bronchitis, unspecified; E11.40 Type 2 diabetes mellitus with diabetic neuropathy, unspecified; E78.5 Hyperlipidemia, unspecified; Z79.01 Long term (current) use of anticoagulants; I48.91 Unspecified atrial fibrillation; E66.01 Morbid (severe) obesity due to excess calories; I25.10 Atherosclerotic heart disease of native coronary artery without angina pectoris; Z68.39 Body mass index [BMI] 39.0-39.9, adult; D63.8 Anemia in other chronic diseases classified elsewhere; Z87.891 Personal history of nicotine dependence

== ENCOUNTER → 2017-03-18 11:34 | Outpatient (CLI) | payer MEDICARE, OTHER ==
[2017-02-16 13:19] VITALS: BMI 39.5
[~2017-03-18 11:34] MED LIST changes: +ALDACTONE25 MG PO; +COUMADIN5 MG PO; +FEXOFENADINE H180 MG PO; +GLUCOPHAGE500 MG PO; +IPRAT-ALBUT 0.5-3 ML UPD; +JANUVIA50 MG PO; +LOVENOX150 MG/ML SC; +STERAPRED 5MG 125 MG PO; +VIBRAMYCIN 100100 MG PO
[2017-03-18 12:54] LABS: INR 1.97 (0.85-1.17); PROTIME 22.5 SECONDS (11.6-15.0)
== END | disposition home or self-care (01) ==
LOC: D.LABREF 11:34
PROVIDERS: Family Medicine
DX: Z51.81 Encounter for therapeutic drug level monitoring (principal); Z79.01 Long term (current) use of anticoagulants

== ENCOUNTER → 2017-04-01 14:57 | Outpatient (CLI) | payer MEDICARE, OTHER ==
[2017-04-01 15:47] LABS: INR 2.23 (0.85-1.17)
== END | disposition home or self-care (01) ==
LOC: D.LABREF 14:57
PROVIDERS: Family Medicine
DX: Z51.81 Encounter for therapeutic drug level monitoring (principal); Z79.01 Long term (current) use of anticoagulants

== ENCOUNTER → 2017-04-08 12:08 | Outpatient (CLI) | payer MEDICARE ==
[2017-04-09 12:39] LABS: INR 2.38 (0.85-1.17); PROTIME 25.4 SECONDS (11.6-15.0)
== END | disposition home or self-care (01) ==
LOC: D.LABREF 12:08
PROVIDERS: Family Medicine
DX: I48.91 Unspecified atrial fibrillation (principal)

== ENCOUNTER → 2017-04-23 17:43 | Outpatient (CLI) | payer MEDICARE ==
[2017-04-23 18:45] LABS: INR 2.09 (0.85-1.17); PROTIME 22.9 SECONDS (11.6-15.0)
== END | disposition home or self-care (01) ==
LOC: D.LABREF 17:43
PROVIDERS: Family Medicine
DX: Z51.81 Encounter for therapeutic drug level monitoring (principal); Z79.01 Long term (current) use of anticoagulants; I48.92 Unspecified atrial flutter

== ENCOUNTER → 2017-05-06 16:54 | Outpatient (CLI) | payer MEDICARE ==
[2017-05-06 19:36] LABS: INR 2.21 (0.85-1.17); PROTIME 23.9 SECONDS (11.6-15.0)
== END | disposition home or self-care (01) ==
LOC: D.LABREF 16:54
PROVIDERS: Family Medicine
DX: Z51.81 Encounter for therapeutic drug level monitoring (principal); Z79.01 Long term (current) use of anticoagulants

== ENCOUNTER → 2017-05-13 12:03 | Outpatient (CLI) | payer MEDICARE ==
[2017-05-13 15:37] LABS: INR 2.64 (0.85-1.17); PROTIME 27.5 SECONDS (11.6-15.0)
== END | disposition home or self-care (01) ==
LOC: D.LABREF 12:03
PROVIDERS: Family Medicine
DX: Z51.81 Encounter for therapeutic drug level monitoring (principal); Z79.01 Long term (current) use of anticoagulants; I48.91 Unspecified atrial fibrillation

== ENCOUNTER → 2017-05-20 21:36 | Outpatient (CLI) | payer MEDICARE ==
[2017-05-20 22:04] LABS: INR 2.62 (0.85-1.17); PROTIME 27.3 SECONDS (11.6-15.0)
== END | disposition home or self-care (01) ==
LOC: D.LABREF 21:36
PROVIDERS: Family Medicine
DX: I25.10 Atherosclerotic heart disease of native coronary artery without angina pectoris (principal); I48.92 Unspecified atrial flutter

== ENCOUNTER → 2017-05-27 13:12 | Outpatient (CLI) | payer MEDICARE ==
[2017-05-27 13:32] LABS: INR 2.52 (0.85-1.17); PROTIME 26.5 SECONDS (11.6-15.0)
== END | disposition home or self-care (01) ==
LOC: D.LABREF 13:12
PROVIDERS: Family Medicine
DX: Z51.81 Encounter for therapeutic drug level monitoring (principal); Z79.01 Long term (current) use of anticoagulants; I48.91 Unspecified atrial fibrillation

== ENCOUNTER → 2017-07-08 19:52 | Outpatient (CLI) | payer MEDICARE ==
[~2017-07-08 19:52] MED LIST changes: +ADVAIR 250/501 DISK INH; +HYDROCODONE-APA1 TAB PO; +LANOXIN125 MCG PO; +PROTONIX40 MG PO; +QUESTRAN PACK4 G/PKT PO
[2017-07-08 21:43] LABS: INR 2.23 (0.85-1.17)
== END | disposition home or self-care (01) ==
LOC: D.LABREF 19:52
PROVIDERS: Family Medicine
DX: I48.91 Unspecified atrial fibrillation (principal)

== ENCOUNTER 2017-07-10 12:06 | Emergency (ER) | payer MEDICARE, OTHER ==
[~2017-07-10 12:06] MED LIST changes: -ADVAIR 250/501 DISK INH; -HYDROCODONE-APA1 TAB PO; -LANOXIN125 MCG PO; -PROTONIX40 MG PO; -QUESTRAN PACK4 G/PKT PO
[2017-07-10 13:25] LABS: APPEARANCE CLEAR (CLEAR); BILIRUBIN NEGATIVE (NEGATIVE); COLOR YELLOW (YELLOW); GLUCOSE NEGATIVE (NEGATIVE); KETONE NEGATIVE (NEGATIVE); NITRITE NEGATIVE (NEGATIVE); PROTEIN NEGATIVE (NEGATIVE); UROBILINOGEN NORMAL (NORMAL)
[2017-07-10 14:25] LABS: BASOPHILS 0.1 % (0-2); HEMATOCRIT 39.1 % (42.0-54.0); HEMOGLOBIN 12.6 g/dL (13.5-17.5); IMMATURE GRANULOCYTES 0.2 % (0-5); LYMPHOCYTES 18.9 % (15-50); MCHC 32.2 g/dL (31.0-37.0); MCV 93.1 fL (80.0-100.0); MEAN PLATELET VOLUME 8.8 fL (7.4-10.4); MONOCYTES 7.6 % (2-11); NEUTROPHILS 72.2 % (40-80); PLATELET COUNT 244 10x3/uL (130-400); RDW 15.7 % (11.5-14.5); WBC 8.7 10x3/uL (4.8-10.8)
[2017-07-10 14:33] LABS: ALBUMIN 3.6 g/dL (3.4-5.0); ANION GAP 12.6 mmol/L (8-16); BILIRUBIN - TOTAL 0.64 mg/dL (0.2-1.3); CALCIUM 9.2 mg/dL (8.5-10.1); CARBON DIOXIDE 32.6 mmol/L (21.0-32.0); CREATININE - SERUM 1.3 mg/dL (0.6-1.3); POTASSIUM - SERUM 3.2 mmol/L (3.5-5.1); PROTEIN - SERUM 7.5 g/dL (6.4-8.2)
== END 2017-07-10 18:49 | disposition home or self-care (01) ==
LOC: D.ER 12:06
PROVIDERS: Emergency Medicine
DX: K52.9 Noninfective gastroenteritis and colitis, unspecified (principal)

== ENCOUNTER 2017-07-12 20:33 | Observation (INO) | payer MEDICARE, OTHER ==
[~2017-07-12] VITALS: Ht 190.5 cm; Wt 141.3 kg
[2017-07-12 23:42] LABS: BASOPHILS 0.2 % (0-2); EOSINOPHILS 3.6 % (0-7); HEMATOCRIT 34.4 % (42.0-54.0); HEMOGLOBIN 11.2 g/dL (13.5-17.5); IMMATURE GRANULOCYTES 0.3 % (0-5); LYMPHOCYTES 24.4 % (15-50); MCH 29.2 pg (26.0-34.0); MCHC 32.6 g/dL (31.0-37.0); MCV 89.6 fL (80.0-100.0); MEAN PLATELET VOLUME 9.2 fL (7.4-10.4); MONOCYTES 9.2 % (2-11); NEUTROPHILS 62.3 % (40-80); PLATELET COUNT 232 10x3/uL (130-400); RBC 3.84 10x6/uL (4.20-6.10); RDW 15.5 % (11.5-14.5); WBC 9.8 10x3/uL (4.8-10.8)
[2017-07-12 23:55] LABS: ALBUMIN 3.5 g/dL (3.4-5.0); ANION GAP 13.6 mmol/L (8-16); BILIRUBIN - TOTAL 0.53 mg/dL (0.2-1.3); CALCIUM 7.9 mg/dL (8.5-10.1); CARBON DIOXIDE 32.6 mmol/L (21.0-32.0); CREATININE - SERUM 2.7 mg/dL (0.6-1.3); POTASSIUM - SERUM 3.2 mmol/L (3.5-5.1); PROTEIN - SERUM 6.9 g/dL (6.4-8.2)
[2017-07-13 00:23] LABS: APPEARANCE CLEAR (CLEAR); BILIRUBIN NEGATIVE (NEGATIVE); COLOR DK YELLOW (YELLOW); GLUCOSE NEGATIVE (NEGATIVE); KETONE MODERATE mg/dL (NEGATIVE); NITRITE NEGATIVE (NEGATIVE); PROTEIN NEGATIVE (NEGATIVE); SPECIFIC GRAVITY 1.015 (1.005-1.020); UROBILINOGEN NORMAL (NORMAL)
[2017-07-13 07:10] LABS: BASOPHILS 0.1 % (0-2); EOSINOPHILS 4.1 % (0-7); HEMATOCRIT 36.2 % (42.0-54.0); HEMOGLOBIN 11.9 g/dL (13.5-17.5); IMMATURE GRANULOCYTES 0.4 % (0-5); LYMPHOCYTES 21.5 % (15-50); MCH 29.5 pg (26.0-34.0); MCHC 32.9 g/dL (31.0-37.0); MCV 89.6 fL (80.0-100.0); MEAN PLATELET VOLUME 8.7 fL (7.4-10.4); MONOCYTES 8.9 % (2-11); PLATELET COUNT 199 10x3/uL (130-400); RBC 4.04 10x6/uL (4.20-6.10); RDW 15.5 % (11.5-14.5); WBC 9.5 10x3/uL (4.8-10.8)
[2017-07-13 07:25] LABS: ALBUMIN 3.5 g/dL (3.4-5.0); ANION GAP 11.7 mmol/L (8-16); BILIRUBIN - TOTAL 0.52 mg/dL (0.2-1.3); CALCIUM 7.8 mg/dL (8.5-10.1); CARBON DIOXIDE 32.4 mmol/L (21.0-32.0); CREATININE - SERUM 2.4 mg/dL (0.6-1.3); POTASSIUM - SERUM 3.1 mmol/L (3.5-5.1); PROTEIN - SERUM 7.1 g/dL (6.4-8.2)
[2017-07-13 13:27] LABS: ERYTHROCYTE SEDIMENTATION RATE 17 mm/hr (0-20)
[2017-07-13 17:29] VITALS: BP 112/58; BMI 37.0
[2017-07-13 20:30] VITALS: BP 143/73
[2017-07-13 22:50] LABS: APPEARANCE CLEAR (CLEAR); BILIRUBIN NEGATIVE (NEGATIVE); COLOR YELLOW (YELLOW); GLUCOSE NEGATIVE (NEGATIVE); KETONE NEGATIVE (NEGATIVE); NITRITE NEGATIVE (NEGATIVE); PROTEIN NEGATIVE (NEGATIVE); SPECIFIC GRAVITY 1.015 (1.005-1.020); UROBILINOGEN NORMAL (NORMAL)
[2017-07-14 00:30] VITALS: BP 122/64
[2017-07-14 04:30] VITALS: BP 111/60
[2017-07-14 06:16] LABS: BASOPHILS 0.3 % (0-2); EOSINOPHILS 3.1 % (0-7); HEMATOCRIT 34.8 % (42.0-54.0); HEMOGLOBIN 11.4 g/dL (13.5-17.5); IMMATURE GRANULOCYTES 0.5 % (0-5); LYMPHOCYTES 25.2 % (15-50); MCH 29.8 pg (26.0-34.0); MCHC 32.8 g/dL (31.0-37.0); MCV 91.1 fL (80.0-100.0); MEAN PLATELET VOLUME 9.2 fL (7.4-10.4); MONOCYTES 14.6 % (2-11); NEUTROPHILS 56.3 % (40-80); PLATELET COUNT 166 10x3/uL (130-400); RBC 3.82 10x6/uL (4.20-6.10); RDW 15.8 % (11.5-14.5)
[2017-07-14 06:18] LABS: WBC 6.4 10x3/uL (4.8-10.8)
[2017-07-14 06:22] LABS: ANION GAP 10.1 mmol/L (8-16); CALCIUM 7.6 mg/dL (8.5-10.1); CARBON DIOXIDE 31.8 mmol/L (21.0-32.0)
[2017-07-14 06:23] LABS: CREATININE - SERUM 1.2 mg/dL (0.6-1.3); POTASSIUM - SERUM 2.9 mmol/L (3.5-5.1)
[2017-07-14 08:22] VITALS: BP 131/66
[2017-07-14] MEDS ORDERED: COUMADIN10 MG PO (08:40)
[2017-07-14] MEDS ORDERED: JANUMET 50-1,001 TAB PO (08:41)
[2017-07-14] MEDS ORDERED: LASIX40 MG PO (08:42)
[2017-07-14] MEDS ORDERED: HYDROCODONE-APA1 TAB PO (08:45)
[2017-07-14] MEDS ORDERED: PROTONIX40 MG PO (08:45)
[2017-07-14 11:55] VITALS: BP 128/71
[2017-07-14 15:42] VITALS: BP 125/54
[2017-07-14 21:53] VITALS: BP 122/49
[2017-07-15 02:40] VITALS: BP 112/59
[2017-07-15 05:30] LABS: BASOPHILS 0.2 % (0-2); EOSINOPHILS 3.1 % (0-7); HEMATOCRIT 33.8 % (42.0-54.0); HEMOGLOBIN 10.9 g/dL (13.5-17.5); IMMATURE GRANULOCYTES 0.7 % (0-5); LYMPHOCYTES 35.2 % (15-50); MCHC 32.2 g/dL (31.0-37.0); MCV 89.9 fL (80.0-100.0); MEAN PLATELET VOLUME 9.3 fL (7.4-10.4); MONOCYTES 12.6 % (2-11); NEUTROPHILS 48.2 % (40-80); PLATELET COUNT 185 10x3/uL (130-400); RBC 3.76 10x6/uL (4.20-6.10); RDW 15.5 % (11.5-14.5); WBC 5.9 10x3/uL (4.8-10.8)
[2017-07-15 05:39] LABS: CALC OSMOLALITY 269 mosm/kg (275-300); CALCIUM 7.7 mg/dL (8.5-10.1); CARBON DIOXIDE 31.3 mmol/L (21.0-32.0); CHLORIDE - SERUM 96 mmol/L (98-107); GLUCOSE 120 mg/dL (74-106); MAGNESIUM - SERUM 1.6 mg/dL (1.8-2.4); POTASSIUM - SERUM 3.6 mmol/L (3.5-5.1); SODIUM 134 mmol/L (136-145); UREA NITROGEN 15 mg/dL (7-18); eGFR NON AFRICAN AMERICAN 79 mL/min (90-120)
[2017-07-15 06:44] VITALS: BP 123/60
[2017-07-15 10:17] VITALS: BP 148/75
[2017-07-15 12:33] VITALS: BP 112/63
[2017-07-15 13:30] VITALS: Ht 190.5 cm; Wt 141.3 kg
[2017-07-15 18:36] VITALS: BP 122/71
[2017-07-15 20:00] VITALS: BP 120/60
[2017-07-16 04:00] VITALS: BP 126/63
[2017-07-16 06:43] LABS: BASOPHILS 0.3 % (0-2); EOSINOPHILS 3.1 % (0-7); HEMATOCRIT 36.3 % (42.0-54.0); HEMOGLOBIN 11.5 g/dL (13.5-17.5); IMMATURE GRANULOCYTES 0.6 % (0-5); LYMPHOCYTES 31.6 % (15-50); MCH 29.1 pg (26.0-34.0); MCHC 31.7 g/dL (31.0-37.0); MCV 91.9 fL (80.0-100.0); MEAN PLATELET VOLUME 9.4 fL (7.4-10.4); NEUTROPHILS 55.4 % (40-80); PLATELET COUNT 218 10x3/uL (130-400); RBC 3.95 10x6/uL (4.20-6.10); RDW 15.2 % (11.5-14.5); WBC 6.2 10x3/uL (4.8-10.8)
[2017-07-16 06:56] LABS: CALC OSMOLALITY 276 mosm/kg (275-300); CALCIUM 8.5 mg/dL (8.5-10.1); CARBON DIOXIDE 31.8 mmol/L (21.0-32.0); CHLORIDE - SERUM 99 mmol/L (98-107); GLUCOSE 142 mg/dL (74-106); SODIUM 137 mmol/L (136-145); UREA NITROGEN 15 mg/dL (7-18); eGFR NON AFRICAN AMERICAN 79 mL/min (90-120)
[2017-07-16 09:21] VITALS: BP 117/55
[2017-07-16 13:01] VITALS: BP 120/64
[2017-07-16 17:36] VITALS: BP 114/75
[2017-07-16 19:00] VITALS: BP 121/63
[2017-07-16 21:55] LABS: INR 1.66 (0.85-1.17); PROTIME 19.1 SECONDS (11.6-15.0)
[2017-07-17] VITALS: BP 120/66
[2017-07-17 04:00] VITALS: BP 142/70
[2017-07-17 07:00] LABS: BASOPHILS 0.1 % (0-2); EOSINOPHILS 3.5 % (0-7); HEMATOCRIT 38.4 % (42.0-54.0); HEMOGLOBIN 11.9 g/dL (13.5-17.5); IMMATURE GRANULOCYTES 0.4 % (0-5); LYMPHOCYTES 31.8 % (15-50); MCH 29.3 pg (26.0-34.0); MEAN PLATELET VOLUME 9.5 fL (7.4-10.4); MONOCYTES 9.7 % (2-11); NEUTROPHILS 54.5 % (40-80); PLATELET COUNT 253 10x3/uL (130-400); RBC 4.06 10x6/uL (4.20-6.10); RDW 15.6 % (11.5-14.5); WBC 6.8 10x3/uL (4.8-10.8)
[2017-07-17 07:06] LABS: MCV 94.6 fL (80.0-100.0)
[2017-07-17 07:31] LABS: CALC OSMOLALITY 280 mosm/kg (275-300); CALCIUM 9.1 mg/dL (8.5-10.1); CARBON DIOXIDE 34.2 mmol/L (21.0-32.0); CHLORIDE - SERUM 99 mmol/L (98-107); GLUCOSE 130 mg/dL (74-106); POTASSIUM - SERUM 4.3 mmol/L (3.5-5.1); SODIUM 139 mmol/L (136-145); UREA NITROGEN 16 mg/dL (7-18); eGFR NON AFRICAN AMERICAN 79 mL/min (90-120)
[2017-07-17 08:41] VITALS: BP 125/65
[2017-07-17 12:01] VITALS: BP 124/66
[2017-07-17 13:09] LABS: INR 1.4 (0.85-1.17); PROTIME 16.7 SECONDS (11.6-15.0)
[2017-07-17 16:09] VITALS: BP 134/71
[2017-07-17 19:00] VITALS: BP 134/54
[2017-07-18 02:33] VITALS: BP 132/61
[2017-07-18 06:02] VITALS: BP 109/64
[2017-07-18 06:30] LABS: HEMATOCRIT 37.1 % (42.0-54.0); LYMPHOCYTES 31.2 % (15-50); MCH 30.4 pg (26.0-34.0); MCHC 32.3 g/dL (31.0-37.0); MCV 93.9 fL (80.0-100.0); MEAN PLATELET VOLUME 8.8 fL (7.4-10.4); NEUTROPHILS 59.9 % (40-80); PLATELET COUNT 250 10x3/uL (130-400); RBC 3.95 10x6/uL (4.20-6.10); RDW 15.7 % (11.5-14.5); WBC 7.9 10x3/uL (4.8-10.8)
[2017-07-18 06:34] LABS: INR 1.34 (0.85-1.17); PROTIME 16.1 SECONDS (11.6-15.0)
[2017-07-18 06:52] LABS: CALC OSMOLALITY 278 mosm/kg (275-300); CALCIUM 8.9 mg/dL (8.5-10.1); CARBON DIOXIDE 31.3 mmol/L (21.0-32.0); CHLORIDE - SERUM 101 mmol/L (98-107); CREATININE - SERUM 0.9 mg/dL (0.6-1.3); GLUCOSE 127 mg/dL (74-106); POTASSIUM - SERUM 4.8 mmol/L (3.5-5.1); SODIUM 138 mmol/L (136-145); UREA NITROGEN 16 mg/dL (7-18); eGFR NON AFRICAN AMERICAN 89 mL/min (90-120)
[2017-07-18 08:14] VITALS: BP 123/68
[2017-07-18] MEDS ORDERED: QUESTRAN PACK4 G/PKT PO (10:36)
[2017-07-18] MEDS ORDERED: ADVAIR 250/501 DISK INH (10:37)
[2017-07-18 11:29] VITALS: BP 138/70
== END 2017-07-18 12:32 | disposition home health service (06) ==
LOC: D.ER 20:33 → D.M2 07-13 05:13 → D.EDHOLD 07-13 05:13 → OBSVTIME 07-13 05:13 → D.M2 07-13 15:10
PROVIDERS: Emergency Medicine; Family Medicine; Family Medicine Adult Medicine; Internal Medicine Nephrology
DX: A08.4 Viral intestinal infection, unspecified (principal); I10 Essential (primary) hypertension; E11.40 Type 2 diabetes mellitus with diabetic neuropathy, unspecified; J44.9 Chronic obstructive pulmonary disease, unspecified; F32.9 Major depressive disorder, single episode, unspecified; I48.91 Unspecified atrial fibrillation; E87.1 Hypo-osmolality and hyponatremia; E86.0 Dehydration; N17.9 Acute kidney failure, unspecified; D64.9 Anemia, unspecified

== ENCOUNTER → 2017-07-22 18:54 | Outpatient (CLI) | payer MEDICARE, OTHER ==
[2017-07-15 13:30] VITALS: BMI 36.9
[~2017-07-22 18:54] MED LIST changes: +ADVAIR 250/501 DISK INH; +HYDROCODONE-APA1 TAB PO; +LANOXIN125 MCG PO; +PROTONIX40 MG PO; +QUESTRAN PACK4 G/PKT PO
[2017-07-22 20:14] LABS: INR 1.89 (0.85-1.17); PROTIME 21.1 SECONDS (11.6-15.0)
== END | disposition home or self-care (01) ==
LOC: D.LABREF 18:54
PROVIDERS: Urology
DX: I48.91 Unspecified atrial fibrillation (principal)

== ENCOUNTER → 2017-07-29 13:37 | Outpatient (CLI) | payer MEDICARE, OTHER ==
[2017-07-15 13:30] VITALS: BMI 36.9
[2017-07-29 13:54] LABS: INR 2.72 (0.85-1.17); PROTIME 28.1 SECONDS (11.6-15.0)
== END | disposition home or self-care (01) ==
LOC: D.LABREF 13:37
PROVIDERS: Family Medicine
DX: I48.91 Unspecified atrial fibrillation (principal)

== ENCOUNTER → 2017-08-05 16:35 | Outpatient (CLI) | payer MEDICARE, OTHER ==
[2017-07-15 13:30] VITALS: BMI 36.9
[2017-08-06 07:23] LABS: INR 2.63 (0.85-1.17); PROTIME 27.4 SECONDS (11.6-15.0)
== END ==
LOC: D.LABREF 16:35
PROVIDERS: Family Medicine
DX: I48.91 Unspecified atrial fibrillation (principal)

== ENCOUNTER → 2017-08-26 13:31 | Outpatient (CLI) | payer MEDICARE, OTHER ==
[2017-07-15 13:30] VITALS: BMI 36.9
[2017-08-26 14:29] LABS: INR 3.8 (0.85-1.17); PROTIME 36.6 SECONDS (11.6-15.0)
== END | disposition home or self-care (01) ==
LOC: D.LABREF 13:31
PROVIDERS: Family Medicine
DX: I48.91 Unspecified atrial fibrillation (principal)

== ENCOUNTER → 2017-08-30 12:32 | Outpatient (CLI) | payer MEDICARE, OTHER ==
[2017-07-15 13:30] VITALS: BMI 36.9
== END | disposition home or self-care (01) ==
LOC: D.MRI 12:32
DX: S91.302A Unspecified open wound, left foot, initial encounter (principal); X58.XXXA Exposure to other specified factors, initial encounter; Y93.9 Activity, unspecified; Y92.9 Unspecified place or not applicable

== ENCOUNTER → 2017-09-02 19:02 | Outpatient (CLI) | payer MEDICARE, OTHER ==
[2017-07-15 13:30] VITALS: BMI 36.9
[2017-09-02 20:19] LABS: INR 2.35 (0.85-1.17); PROTIME 25.1 SECONDS (11.6-15.0)
== END | disposition home or self-care (01) ==
LOC: D.LABREF 19:02
PROVIDERS: Family Medicine
DX: I48.91 Unspecified atrial fibrillation (principal)

== ENCOUNTER → 2017-09-09 21:26 | Outpatient (CLI) | payer MEDICARE, OTHER ==
[2017-07-15 13:30] VITALS: BMI 36.9
[2017-09-09 23:05] LABS: INR 2.47 (0.85-1.17); PROTIME 26.1 SECONDS (11.6-15.0)
== END | disposition home or self-care (01) ==
LOC: D.LABREF 21:26
PROVIDERS: Family Medicine
DX: I48.91 Unspecified atrial fibrillation (principal)

== ENCOUNTER → 2017-09-16 16:32 | Outpatient (CLI) | payer MEDICARE, OTHER ==
[2017-07-15 13:30] VITALS: BMI 36.9
[2017-09-16 17:00] LABS: INR 1.69 (0.85-1.17); PROTIME 19.4 SECONDS (11.6-15.0)
== END | disposition home or self-care (01) ==
LOC: D.LABREF 16:32
PROVIDERS: Family Medicine
DX: Z51.81 Encounter for therapeutic drug level monitoring (principal); Z79.01 Long term (current) use of anticoagulants; Z86.718 Personal history of other venous thrombosis and embolism; Z86.711 Personal history of pulmonary embolism; I48.92 Unspecified atrial flutter

== ENCOUNTER → 2017-09-23 16:09 | Outpatient (CLI) | payer MEDICARE, OTHER ==
[2017-07-15 13:30] VITALS: BMI 36.9
[2017-09-23 17:00] LABS: INR 2.68 (0.85-1.17); PROTIME 27.8 SECONDS (11.6-15.0)
== END | disposition home or self-care (01) ==
LOC: D.LABREF 16:09
PROVIDERS: Family Medicine
DX: I48.92 Unspecified atrial flutter (principal); Z86.711 Personal history of pulmonary embolism; Z51.81 Encounter for therapeutic drug level monitoring; Z79.01 Long term (current) use of anticoagulants; I25.10 Atherosclerotic heart disease of native coronary artery without angina pectoris

== ENCOUNTER 2017-09-25 17:53 | Inpatient (IN) | payer MEDICARE, OTHER ==
[~2017-09-25] VITALS: Ht 190.5 cm; Wt 138.0 kg
--- NOTE | ~2017-09-25 | EC ---
PATIENT:MONIQUE BEDOLLA DATE OF SERVICE: 09/25/17 SEX: M MEDICAL RECORD: [id number] DATE OF : [birth year] LOCATION:D.M2 D.211 AGE OF PATIENT: 67 ADMISSION DATE: 09/25/17 REFERRING PHYSICIAN: INTERPRETING PHYSICIAN: MYNOR MONTEMAYOR MD ECHOCARDIOGRAM REPORT ECHO CHARGES 4 ECHO COMPLETE Date: 09/26 CLINICAL DIAGNOSIS: DYSPNEA ECHOCARDIOGRAPHIC MEASUREMENTS (adult normal given) AC root (d.<3.7cm) 4.3 cm LV Septum d (<1.2 cm> 1.8 cm Valve Excursion 1.9 cm LV Septum (systole) 2.0 cm Left Atria (s.<4.0cm> 4.9 cm LVPW d(<1.2cm) 1.9 cm RV (d.<2.3cm) 5.4 cm LVPW (sytole) 2.3 cm LV diastole(<5.6CM) 5.9 cm MV E-F(>70mm/sec) cm LV systole 4.5 cm LVOT Diameter 2.2 cm MV exc.(>10mm) 2.5 cm Est.ejection fraction (50-75%) % DOPPLER: LVIT cm/sec A 54.0 cm/sec E 86.0 cm/sec LA cm/sec RVSP 34 mmHg LVOT 65 cm/sec AOP1/2T m/s Asc. Ao 96 cm/sec RVOT 78 cm/sec RA cm/sec PA 97 cm/sec AV Gradient Peak 3.66 mmHg AV Mean 2.17 mmHg AV Area 2.2 cm MV Gradient Peak 4.89 mmHg MV Mean 1.82 mmHg MV Area cm COMMENTS: Stamp Clerk: Gricelda TRAVIS Organizational Development Manager: 1 Dr. Whyte TAPE# PACS Pericardial Effusion N DATE OF SERVICE: PROCEDURE: Transthoracic echocardiogram. FINDINGS: 1. Left ventricle has moderate concentric left ventricular hypertrophy. There is mild anterior hypokinesis. The overall ejection fraction is preserved at 55%. There is mild left ventricular end-diastolic enlargement. 2. The left atrium is moderately dilated. 3. The aortic valve is normal. ECHOCARDIOGRAM REPORT [id number] MONIQUE BEDOLLA 4. The mitral valve has elyjb-lo-prjw mitral regurgitation. 5. Tricuspid valve has mild tricuspid regurgitation. RVSP is normal. 6. The right ventricle is moderately dilated to severely dilated. 7. The right atrium is moderate to severely dilated. IMPRESSION: The patient has regional wall motion abnormalities, which may be consistent with ischemic heart disease. Overall, ejection fraction is preserved. There is no major valvular abnormalities, but the right-sided structures are moderately. TRANSINT:[id number] Voice Confirmation ID: [id number] DOCUMENT ID: [id number] MYNOR MONTEMAYOR MD at 1029 CC: [id number] DICTATION DATE: 09/27/17 0740 REHEATER HELPER: 09/27/17 1030 ADM IN [facility] [address] [place] [id number]
[~2017-09-25 17:53] MED LIST changes: -LANOXIN125 MCG PO
[2017-09-25 19:21] LABS: BASOPHILS 0.2 % (0-2); EOSINOPHILS 1.7 % (0-7); HEMATOCRIT 34.8 % (42.0-54.0); HEMOGLOBIN 11.1 g/dL (13.5-17.5); IMMATURE GRANULOCYTES 0.7 % (0-5); LYMPHOCYTES 23.2 % (15-50); MCH 29.4 pg (26.0-34.0); MCHC 31.9 g/dL (31.0-37.0); MCV 92.1 fL (80.0-100.0); MEAN PLATELET VOLUME 8.6 fL (7.4-10.4); MONOCYTES 9.1 % (2-11); NEUTROPHILS 65.1 % (40-80); PLATELET COUNT 220 10x3/uL (130-400); RBC 3.78 10x6/uL (4.20-6.10); RDW 16.6 % (11.5-14.5); WBC 8.7 10x3/uL (4.8-10.8)
[2017-09-25 19:25] LABS: D-DIMER-QUANTITATIVE 0.3 ug/mLFEU (0.20-0.54)
[2017-09-25 19:38] LABS: INR 3.01 (0.85-1.17); PROTIME 30.5 SECONDS (11.6-15.0)
[2017-09-25 19:43] VITALS: BP 122/70
[2017-09-25 20:00] VITALS: BP 122/70
[2017-09-25 20:03] LABS: ALBUMIN 3.2 g/dL (3.4-5.0); ALKALINE PHOSPHATASE 110 U/L (46-116); ALT (SGPT) 23 U/L (10-68); CALC OSMOLALITY 270 mosm/kg (275-300); CALCIUM 8.6 mg/dL (8.5-10.1); CARBON DIOXIDE 33.1 mmol/L (21.0-32.0); CHLORIDE - SERUM 96 mmol/L (98-107); CKMB 1.3 U/L (0.0-3.6); CREATINE KINASE 55 UL (21-232); CREATININE - SERUM 1.1 mg/dL (0.6-1.3); GLUCOSE 130 mg/dL (74-106); MAGNESIUM - SERUM 1.7 mg/dL (1.8-2.4); POTASSIUM - SERUM 4.3 mmol/L (3.5-5.1); PRO BNP 1996 pg/mL (0-125); PROTEIN - SERUM 6.7 g/dL (6.4-8.2); SODIUM 134 mmol/L (136-145); TROPONIN-I < 0.017 ng/mL (0.000-0.060); UREA NITROGEN 16 mg/dL (7-18); eGFR NON AFRICAN AMERICAN 70 mL/min (90-120)
[2017-09-26 00:51] VITALS: BP 92/68
[2017-09-26 01:40] LABS: CKMB 1.4 U/L (0.0-3.6); CREATINE KINASE 54 UL (21-232); TROPONIN-I < 0.017 ng/mL (0.000-0.060)
[2017-09-26 04:53] VITALS: BP 137/62
[2017-09-26 07:32] LABS: INR 2.2 (0.85-1.17); PROTIME 23.9 SECONDS (11.6-15.0)
[2017-09-26 07:39] LABS: BASOPHILS 0.3 % (0-2); EOSINOPHILS 2.2 % (0-7); HEMATOCRIT 36.4 % (42.0-54.0); HEMOGLOBIN 11.7 g/dL (13.5-17.5); IMMATURE GRANULOCYTES 0.4 % (0-5); LYMPHOCYTES 26.1 % (15-50); MCH 29.9 pg (26.0-34.0); MCHC 32.1 g/dL (31.0-37.0); MCV 93.1 fL (80.0-100.0); MEAN PLATELET VOLUME 8.9 fL (7.4-10.4); PLATELET COUNT 219 10x3/uL (130-400); RBC 3.91 10x6/uL (4.20-6.10); RDW 16.8 % (11.5-14.5); WBC 7.4 10x3/uL (4.8-10.8)
[2017-09-26 07:46] LABS: ALBUMIN 3.1 g/dL (3.4-5.0); ALKALINE PHOSPHATASE 104 U/L (46-116); ALT (SGPT) 24 U/L (10-68); BILIRUBIN - TOTAL 0.47 mg/dL (0.2-1.3); CALC OSMOLALITY 282 mosm/kg (275-300); CHLORIDE - SERUM 96 mmol/L (98-107); CKMB 0.9 U/L (0.0-3.6); CREATINE KINASE 60 UL (21-232); CREATININE - SERUM 1.1 mg/dL (0.6-1.3); GLUCOSE 118 mg/dL (74-106); MAGNESIUM - SERUM 1.6 mg/dL (1.8-2.4); PROTEIN - SERUM 7.4 g/dL (6.4-8.2); SODIUM 141 mmol/L (136-145); UREA NITROGEN 14 mg/dL (7-18); eGFR NON AFRICAN AMERICAN 70 mL/min (90-120)
[2017-09-26 07:49] LABS: TROPONIN-I < 0.017 ng/mL (0.000-0.060)
[2017-09-26 08:50] VITALS: BP 131/78
[2017-09-26 12:03] VITALS: BP 135/66
[2017-09-26 12:26] VITALS: Ht 190.5 cm; Wt 138.0 kg
[2017-09-26 16:56] VITALS: BP 132/99
[2017-09-26 20:17] VITALS: BP 152/51
[2017-09-26] MEDS ORDERED: COREG12.5 MG PO (23:47)
[2017-09-27 00:57] VITALS: BP 95/53
[2017-09-27 04:28] VITALS: BP 129/47
[2017-09-27 05:49] LABS: BASOPHILS 0.2 % (0-2); EOSINOPHILS 1.9 % (0-7); HEMATOCRIT 37.5 % (42.0-54.0); HEMOGLOBIN 11.8 g/dL (13.5-17.5); IMMATURE GRANULOCYTES 0.5 % (0-5); LYMPHOCYTES 28.6 % (15-50); MCH 29.6 pg (26.0-34.0); MCHC 31.5 g/dL (31.0-37.0); MEAN PLATELET VOLUME 8.9 fL (7.4-10.4); MONOCYTES 7.1 % (2-11); NEUTROPHILS 61.7 % (40-80); PLATELET COUNT 250 10x3/uL (130-400); RBC 3.99 10x6/uL (4.20-6.10); RDW 16.9 % (11.5-14.5)
[2017-09-27 06:13] LABS: INR 1.57 (0.85-1.17); PROTIME 18.3 SECONDS (11.6-15.0)
[2017-09-27 06:26] LABS: ALBUMIN 3.1 g/dL (3.4-5.0); ALKALINE PHOSPHATASE 104 U/L (46-116); ALT (SGPT) 20 U/L (10-68); CALC OSMOLALITY 282 mosm/kg (275-300); CALCIUM 9.1 mg/dL (8.5-10.1); CARBON DIOXIDE 39.1 mmol/L (21.0-32.0); CHLORIDE - SERUM 98 mmol/L (98-107); GLUCOSE 111 mg/dL (74-106); MAGNESIUM - SERUM 1.7 mg/dL (1.8-2.4); POTASSIUM - SERUM 3.9 mmol/L (3.5-5.1); PRO BNP 1571 pg/mL (0-125); PROTEIN - SERUM 7.2 g/dL (6.4-8.2); SODIUM 140 mmol/L (136-145); UREA NITROGEN 20 mg/dL (7-18); eGFR NON AFRICAN AMERICAN 79 mL/min (90-120)
[2017-09-27 09:01] VITALS: BP 131/72
[2017-09-27 13:30] VITALS: BP 119/50
[2017-09-27 20:33] VITALS: BP 103/46
[2017-09-28 01:35] VITALS: BP 110/59
[2017-09-28 05:26] LABS: BASOPHILS 0.2 % (0-2); HEMATOCRIT 36.3 % (42.0-54.0); HEMOGLOBIN 11.3 g/dL (13.5-17.5); IMMATURE GRANULOCYTES 0.6 % (0-5); LYMPHOCYTES 29.3 % (15-50); MCH 29.3 pg (26.0-34.0); MCHC 31.1 g/dL (31.0-37.0); MEAN PLATELET VOLUME 8.9 fL (7.4-10.4); MONOCYTES 7.7 % (2-11); NEUTROPHILS 59.2 % (40-80); PLATELET COUNT 244 10x3/uL (130-400); RBC 3.86 10x6/uL (4.20-6.10); RDW 16.8 % (11.5-14.5); WBC 8.4 10x3/uL (4.8-10.8)
[2017-09-28 05:50] VITALS: BP 122/56
[2017-09-28 05:55] LABS: INR 1.44 (0.85-1.17)
[2017-09-28 06:09] LABS: ANION GAP 6.3 mmol/L (8-16); BILIRUBIN - TOTAL 0.4 mg/dL (0.2-1.3); CREATININE - SERUM 1.1 mg/dL (0.6-1.3); MAGNESIUM - SERUM 1.6 mg/dL (1.8-2.4); POTASSIUM - SERUM 3.8 mmol/L (3.5-5.1); PROTEIN - SERUM 6.9 g/dL (6.4-8.2)
[2017-09-28 06:10] LABS: CARBON DIOXIDE 40.5 mmol/L (21.0-32.0)
[2017-09-28 08:38] VITALS: BP 131/65
[2017-09-28 11:21] VITALS: BP 117/63
[2017-09-28 16:34] VITALS: BP 120/53
[2017-09-28 20:02] VITALS: BP 120/52
[2017-09-29] VITALS: BP 118/48
[2017-09-29 04:00] VITALS: BP 115/61
[2017-09-29 06:07] LABS: BASOPHILS 0.2 % (0-2); EOSINOPHILS 3.1 % (0-7); HEMATOCRIT 35.9 % (42.0-54.0); HEMOGLOBIN 11.3 g/dL (13.5-17.5); IMMATURE GRANULOCYTES 0.4 % (0-5); LYMPHOCYTES 30.9 % (15-50); MCH 29.8 pg (26.0-34.0); MCHC 31.5 g/dL (31.0-37.0); MCV 94.7 fL (80.0-100.0); MEAN PLATELET VOLUME 8.8 fL (7.4-10.4); MONOCYTES 7.4 % (2-11); PLATELET COUNT 262 10x3/uL (130-400); RBC 3.79 10x6/uL (4.20-6.10); RDW 16.8 % (11.5-14.5); WBC 8.1 10x3/uL (4.8-10.8)
[2017-09-29 06:15] LABS: INR 1.42 (0.85-1.17); PROTIME 16.9 SECONDS (11.6-15.0)
[2017-09-29 06:45] LABS: ALBUMIN 2.9 g/dL (3.4-5.0); ANION GAP 9.9 mmol/L (8-16); BILIRUBIN - TOTAL 0.41 mg/dL (0.2-1.3); CALCIUM 9.5 mg/dL (8.5-10.1); CARBON DIOXIDE 39.2 mmol/L (21.0-32.0); CREATININE - SERUM 1.1 mg/dL (0.6-1.3); MAGNESIUM - SERUM 1.8 mg/dL (1.8-2.4); POTASSIUM - SERUM 4.1 mmol/L (3.5-5.1)
[2017-09-29 08:15] VITALS: BP 123/72
[2017-09-29 11:21] VITALS: BP 126/66
[2017-09-29 15:19] VITALS: BP 154/52
[2017-09-29 20:00] VITALS: BP 122/53
[2017-09-30] VITALS: BP 149/70
[2017-09-30 04:00] VITALS: BP 128/34
[2017-09-30 07:15] LABS: BASOPHILS 0.4 % (0-2); EOSINOPHILS 3.1 % (0-7); HEMATOCRIT 37.6 % (42.0-54.0); HEMOGLOBIN 11.8 g/dL (13.5-17.5); IMMATURE GRANULOCYTES 0.6 % (0-5); LYMPHOCYTES 31.1 % (15-50); MCH 29.7 pg (26.0-34.0); MCHC 31.4 g/dL (31.0-37.0); MCV 94.7 fL (80.0-100.0); MEAN PLATELET VOLUME 8.9 fL (7.4-10.4); MONOCYTES 6.2 % (2-11); NEUTROPHILS 58.6 % (40-80); PLATELET COUNT 251 10x3/uL (130-400); RBC 3.97 10x6/uL (4.20-6.10); RDW 16.7 % (11.5-14.5); WBC 8.2 10x3/uL (4.8-10.8)
[2017-09-30 07:20] LABS: INR 1.47 (0.85-1.17); PROTIME 17.3 SECONDS (11.6-15.0)
[2017-09-30 07:41] LABS: ALKALINE PHOSPHATASE 97 U/L (46-116); ALT (SGPT) 18 U/L (10-68); CALC OSMOLALITY 281 mosm/kg (275-300); CALCIUM 9.2 mg/dL (8.5-10.1); CARBON DIOXIDE 37.4 mmol/L (21.0-32.0); CHLORIDE - SERUM 96 mmol/L (98-107); GLUCOSE 93 mg/dL (74-106); MAGNESIUM - SERUM 1.9 mg/dL (1.8-2.4); POTASSIUM - SERUM 4.6 mmol/L (3.5-5.1); PRO BNP 751 pg/mL (0-125); PROTEIN - SERUM 7.1 g/dL (6.4-8.2); SODIUM 137 mmol/L (136-145); UREA NITROGEN 34 mg/dL (7-18); eGFR NON AFRICAN AMERICAN 79 mL/min (90-120)
[2017-09-30 08:45] VITALS: BP 127/63
[2017-09-30 11:46] VITALS: BP 126/53
[2017-09-30 16:48] VITALS: BP 155/64
[2017-09-30 20:00] VITALS: BP 143/58
[2017-10-01] VITALS: BP 141/56
[2017-10-01 04:00] VITALS: BP 129/59
[2017-10-01 05:27] LABS: BASOPHILS 0.3 % (0-2); EOSINOPHILS 3.3 % (0-7); HEMATOCRIT 36.6 % (42.0-54.0); HEMOGLOBIN 11.5 g/dL (13.5-17.5); IMMATURE GRANULOCYTES 0.8 % (0-5); LYMPHOCYTES 31.2 % (15-50); MCH 29.5 pg (26.0-34.0); MCHC 31.4 g/dL (31.0-37.0); MCV 93.8 fL (80.0-100.0); MEAN PLATELET VOLUME 8.7 fL (7.4-10.4); MONOCYTES 6.4 % (2-11); PLATELET COUNT 235 10x3/uL (130-400); RDW 16.6 % (11.5-14.5); WBC 7.8 10x3/uL (4.8-10.8)
[2017-10-01 05:39] LABS: INR 1.46 (0.85-1.17); PROTIME 17.2 SECONDS (11.6-15.0)
[2017-10-01 05:54] LABS: CALCIUM 9.1 mg/dL (8.5-10.1); CARBON DIOXIDE 37.4 mmol/L (21.0-32.0); CREATININE - SERUM 1.1 mg/dL (0.6-1.3); POTASSIUM - SERUM 4.4 mmol/L (3.5-5.1)
[2017-10-01 08:11] VITALS: BP 139/76
[2017-10-01 11:40] VITALS: BP 145/71
[2017-10-01 15:51] VITALS: BP 123/51
[2017-10-01 20:00] VITALS: BP 129/73
[2017-10-02] VITALS (7 sets, daily range): BP systolic 109–135; BP diastolic 47–75
[2017-10-02 05:51] LABS: BASOPHILS 0.2 % (0-2); EOSINOPHILS 3.3 % (0-7); HEMATOCRIT 37.2 % (42.0-54.0); HEMOGLOBIN 11.4 g/dL (13.5-17.5); IMMATURE GRANULOCYTES 0.9 % (0-5); LYMPHOCYTES 28.6 % (15-50); MCHC 30.6 g/dL (31.0-37.0); MCV 94.7 fL (80.0-100.0); MONOCYTES 5.5 % (2-11); NEUTROPHILS 61.5 % (40-80); PLATELET COUNT 268 10x3/uL (130-400); RBC 3.93 10x6/uL (4.20-6.10); RDW 16.6 % (11.5-14.5); WBC 8.2 10x3/uL (4.8-10.8)
[2017-10-02 06:12] LABS: ANION GAP 6.8 mmol/L (8-16); CALCIUM 9.6 mg/dL (8.5-10.1); CARBON DIOXIDE 37.8 mmol/L (21.0-32.0); CREATININE - SERUM 1.2 mg/dL (0.6-1.3); POTASSIUM - SERUM 4.6 mmol/L (3.5-5.1)
[2017-10-02 06:25] LABS: INR 1.46 (0.85-1.17); PROTIME 17.2 SECONDS (11.6-15.0)
[2017-10-03 03:58] LABS: BASOPHILS 0.2 % (0-2); EOSINOPHILS 2.6 % (0-7); HEMATOCRIT 37.7 % (42.0-54.0); HEMOGLOBIN 11.7 g/dL (13.5-17.5); IMMATURE GRANULOCYTES 1.3 % (0-5); MCH 29.4 pg (26.0-34.0); MCV 94.7 fL (80.0-100.0); MEAN PLATELET VOLUME 8.9 fL (7.4-10.4); MONOCYTES 5.7 % (2-11); NEUTROPHILS 61.2 % (40-80); PLATELET COUNT 255 10x3/uL (130-400); RBC 3.98 10x6/uL (4.20-6.10); RDW 16.4 % (11.5-14.5); WBC 8.5 10x3/uL (4.8-10.8)
[2017-10-03 04:00] VITALS: BP 137/59
[2017-10-03 04:06] LABS: INR 1.7 (0.85-1.17); PROTIME 19.4 SECONDS (11.6-15.0)
[2017-10-03 04:11] LABS: ANION GAP 8.3 mmol/L (8-16); CALCIUM 9.2 mg/dL (8.5-10.1); CARBON DIOXIDE 35.5 mmol/L (21.0-32.0); CREATININE - SERUM 1.1 mg/dL (0.6-1.3); POTASSIUM - SERUM 4.8 mmol/L (3.5-5.1)
[2017-10-03 08:18] VITALS: BP 123/71
[2017-10-03 08:22] VITALS: BP 165/93
[2017-10-03] MEDS ORDERED: LASIX40 MG PO (10:11)
[2017-10-03] MEDS ORDERED: LANOXIN125 MCG PO (10:11)
[2017-10-07] MEDS ORDERED: NEXIUM40 MG PO (17:17)
[2017-10-07] MEDS ORDERED: NEURONTIN 300300 MG PO (17:18)
== END 2017-10-03 12:43 | disposition home health service (06) | DRG 308 ==
LOC: D.M2 17:53
PROVIDERS: Family Medicine; Internal Medicine Nephrology
DX: I48.92 Unspecified atrial flutter (principal); I50.33 Acute on chronic diastolic (congestive) heart failure; N17.9 Acute kidney failure, unspecified; J98.11 Atelectasis; I48.91 Unspecified atrial fibrillation; I11.0 Hypertensive heart disease with heart failure; E78.5 Hyperlipidemia, unspecified; J44.9 Chronic obstructive pulmonary disease, unspecified; E66.01 Morbid (severe) obesity due to excess calories; E11.65 Type 2 diabetes mellitus with hyperglycemia; I25.10 Atherosclerotic heart disease of native coronary artery without angina pectoris; D63.8 Anemia in other chronic diseases classified elsewhere; I25.5 Ischemic cardiomyopathy; I08.1 Rheumatic disorders of both mitral and tricuspid valves

== ENCOUNTER 2017-10-07 17:33 | Emergency (ER) | payer MEDICARE, OTHER ==
[~2017-10-07] VITALS: Ht 190.5 cm; Wt 136.4 kg
[2017-10-07 17:15] VITALS: Ht 190.5 cm; Wt 136.4 kg
[~2017-10-07 17:33] MED LIST changes: +LANOXIN125 MCG PO; +NEURONTIN 300300 MG PO
[2017-10-07 17:48] LABS: APTT 44.9 SECONDS (22.8-39.4); INR 2.39 (0.85-1.17); PROTIME 25.4 SECONDS (11.6-15.0)
[2017-10-07 18:40] LABS: BASOPHILS 0.2 % (0-2); EOSINOPHILS 1.3 % (0-7); HEMATOCRIT 36.6 % (42.0-54.0); HEMOGLOBIN 11.5 g/dL (13.5-17.5); IMMATURE GRANULOCYTES 0.6 % (0-5); LYMPHOCYTES 22.9 % (15-50); MCH 29.6 pg (26.0-34.0); MCHC 31.4 g/dL (31.0-37.0); MCV 94.1 fL (80.0-100.0); MEAN PLATELET VOLUME 8.8 fL (7.4-10.4); MONOCYTES 7.2 % (2-11); NEUTROPHILS 67.8 % (40-80); PLATELET COUNT 259 10x3/uL (130-400); RBC 3.89 10x6/uL (4.20-6.10); RDW 16.7 % (11.5-14.5); WBC 9.7 10x3/uL (4.8-10.8)
[2017-10-07 19:16] LABS: ALBUMIN 3.3 g/dL (3.4-5.0); ANION GAP 10.3 mmol/L (8-16); BILIRUBIN - TOTAL 0.2 mg/dL (0.2-1.3); CALCIUM 8.7 mg/dL (8.5-10.1); CARBON DIOXIDE 36.2 mmol/L (21.0-32.0); CREATININE - SERUM 1.5 mg/dL (0.6-1.3); POTASSIUM - SERUM 4.5 mmol/L (3.5-5.1); PROTEIN - SERUM 7.4 g/dL (6.4-8.2)
[2017-10-07 19:47] LABS: APPEARANCE CLEAR (CLEAR); BILIRUBIN NEGATIVE (NEGATIVE); COLOR YELLOW (YELLOW); GLUCOSE NEGATIVE (NEGATIVE); KETONE NEGATIVE (NEGATIVE); NITRITE NEGATIVE (NEGATIVE); PROTEIN NEGATIVE (NEGATIVE); UROBILINOGEN NORMAL (NORMAL)
[2017-10-07 20:41] LABS: TROPONIN-I < 0.017 ng/mL (0.000-0.060)
[2017-10-07 21:18] VITALS: BP 121/82
== END 2017-10-07 21:18 | disposition home or self-care (01) ==
LOC: D.ER 17:33 → EDSTATUS 17:33 → D.ER 21:18
PROVIDERS: Family Medicine
DX: I50.9 Heart failure, unspecified (principal); R53.83 Other fatigue; R53.81 Other malaise; R53.1 Weakness; R63.4 Abnormal weight loss; E11.9 Type 2 diabetes mellitus without complications; I10 Essential (primary) hypertension; J44.9 Chronic obstructive pulmonary disease, unspecified; K21.9 Gastro-esophageal reflux disease without esophagitis

== ENCOUNTER → 2017-10-17 17:02 | Outpatient (CLI) | payer MEDICARE, OTHER ==
[2017-10-07 17:15] VITALS: BMI 37.5
[~2017-10-17 17:02] MED LIST changes: +AMBIEN10 MG PO; +ATROVENT 0.02%2.5 ML UPD; +FLAGYL500 MG PO; +FLORAJEN3 CAPS460 MG PO; +LASIX INJ40 MG/4 ML IV; +LASIX20 MG PO; +LASIX80 MG PO; +LOVENOX30 MG/0.3 SC; +PEPCID20 MG PO; +ROCEPHIN 1 GM/D51 G1 IV; +TEMAZEPAM30 MG; +TUMS500 MG PO; +XOPENEX 1.1.25 MG/3 UPD; +ZITHROMAX250 MG PO
[2017-10-17 18:46] LABS: BASOPHILS 0.2 % (0-2); HEMATOCRIT 36.2 % (42.0-54.0); HEMOGLOBIN 11.4 g/dL (13.5-17.5); IMMATURE GRANULOCYTES 0.7 % (0-5); LYMPHOCYTES 17.5 % (15-50); MCH 29.8 pg (26.0-34.0); MCHC 31.5 g/dL (31.0-37.0); MCV 94.5 fL (80.0-100.0); MEAN PLATELET VOLUME 9.6 fL (7.4-10.4); MONOCYTES 5.6 % (2-11); PLATELET COUNT 307 10x3/uL (130-400); RBC 3.83 10x6/uL (4.20-6.10); RDW 17.1 % (11.5-14.5)
[2017-10-17 18:52] LABS: ANION GAP 8.1 mmol/L (8-16); CALCIUM 8.9 mg/dL (8.5-10.1); CARBON DIOXIDE 36.9 mmol/L (21.0-32.0); CREATININE - SERUM 1.3 mg/dL (0.6-1.3)
== END | disposition home or self-care (01) ==
LOC: D.LABREF 17:02
PROVIDERS: Internal Medicine Cardiovascular Disease
DX: R60.9 Edema, unspecified (principal); I50.9 Heart failure, unspecified

== ENCOUNTER 2017-10-21 17:45 | Inpatient (IN) | payer MEDICARE, OTHER ==
[~2017-10-21] VITALS: Ht 190.5 cm; Wt 137.0 kg
--- NOTE | ~2017-10-21 | EC ---
PATIENT:MONIQUE BEDOLLA DATE OF SERVICE: 10/21/17 SEX: M MEDICAL RECORD: [id number] DATE OF : 46 LOCATION:D.MS Smart AGE OF PATIENT: 67 ADMISSION DATE: 10/21/17 REFERRING PHYSICIAN: INTERPRETING PHYSICIAN: MYNOR MONTEMAYOR MD ECHOCARDIOGRAM REPORT ECHO CHARGES 4 ECHO COMPLETE Date: 10/23 CLINICAL DIAGNOSIS: CHF HX OF AFIB/CAD ECHOCARDIOGRAPHIC MEASUREMENTS (adult normal given) AC root (d.<3.7cm) 4.4 cm LV Septum d (<1.2 cm> 1.9 cm Valve Excursion 2.4 cm LV Septum (systole) 2.2 cm Left Atria (s.<4.0cm> 5.0 cm LVPW d(<1.2cm) 2.1 cm RV (d.<2.3cm) 5.4 cm LVPW (sytole) 2.3 cm LV diastole(<5.6CM) 6.0 cm MV E-F(>70mm/sec) cm LV systole 4.5 cm LVOT Diameter 2.2 cm MV exc.(>10mm) cm Est.ejection fraction (50-75%) % DOPPLER: LVIT cm/sec A 47.0 cm/sec E 86.0 cm/sec LA cm/sec RVSP 33 mmHg LVOT 85 cm/sec AOP1/2T m/s Asc. Ao 131 cm/sec RVOT 101 cm/sec RA cm/sec PA 125 cm/sec AV Gradient Peak 6.86 mmHg AV Mean 3.33 mmHg AV Area 2.6 cm MV Gradient Peak 5.12 mmHg MV Mean 1.87 mmHg MV Area cm COMMENTS: Fire Official: Gricelda TRAVIS Piece Dyeing Machine Tender: Archie Montemayor TAPE# PACS Pericardial Effusion N DATE OF SERVICE: 10/24/2017 PROCEDURE: Transthoracic echocardiogram. FINDINGS: 1. Left ventricle has evidence of moderate concentric left ventricular hypertrophy. Overall, ejection fraction appears to be grossly normal. There is no obvious regional wall motion abnormalities. The patient appears to be in atrial flutter, so diastolic function is difficult to derive. 2. The left atrium is severely dilated. ECHOCARDIOGRAM REPORT [id number] MONIQUE BEDOLLA 3. The mitral valve has mild mitral regurgitation. 4. The aortic valve is normal. 5. The tricuspid valve is mild tricuspid regurgitation. The RVSP is 40 to 45 mmHg. 6. The right ventricle is significantly dilated with right ventricular hypertrophy, ejection fraction of the right ventricle has mildly reduced. 7. The right atrium is severely dilated, IVC was not well demonstrated, so it is difficult to give estimates on the central venous pressure. TRANSINT:[id number] Voice Confirmation ID: [id number] DOCUMENT ID: [id number] MYNOR MONTEMAYOR MD at 1030 CC: [id number] DICTATION DATE: 10/24/17 1018 PROPOSAL EDITOR: 10/24/17 1037 DIS IN 10/25/17 [facility] [address] [place] [address]
--- NOTE | ~2017-10-21 | CN ---
PATIENT NAME:MONIQUE BEDOLLA MEDICAL RECORD: [id number] : 46 LOCATION:D.MS [facility] ADMIT DATE: 10/21/17 ACCOUNT: [id number] CONSULTING PHYSICIAN: ENRIQUE REN MD REFERRING PHYSICIAN: YRN HIGGINS MD DATE OF CONSULTATION: 10/22/2017 CONSULT REQUESTING PHYSICIAN: Yrn Higgins MD REASON FOR CONSULTATION: Pneumonia, acute exacerbation of chronic obstructive pulmonary disease. HISTORY OF PRESENT ILLNESS: Mr. Bedolla is a 67-year-old gentleman, very well known to our services from previous hospitalizations. According to the patient, he has worsening shortness of breath for the last few weeks. He has orthopnea and PND. He has cough without much sputum production. There are no fever and chill, no night sweats. The patient was brought into the ER and found out the patient has pneumonia in the right lower lobe. REVIEW OF SYSTEMS: As in history of present illness. PAST MEDICAL HISTORY: 1. COPD. 2. Chronic hypoxic respiratory failure. 3. Congestive heart failure, chronic systolic dysfunction, ejection fraction of 20% to 25%. 4. Dependent edema. 5. Cardiomyopathy. 6. Depression. PAST SURGICAL HISTORY: 1. He has a cholecystectomy. 2. Hemorrhoidectomy. 3. Cardiac catheterization and stent placement. ALLERGIES: ALLERGIC TO POTASSIUM CHLORIDE, CIPRO, AND MULTAQ. MEDICATIONS: PandaDoc is reviewed. PERSONAL AND SOCIAL HISTORY: The patient is . He lives with his . He is an ex-smoker. He is a nondrinker. FAMILY HISTORY: Significant for cardiovascular disease. PHYSICAL EXAMINATION: GENERAL: Now, the patient is sitting in chair. He is not in acute distress. VITAL SIGNS: The blood pressure is 122/80, pulse is 71, respiration is 17, temperature 98.2, SPO2 is 93% on 3.5 liter nasal cannula. HEENT: Conjunctivae are pink. Sclerae are not icteric. NECK: Supple, no JVD. CHEST: The chest excursion is minimal on both, there are bibasilar crackles. No wheezing. HEART: Rhythm regular, normal sound. There is a grade II/ systolic murmur. ABDOMEN: Soft, bowel sounds present. No hepatosplenomegaly. RECTAL: Deferred. CONSULT REPORT [id number] MONIQUE BEDOLLA EXTREMITIES: No cyanosis, no clubbing. There are 2+ pedal edema. CENTRAL NERVOUS SYSTEM: The patient is awake and alert. There are no obvious cranial nerve abnormality. The gait was not tested. LABORATORY DATA: CBC: The WBC is 11.5, hemoglobin is 10.9, hematocrit 34.3, the platelet count 261. Chemistry: Sodium 136, potassium 4.7, BUN is 20, creatinine is 1, glucose 182. The proBNP 2396. IMPRESSION: 1. Chronic hypoxic respiratory failure. 2. Acute exacerbation of chronic obstructive pulmonary disease. 3. Pneumonia, right lower lobe, most likely community-acquired pneumonia. 4. Congestive heart failure with chronic systolic dysfunction. 5. Cardiomyopathy. 6. Atrial fibrillation. 7. Leukocytosis. 8. Dependent lower extremity edema. RECOMMENDATION: 1. Continue Rocephin and Zithromax. Continue Lasix. 2. The patient's says he has a reaction to DuoNeb and we will change to Xopenex and ipratropium nebulizer. Start Brovana and budesonide nebulizer. 3. Supplemental oxygen. 4. Follow up labs and chest radiograph. 5. Cardiac workup per cardiology. Dr. Higgins, thank you for involving me in the care of Mr. Bedolla. TRANSINT:[id number] Voice Confirmation ID: [id number] DOCUMENT ID: [id number] ENRIQUE REN MD at 1218 CC: [id number] DICTATION DATE: 10/22/17 1655 SERVICE TECHNICIAN: 10/22/17 1800 ADM IN [place] [id number] [place] [address]
[~2017-10-21 17:45] MED LIST changes: -AMBIEN10 MG PO; -ATROVENT 0.02%2.5 ML UPD; -FLAGYL500 MG PO; -FLORAJEN3 CAPS460 MG PO; -LASIX INJ40 MG/4 ML IV; -LASIX20 MG PO; -LASIX80 MG PO; -LOVENOX30 MG/0.3 SC; -PEPCID20 MG PO; -ROCEPHIN 1 GM/D51 G1 IV; -TEMAZEPAM30 MG; -TUMS500 MG PO; -XOPENEX 1.1.25 MG/3 UPD; -ZITHROMAX250 MG PO
[2017-10-21 18:53] LABS: BASOPHILS 0.2 % (0-2); EOSINOPHILS 1.7 % (0-7); HEMATOCRIT 34.3 % (42.0-54.0); HEMOGLOBIN 10.9 g/dL (13.5-17.5); IMMATURE GRANULOCYTES 0.3 % (0-5); MCH 29.6 pg (26.0-34.0); MCHC 31.8 g/dL (31.0-37.0); MCV 93.2 fL (80.0-100.0); MEAN PLATELET VOLUME 9.1 fL (7.4-10.4); MONOCYTES 5.3 % (2-11); NEUTROPHILS 76.5 % (40-80); PLATELET COUNT 261 10x3/uL (130-400); RBC 3.68 10x6/uL (4.20-6.10); RDW 16.5 % (11.5-14.5); WBC 11.5 10x3/uL (4.8-10.8)
[2017-10-21 19:09] LABS: INR 3.37 (0.85-1.17); PROTIME 33.4 SECONDS (11.6-15.0)
[2017-10-21 19:12] LABS: ALBUMIN 3.2 g/dL (3.4-5.0); ALKALINE PHOSPHATASE 101 U/L (46-116); ALT (SGPT) 19 U/L (10-68); BILIRUBIN - TOTAL 0.35 mg/dL (0.2-1.3); CALC OSMOLALITY 265 mosm/kg (275-300); CHLORIDE - SERUM 95 mmol/L (98-107); CREATININE - SERUM 1.1 mg/dL (0.6-1.3); GLUCOSE 123 mg/dL (74-106); POTASSIUM - SERUM 5.5 mmol/L (3.5-5.1); PROTEIN - SERUM 7.5 g/dL (6.4-8.2); SODIUM 130 mmol/L (136-145); UREA NITROGEN 23 mg/dL (7-18); eGFR NON AFRICAN AMERICAN 70 mL/min (90-120)
[2017-10-21 19:22] VITALS: BP 178/93
[2017-10-21 19:29] LABS: CKMB 1.6 U/L (0.0-3.6); CREATINE KINASE 45 UL (21-232); PRO BNP 2396 pg/mL (0-125)
[2017-10-21 20:30] VITALS: BP 165/93
[2017-10-21 21:01] VITALS: BP 158/69
[2017-10-21 22:23] VITALS: BP 158/69
[2017-10-21 22:25] LABS: APPEARANCE CLEAR (CLEAR); BILIRUBIN NEGATIVE (NEGATIVE); COLOR YELLOW (YELLOW); GLUCOSE NEGATIVE (NEGATIVE); KETONE NEGATIVE (NEGATIVE); NITRITE NEGATIVE (NEGATIVE); PROTEIN NEGATIVE (NEGATIVE); UROBILINOGEN NORMAL (NORMAL)
[2017-10-21 23:20] VITALS: BP 115/92; BMI 37.8
[2017-10-21 23:58] VITALS: BP 115/92
[2017-10-22 04:48] VITALS: BP 124/84
[2017-10-22 07:30] VITALS: BP 122/80
[2017-10-22 10:01] LABS: BASOPHILS 0.2 % (0-2); EOSINOPHILS 2.2 % (0-7); HEMATOCRIT 34.2 % (42.0-54.0); HEMOGLOBIN 10.8 g/dL (13.5-17.5); IMMATURE GRANULOCYTES 0.5 % (0-5); LYMPHOCYTES 19.7 % (15-50); MCH 29.7 pg (26.0-34.0); MCHC 31.6 g/dL (31.0-37.0); MEAN PLATELET VOLUME 8.7 fL (7.4-10.4); MONOCYTES 6.3 % (2-11); NEUTROPHILS 71.1 % (40-80); PLATELET COUNT 233 10x3/uL (130-400); RBC 3.64 10x6/uL (4.20-6.10); RDW 16.8 % (11.5-14.5)
[2017-10-22 10:03] LABS: WBC 8.5 10x3/uL (4.8-10.8)
[2017-10-22 10:20] LABS: INR 3.27 (0.85-1.17); PROTIME 32.6 SECONDS (11.6-15.0)
[2017-10-22 10:30] LABS: ALBUMIN 2.9 g/dL (3.4-5.0); ALKALINE PHOSPHATASE 99 U/L (46-116); CARBON DIOXIDE 36.4 mmol/L (21.0-32.0); CHLORIDE - SERUM 97 mmol/L (98-107); POTASSIUM - SERUM 4.7 mmol/L (3.5-5.1); PROTEIN - SERUM 6.9 g/dL (6.4-8.2); SODIUM 136 mmol/L (136-145); UREA NITROGEN 20 mg/dL (7-18); eGFR NON AFRICAN AMERICAN 79 mL/min (90-120)
[2017-10-22 10:32] LABS: ALT (SGPT) 14 U/L (10-68); CALC OSMOLALITY 279 mosm/kg (275-300); GLUCOSE 182 mg/dL (74-106)
[2017-10-22 10:54] VITALS: Ht 190.5 cm; Wt 137.0 kg
[2017-10-22 12:25] VITALS: BP 108/51
[2017-10-22 16:32] VITALS: BP 100/45
[2017-10-22 20:00] VITALS: BP 116/47
[2017-10-23 03:33] VITALS: BP 116/54
[2017-10-23 04:29] LABS: BASOPHILS 0.1 % (0-2); EOSINOPHILS 2.9 % (0-7); HEMOGLOBIN 10.4 g/dL (13.5-17.5); IMMATURE GRANULOCYTES 0.4 % (0-5); LYMPHOCYTES 26.3 % (15-50); MCH 29.4 pg (26.0-34.0); MCHC 31.5 g/dL (31.0-37.0); MCV 93.2 fL (80.0-100.0); MEAN PLATELET VOLUME 8.8 fL (7.4-10.4); MONOCYTES 8.4 % (2-11); NEUTROPHILS 61.9 % (40-80); PLATELET COUNT 238 10x3/uL (130-400); RBC 3.54 10x6/uL (4.20-6.10); RDW 16.5 % (11.5-14.5); WBC 7.5 10x3/uL (4.8-10.8)
[2017-10-23 05:00] LABS: ALBUMIN 2.9 g/dL (3.4-5.0); BILIRUBIN - TOTAL 0.3 mg/dL (0.2-1.3); CALCIUM 8.6 mg/dL (8.5-10.1); CARBON DIOXIDE 38.9 mmol/L (21.0-32.0); CREATININE - SERUM 1.1 mg/dL (0.6-1.3); POTASSIUM - SERUM 4.9 mmol/L (3.5-5.1)
[2017-10-23 07:59] VITALS: BP 138/58
[2017-10-23 12:22] VITALS: BP 125/52
[2017-10-23 16:23] VITALS: BP 133/62
[2017-10-23 20:49] VITALS: BP 107/43
[2017-10-24] VITALS (7 sets, daily range): BP systolic 127–159; BP diastolic 54–76
[2017-10-24 04:32] LABS: BASOPHILS 0.2 % (0-2); EOSINOPHILS 2.6 % (0-7); HEMATOCRIT 32.9 % (42.0-54.0); HEMOGLOBIN 10.7 g/dL (13.5-17.5); IMMATURE GRANULOCYTES 0.6 % (0-5); MCHC 32.5 g/dL (31.0-37.0); MCV 92.2 fL (80.0-100.0); MEAN PLATELET VOLUME 8.8 fL (7.4-10.4); MONOCYTES 8.7 % (2-11); NEUTROPHILS 60.9 % (40-80); PLATELET COUNT 251 10x3/uL (130-400); RBC 3.57 10x6/uL (4.20-6.10); RDW 16.4 % (11.5-14.5); WBC 8.1 10x3/uL (4.8-10.8)
[2017-10-24 04:55] LABS: ALBUMIN 2.9 g/dL (3.4-5.0); ALKALINE PHOSPHATASE 91 U/L (46-116); ALT (SGPT) 17 U/L (10-68); BILIRUBIN - TOTAL 0.33 mg/dL (0.2-1.3); CALC OSMOLALITY 279 mosm/kg (275-300); CALCIUM 9.2 mg/dL (8.5-10.1); CARBON DIOXIDE 36.2 mmol/L (21.0-32.0); CHLORIDE - SERUM 97 mmol/L (98-107); GLUCOSE 111 mg/dL (74-106); POTASSIUM - SERUM 4.3 mmol/L (3.5-5.1); PROTEIN - SERUM 6.9 g/dL (6.4-8.2); SODIUM 138 mmol/L (136-145); UREA NITROGEN 20 mg/dL (7-18); eGFR NON AFRICAN AMERICAN 79 mL/min (90-120)
[2017-10-25 05:23] LABS: BASOPHILS 0.3 % (0-2); EOSINOPHILS 2.6 % (0-7); HEMATOCRIT 36.9 % (42.0-54.0); HEMOGLOBIN 11.6 g/dL (13.5-17.5); IMMATURE GRANULOCYTES 0.7 % (0-5); MCH 29.2 pg (26.0-34.0); MCHC 31.4 g/dL (31.0-37.0); MCV 92.9 fL (80.0-100.0); MONOCYTES 6.5 % (2-11); NEUTROPHILS 61.9 % (40-80); PLATELET COUNT 297 10x3/uL (130-400); RBC 3.97 10x6/uL (4.20-6.10); RDW 16.7 % (11.5-14.5)
[2017-10-25 05:53] LABS: ALBUMIN 3.2 g/dL (3.4-5.0); ANION GAP 7.3 mmol/L (8-16); BILIRUBIN - TOTAL 0.37 mg/dL (0.2-1.3); CALCIUM 9.4 mg/dL (8.5-10.1); CARBON DIOXIDE 38.1 mmol/L (21.0-32.0); CREATININE - SERUM 1.1 mg/dL (0.6-1.3); POTASSIUM - SERUM 4.4 mmol/L (3.5-5.1); PROTEIN - SERUM 7.5 g/dL (6.4-8.2)
[2017-10-25 08:10] VITALS: BP 137/57
[2017-10-25 12:34] VITALS: BP 102/48
[2017-10-25] MEDS ORDERED: ROCEPHIN 1 GM/D51 G1 IV (15:32)
[2017-10-25] MEDS ORDERED: ZITHROMAX250 MG PO (15:32)
[2017-10-25] MEDS ORDERED: ATROVENT 0.02%2.5 ML UPD (15:32)
[2017-10-25] MEDS ORDERED: BROVANA15 MCG/2 M INH (15:32)
[2017-10-25] MEDS ORDERED: LOVENOX30 MG/0.3 SC (15:33)
[2017-10-25] MEDS ORDERED: XOPENEX 1.1.25 MG/3 UPD (15:33)
[2017-10-25] MEDS ORDERED: TUMS500 MG PO (15:33)
[2017-10-25] MEDS ORDERED: HUMALOG 30100 UNITS/ SC (15:34)
[2017-10-25] MEDS ORDERED: LASIX INJ40 MG/4 ML IV (15:34)
[2017-10-25] MEDS ORDERED: PULMICORT0.5 MG/21 UPD (15:34)
[2017-10-25 16:15] VITALS: BP 119/49
[2017-10-25] MEDS ORDERED: AMBIEN10 MG PO (19:58)
== END 2017-10-25 18:01 | DRG 291 ==
LOC: D.ER 17:45 → D.MS 21:32
PROVIDERS: Emergency Medicine; Family Medicine; Internal Medicine Cardiovascular Disease
DX: I11.0 Hypertensive heart disease with heart failure (principal); J18.9 Pneumonia, unspecified organism; J96.20 Acute and chronic respiratory failure, unspecified whether with hypoxia or hypercapnia; J44.0 Chronic obstructive pulmonary disease with (acute) lower respiratory infection; J44.1 Chronic obstructive pulmonary disease with (acute) exacerbation; N17.9 Acute kidney failure, unspecified; I50.33 Acute on chronic diastolic (congestive) heart failure; I48.91 Unspecified atrial fibrillation; E11.40 Type 2 diabetes mellitus with diabetic neuropathy, unspecified; E11.65 Type 2 diabetes mellitus with hyperglycemia; I42.9 Cardiomyopathy, unspecified

== ENCOUNTER 2017-10-25 17:59 | Inpatient (IN) | payer MEDICARE, OTHER ==
[~2017-10-25] VITALS: Ht 190.5 cm; Wt 136.1 kg
--- NOTE | ~2017-10-25 | RHP ---
PATIENT: MONIQUE BEDOLLA MEDICAL RECORD: [id number] ACCOUNT: [id number] LOCATION:[facility]1118 : [birth year] ADMISSION DATE: 10/25/17 REHABILITATION HISTORY AND PHYSICAL EXAMINATION POST ADMISSION PHYSICIAN EXAMINATION ADMITTING DIAGNOSIS: Acute exacerbation of chronic obstructive pulmonary disease. HISTORY OF PRESENT ILLNESS: The patient is a 67-year-old gentleman admitted to inpatient rehab with acute exacerbation of chronic obstructive pulmonary disease, who was recently hospitalized for decompensated heart failure and was discharged home on digoxin. He presented to ED on 10/21/2017 with poor appetite, weakness and paroxysmal nocturnal dyspnea. He was noted to have hyperkalemia with a potassium of 5.5. His EKG showed AFib with controlled rate. He reported nonproductive cough, dyspnea on exertion, malaise, generalized weakness and lethargy. He had rales, decreased breath sounds in bilateral lower lobes. Chest x-ray showed right lower lobe pneumonia. He was admitted with pulmonary and cardiology consult. Previously, he lived with his , moderately independent with ADLs and mobility. Currently, he is mod-to-max assist for ADLs and mobility. He is in AFib, atrial flutter. On monitor, he is wearing O2 at 3 liters continuously. He has got an open wound to the bottom of his left foot and has edema in both lower legs. He is able to ambulate short distances to and from the bathroom, but tires easily. He has increased dyspnea on exertion. He would like to return home at his prior level of functioning or better if at all possible. COMORBIDITIES: In this patient include diabetes, morbid obesity, essential hypertension, chronic AFib, [id number] diastolic heart failure, COPD exacerbation, bilateral lower lobe infiltrates with a left pleural effusion and right pleural effusion, coronary artery disease, coagulopathy with elevated INR, hypoxia, acute kidney injury, leukocytosis dependent anemia, apnea, malaise and fatigue. PAST MEDICAL HISTORY: Significant for neuropathy, cataracts, diabetes, hypertension, atrial fib, COPD. PAST SURGICAL HISTORY: Includes gallbladder surgery, tonsillectomy and adenoidectomy, hemorrhoid, stents. ALLERGIES: POTASSIUM CHLORIDE, CIPRO AND MULTAQ. CURRENT MEDICATIONS: Include Xopenex 1.25 mg t.i.d., Atrovent 0.5 mg t.i.d., metformin 1000 mg b.i.d., Januvia 50 mg b.i.d. with meals, Warfarin 10 mg daily. He is on Zestril 20 mg daily, Amaryl 4 mg b.i.d. with meals, Flonase nasal spray 2 sprays daily, fexofenadine 180 mg daily, Protonix 40 mg daily, Lovenox 30 mg subcutaneous daily, digoxin 0.125 mg daily, carvedilol 12.5 mg b.i.d. with meals, zolpidem 10 mg at bedtime, Rythmol 150 mg b.i.d., Xalatan eyedrops 1 drop bedtime. He is on a low resistant sliding scale insulin with Humalog, [place] 10/325 one tab b.i.d. p.r.n., Neurontin 300 mg t.i.d., furosemide 40 mg IV every 8 hours, Questran 1 packet t.i.d., Rocephin a gram every 24 hours, calcium carbonate 500 mg every 6 hours as needed for dyspepsia, Pulmicort 0.5 mg b.i.d., Zithromax 500 mg at bedtime, Brovana 15 mcg b.i.d., and polyethylene glycol 17 g in 8 ounces of water daily. HISTORY AND PHYSICAL [id number] MONIQUE BEDOLLA HABITS: No current alcohol or tobacco use. FAMILY HISTORY: Noncontributory. SOCIAL HISTORY: The patient wants to return back home and get back to his prior level of function with his . REVIEW OF SYSTEMS: GENERAL: Does complain of weakness and fatigue. HEENT: Denies cold, cough, or congestion. CARDIOVASCULAR: He denies chest pain. LUNGS: Does complain of shortness of breath especially with exertion. PHYSICAL EXAMINATION: VITAL SIGNS: Stable. He is afebrile. GENERAL: A morbidly obese gentleman in no distress, alert upon exam. HEENT: Normocephalic and atraumatic. Mucosa moist. NECK: Supple. No lymphadenopathy. LUNGS: Decreased breath sounds bilaterally. HEART: Irregular rate and rhythm. ABDOMEN: Benign. EXTREMITIES: Does have noted peripheral edema and wound to the bottom of his toe. NEUROLOGIC: He does have noted weakness. LABORATORY DATA: White count is 9.7, H&H of 12.4 and 38.1 and platelet count is 275. His INR is 1.06. His sodium is 142, potassium 4.4, BUN and creatinine of 24 and 1.2 and blood sugar is noted to be 131. ASSESSMENT: This is a 67-year-old gentleman admitted to the rehab with a working diagnosis of acute exacerbation of chronic obstructive pulmonary disease with noted multiple comorbidities. The patient has potential to make improvement. We instituted the following multidisciplinary therapies including, but not limited to physical, occupational, respiratory, speech, nutritional services, prosthetics and orthotics. Given his complex medical condition and risk for more complications, rehabilitation services cannot be provided at a low level of care such as long term facility. PLAN: 1. Admit to [facility] rehab for intensive inpatient therapy to include the following disciplines: A. Physical therapy to improve gait, all transfer skills and bed mobility to a modified independent level. B. Occupational therapy to improve activities of daily living to a modified independent level. C. Case management to assist with discharge planning and placement options. D. Nutrition to assist with nutritional needs. E. Rehabilitation nursing to assist in monitoring the patient's underlying medical condition and to assist with any type of bowel or bladder management. 2. The patient's current medication and medical care will be continued. 3. The patient will be placed on standard fall precautions. 4. The patient's estimated length of stay is approximately 7-10 days. 5. Watch his digoxin levels, his INR and his potassium closely during his stay and will follow up in the a.m. HISTORY AND PHYSICAL [id number] MONIQUE BEDOLLA TRANSINT:[id number] Voice Confirmation ID: [id number] DOCUMENT ID: [id number] 11/07/17 Edited for john REDDY. MAUREEN notes whether there has been none or any medical/functional change since admission: - No change since preadmission screen. MAUREEN attests patient continues to be appropriate for IRF: - Continues to be appropriate. LOY VALDEZ MD at 2041 CC: [id number] DICTATION DATE: 10/26/17 0949 EGG BREAKER: 10/26/17 1216 DIS IN 11/01/17 [facility] [address] [place] [address]
[~2017-10-25 17:59] MED LIST changes: +ATROVENT 0.02%2.5 ML UPD; +LASIX INJ40 MG/4 ML IV; +LOVENOX30 MG/0.3 SC; +ROCEPHIN 1 GM/D51 G1 IV; +TUMS500 MG PO; +XOPENEX 1.1.25 MG/3 UPD; +ZITHROMAX250 MG PO
[2017-10-25 19:00] VITALS: BP 110/56
[2017-10-25] MEDS ORDERED: AMBIEN10 MG PO (19:58)
[2017-10-25 21:37] VITALS: BP 110/56; BMI 43.8
[2017-10-26 06:18] LABS: BASOPHILS 0.2 % (0-2); EOSINOPHILS 2.4 % (0-7); HEMATOCRIT 38.1 % (42.0-54.0); HEMOGLOBIN 12.4 g/dL (13.5-17.5); IMMATURE GRANULOCYTES 0.8 % (0-5); LYMPHOCYTES 28.8 % (15-50); MCH 30.2 pg (26.0-34.0); MCHC 32.5 g/dL (31.0-37.0); MCV 92.7 fL (80.0-100.0); MEAN PLATELET VOLUME 8.7 fL (7.4-10.4); NEUTROPHILS 60.8 % (40-80); PLATELET COUNT 275 10x3/uL (130-400); RBC 4.11 10x6/uL (4.20-6.10); RDW 16.8 % (11.5-14.5); WBC 9.7 10x3/uL (4.8-10.8)
[2017-10-26 06:34] LABS: INR 1.06 (0.85-1.17); PROTIME 13.4 SECONDS (11.6-15.0)
[2017-10-26 06:49] LABS: ANION GAP 12.4 mmol/L (8-16); CALCIUM 9.5 mg/dL (8.5-10.1); CREATININE - SERUM 1.2 mg/dL (0.6-1.3); POTASSIUM - SERUM 4.4 mmol/L (3.5-5.1)
[2017-10-26 08:30] VITALS: BP 101/46
[2017-10-26 12:02] VITALS: BMI 37.7
[2017-10-26 20:30] VITALS: BP 110/48
[2017-10-27 07:20] LABS: INR 1.11 (0.85-1.17); PROTIME 13.9 SECONDS (11.6-15.0)
[2017-10-27 09:09] VITALS: BP 101/61
[2017-10-27 20:30] VITALS: BP 123/50
[2017-10-28 06:29] LABS: BASOPHILS 0.3 % (0-2); EOSINOPHILS 3.4 % (0-7); HEMATOCRIT 37.7 % (42.0-54.0); HEMOGLOBIN 11.8 g/dL (13.5-17.5); MCH 29.8 pg (26.0-34.0); MCHC 31.3 g/dL (31.0-37.0); MEAN PLATELET VOLUME 8.8 fL (7.4-10.4); MONOCYTES 4.7 % (2-11); NEUTROPHILS 60.6 % (40-80); PLATELET COUNT 273 10x3/uL (130-400); RBC 3.96 10x6/uL (4.20-6.10); WBC 9.7 10x3/uL (4.8-10.8)
[2017-10-28 06:44] LABS: INR 1.08 (0.85-1.17); PROTIME 13.6 SECONDS (11.6-15.0)
[2017-10-28 06:53] LABS: MCV 95.2 fL (80.0-100.0)
[2017-10-28 06:56] LABS: ANION GAP 8.3 mmol/L (8-16); CALCIUM 9.2 mg/dL (8.5-10.1); CARBON DIOXIDE 37.4 mmol/L (21.0-32.0); CREATININE - SERUM 1.2 mg/dL (0.6-1.3); POTASSIUM - SERUM 4.7 mmol/L (3.5-5.1)
[2017-10-28 08:00] VITALS: BP 155/56
[2017-10-28 19:00] VITALS: BP 114/41
[2017-10-29 07:13] LABS: INR 1.28 (0.85-1.17); PROTIME 15.6 SECONDS (11.6-15.0)
[2017-10-29 08:42] VITALS: BP 120/56
[2017-10-29 19:00] VITALS: BP 116/47
[2017-10-30 07:50] LABS: BASOPHILS 0.1 % (0-2); EOSINOPHILS 3.6 % (0-7); HEMATOCRIT 34.5 % (42.0-54.0); HEMOGLOBIN 10.6 g/dL (13.5-17.5); IMMATURE GRANULOCYTES 0.8 % (0-5); LYMPHOCYTES 36.3 % (15-50); MCH 29.2 pg (26.0-34.0); MCHC 30.7 g/dL (31.0-37.0); MEAN PLATELET VOLUME 8.8 fL (7.4-10.4); MONOCYTES 5.9 % (2-11); NEUTROPHILS 53.3 % (40-80); RBC 3.63 10x6/uL (4.20-6.10); RDW 16.9 % (11.5-14.5); WBC 7.3 10x3/uL (4.8-10.8)
[2017-10-30 07:55] LABS: PLATELET COUNT 215 10x3/uL (130-400)
[2017-10-30 08:00] VITALS: BP 125/59
[2017-10-30 08:06] LABS: INR 1.35 (0.85-1.17); PROTIME 16.2 SECONDS (11.6-15.0)
[2017-10-30 08:08] LABS: ANION GAP 5.6 mmol/L (8-16); CALCIUM 9.1 mg/dL (8.5-10.1); CARBON DIOXIDE 37.1 mmol/L (21.0-32.0); CREATININE - SERUM 1.1 mg/dL (0.6-1.3); POTASSIUM - SERUM 4.7 mmol/L (3.5-5.1)
[2017-10-30 19:00] VITALS: BP 139/55
[2017-10-31 06:12] LABS: INR 1.56 (0.85-1.17); PROTIME 18.1 SECONDS (11.6-15.0)
[2017-10-31 08:00] VITALS: BP 109/51
[2017-10-31] MEDS ORDERED: LASIX20 MG PO (12:59)
[2017-10-31 19:00] VITALS: BP 130/52
[2017-11-01 08:00] VITALS: BP 134/61
[2017-11-01 08:22] LABS: INR 1.76 (0.85-1.17)
[2017-11-01 12:29] VITALS: Ht 190.5 cm; Wt 136.1 kg
== END 2017-11-01 13:00 | disposition home health service (06) | DRG 190 ==
LOC: D.REHAB 17:59
PROVIDERS: Emergency Medicine
DX: J44.1 Chronic obstructive pulmonary disease with (acute) exacerbation (principal); I50.33 Acute on chronic diastolic (congestive) heart failure; J90 Pleural effusion, not elsewhere classified; N17.9 Acute kidney failure, unspecified; I11.0 Hypertensive heart disease with heart failure; E66.01 Morbid (severe) obesity due to excess calories; I48.2 Chronic atrial fibrillation; I25.10 Atherosclerotic heart disease of native coronary artery without angina pectoris; R09.02 Hypoxemia; D72.829 Elevated white blood cell count, unspecified; D64.9 Anemia, unspecified; R06.81 Apnea, not elsewhere classified; R53.81 Other malaise; R53.83 Other fatigue; E11.621 Type 2 diabetes mellitus with foot ulcer; L97.529 Non-pressure chronic ulcer of other part of left foot with unspecified severity

== ENCOUNTER → 2017-11-04 17:29 | Outpatient (CLI) | payer MEDICARE, OTHER ==
[2017-11-01 12:29] VITALS: BMI 37.4
[~2017-11-04 17:29] MED LIST changes: +AMBIEN10 MG PO; +FLAGYL500 MG PO; +FLORAJEN3 CAPS460 MG PO; +LASIX20 MG PO; +LASIX80 MG PO; +PEPCID20 MG PO; +TEMAZEPAM30 MG
[2017-11-04 18:36] LABS: INR 2.25 (0.85-1.17); PROTIME 24.3 SECONDS (11.6-15.0)
== END | disposition home or self-care (01) ==
LOC: D.LABREF 17:29
PROVIDERS: Family Medicine
DX: Z86.718 Personal history of other venous thrombosis and embolism (principal)

== ENCOUNTER → 2017-11-11 19:25 | Outpatient (CLI) | payer MEDICARE, OTHER ==
[2017-11-01 12:29] VITALS: BMI 37.4
[2017-11-11 20:10] LABS: INR 3.82 (0.85-1.17); PROTIME 36.8 SECONDS (11.6-15.0)
== END | disposition home or self-care (01) ==
LOC: D.LABREF 19:25
PROVIDERS: Family Medicine
DX: I48.2 Chronic atrial fibrillation (principal); L97.821 Non-pressure chronic ulcer of other part of left lower leg limited to breakdown of skin; I87.303 Chronic venous hypertension (idiopathic) without complications of bilateral lower extremity; I87.2 Venous insufficiency (chronic) (peripheral)

== ENCOUNTER 2017-11-16 10:31 | Inpatient (IN) | payer MEDICARE, OTHER ==
[~2017-11-16] VITALS: Ht 190.5 cm; Wt 132.3 kg
[~2017-11-16 10:31] MED LIST changes: -FLAGYL500 MG PO; -FLORAJEN3 CAPS460 MG PO; -LASIX80 MG PO; -PEPCID20 MG PO; -TEMAZEPAM30 MG
[2017-11-16] MEDS ORDERED: LASIX80 MG PO (10:41)
[2017-11-16 11:08] LABS: BASOPHILS 0.1 % (0-2); EOSINOPHILS 3.1 % (0-7); HEMATOCRIT 33.4 % (42.0-54.0); IMMATURE GRANULOCYTES 0.4 % (0-5); LYMPHOCYTES 22.6 % (15-50); MCH 29.6 pg (26.0-34.0); MCHC 32.9 g/dL (31.0-37.0); MCV 89.8 fL (80.0-100.0); MEAN PLATELET VOLUME 8.9 fL (7.4-10.4); MONOCYTES 5.6 % (2-11); NEUTROPHILS 68.2 % (40-80); RBC 3.72 10x6/uL (4.20-6.10); RDW 15.8 % (11.5-14.5); WBC 9.3 10x3/uL (4.8-10.8)
[2017-11-16 11:15] LABS: PLATELET COUNT 265 10x3/uL (130-400)
[2017-11-16 11:19] LABS: APPEARANCE CLEAR (CLEAR); BILIRUBIN NEGATIVE (NEGATIVE); COLOR YELLOW (YELLOW); GLUCOSE NEGATIVE (NEGATIVE); KETONE NEGATIVE (NEGATIVE); NITRITE NEGATIVE (NEGATIVE); PROTEIN NEGATIVE (NEGATIVE); UROBILINOGEN NORMAL (NORMAL)
[2017-11-16 11:32] LABS: ALBUMIN 3.3 g/dL (3.4-5.0); ANION GAP 9.8 mmol/L (8-16); BILIRUBIN - TOTAL 0.4 mg/dL (0.2-1.3); CALCIUM 8.2 mg/dL (8.5-10.1); CARBON DIOXIDE 33.4 mmol/L (21.0-32.0); CREATININE - SERUM 2.4 mg/dL (0.6-1.3); POTASSIUM - SERUM 4.2 mmol/L (3.5-5.1); PROTEIN - SERUM 7.2 g/dL (6.4-8.2)
[2017-11-16] MEDS ORDERED: TEMAZEPAM30 MG (16:19)
[2017-11-16 17:12] VITALS: BP 130/60; BMI 36.3
[2017-11-16 21:26] VITALS: BP 113/51
[2017-11-17 00:45] VITALS: BP 129/51
[2017-11-17 05:23] LABS: BASOPHILS 0.1 % (0-2); EOSINOPHILS 3.5 % (0-7); HEMATOCRIT 33.7 % (42.0-54.0); HEMOGLOBIN 11.1 g/dL (13.5-17.5); IMMATURE GRANULOCYTES 0.3 % (0-5); LYMPHOCYTES 24.8 % (15-50); MCH 29.8 pg (26.0-34.0); MCHC 32.9 g/dL (31.0-37.0); MCV 90.3 fL (80.0-100.0); MEAN PLATELET VOLUME 9.2 fL (7.4-10.4); MONOCYTES 5.9 % (2-11); NEUTROPHILS 65.4 % (40-80); PLATELET COUNT 232 10x3/uL (130-400); RBC 3.73 10x6/uL (4.20-6.10); RDW 15.9 % (11.5-14.5)
[2017-11-17 05:48] LABS: WBC 6.9 10x3/uL (4.8-10.8)
[2017-11-17 05:52] LABS: CREATININE - SERUM 1.7 mg/dL (0.6-1.3)
[2017-11-17 06:29] VITALS: BP 116/49
[2017-11-17 08:53] VITALS: BP 120/54
[2017-11-17 12:02] VITALS: BP 117/49
[2017-11-17 15:17] LABS: INR 4.72 (0.85-1.17); PROTIME 43.4 SECONDS (11.6-15.0)
[2017-11-17 15:31] VITALS: BP 111/45
[2017-11-17 22:11] VITALS: BP 102/49
[2017-11-18 00:41] VITALS: BP 115/54
[2017-11-18 03:29] LABS: BASOPHILS 0.2 % (0-2); EOSINOPHILS 3.4 % (0-7); HEMATOCRIT 34.2 % (42.0-54.0); HEMOGLOBIN 10.8 g/dL (13.5-17.5); IMMATURE GRANULOCYTES 0.3 % (0-5); MCHC 31.6 g/dL (31.0-37.0); MCV 91.9 fL (80.0-100.0); MEAN PLATELET VOLUME 8.8 fL (7.4-10.4); MONOCYTES 7.7 % (2-11); NEUTROPHILS 51.4 % (40-80); PLATELET COUNT 218 10x3/uL (130-400); RBC 3.72 10x6/uL (4.20-6.10)
[2017-11-18 04:00] LABS: INR 4.36 (0.85-1.17); PROTIME 40.8 SECONDS (11.6-15.0)
[2017-11-18 04:06] LABS: ANION GAP 4.8 mmol/L (8-16); CALCIUM 8.4 mg/dL (8.5-10.1); CARBON DIOXIDE 34.4 mmol/L (21.0-32.0); CREATININE - SERUM 1.3 mg/dL (0.6-1.3); POTASSIUM - SERUM 4.2 mmol/L (3.5-5.1)
[2017-11-18 05:34] VITALS: BP 130/63
[2017-11-18 07:56] VITALS: BP 125/42
[2017-11-18 10:36] VITALS: BP 121/50
[2017-11-18 12:17] VITALS: Ht 190.5 cm; Wt 132.3 kg
[2017-11-18 15:18] VITALS: BP 101/49
[2017-11-18 20:00] VITALS: BP 148/52
[2017-11-19 04:00] VITALS: BP 118/83
[2017-11-19 07:47] LABS: BASOPHILS 0.2 % (0-2); HEMATOCRIT 35.2 % (42.0-54.0); IMMATURE GRANULOCYTES 0.3 % (0-5); LYMPHOCYTES 26.7 % (15-50); MCH 29.2 pg (26.0-34.0); MCHC 31.3 g/dL (31.0-37.0); MCV 93.4 fL (80.0-100.0); MEAN PLATELET VOLUME 9.3 fL (7.4-10.4); MONOCYTES 7.9 % (2-11); NEUTROPHILS 61.9 % (40-80); PLATELET COUNT 238 10x3/uL (130-400); RBC 3.77 10x6/uL (4.20-6.10); WBC 6.1 10x3/uL (4.8-10.8)
[2017-11-19 07:57] LABS: INR 2.9 (0.85-1.17); PROTIME 29.6 SECONDS (11.6-15.0)
[2017-11-19 08:04] LABS: ANION GAP 8.2 mmol/L (8-16); CALCIUM 8.6 mg/dL (8.5-10.1); CARBON DIOXIDE 35.4 mmol/L (21.0-32.0); CREATININE - SERUM 1.1 mg/dL (0.6-1.3); POTASSIUM - SERUM 4.6 mmol/L (3.5-5.1)
[2017-11-19 08:34] VITALS: BP 129/54
[2017-11-19 12:38] VITALS: BP 108/63
[2017-11-19 16:07] VITALS: BP 115/67
[2017-11-19 20:00] VITALS: BP 104/45
[2017-11-20] VITALS: BP 125/56
[2017-11-20 04:00] VITALS: BP 138/63
[2017-11-20 06:37] LABS: BASOPHILS 0.3 % (0-2); EOSINOPHILS 3.2 % (0-7); HEMATOCRIT 34.3 % (42.0-54.0); HEMOGLOBIN 10.7 g/dL (13.5-17.5); IMMATURE GRANULOCYTES 0.3 % (0-5); LYMPHOCYTES 32.3 % (15-50); MCH 29.4 pg (26.0-34.0); MCHC 31.2 g/dL (31.0-37.0); MCV 94.2 fL (80.0-100.0); MEAN PLATELET VOLUME 9.2 fL (7.4-10.4); MONOCYTES 7.1 % (2-11); NEUTROPHILS 56.8 % (40-80); PLATELET COUNT 220 10x3/uL (130-400); RBC 3.64 10x6/uL (4.20-6.10)
[2017-11-20 07:23] LABS: INR 1.83 (0.85-1.17); PROTIME 20.6 SECONDS (11.6-15.0)
[2017-11-20 07:32] LABS: CALC OSMOLALITY 278 mosm/kg (275-300); CALCIUM 8.5 mg/dL (8.5-10.1); CARBON DIOXIDE 35.3 mmol/L (21.0-32.0); CHLORIDE - SERUM 100 mmol/L (98-107); GLUCOSE 112 mg/dL (74-106); POTASSIUM - SERUM 4.6 mmol/L (3.5-5.1); SODIUM 139 mmol/L (136-145); UREA NITROGEN 12 mg/dL (7-18); eGFR NON AFRICAN AMERICAN 79 mL/min (90-120)
[2017-11-20 08:36] VITALS: BP 130/60
[2017-11-20 12:39] VITALS: BP 125/48
[2017-11-20 16:39] VITALS: BP 116/58
[2017-11-20 20:00] VITALS: BP 109/57
[2017-11-21] VITALS: BP 112/49; BP 130/80
[2017-11-21 04:00] VITALS: BP 110/60
[2017-11-21 06:00] LABS: BASOPHILS 0.2 % (0-2); EOSINOPHILS 1.8 % (0-7); HEMATOCRIT 36.3 % (42.0-54.0); HEMOGLOBIN 11.4 g/dL (13.5-17.5); IMMATURE GRANULOCYTES 0.3 % (0-5); LYMPHOCYTES 24.9 % (15-50); MCH 29.3 pg (26.0-34.0); MCHC 31.4 g/dL (31.0-37.0); MCV 93.3 fL (80.0-100.0); MEAN PLATELET VOLUME 9.1 fL (7.4-10.4); NEUTROPHILS 66.8 % (40-80); PLATELET COUNT 248 10x3/uL (130-400); RBC 3.89 10x6/uL (4.20-6.10)
[2017-11-21 06:11] LABS: WBC 8.7 10x3/uL (4.8-10.8)
[2017-11-21 06:28] LABS: CALC OSMOLALITY 279 mosm/kg (275-300); CALCIUM 9.1 mg/dL (8.5-10.1); CARBON DIOXIDE 32.7 mmol/L (21.0-32.0); CHLORIDE - SERUM 102 mmol/L (98-107); GLUCOSE 138 mg/dL (74-106); POTASSIUM - SERUM 4.9 mmol/L (3.5-5.1); SODIUM 139 mmol/L (136-145); UREA NITROGEN 13 mg/dL (7-18); eGFR NON AFRICAN AMERICAN 79 mL/min (90-120)
[2017-11-21 06:33] LABS: INR 1.43 (0.85-1.17); PROTIME 16.9 SECONDS (11.6-15.0)
[2017-11-21 08:17] VITALS: BP 140/71
[2017-11-21] MEDS ORDERED: JANUMET 50-1,001 TAB PO (09:41)
[2017-11-21] MEDS ORDERED: FLAGYL500 MG PO (10:51)
[2017-11-21] MEDS ORDERED: FLORAJEN3 CAPS460 MG PO (10:52)
[2017-11-21 11:56] VITALS: BP 114/39
[2017-11-21] MEDS ORDERED: PEPCID20 MG PO (12:32)
== END 2017-11-21 13:08 | disposition home health service (06) | DRG 372 ==
LOC: D.ER 10:31 → D.M2 14:11 → D.EDHOLD 14:11 → D.MS 15:05 → D.M2 15:16
PROVIDERS: Family Medicine; Internal Medicine Nephrology
DX: A04.72 Enterocolitis due to Clostridium difficile, not specified as recurrent (principal); N17.9 Acute kidney failure, unspecified; E87.1 Hypo-osmolality and hyponatremia; I48.92 Unspecified atrial flutter; D64.9 Anemia, unspecified; I25.10 Atherosclerotic heart disease of native coronary artery without angina pectoris; Z95.5 Presence of coronary angioplasty implant and graft; J44.9 Chronic obstructive pulmonary disease, unspecified; I48.91 Unspecified atrial fibrillation; E66.01 Morbid (severe) obesity due to excess calories; E11.9 Type 2 diabetes mellitus without complications; F41.8 Other specified anxiety disorders; E78.5 Hyperlipidemia, unspecified; I10 Essential (primary) hypertension; Z68.36 Body mass index [BMI] 36.0-36.9, adult

== ENCOUNTER → 2017-12-02 18:06 | Outpatient (CLI) | payer MEDICARE, OTHER ==
[2017-11-18 12:17] VITALS: BMI 36.5
[~2017-12-02 18:06] MED LIST changes: +FLAGYL500 MG PO; +FLORAJEN3 CAPS460 MG PO; +LASIX80 MG PO; +PEPCID20 MG PO; +TEMAZEPAM30 MG
[2017-12-02 18:54] LABS: INR 6.03 (0.85-1.17); PROTIME 52.7 SECONDS (11.6-15.0)
== END | disposition home or self-care (01) ==
LOC: D.LABREF 18:06
PROVIDERS: Family Medicine
DX: I87.2 Venous insufficiency (chronic) (peripheral) (principal); Z51.81 Encounter for therapeutic drug level monitoring; Z79.01 Long term (current) use of anticoagulants

== ENCOUNTER → 2017-12-05 16:03 | Outpatient (CLI) | payer MEDICARE, OTHER ==
[2017-11-18 12:17] VITALS: BMI 36.5
[2017-12-05 16:49] LABS: PROTIME 45.6 SECONDS (11.6-15.0)
[2017-12-05 18:02] LABS: INR 5.02 (0.85-1.17)
== END | disposition home or self-care (01) ==
LOC: D.LABREF 16:03
PROVIDERS: Family Medicine
DX: I87.2 Venous insufficiency (chronic) (peripheral) (principal); Z51.81 Encounter for therapeutic drug level monitoring; Z79.01 Long term (current) use of anticoagulants

== ENCOUNTER → 2017-12-18 09:23 | Outpatient (CLI) | payer MEDICARE, OTHER ==
[2017-11-18 12:17] VITALS: BMI 36.5
[2017-12-18 09:47] LABS: INR 1.53 (0.85-1.17); PROTIME 17.9 SECONDS (11.6-15.0)
== END | disposition home or self-care (01) ==
LOC: D.LABREF 09:23
PROVIDERS: Family Medicine
DX: I10 Essential (primary) hypertension (principal); I25.10 Atherosclerotic heart disease of native coronary artery without angina pectoris

== ENCOUNTER → 2017-12-23 16:59 | Outpatient (CLI) | payer MEDICARE, OTHER ==
[2017-11-18 12:17] VITALS: BMI 36.5
[2017-12-23 19:16] LABS: INR 2.02 (0.85-1.17); PROTIME 22.3 SECONDS (11.6-15.0)
== END | disposition home or self-care (01) ==
LOC: D.LABREF 16:59
PROVIDERS: Family Medicine
DX: I48.91 Unspecified atrial fibrillation (principal); Z51.81 Encounter for therapeutic drug level monitoring; Z79.01 Long term (current) use of anticoagulants

== ENCOUNTER → 2017-12-30 14:35 | Outpatient (CLI) | payer MEDICARE, OTHER ==
[2017-11-18 12:17] VITALS: BMI 36.5
[2017-12-30 16:02] LABS: INR 2.32 (0.85-1.17); PROTIME 24.8 SECONDS (11.6-15.0)
== END | disposition home or self-care (01) ==
LOC: D.LABREF 14:35
PROVIDERS: Family Medicine
DX: Z51.81 Encounter for therapeutic drug level monitoring (principal); Z79.01 Long term (current) use of anticoagulants

== ENCOUNTER → 2018-01-06 14:57 | Outpatient (CLI) | payer MEDICARE, OTHER ==
[2017-11-18 12:17] VITALS: BMI 36.5
[2018-01-06 15:50] LABS: INR 2.43 (0.85-1.17); PROTIME 25.8 SECONDS (11.6-15.0)
== END | disposition home or self-care (01) ==
LOC: D.LABREF 14:57
PROVIDERS: Family Medicine
DX: N28.9 Disorder of kidney and ureter, unspecified (principal); Z51.81 Encounter for therapeutic drug level monitoring; Z79.01 Long term (current) use of anticoagulants

== ENCOUNTER → 2018-01-13 14:07 | Outpatient (CLI) | payer MEDICARE, OTHER ==
[2017-11-18 12:17] VITALS: BMI 36.5
[2018-01-13 15:29] LABS: INR 2.48 (0.85-1.17); PROTIME 26.2 SECONDS (11.6-15.0)
== END | disposition home or self-care (01) ==
LOC: D.LABREF 14:07
PROVIDERS: Family Medicine
DX: Z51.81 Encounter for therapeutic drug level monitoring (principal); Z79.01 Long term (current) use of anticoagulants

== ENCOUNTER → 2018-01-20 15:29 | Outpatient (CLI) | payer MEDICARE, OTHER ==
[2017-11-18 12:17] VITALS: BMI 36.5
[2018-01-20 21:51] LABS: INR 1.93 (0.85-1.17); PROTIME 21.5 SECONDS (11.6-15.0)
== END | disposition home or self-care (01) ==
LOC: D.LABREF 15:29
PROVIDERS: Surgery
DX: Z51.81 Encounter for therapeutic drug level monitoring (principal); Z79.01 Long term (current) use of anticoagulants

== ENCOUNTER → 2018-01-27 17:53 | Outpatient (CLI) | payer MEDICARE, OTHER ==
[2017-11-18 12:17] VITALS: BMI 36.5
[2018-01-27 18:56] LABS: INR 1.39 (0.85-1.17); PROTIME 16.6 SECONDS (11.6-15.0)
== END | disposition home or self-care (01) ==
LOC: D.LABREF 17:53
PROVIDERS: Family Medicine
DX: I48.91 Unspecified atrial fibrillation (principal); Z51.81 Encounter for therapeutic drug level monitoring; Z79.01 Long term (current) use of anticoagulants

== ENCOUNTER → 2018-02-10 11:23 | Outpatient (CLI) | payer MEDICARE, OTHER ==
[2017-11-18 12:17] VITALS: BMI 36.5
[2018-02-10 12:07] LABS: INR 2.04 (0.85-1.17); PROTIME 22.4 SECONDS (11.6-15.0)
== END | disposition home or self-care (01) ==
LOC: D.LABREF 11:23
PROVIDERS: Family Medicine
DX: Z51.81 Encounter for therapeutic drug level monitoring (principal); Z79.01 Long term (current) use of anticoagulants

== ENCOUNTER → 2018-02-17 12:57 | Outpatient (CLI) | payer MEDICARE, OTHER ==
[2017-11-18 12:17] VITALS: BMI 36.5
[2018-02-17 16:19] LABS: INR 1.95 (0.85-1.17); PROTIME 21.7 SECONDS (11.6-15.0)
== END | disposition home or self-care (01) ==
LOC: D.LABREF 12:57
PROVIDERS: Family Medicine
DX: Z51.81 Encounter for therapeutic drug level monitoring (principal); Z79.01 Long term (current) use of anticoagulants

== ENCOUNTER → 2018-02-24 11:46 | Outpatient (CLI) | payer MEDICARE, OTHER ==
[2017-11-18 12:17] VITALS: BMI 36.5
[2018-02-24 13:52] LABS: INR 2.56 (0.85-1.17); PROTIME 26.8 SECONDS (11.6-15.0)
== END | disposition home or self-care (01) ==
LOC: D.LABREF 11:46
PROVIDERS: Family Medicine
DX: Z51.81 Encounter for therapeutic drug level monitoring (principal); Z79.01 Long term (current) use of anticoagulants

== ENCOUNTER → 2018-03-10 16:11 | Outpatient (CLI) | payer MEDICARE, OTHER ==
[2017-11-18 12:17] VITALS: BMI 36.5
[2018-03-10 16:39] LABS: INR 2.21 (0.85-1.17); PROTIME 23.9 SECONDS (11.6-15.0)
== END | disposition home or self-care (01) ==
LOC: D.LABREF 16:11
PROVIDERS: Family Medicine
DX: Z51.81 Encounter for therapeutic drug level monitoring (principal); Z79.01 Long term (current) use of anticoagulants

== ENCOUNTER → 2018-03-28 11:25 | Outpatient (CLI) | payer MEDICARE, OTHER ==
[2017-11-18 12:17] VITALS: BMI 36.5
[2018-03-28 14:34] LABS: INR 1.87 (0.85-1.17); PROTIME 20.9 SECONDS (11.6-15.0)
== END | disposition home or self-care (01) ==
LOC: D.LABREF 11:25
PROVIDERS: Family Medicine
DX: Z51.81 Encounter for therapeutic drug level monitoring (principal); Z79.01 Long term (current) use of anticoagulants

== ENCOUNTER → 2018-04-09 12:09 | Outpatient (CLI) | payer MEDICARE, OTHER ==
[2017-11-18 12:17] VITALS: BMI 36.5
[2018-04-09 12:58] LABS: INR 2.24 (0.85-1.17); PROTIME 24.1 SECONDS (11.6-15.0)
== END | disposition home or self-care (01) ==
LOC: D.LABREF 12:09
PROVIDERS: Family Medicine
DX: Z51.81 Encounter for therapeutic drug level monitoring (principal); Z79.01 Long term (current) use of anticoagulants

== ENCOUNTER → 2018-04-21 13:12 | Outpatient (CLI) | payer MEDICARE, OTHER ==
[2017-11-18 12:17] VITALS: BMI 36.5
[2018-04-21 14:18] LABS: INR 1.99 (0.85-1.17); PROTIME 21.9 SECONDS (11.6-15.0)
== END | disposition home or self-care (01) ==
LOC: D.LABREF 13:12
PROVIDERS: Family Medicine
DX: I48.2 Chronic atrial fibrillation (principal)

== ENCOUNTER → 2018-05-07 11:21 | Outpatient (CLI) | payer MEDICARE, OTHER ==
[2017-11-18 12:17] VITALS: BMI 36.5
[2018-05-07 12:21] LABS: INR 1.91 (0.85-1.17); PROTIME 21.2 SECONDS (11.6-15.0)
== END | disposition home or self-care (01) ==
LOC: D.LABREF 11:21
PROVIDERS: Family Medicine
DX: Z51.81 Encounter for therapeutic drug level monitoring (principal); Z79.01 Long term (current) use of anticoagulants; I48.91 Unspecified atrial fibrillation

== ENCOUNTER → 2018-05-19 16:35 | Outpatient (CLI) | payer MEDICARE, OTHER ==
[2017-11-18 12:17] VITALS: BMI 36.5
[~2018-05-19 16:35] MED LIST changes: +COUMADIN4 MG PO; +LEVSIN/ANASP0.125 MG SL; +POTASSIUM CHLO20 MEQ PO
[2018-05-19 16:48] LABS: INR 1.87 (0.85-1.17); PROTIME 20.8 SECONDS (11.6-15.0)
== END | disposition home or self-care (01) ==
LOC: D.LABREF 16:35
PROVIDERS: Family Medicine
DX: Z51.81 Encounter for therapeutic drug level monitoring (principal); Z79.01 Long term (current) use of anticoagulants; I48.91 Unspecified atrial fibrillation

== ENCOUNTER 2018-05-23 17:21 | Inpatient (IN) | payer MEDICARE, OTHER ==
[~2018-05-23] VITALS: Ht 190.5 cm; Wt 130.9 kg
[~2018-05-23 17:21] MED LIST changes: -COUMADIN4 MG PO; -LEVSIN/ANASP0.125 MG SL; -POTASSIUM CHLO20 MEQ PO
[2018-05-23] MEDS ORDERED: COREG12.5 MG PO (17:49)
[2018-05-23] MEDS ORDERED: COUMADIN10 MG PO (17:53)
[2018-05-23] MEDS ORDERED: COUMADIN4 MG PO (17:54)
[2018-05-23] MEDS ORDERED: FEXOFENADINE H180 MG PO (17:58)
[2018-05-23] MEDS ORDERED: NEXIUM40 MG PO (18:00)
[2018-05-23] MEDS ORDERED: LASIX80 MG PO (18:00)
[2018-05-23 18:13] LABS: BASOPHILS 0.3 % (0-2); EOSINOPHILS 2.4 % (0-7); HEMATOCRIT 36.3 % (42.0-54.0); HEMOGLOBIN 11.3 g/dL (13.5-17.5); IMMATURE GRANULOCYTES 0.4 % (0-5); LYMPHOCYTES 25.2 % (15-50); MCH 29.2 pg (26.0-34.0); MCHC 31.1 g/dL (31.0-37.0); MCV 93.8 fL (80.0-100.0); MEAN PLATELET VOLUME 8.8 fL (7.4-10.4); MONOCYTES 7.1 % (2-11); NEUTROPHILS 64.6 % (40-80); PLATELET COUNT 245 10x3/uL (130-400); RBC 3.87 10x6/uL (4.20-6.10); RDW 16.2 % (11.5-14.5); WBC 7.6 10x3/uL (4.8-10.8)
[2018-05-23 18:25] VITALS: BP 145/78; BMI 37.2
[2018-05-23 18:51] LABS: ALBUMIN 3.5 g/dL (3.4-5.0); ALKALINE PHOSPHATASE 74 U/L (46-116); ALT (SGPT) 16 U/L (10-68); BILIRUBIN - TOTAL 0.33 mg/dL (0.2-1.3); CALC OSMOLALITY 283 mosm/kg (275-300); CALCIUM 8.6 mg/dL (8.5-10.1); CARBON DIOXIDE 32.3 mmol/L (21.0-32.0); CHLORIDE - SERUM 99 mmol/L (98-107); CREATININE - SERUM 1.1 mg/dL (0.6-1.3); GLUCOSE 109 mg/dL (74-106); POTASSIUM - SERUM 3.9 mmol/L (3.5-5.1); PROTEIN - SERUM 7.1 g/dL (6.4-8.2); SODIUM 141 mmol/L (136-145); UREA NITROGEN 18 mg/dL (7-18); eGFR NON AFRICAN AMERICAN 70 mL/min (90-120)
[2018-05-23 18:53] LABS: MAGNESIUM - SERUM 1.7 mg/dL (1.8-2.4); PRO BNP 1600 pg/mL (0-125); TROPONIN-I < 0.017 ng/mL (0.000-0.060)
[2018-05-23 19:07] LABS: PROTIME 20.7 SECONDS (11.6-15.0)
[2018-05-23 19:08] LABS: INR 1.85 (0.85-1.17)
--- NOTE | 2018-05-23 19:10 | NUR ---
RECIEVED REPORT FROM RAMESH BRAVO. PT TO FLOOR AT 17:45, RECIEVED REPORT LAB CALLED WITH CRITICAL PT AND INR LEVELS AND THAT THE PT WAS 119 AND INR WAS 16. SHELLY STATED THAT SHE ORDERED A REDRAW AND THAT SHE DID NOT TREAT THE PT AND INR BECAUSE SHE BELIEVED IT COULD BE A FALSE READING.
--- NOTE | 2018-05-23 19:35 | NUR ---
INITIAL ASSESSMENT COMPLETED - PT SITTING UP IN CHAIR, A/O X4, VSS. L FA IV SL, NO C/O PAIN OR DISCOMFORT AT THIS TIME. WOUND ON L FOOT. NO S/S OF DISTRESS, RR EVEN AND UL. WCTM AND FOLLOW POC. CL IN REACH.
[2018-05-23 20:31] VITALS: BP 121/64
--- NOTE | 2018-05-23 21:29 | HP ---
PATIENT: MONIQUE BEDOLLA MEDICAL RECORD: [id number] ACCOUNT: [id number] LOCATION:[address] : [birth year] ADMISSION DATE: 05/23/18 PCP: CONNIE BERNAL MD HISTORY AND PHYSICAL EXAMINATION HISTORY OF PRESENT ILLNESS: Mr. Bedolla is a 68-year-old white male that was actually seen in Dr. Bernal's office and diagnosed with CHF and possible COPD exacerbation that is admitted for further treatment. He complains of increasing shortness of breath over the last few days, increasing swelling since yesterday. He has a history of coronary artery disease and has previous stents. He has a history of COPD. His BNP is elevated at 1600. Initial cardiac enzymes were okay. He is also a diabetic and his sugars have been running okay. He is admitted at this time for further treatment. PAST MEDICAL HISTORY: Medical problems include type 2 diabetes, hyperlipidemia, morbid obesity, chronic anemia, anxiety, hypertension, coronary artery disease with previous stents, cardiomyopathy, atrial fibrillation, chronic CHF, COPD, and history of DVT. PAST SURGICAL HISTORY: Previous histories include PTCA, hemorrhoidectomy, and tonsillectomy. ALLERGIES: POTASSIUM, CIPRO, AND MULTAQ. HOME MEDICATIONS: Include acidophilus, Advair 250/50 a puff b.i.d., Coreg 12.5 once a day, Nicolasa 180 daily, fluticasone nasal spray 1 spray each nostril b.i.d., furosemide 80 mg a day, glimepiride 4 mg twice a day, [place] 10 t.i.d. p.r.n., hyoscyamine 0.125 daily, Janumet twice a day, latanoprost 0.005% eye drops, lisinopril 20 mg a day, Zofran p.r.n., propafenone 150 mg twice a day, Coumadin 4 mg alternating with 10 mg daily, and Questran a pack a day. FAMILY HISTORY: Noncontributory. REVIEW OF SYSTEMS: Significant for shortness of breath. He denies any chest pain. He does complain of increased swelling. No recent fever. He has been voiding okay. No change in bowels. He does complain of some postprandial pain for which he normally takes Tums. He denies any fever, chills, sweats. PHYSICAL EXAMINATION: GENERAL: He is sitting up in a chair with his legs propped up. HEENT: Sclerae nonicteric. HEART: Regular at this time. LUNGS: With a few rales and rhonchi bilaterally. EXTREMITIES: Lower extremities reveal marked edema. ABDOMEN: Soft, obese. No rebound or guarding. IMPRESSION: 1. Shortness of breath. 2. CHF versus COPD versus both. 3. Known cardiomyopathy. 4. Known COPD. 5. Diabetes. 6. Glaucoma. 7. Chronic pain. 8. Coronary artery disease, previous stents. HISTORY AND PHYSICAL [id number] BEDOLLAMONIQUE Van 9. Obesity. 10. Hypertension. 11. Atrial fib and history of DVT, on anticoagulation. PLAN: Admit, check an echo. Cardiology consult with Dr. Wade, who is his regular seo professional. IV diuresis. Monitor INRs and BMPs daily. Initial cardiac enzymes are negative, had DuoNeb routinely. See orders for rest of the plan. TRANSINT:[id number] Voice Confirmation ID: [id number] DOCUMENT ID: [id number] CLEM CISNEROS DO at 2129 CC: [id number] DICTATION DATE: 05/23/182043 CONSTRUCTION CREW MEMBER: 05/23/182123 ADM IN [place] [id number] [place] [address]
[2018-05-23 23:50] VITALS: BP 120/62
[2018-05-24 03:50] VITALS: BP 115/61
--- NOTE | 2018-05-24 04:00 | NUR ---
PT RESTING IN CHAIR WITH EYES CLOSED. 3L 02 VIA NC. RR EVEN AND UL, NO S/S OF DISTRESS. NO NEEDS NOTED AT THIS TIME. WILL CONTINUE TO ASSESS NEEDS. CL IN REACH, SR UP X2, BED IN LOWEST POSITION.
[2018-05-24 05:42] LABS: INR 1.8 (0.85-1.17); PROTIME 20.3 SECONDS (11.6-15.0)
[2018-05-24 05:44] LABS: ANION GAP 9.6 mmol/L (8-16); CARBON DIOXIDE 36.1 mmol/L (21.0-32.0); CREATININE - SERUM 1.1 mg/dL (0.6-1.3); POTASSIUM - SERUM 3.7 mmol/L (3.5-5.1)
--- NOTE | 2018-05-24 07:37 | NUR ---
PT UP TO CHAIR AT THIS TIME. A/O X4. RESP EVEN AND NONLABORED ON 3L NC. LT WRIST IV SL. COMPRESSION STOCKING NOTED TO BILAT LEGS. MONITOR SHOWING SR 80. PT ASKING FOR COFFEE, WILL PROVIDE PT WITH COFFEE. PT DENIES ANY OTHER NEEDS AT THIS TIME. CALL LIGHT IN REACH, NAD NOTED, WILL CONTINUE PLAN OF CARE.
[2018-05-24 07:51] VITALS: Ht 190.5 cm; Wt 130.9 kg
[2018-05-24 10:50] VITALS: BP 116/48
--- NOTE | 2018-05-24 12:25 | NUR ---
BLOOS SUGAR OF 174, PT REFUSED TO RECEIVE INSULIN, STATED THAT HE USUALLY DOES NOT TAKE INSULIN IF HIS BLOOD SUGAR IS BELOW 200. TUMS GIVEN ORDERED. PT UP TO CHAIR, DENIES ANY NEEDS AT THIS TIME. CALL LIGHT IN REACH,NAD NOTED,W ILL CONTINUE TO MONITOR.
--- NOTE | 2018-05-24 15:33 | NUR ---
PT UP TO CHAIR, REFUSED TO HAVE HAVE DRESSING CHANGED ON LT FOOT. STATES THAT HE WILL WAIT AND SEE HOW LONG HE WILL HAVE TO STAY BEFORE HAVING IT CHANGED. PT DENIES ANY NEEDS AT THIS TIME. CALL LIGHT IN REACH.
--- NOTE | 2018-05-24 16:34 | NUR ---
BLOOD SUGAR OF 84, NO COVERAGE NEEDED PER S/S. PROVIDED PT WITH GRAM CRACKERS PT DENIES ANY NEEDS AT THIS TIME. CALL LIGHT IN REACH.
--- NOTE | 2018-05-24 19:00 | NUR ---
SITTING IN CHAIR WATCHING TV. DENIES PAIN OR ANY NEEDS. HAS 02 AT 3L/NC. RR EVEN U/L. IV IN L WRIST INTACT SL. HAS CALL LIGHT IN REACH.
--- NOTE | 2018-05-24 21:30 | NUR ---
ADMIN SCHED MEDS AND AMBIEN PER REQUEST FOR SLEEP. NO OTHER NEEDS VOICED.
[2018-05-24 21:32] VITALS: BP 132/58
[2018-05-24 23:55] VITALS: BP 145/70
[2018-05-25 03:55] VITALS: BP 127/56
--- NOTE | 2018-05-25 05:00 | NUR ---
SITTING IN BEDSIDE CHAIR. EMPTIED URINAL. REQUESTED MORE ICE WATER.
[2018-05-25 05:09] LABS: BASOPHILS 0.5 % (0-2); EOSINOPHILS 3.2 % (0-7); HEMATOCRIT 35.6 % (42.0-54.0); HEMOGLOBIN 11.2 g/dL (13.5-17.5); IMMATURE GRANULOCYTES 0.5 % (0-5); LYMPHOCYTES 33.6 % (15-50); MCH 29.6 pg (26.0-34.0); MCHC 31.5 g/dL (31.0-37.0); MCV 94.2 fL (80.0-100.0); MEAN PLATELET VOLUME 9.1 fL (7.4-10.4); MONOCYTES 9.8 % (2-11); NEUTROPHILS 52.4 % (40-80); PLATELET COUNT 222 10x3/uL (130-400); RBC 3.78 10x6/uL (4.20-6.10); RDW 16.3 % (11.5-14.5); WBC 5.9 10x3/uL (4.8-10.8)
[2018-05-25 05:27] LABS: ALBUMIN 3.2 g/dL (3.4-5.0); BILIRUBIN - TOTAL 0.36 mg/dL (0.2-1.3); CALCIUM 9.2 mg/dL (8.5-10.1); CARBON DIOXIDE 36.8 mmol/L (21.0-32.0); CREATININE - SERUM 1.3 mg/dL (0.6-1.3); POTASSIUM - SERUM 3.8 mmol/L (3.5-5.1); PROTEIN - SERUM 7.2 g/dL (6.4-8.2)
[2018-05-25 05:29] LABS: INR 1.58 (0.85-1.17); PROTIME 18.3 SECONDS (11.6-15.0)
--- NOTE | 2018-05-25 08:40 | NUR ---
AM MEDS GIVEN AT THIS TIME. ALSO GAVE PT ATIVAN FOR THE "SHAKES". PT STATED THAT HE WANTS HIS NICOTINE PATCH CHANGED TO A LOWER DOSE. INFOMRED PT AND AT BEDSIDE THAT I WOULD ASK DOCTOR MAGGIE. PT DENIES ANY NEEDS AT THIS TIME. PT A LITTLE SOB ON 15L HIGH FLOW. LT WRIST IV SL. GENERALIZED BRUISING NOTED. CALL LIGHT IN REACH, BEDSIDE RAILS X2, AT BEDSIDE, NAD NOTED, WILL CONTINUE PLAN OF CARE.
[2018-05-25 09:40] VITALS: BP 111/56
[2018-05-25 14:30] VITALS: BP 111/53
[2018-05-25 17:53] VITALS: BP 131/64
--- NOTE | 2018-05-25 19:20 | NUR ---
RECEIVED REPORT, ASSUMED CARE OF PATIENT. SITTING IN BEDSIDE CHAIR. DENIES PAIN OR ANY NEEDS. HAS 02 AT 3L/NC. RR EVEN U/L. IF IN L WRIST INTACT SL. DRSG TO LEFT FOOT NOTED. STATED DRSG CHANGES DONE AT [facility] SAT[facility]. GOT UP TO AMBULATE TO BATHROOM. REFUSED ASSISTANCE. AMBULATED WITH STEADY GAIT.
[2018-05-25 20:00] VITALS: BP 116/51
--- NOTE | 2018-05-25 21:40 | NUR ---
ADMIN AMBIEN 10MG PO PER REQUEST FOR SLEEP. NO OTHER NEEDS VOICED.
[2018-05-26 01:00] VITALS: BP 132/66
--- NOTE | 2018-05-26 03:45 | NUR ---
SITTING IN BEDSIDE CHAIR. ADMIN LASIX 60MG IV. ADVISED TO GET IN BED TO ELEVATE HIS SWOLLEN FEET.
[2018-05-26 04:00] VITALS: BP 120/59
[2018-05-26 06:23] LABS: BASOPHILS 0.3 % (0-2); EOSINOPHILS 3.2 % (0-7); HEMATOCRIT 36.9 % (42.0-54.0); HEMOGLOBIN 11.5 g/dL (13.5-17.5); IMMATURE GRANULOCYTES 0.5 % (0-5); MCH 29.2 pg (26.0-34.0); MCHC 31.2 g/dL (31.0-37.0); MCV 93.7 fL (80.0-100.0); MEAN PLATELET VOLUME 9.4 fL (7.4-10.4); PLATELET COUNT 240 10x3/uL (130-400); RBC 3.94 10x6/uL (4.20-6.10); RDW 16.3 % (11.5-14.5)
[2018-05-26 07:16] LABS: ALBUMIN 3.3 g/dL (3.4-5.0); ANION GAP 12.9 mmol/L (8-16); BILIRUBIN - TOTAL 0.34 mg/dL (0.2-1.3); CALCIUM 9.1 mg/dL (8.5-10.1); CREATININE - SERUM 1.2 mg/dL (0.6-1.3); POTASSIUM - SERUM 3.9 mmol/L (3.5-5.1); PROTEIN - SERUM 7.5 g/dL (6.4-8.2)
[2018-05-26 08:37] VITALS: BP 117/64
[2018-05-26 08:37] LABS: INR 1.62 (0.85-1.17); PROTIME 18.6 SECONDS (11.6-15.0)
[2018-05-26 08:48] LABS: MAGNESIUM - SERUM 1.8 mg/dL (1.8-2.4); T4 THYROXIN - FREE 1.26 ng/dL (0.76-1.46); THYROID STIMULATING HORMONE 4.86 uIU/mL (0.36-3.74)
[2018-05-26 11:39] VITALS: BP 108/50
--- NOTE | 2018-05-26 12:52 | NUR ---
RESP UL ON . UP TO CHAIR WITH CALL LIGHT IN REACH. IMTIAZ NEEDS AT THIS TIME.
[2018-05-26 15:44] VITALS: BP 132/65
--- NOTE | 2018-05-26 19:20 | NUR ---
AWAKE WATCHING TV. SITTING IN RECLINER WITH LEGS ELEVATED. HAS 02 AT 3L/NC. RR EVEN U/L. IV IN L FA INTACT SL. DENIES ANY NEEDS. HAS CALL LIGHT IN REACH.
[2018-05-26 20:00] VITALS: BP 102/45
--- NOTE | 2018-05-26 21:55 | NUR ---
ADMIN SCHED MEDS AND 8 UNITS OF HUMALOG FOR BLOOD SUGAR 223. REQUESTED AMBIEN TO SLEEP. NO OTHER NEEDS VOICED.
[2018-05-27 04:55] VITALS: BP 107/61
[2018-05-27 05:29] LABS: BASOPHILS 0.3 % (0-2); EOSINOPHILS 3.3 % (0-7); HEMOGLOBIN 11.1 g/dL (13.5-17.5); IMMATURE GRANULOCYTES 0.5 % (0-5); LYMPHOCYTES 35.4 % (15-50); MCH 29.1 pg (26.0-34.0); MCHC 30.8 g/dL (31.0-37.0); MCV 94.2 fL (80.0-100.0); MEAN PLATELET VOLUME 9.2 fL (7.4-10.4); MONOCYTES 8.4 % (2-11); NEUTROPHILS 52.1 % (40-80); PLATELET COUNT 229 10x3/uL (130-400); RBC 3.82 10x6/uL (4.20-6.10); RDW 16.1 % (11.5-14.5); WBC 5.7 10x3/uL (4.8-10.8)
[2018-05-27 05:43] LABS: INR 1.63 (0.85-1.17); PROTIME 18.7 SECONDS (11.6-15.0)
--- NOTE | 2018-05-27 06:00 | NUR ---
SITTING IN RECLINER WITH EYES CLOSED. RR EVEN U/L. EMPTIED 1000CC URINE.
[2018-05-27 06:02] LABS: ANION GAP 8.6 mmol/L (8-16); BILIRUBIN - TOTAL 0.24 mg/dL (0.2-1.3); CALCIUM 8.8 mg/dL (8.5-10.1); CARBON DIOXIDE 37.2 mmol/L (21.0-32.0); CREATININE - SERUM 1.2 mg/dL (0.6-1.3); POTASSIUM - SERUM 3.8 mmol/L (3.5-5.1)
--- NOTE | 2018-05-27 07:30 | NUR ---
A/A/OX4 SITTING UP IN BEDSIDE CHAIR. NO REQUESTS OR NEEDS VOICED. BED IN LOWEST POSITION, SIDERAILS UP X 2 AND CALL LIGHT IN REACH. ASSESSMENT COMPLETED. WILL CPOC.L
[2018-05-27 08:02] VITALS: BP 121/49
--- NOTE | 2018-05-27 09:55 | NUR ---
UP IN CHAIR WITH EYES CLOSED. RESP UL ON . CALL LIGHT IN REACH. WILL CONT. PLAN OF CARE.
--- NOTE | 2018-05-27 10:25 | NUR ---
WHEN STARTED ADMINISTERING LASIX IVP, NOTED TO BE LEAKING AT SITE. DC'D SL AND RESTARTED FURTHER UP LFA WITH 20 GAUGE X 1 ATTEMPT. PT TOLERATED WELL.
[2018-05-27 12:20] VITALS: BP 112/60
[2018-05-27] MEDS ORDERED: LEVSIN/ANASP0.125 MG SL (13:18)
[2018-05-27] MEDS ORDERED: PROTONIX40 MG PO (13:19)
[2018-05-27] MEDS ORDERED: GLUCOPHAGE500 MG PO (13:19)
[2018-05-27] MEDS ORDERED: POTASSIUM CHLO20 MEQ PO (13:24)
[2018-05-27] MEDS ORDERED: LASIX40 MG PO (13:24)
--- NOTE | 2018-05-27 14:35 | MORECARE ---
CASE MANAGEMENT DISCHARGE SUMMARY PATIENT: MONIQUE BEDOLLA UNIT: [id number] ADM DATE: 05/24/18 AGE: 68 : 48 SEX: M ROOM/BED: D.2106 AUTHOR: CAT IGNACIO PHYSICIAN: REFERRING PHYSICIAN: CONNIE BERNAL MD DATE OF SERVICE: 05/27/18 Discharge Plan Patient Name: MONIQUE BEDOLLA Facility: [facility]:[place] : 1950 Planned Disposition: Home with Home Health Anticipated Discharge Date: 05/27/18 Discharge Date: Expected LOS: 3 Initial Reviewer: [email or web address] Initial Review Date: 05/23/2018 Generated: 05/27/18 3:35 pm DCPIA - Discharge Planning Initial Assessment Updated by [email or web address]: Philip Patel on 05/27/18 2:33 pm * Is the patient Alert and Oriented? Yes * How many steps to enter\exit or inside your home? * PCP DR. BERNAL * Pharmacy [address] * Preadmission Environment Home with Family * ADLs Independent * Equipment Glucometer Nebulizer Oxygen Walker Wound Supplies * Other Equipment HOME AND PORTABLE OXYGEN PULSE OXIMETER BLOOD PRESSURE MONITOR [employer] ALBERT LEA PATIENT - MEDICAL EQUIPMENT PROVIDER * List name and contact numbers for known caregivers / representatives who currently or will assist patient after discharge: ARIAN BEDOLLA, SPOUSE, * Verbal permission to speak to the caregivers and representatives has been obtained from the patient. N/A * Community resources currently utilized Home Health * Please name any agencies selected above. [facility] * Additional services required to return to the preadmission environment? No * Can the patient safely return to the preadmission environment? Yes * Has this patient been hospitalized within the prior 30 days at any hospital? No Coverage Notice Reviewer: [email or web address] - Philip Patel Notice Issued Date-Time: 05/27/2018 14:20 Notice Type: IM Discharge Notice Notice Delivered To: Patient Relationship to Patient: Field Contractor Name: Delivery Method: HAND - Hand Delivered Janet Days: Prior Verbal Notification: Recipient Understood Notice: Yes Recipient Signature: Yes Med Rec Note Co-signed by Attending: Coverage Notice Comment: Patient Name: MONIQUE BEDOLLA Page [phone] at 1435 All edits/amendments must be made on the electronic document DICTATION DATE: 05/27/18 143 PROP SETTER: JASMYN 05/27/18 143 RPT#: [id number] DC DATE: STATUS: ADM IN [facility] [address] [facility] [place] [address] END OF REPORT
--- NOTE | 2018-05-27 14:44 | MORECARE ---
CASE MANAGEMENT DISCHARGE SUMMARY PATIENT: MONIQUE BEDOLLA UNIT: [id number] ADM DATE: 05/24/18 AGE: 68 : 48 SEX: M ROOM/BED: D.210 AUTHOR: SANDEE,DOC PHYSICIAN: REFERRING PHYSICIAN: CONNIE BERNAL MD DATE OF SERVICE: 05/27/18 Discharge Plan Patient Name: MONIQUE BEDOLLA Facility: [facility]:[place] : 1950 Planned Disposition: Home with Home Health Anticipated Discharge Date: 05/27/18 Discharge Date: Expected LOS: 3 Initial Reviewer: [email or web address] Initial Review Date: 05/23/2018 Generated: 05/27/18 3:44 pm Comments DCP- Discharge Planning Updated by [email or web address]: Philip Patel on 05/27/18 1:[address] Patient Name: MONIQUE BEDOLLA Admission Status: Urgent Accout number: [id number] Admission Date: 05-24-2018 : 1950 Admission Diagnosis:PALPITATIONS Attending: CONNIE BERNAL Current LOS: 3 Anticipated DC Date: 05-27-2018 Planned Disposition: Home with Home Health Primary Insurance: MEDICARE A & B PLANNED EXTERNAL PROVIDER: [facility] [place] Discharge Planning Comments: CM MET WITH PT IN ROOM TO DISCUSS DISCHARGE PLANNING AND NEEDS. PT REPORTS LIVING AT HOME INDEPENDENTLY WITH SPOUSE. PT HAS BLOOD PRESSURE MONITOR, GLUCOMETER, NEBULIZER, HOME AND PORTABLE OXYGEN, PULSE OXIMETER AND ROLLING WALKER FROM [facility] PATIENT. PT HAS HOME HEALTH WITH [facility]. CM DISCUSSED AVAILABILITY OF HOME HEALTH, REHAB SERVICES AND MEDICAL EQUIPMENT. PT DENIES DISCHARGE NEEDS, REPORTS DISCHARGE WAS MENTIONED EARLIER TODAY AND WHEN NO ONE CAME AROUND, PT SENT HIS HOME; PT WILL HAVE TO CALL HIS BACK UP HERE TO PICK HIM UP FOR DISCHARGE HOME. IMPORTANT MESSAGE FROM MEDICARE PROVIDED AND EXPLAINED. MUSIC COMPOSITION TEACHER NURSE NOTIFIED. CM CALLED [facility], , SPOKE TO VETO WHO TOOK REFERRAL INFORMATION AND WILL PLACE PT BACK ON SCHEDULE FOR RESUMPTION OF HOME HEALTH CARE. CM FAXED DISCHARGE INFORMATION TO [facility] AT [phone]. Senior Executive Compensation Analyst: Philip Patel DCPIA - Discharge Planning Initial Assessment Updated by [email or web address]: Philip Patel on 05/27/18 2:33 pm * Is the patient Alert and Oriented? Yes * How many steps to enter\exit or inside your home? * PCP DR. BERNAL * Pharmacy [address] * Preadmission Environment Home with Family * ADLs Independent * Equipment Glucometer Nebulizer Oxygen Walker Wound Supplies * Other Equipment HOME AND PORTABLE OXYGEN PULSE OXIMETER BLOOD PRESSURE MONITOR [facility] PATIENT - MEDICAL EQUIPMENT PROVIDER * List name and contact numbers for known caregivers / representatives who currently or will assist patient after discharge: ARIAN BEDOLLA, SPOUSE, * Verbal permission to speak to the caregivers and representatives has been obtained from the patient. N/A * Community resources currently utilized Home Health * Please name any agencies selected above. [facility] * Additional services required to return to the preadmission environment? No * Can the patient safely return to the preadmission environment? Yes * Has this patient been hospitalized within the prior 30 days at any hospital? No External Providers External Provider: [facility] Next Contact Date: 05/27/2018 Service Request Date: Service Type: Resolution: Reviewer: Comments: Coverage Notice Reviewer: [id number] - Philip Patel Notice Issued Date-Time: 05/27/2018 14:20 Notice Type: IM Discharge Notice Notice Delivered To: Patient Relationship to Patient: Billboard Erector Helper Name: Delivery Method: HAND - Hand Delivered Janet Days: Prior Verbal Notification: Recipient Understood Notice: Yes Recipient Signature: Yes Med Rec Note Co-signed by Attending: Coverage Notice Comment: Last DP export: 05/27/18 1:35 p Patient Name: MONIQUE BEDOLLA Page 17623 at 1444 All edits/amendments must be made on the electronic document DICTATION DATE: 05/27/18 1444 TERRAZZO WORKER HELPER: JASMYN 05/27/18 1444 RPT#: [id number] DC DATE: STATUS: ADM IN [facility] [address] [place] [address] END OF REPORT
[2018-05-27 15:18] VITALS: BP 102/42
--- NOTE | 2018-05-27 15:46 | NUR ---
REIEWED DISCHARGE INSTRUCTIONS WITH PT AND VERBALIZES UNDERSTANDING WITH NO QUESTIONS. SL REMOVED FROM LEFT FA WITH TIP INTACT. LEFT FLOOR VIA W/C WITH ALL PERSONAL BELONGINGS AND LEFT FACILITY VIA PRIVATE VEHICLE WITH HIS . DRESSING TO LEFT FOOT WAS CHANGED PER INSTRUCTIONS PRIOR TO DISCHARGE.
--- NOTE | 2018-05-28 07:47 | MORECARE ---
CASE MANAGEMENT DISCHARGE SUMMARY PATIENT: MONIQUE BEDOLLA UNIT: [id number] ADM DATE: 05/24/18 AGE: 68 : 48 SEX: M ROOM/BED: D.2106 AUTHOR: SANDEE,DOC PHYSICIAN: REFERRING PHYSICIAN: CONNIE BERNAL MD DATE OF SERVICE: 05/28/18 Discharge Plan Patient Name: MONIQUE BEDOLLA Facility: [facility]:[place] : 1950 Planned Disposition: Home with Home Health Anticipated Discharge Date: 05/27/18 Discharge Date: 05/27/2018 Expected LOS: 3 Initial Reviewer: [email or web address] Initial Review Date: 05/23/2018 Generated: 05/28/18 8:47 am Comments DCP- Discharge Planning Updated by [email or web address]: Philip Patel on 05/27/18 1:[address] Patient Name: MONIQUE BEDOLLA Admission Status: Urgent Accout number: [id number] Admission Date: 05-24-2018 : 1950 Admission Diagnosis:PALPITATIONS Attending: CONNIE BERNAL Current LOS: 3 Anticipated DC Date: 05-27-2018 Planned Disposition: Home with Home Health Primary Insurance: MEDICARE A & B PLANNED EXTERNAL PROVIDER: [facility] Discharge Planning Comments: CM MET WITH PT IN ROOM TO DISCUSS DISCHARGE PLANNING AND NEEDS. PT REPORTS LIVING AT HOME INDEPENDENTLY WITH SPOUSE. PT HAS BLOOD PRESSURE MONITOR, GLUCOMETER, NEBULIZER, HOME AND PORTABLE OXYGEN, PULSE OXIMETER AND ROLLING WALKER [facility] PATIENT. PT HAS HOME HEALTH WITH [facility]. CM DISCUSSED AVAILABILITY OF HOME HEALTH, REHAB SERVICES AND MEDICAL EQUIPMENT. PT DENIES DISCHARGE NEEDS, REPORTS DISCHARGE WAS MENTIONED EARLIER TODAY AND WHEN NO ONE CAME AROUND, PT SENT HIS HOME; PT WILL HAVE TO CALL HIS BACK UP HERE TO PICK HIM UP FOR DISCHARGE HOME. IMPORTANT MESSAGE FROM MEDICARE PROVIDED AND EXPLAINED. MECHANICAL INSULATOR NURSE NOTIFIED. CM CALLED [facility], , SPOKE TO VETO WHO TOOK REFERRAL INFORMATION AND WILL PLACE PT BACK ON SCHEDULE FOR RESUMPTION OF HOME HEALTH CARE. CM FAXED DISCHARGE INFORMATION TO [facility] AT [phone]. Pantomimist: Philip Patel DCPIA - Discharge Planning Initial Assessment Updated by [email or web address]: Philip Patel on 05/27/18 2:33 pm * Is the patient Alert and Oriented? Yes * How many steps to enter\exit or inside your home? * PCP DR. BERNAL * Pharmacy [address] * Preadmission Environment Home with Family * ADLs Independent * Equipment Glucometer Nebulizer Oxygen Walker Wound Supplies * Other Equipment HOME AND PORTABLE OXYGEN PULSE OXIMETER BLOOD PRESSURE MONITOR [facility] PATIENT - MEDICAL EQUIPMENT PROVIDER * List name and contact numbers for known caregivers / representatives who currently or will assist patient after discharge: ARIAN BEDOLLA, SPOUSE, * Verbal permission to speak to the caregivers and representatives has been obtained from the patient. N/A * Community resources currently utilized Home Health * Please name any agencies selected above. [facility] * Additional services required to return to the preadmission environment? No * Can the patient safely return to the preadmission environment? Yes * Has this patient been hospitalized within the prior 30 days at any hospital? No Coverage Notice Reviewer: [id number] - Philip Patel Notice Issued Date-Time: 05/27/2018 14:20 Notice Type: IM Discharge Notice Notice Delivered To: Patient Relationship to Patient: Cell Geneticist Name: Delivery Method: HAND - Hand Delivered Janet Days: Prior Verbal Notification: Recipient Understood Notice: Yes Recipient Signature: Yes Med Rec Note Co-signed by Attending: Coverage Notice Comment: Last DP export: 05/27/18 1:44 p Patient Name: MONIQUE BEDOLLA Page 25189 at 0747 All edits/amendments must be made on the electronic document DICTATION DATE: 05/28/18745 COLLECTION CORRESPONDENT: JASMYN 05/28/1846 RPT#: [id number] DC DATE:05/27/18 STATUS: DIS IN [facility] [address] [place] [address] END OF REPORT
== END 2018-05-27 15:48 | disposition home health service (06) | DRG 190 ==
LOC: D.M2 17:21 → OBSVTIME 17:21 → D.M2 05-24 17:38
PROVIDERS: Family Medicine; Internal Medicine Nephrology; ADMIT Family Medicine
DX: J44.1 Chronic obstructive pulmonary disease with (acute) exacerbation (principal); I50.33 Acute on chronic diastolic (congestive) heart failure; I48.92 Unspecified atrial flutter; N17.9 Acute kidney failure, unspecified; I42.9 Cardiomyopathy, unspecified; I11.0 Hypertensive heart disease with heart failure; J44.9 Chronic obstructive pulmonary disease, unspecified; H40.9 Unspecified glaucoma; I25.10 Atherosclerotic heart disease of native coronary artery without angina pectoris; E66.9 Obesity, unspecified; Z68.37 Body mass index [BMI] 37.0-37.9, adult; I48.91 Unspecified atrial fibrillation; Z79.01 Long term (current) use of anticoagulants; E11.65 Type 2 diabetes mellitus with hyperglycemia; E78.5 Hyperlipidemia, unspecified; D50.9 Iron deficiency anemia, unspecified; I08.1 Rheumatic disorders of both mitral and tricuspid valves; I48.0 Paroxysmal atrial fibrillation; Z86.718 Personal history of other venous thrombosis and embolism

== ENCOUNTER → 2018-06-04 10:53 | Outpatient (CLI) | payer MEDICARE, OTHER ==
[2018-05-24 07:51] VITALS: BMI 37.2
[~2018-06-04 10:53] MED LIST changes: +COUMADIN4 MG PO; +LEVSIN/ANASP0.125 MG SL; +POTASSIUM CHLO20 MEQ PO
[2018-06-04 11:15] LABS: INR 1.92 (0.85-1.17); PROTIME 21.3 SECONDS (11.6-15.0)
== END | disposition home or self-care (01) ==
LOC: D.LABREF 10:53
PROVIDERS: Family Medicine
DX: Z51.81 Encounter for therapeutic drug level monitoring (principal); Z79.01 Long term (current) use of anticoagulants

== ENCOUNTER → 2018-06-18 11:08 | Outpatient (CLI) | payer MEDICARE, OTHER ==
[2018-05-24 07:51] VITALS: BMI 37.2
[2018-06-18 18:29] LABS: INR 1.59 (0.85-1.17); PROTIME 18.3 SECONDS (11.6-15.0)
== END | disposition home or self-care (01) ==
LOC: D.LABREF 11:08
PROVIDERS: Family Medicine
DX: Z51.81 Encounter for therapeutic drug level monitoring (principal); Z79.01 Long term (current) use of anticoagulants

== ENCOUNTER → 2018-07-04 13:43 | Outpatient (CLI) | payer MEDICARE, OTHER ==
[2018-05-24 07:51] VITALS: BMI 37.2
[~2018-07-04 13:43] MED LIST changes: +TAMIFLU75 MG PO
[2018-07-04 15:19] LABS: INR 1.66 (0.85-1.17)
== END | disposition home or self-care (01) ==
LOC: D.LABREF 13:43
PROVIDERS: ATTEND Family Medicine
DX: Z51.81 Encounter for therapeutic drug level monitoring (principal); Z79.01 Long term (current) use of anticoagulants

== ENCOUNTER 2018-07-08 08:20 | Inpatient (IN) | payer MEDICARE, OTHER ==
[~2018-07-08] VITALS: Ht 190.5 cm; Wt 136.1 kg
[~2018-07-08 08:20] MED LIST changes: -TAMIFLU75 MG PO
[2018-07-08 08:53] LABS: BASOPHILS 0.1 % (0-2); EOSINOPHILS 0.7 % (0-7); HEMOGLOBIN 10.8 g/dL (13.5-17.5); IMMATURE GRANULOCYTES 0.5 % (0-5); LYMPHOCYTES 22.3 % (15-50); MCH 29.3 pg (26.0-34.0); MCHC 30.9 g/dL (31.0-37.0); MCV 95.1 fL (80.0-100.0); MEAN PLATELET VOLUME 8.8 fL (7.4-10.4); MONOCYTES 5.4 % (2-11); PLATELET COUNT 237 10x3/uL (130-400); RBC 3.68 10x6/uL (4.20-6.10); RDW 15.8 % (11.5-14.5); WBC 7.6 10x3/uL (4.8-10.8)
[2018-07-08 09:02] LABS: APTT 38.6 SECONDS (22.8-39.4); INR 2.09 (0.85-1.17); PROTIME 22.8 SECONDS (11.6-15.0)
[2018-07-08 09:03] LABS: D-DIMER-QUANTITATIVE 0.29 ug/mLFEU (0.20-0.54)
[2018-07-08 09:06] LABS: ALBUMIN 3.3 g/dL (3.4-5.0); ALKALINE PHOSPHATASE 103 U/L (46-116); ALT (SGPT) 27 U/L (10-68); BILIRUBIN - TOTAL 0.36 mg/dL (0.2-1.3); CALC OSMOLALITY 287 mosm/kg (275-300); CALCIUM 8.7 mg/dL (8.5-10.1); CHLORIDE - SERUM 100 mmol/L (98-107); CREATININE - SERUM 1.9 mg/dL (0.6-1.3); GLUCOSE 150 mg/dL (74-106); POTASSIUM - SERUM 4.3 mmol/L (3.5-5.1); PROTEIN - SERUM 7.5 g/dL (6.4-8.2); SODIUM 141 mmol/L (136-145); UREA NITROGEN 24 mg/dL (7-18); eGFR NON AFRICAN AMERICAN 37 mL/min (90-120)
[2018-07-08 09:20] LABS: CREATINE KINASE 50 UL (21-232); PRO BNP 1773 pg/mL (0-125)
[2018-07-08 09:23] LABS: TROPONIN-I 0.075 ng/mL (0.000-0.060)
--- NOTE | 2018-07-08 11:06 | MORECARE ---
CASE MANAGEMENT DISCHARGE SUMMARY PATIENT: MONIQUE BEDOLLA UNIT: [id number] ADM DATE: 07/08/18 AGE: 68 : 48 SEX: M ROOM/BED: D.1209 AUTHOR: CAT IGNACIO PHYSICIAN: REFERRING PHYSICIAN: RHEA SANCHEZ MD DATE OF SERVICE: 07/08/18 Discharge Plan Patient Name: MONIQUE BEDOLLA Facility: [facility]:[place] : 1950 Planned Disposition: Home with Home Health Anticipated Discharge Date: 07/10/18 Discharge Date: Expected LOS: 2 Initial Reviewer: [email or web address] Initial Review Date: 07/08/2018 Generated: 07/08/18 12:06 pm Patient Name: MONIQUE BEDOLLA Page 26245 at 1106 All edits/amendments must be made on the electronic document DICTATION DATE: 07/08/18 1105 METAL RIVETING MACHINE OPERATOR: JASMYN 07/08/18 1105 RPT#: [id number] DC DATE: STATUS: ADM IN [facility] [address] [place] [address] END OF REPORT
--- NOTE | 2018-07-08 11:23 | MORECARE ---
CASE MANAGEMENT DISCHARGE SUMMARY PATIENT: MONIQUE BEDOLLA UNIT: [id number] ADM DATE: 07/08/18 AGE: 68 : 48 SEX: M ROOM/BED: D.1209 AUTHOR: CAT IGNACIO PHYSICIAN: REFERRING PHYSICIAN: RHEA SANCHEZ MD DATE OF SERVICE: 07/08/18 Discharge Plan Patient Name: MONIQUE BEDOLLA Facility: [facility]:[place] : 1950 Planned Disposition: Home with Home Health Anticipated Discharge Date: 07/10/18 Discharge Date: Expected LOS: 2 Initial Reviewer: [email or web address] Initial Review Date: 07/08/2018 Generated: 07/08/18 12:23 pm DCPIA - Discharge Planning Initial Assessment Updated by [email or web address]: Holli Bal on 07/08/18 11:20 am * Is the patient Alert and Oriented? Yes * How many steps to enter\exit or inside your home? * PCP Dr. Her * Pharmacy [address] * Preadmission Environment Home with Family * ADLs Independent * Equipment Glucometer Oxygen Rolling Walker Shower Chair * Other Equipment Wears O2 19/11 with portable concentrator from [facility] Patient. * List name and contact numbers for known caregivers / representatives who currently or will assist patient after discharge: Wendy Bedolla - - [phone] Kang Bedolla - son - [phone] * Verbal permission to speak to the caregivers and representatives has been obtained from the patient. Yes * Community resources currently utilized Home Health * Please name any agencies selected above. [facility] to [facility] in the ER. * Additional services required to return to the preadmission environment? No * Can the patient safely return to the preadmission environment? Yes * Has this patient been hospitalized within the prior 30 days at any hospital? No Last DP export: 07/08/18 10:06 a Patient Name: MONIQUE BEDOLLA Page 58910 at 1123 All edits/amendments must be made on the electronic document DICTATION DATE: 07/08/18 1123 LASER BEAM TRIM OPERATOR: JASMYN 07/08/18 1123 RPT#: [id number] DC DATE: STATUS: ADM IN [facility] [address] [place] [address] END OF REPORT
--- NOTE | 2018-07-08 11:32 | MORECARE ---
CASE MANAGEMENT DISCHARGE SUMMARY PATIENT: MONIQUE BEDOLLA UNIT: [id number] ADM DATE: 07/08/18 AGE: 68 : 48 SEX: M ROOM/BED: D.1209 AUTHOR: CAT IGNACIO PHYSICIAN: REFERRING PHYSICIAN: RHEA SANCHEZ MD DATE OF SERVICE: 07/08/18 Discharge Plan Patient Name: MONIQUE BEDOLLA Facility: [facility]:[place] : 1950 Planned Disposition: Home with Home Health Anticipated Discharge Date: 07/10/18 Discharge Date: Expected LOS: 2 Initial Reviewer: [email or web address] Initial Review Date: 07/08/2018 Generated: 07/08/18 12:31 pm DCP- Discharge Planning Updated by [email or web address]: Holli Bal on 07/08/18 10:[address] Patient Name: MONIQUE BEDOLLA Admission Status: ER Accout number: [id number] Admission Date: 07-08-2018 : 1950 Admission Diagnosis: Attending: RHEA SANCHEZ Current LOS: 1 Anticipated DC Date: 07-10-2018 Planned Disposition: Home with Home Health Primary Insurance: MEDICARE A & B Discharge Planning Comments: CM met with patient and his sonKang to complete initial dc planning assessment. CM educated patient on the CM role and verbal consent given by patient to complete assessment. Patient lives at home with his . He reports he is independent with his Adl's and Iadl's. Patient son reports that his dad has wounds on his left foot that will need to be addressed. He goes to the wound clinic 3 x week. Co obtained order for wound care nurse for dressing changes. CM left a message with [facility] social worker informing her of wounds. At discharge patient plans to return home with resumption of [facility] HH. DYLAN form singed by patient's son to resume [facility]. Patient and son feels this is a safe discharge. Patient son is a [facility] binder caser and will notify them the patient is being admitted. CM will continue to follow and will assist as needed with dc plans/needs. Account Adjuster: Holli Bal RN, [facility] DCPIA - Discharge Planning Initial Assessment Updated by [email or web address]: Holli Bal on 07/08/18 11:20 am * Is the patient Alert and Oriented? Yes * How many steps to enter\exit or inside your home? * PCP Dr. Her * Pharmacy [address] * Preadmission Environment Home with Family * ADLs Independent * Equipment Glucometer Oxygen Rolling Walker Shower Chair * Other Equipment Wears O2 24/7 with portable concentrator from [facility] Patient. * List name and contact numbers for known caregivers / representatives who currently or will assist patient after discharge: Wendy Bedolla - - [phone] Kang Bedolla - son - [phone] * Verbal permission to speak to the caregivers and representatives has been obtained from the patient. Yes * Community resources currently utilized Home Health * Please name any agencies selected above. [facility]. * Additional services required to return to the preadmission environment? No * Can the patient safely return to the preadmission environment? Yes * Has this patient been hospitalized within the prior 30 days at any hospital? No Last DP export: 07/08/18 10:23 a Patient Name: MONIQUE BEDOLLA Page 00026 at 1132 All edits/amendments must be made on the electronic document DICTATION DATE: 07/08/18 113 MANAGER COMPLIANCE: JASMYN 07/08/18 113 RPT#: [id number] DC DATE: STATUS: ADM IN [facility] [address] [place] [address] END OF REPORT
--- NOTE | 2018-07-08 11:57 | NUR ---
RECEIVED PT FROM ER. PT ALERT AND ORIENTED. UP AD ZI. IV TO LEFT AC, SL. SITE PATENT WITHOUT REDNESS OR SWELLING. NO C/O PAIN. NO S/S OF ACUTE DISTRESS NOTED. PT ADMITTED WITH FLU A. PT DENIES ANYTHING FURTHER AT THIS TIME. CALL LIGHT IN REACH. WILL CONTINUE TO MONITOR.
[2018-07-08 12:24] VITALS: BMI 37.5
[2018-07-08 12:39] VITALS: BP 133/56
[2018-07-08 13:09] LABS: % SATURATION 7 % (15-55); IRON 27 ug/dl (35-150); TOTAL IRON BIND CAPACITY 352 ug/dl (260-445); UNSAT IRON BIND CAPACITY 325 ug/dl (150-375)
[2018-07-08 14:41] LABS: APPEARANCE CLEAR (CLEAR); COLOR YELLOW (YELLOW); NITRITE NEGATIVE (NEGATIVE); SPECIFIC GRAVITY 1.015 (1.005-1.020)
[2018-07-08 14:42] LABS: BACTERIA FEW /hpf (NONE SEEN); BILIRUBIN NEGATIVE (NEGATIVE); EPITHELIAL CELLS 0-5 /hpf (0-5); GLUCOSE 100 mg/dL (NEGATIVE); KETONE NEGATIVE (NEGATIVE); PROTEIN NEGATIVE (NEGATIVE); UROBILINOGEN NORMAL (NORMAL); WHITE CELLS - URINE RARE /hpf (0-5)
[2018-07-08 14:44] LABS: HYALINE CAST 0-5 /lpf (NONE SEEN); MUCUS <1+ /lpf (NONE SEEN); WAXY CAST RARE /lpf (NONE SEEN)
[2018-07-08 16:13] VITALS: BP 124/54
--- NOTE | 2018-07-08 18:45 | NUR ---
PT SITTING UP IN CHAIR. NO C/O PAIN. NO S/S OF ACUTE DISTRESS NOTED. PT ON DROPLET PRECAUTIONS FOR THE FLU. PT DENIES ANYTHING FURTHER AT THIS TIME. CALL LIGHT IN REACH. WILL CONTINUE TO MONITOR.
--- NOTE | 2018-07-08 19:51 | NUR ---
PATIENT SITTING UP IN RECLINER WITH FEET ELEVATED. WATCHING TV. NO SIGNS OF DISTRESS. DENIES HAVING ANY PAIN OR NEEDS AT THIS TIME. BED IN LOWEST POSITION. SIDE RAILS UP. CALL LIGHT IN REACH. CONTINUE PLAN OF CARE.
[2018-07-08 20:00] VITALS: BP 104/51
[2018-07-09] VITALS (7 sets, daily range): BP systolic 95–112; BP diastolic 45–68; Ht 190.5 cm; Wt 136.1 kg
--- NOTE | 2018-07-09 04:00 | NUR ---
PATIENT RESTING IN BED WITH EYES CLOSED. NO SIGNS OF DISTRESS. BED IN LOWEST POSITION. SIDE RAILS UP. CALL LIGHT IN REACH. CONTINUE PLAN OF CARE.
[2018-07-09 07:34] LABS: BASOPHILS 0.1 % (0-2); EOSINOPHILS 0 % (0-7); HEMATOCRIT 33.8 % (42.0-54.0); HEMOGLOBIN 10.5 g/dL (13.5-17.5); IMMATURE GRANULOCYTES 0.4 % (0-5); LYMPHOCYTES 23.6 % (15-50); MCH 29.2 pg (26.0-34.0); MCHC 31.1 g/dL (31.0-37.0); MCV 93.9 fL (80.0-100.0); MEAN PLATELET VOLUME 9.1 fL (7.4-10.4); MONOCYTES 11.5 % (2-11); NEUTROPHILS 64.4 % (40-80); PLATELET COUNT 236 10x3/uL (130-400); RDW 15.6 % (11.5-14.5); WBC 6.9 10x3/uL (4.8-10.8)
[2018-07-09 08:01] LABS: ANION GAP 7.1 mmol/L (8-16); CALCIUM 8.4 mg/dL (8.5-10.1); CARBON DIOXIDE 38.6 mmol/L (21.0-32.0); POTASSIUM - SERUM 4.7 mmol/L (3.5-5.1)
[2018-07-09 08:04] LABS: CREATININE - SERUM 1.3 mg/dL (0.6-1.3)
[2018-07-09 08:05] LABS: TROPONIN-I 0.19 ng/mL (0.000-0.060)
[2018-07-09 09:19] LABS: FOLATE (FOLIC ACID) - SERUM 16.9 ng/mL (>3.0)
--- NOTE | 2018-07-09 10:00 | NUR ---
PT RESTING IN BED, SHIFT ASSESSMENT PERFORMED. CONTINUES DROPLET ISOLATION R/T INFLUENZA. PRN NORCO GIVEN PER PT REQUEST. WOUND NOTED TO LEFT FOOT, PT HAS CLEAN,DRY DRESSING IN PLACE. PT STATES HE GETS THE DRESSING CHANGED AT [facility]. O2 AT 3L VIA NC NOTED, PT STATES HE IS ON O2 AT HOME WELL. WILL CONT TO FOLLOW PLAN OF CARE
--- NOTE | 2018-07-09 15:57 | NUR ---
OT NOTE: PT COMPLETED BED MOB WITH SPV. PT COMPLETED EOB SITTING BALANCE WITH SPV. PT COMPLETED SIT TO STAND WITH SBA. PT COMPLETED BUE AROM EXS. THANK YOU, ROBBY FUENTES
--- NOTE | 2018-07-09 19:50 | NUR ---
SITTING UP IN RECLINER WITH LEGS ELEVATED. ALERT AND ORIENTED X4. DROPLET PRECAUTIONS IN USE FOR FLU. RESP IRREG, NONLABORED. BBS CTA BUT DIMINISHED IN LT LOBES. O2 @ 3L/NC. NONPROD COUGH NOTED. DRSG NOTED TO LLE. C/O PAIN IN LT FOOT RATING 5 ON PAIN SCALE AND REQUESTS NORCO WITH PM MEDS. 2+ EDEMA NOTED TO RLE. 3+ EDEMA NOTED TO LLE. SALINE LOCK NOTED TO LT AC. CL IN REACH.
--- NOTE | 2018-07-09 20:45 | NUR ---
MEDICATED WITH NORCO FOR C/O PAIN IN LLE. CL IN REACH.
--- NOTE | 2018-07-10 00:26 | NUR ---
LYING IN RECLINER WITH EYES CLOSED. RESP NONLABORED. O2 @ 3L/NC. NO DISTRESS. CL IN REACH.
[2018-07-10 03:58] VITALS: BP 107/57
[2018-07-10 05:56] LABS: BASOPHILS 0.1 % (0-2); EOSINOPHILS 1.5 % (0-7); HEMATOCRIT 34.6 % (42.0-54.0); HEMOGLOBIN 10.5 g/dL (13.5-17.5); IMMATURE GRANULOCYTES 0.3 % (0-5); LYMPHOCYTES 32.2 % (15-50); MCH 28.8 pg (26.0-34.0); MCHC 30.3 g/dL (31.0-37.0); MCV 95.1 fL (80.0-100.0); MEAN PLATELET VOLUME 9.4 fL (7.4-10.4); MONOCYTES 7.7 % (2-11); NEUTROPHILS 58.2 % (40-80); PLATELET COUNT 257 10x3/uL (130-400); RBC 3.64 10x6/uL (4.20-6.10); RDW 15.6 % (11.5-14.5); WBC 7.5 10x3/uL (4.8-10.8)
[2018-07-10 06:16] LABS: ANION GAP 7.6 mmol/L (8-16); CALCIUM 8.2 mg/dL (8.5-10.1); CREATININE - SERUM 1.4 mg/dL (0.6-1.3); MAGNESIUM - SERUM 1.6 mg/dL (1.8-2.4); PHOSPHOROUS 3.9 mg/dL (2.5-4.9); POTASSIUM - SERUM 4.6 mmol/L (3.5-5.1)
[2018-07-10 12:14] VITALS: BP 100/54
--- NOTE | 2018-07-10 19:50 | NUR ---
SITTING UP IN CHAIR. ALERT AND ORIENTED. DENIES PAIN. TALKATIVE WITH STAFF. DROPLET ISO IN USE FOR FLU. RESP IRREG. NONLABORED. O2 @ 3L/NC. NONPROD COUGH NOTED. BBS CTA. NO DISTRESS. DRSG NOTED TO LLE. 3+ EDEMA NOTED TO LLE. 2+ EDEMA NOTED TO RLE. TELEMETRY SHOWS AFLUTTER WITH RATE OF 67. SALINE LOCK NOTED TO LT AC. CL IN REACH.
[2018-07-10 21:23] VITALS: BP 109/58
[2018-07-10 21:50] VITALS: BP 92/50
[2018-07-11 00:25] VITALS: BP 126/61
--- NOTE | 2018-07-11 03:43 | NUR ---
HAS RESTED WELL SO FAR THIS SHIFT. SLEEPING IN RECLINER AT BEDSIDE. NO DISTRESS. CL IN REACH.
[2018-07-11 05:25] VITALS: BP 138/71
[2018-07-11 07:18] LABS: BASOPHILS 0.1 % (0-2); EOSINOPHILS 2.9 % (0-7); HEMATOCRIT 35.7 % (42.0-54.0); HEMOGLOBIN 10.9 g/dL (13.5-17.5); IMMATURE GRANULOCYTES 0.4 % (0-5); LYMPHOCYTES 27.5 % (15-50); MCH 28.7 pg (26.0-34.0); MCHC 30.5 g/dL (31.0-37.0); MCV 93.9 fL (80.0-100.0); MEAN PLATELET VOLUME 9.1 fL (7.4-10.4); MONOCYTES 7.1 % (2-11); PLATELET COUNT 274 10x3/uL (130-400); RDW 15.6 % (11.5-14.5); WBC 7.3 10x3/uL (4.8-10.8)
[2018-07-11 07:21] LABS: INR 2.09 (0.85-1.17); PROTIME 22.8 SECONDS (11.6-15.0)
[2018-07-11 07:22] LABS: ANION GAP 7.1 mmol/L (8-16); CALCIUM 8.9 mg/dL (8.5-10.1); CARBON DIOXIDE 39.3 mmol/L (21.0-32.0); CREATININE - SERUM 1.2 mg/dL (0.6-1.3); MAGNESIUM - SERUM 1.9 mg/dL (1.8-2.4); POTASSIUM - SERUM 4.4 mmol/L (3.5-5.1)
[2018-07-11 08:03] VITALS: BP 149/66
[2018-07-11] MEDS ORDERED: TAMIFLU75 MG PO (08:06)
--- NOTE | 2018-07-11 09:00 | NUR ---
PT SITTING IN HIS CHAIR IN HIS ROOM, PT REQUEST PRN NORCO FOR PAIN TO BLE. NORCO GIVEN WITH AM MEDS. SHIFT ASSESSMENT PERFORMED, DENIES ANY PAIN AT THIS TIME, DENIES NEEDS AT THIS TIME, WILL CONT TO FOLLOW PLAN OF CARE
--- NOTE | 2018-07-11 11:31 | NUR ---
SPOKE WITH [facility] TO OBTAIN CURRENT WOUND CARE ORDERS. ADVISED [facility] THAT WE DO NOT CARRY SOME OF THE SUPPLIES THAT THE PT REQUIRES FOR HIS WOUND CARE. ASKED [facility] IF THEY COULD SEND A NURSE OUT TO SEE THE PT TODAY SINCE THEY HAVE HIS SUPPLIES AT HIS HOUSE. [facility] STATES THEY DO NOT HAVE A NURSE THAT COULD SEE HIM TODAY. SPOKE WITH PT AND ADVISED HIM THAT RN CAN CHANGE HIS DRESSING BUT IT WOULD NOT BE THE SAME ITEMS THAT HE CURRENTLY HAS ORDERED. PT REFUSED TO LET RN CHANGE HIS DRESSING. STATES,"I WILL GET HH TO COME SEE ME OR IF THEY DON'T, I HAVE AN APPOINTMENT SATURDAY WITH THE WOUND CLINIC." ASKED PT IF HE WOULD BE WILLING TO GO TO THE WOUND CLINIC TODAY IF RN COULD GET AN APPOINTMENT. PT ADVISED NURSE THAT [facility] IS NOT OPEN ON FRIDAYS.
--- NOTE | 2018-07-11 11:54 | NUR ---
PIV TO LEFT AC REMOVED WITH CATHETER TIP INTACT. DISCHARGE INSTRUCTIONS REVIEWED WITH PT AND ALL QUESTIONS ANSWERED. PT STATES HIS GRANDSON IS ON HIS WAY. TELEMETRY REMOVED AND TAKEN BACK TO SPORTS ADMINISTRATOR
--- NOTE | 2018-07-11 12:25 | NUR ---
FAMILY ARRIVED TO TAKE PT HOME. CALLED TO TRAUMA MANAGER FOR A VOLUNTEER TO ASSIST PT OUT OF HOSPITAL VIA WHEELCHAIR.
--- NOTE | 2018-07-11 14:59 | MORECARE ---
CASE MANAGEMENT DISCHARGE SUMMARY PATIENT: MONIQUE BEDOLLA UNIT: [id number] ADM DATE: 07/08/18 AGE: 68 : 48 SEX: M ROOM/BED: D.1209 AUTHOR: SANDEEDOC PHYSICIAN: REFERRING PHYSICIAN: RHEA SANCHEZ MD DATE OF SERVICE: 07/11/18 Discharge Plan Patient Name: MONIQUE BEDOLLA Facility: [facility]:[place] : 1950 Planned Disposition: Home with Home Health Anticipated Discharge Date: 07/10/18 Discharge Date: 07/11/2018 Expected LOS: 2 Initial Reviewer: [email or web address] Initial Review Date: 07/08/2018 Generated: 07/11/18 3:58 pm DCP- Discharge Planning Updated by [email or web address]: Holli Bal on 07/08/18 10:[address] Patient Name: MONIQUE BEDOLLA Admission Status: ER Accout number: [id number] Admission Date: 07-08-2018 : 1950 Admission Diagnosis: Attending: RHEA SANCHEZ Current LOS: 1 Anticipated DC Date: 07-10-2018 Planned Disposition: Home with Home Health Primary Insurance: MEDICARE A & B Discharge Planning Comments: CM met with patient and his sonKang to complete initial dc planning assessment. CM educated patient on the CM role and verbal consent given by patient to complete assessment. Patient lives at home with his . He reports he is independent with his Adl's and Iadl's. Patient son reports that his dad has wounds on his left foot that will need to be addressed. He goes to the wound clinic 3 x week. Co obtained order for wound care nurse for dressing changes. CM left a message with Starla HOUSTONresident care coordinator informing her of wounds. At discharge patient plans to return home with resumption of [facility]. [facility] form singed by patient's son to resume [facility]. Patient and son feels this is a safe discharge. Patient son is a [facility] disease case manager rn and will notify them the patient is being admitted. CM will continue to follow and will assist as needed with dc plans/needs. Laborer Livestock: Holli Bal RN, [facility] DCPIA - Discharge Planning Initial Assessment Updated by [email or web address]: Holli Bal on 07/08/18 11:20 am * Is the patient Alert and Oriented? Yes * How many steps to enter\exit or inside your home? * PCP Dr. Her * Pharmacy [address] * Preadmission Environment Home with Family * ADLs Independent * Equipment Glucometer Oxygen Rolling Walker Shower Chair * Other Equipment Wears O2 24/7 with portable concentrator from [facility]. * List name and contact numbers for known caregivers / representatives who currently or will assist patient after discharge: Wendy Bedolla - - [phone] Kang Bedolla - son - [phone] * Verbal permission to speak to the caregivers and representatives has been obtained from the patient. Yes * Community resources currently utilized Home Health * Please name any agencies selected above. [facility] signed to resume [facility] in the ER. * Additional services required to return to the preadmission environment? No * Can the patient safely return to the preadmission environment? Yes * Has this patient been hospitalized within the prior 30 days at any hospital? No External Providers External Provider: [facility] Next Contact Date: Service Request Date: Service Type: Resolution: Reviewer: Comments: Coverage Notice Reviewer: [email or web address] - Praveena Olivares Notice Issued Date-Time: 07/11/2018 10:01 Notice Type: IM Discharge Notice Notice Delivered To: Patient Relationship to Patient: String Winding Machine Operator Name: Delivery Method: HAND - Hand Delivered Janet Days: Prior Verbal Notification: Recipient Understood Notice: Yes Recipient Signature: Yes Med Rec Note Co-signed by Attending: Coverage Notice Comment: Last DP export: 07/08/18 10:32 a Patient Name: MONIQUE BEDOLLA Page 98940 at 1459 All edits/amendments must be made on the electronic document DICTATION DATE: 07/11/181457 EXECUTIVE ADMIN: JASMYN 07/11/181457 RPT#: [id number] DC DATE:07/11/18 STATUS: DIS IN [facility] [address] [place] [address] END OF REPORT
--- NOTE | 2018-07-11 15:18 | MORECARE ---
CASE MANAGEMENT DISCHARGE SUMMARY PATIENT: MONIQUE BEDOLLA UNIT: [id number] ADM DATE: 07/08/18 AGE: 68 : 48 SEX: M ROOM/BED: D.1209 AUTHOR: CAT IGNACIO PHYSICIAN: REFERRING PHYSICIAN: RHEA SANCHEZ MD DATE OF SERVICE: 07/11/18 Discharge Plan Patient Name: MONIQUE BEDOLLA Facility: [facility]:[place] : 1950 Planned Disposition: Home with Home Health Anticipated Discharge Date: 07/10/18 Discharge Date: 07/11/2018 Expected LOS: 2 Initial Reviewer: [email or web address] Initial Review Date: 07/08/2018 Generated: 07/11/18 4:18 pm Comments DCP- Discharge Planning Updated by [email or web address]: Praveena Olivares on 07/11/18 2:[address] Patient Name: MONIQUE BEDOLLA Encounter No: [id number] : 1950 Primary Insurance: MEDICARE A & B Anticipated DC Date: 07-10-2018 Planned Disposition: Home with Home Health External Planned Provider: : DCP follow-up note: Patient and family in agreement with discharge plan. No changes to plan. Case management will follow and assist as needed. [facility] WILL RESUME CARE, DOCUMENTS FAXED TO [facility]. Praveena Olivares DCP- Discharge Planning Updated by [email or web address]: Holli Bal on 07/08/18 10:[address] Patient Name: MONIQUE BEDOLLA Admission Status: ER Accout number: [id number] Admission Date: 07-08-2018 : 1950 Admission Diagnosis: Attending: RHEA SANCHEZ Current LOS: 1 Anticipated DC Date: 07-10-2018 Planned Disposition: Home with Home Health Primary Insurance: MEDICARE A & B Discharge Planning Comments: CM met with patient and his sonKang to complete initial dc planning assessment. CM educated patient on the CM role and verbal consent given by patient to complete assessment. Patient lives at home with his . He reports he is independent with his Adl's and Iadl's. Patient son reports that his dad has wounds on his left foot that will need to be addressed. He goes to the wound clinic 3 x week. Co obtained order for wound care nurse for dressing changes. CM left a message with Starla HOUSTONclinical care manager informing her of wounds. At discharge patient plans to return home with resumption of [facility]. DYLAN form singed by patient's son to resume [facility]. Patient and son feels this is a safe discharge. Patient son is a [facility] caseworker and will notify them the patient is being admitted. CM will continue to follow and will assist as needed with dc plans/needs. Molder Punch: Holli Bal RN, [facility] DCPIA - Discharge Planning Initial Assessment Updated by [email or web address]: Holli Bal on 07/08/18 11:20 am * Is the patient Alert and Oriented? Yes * How many steps to enter\exit or inside your home? * PCP Dr. Her * Pharmacy [address] * Preadmission Environment Home with Family * ADLs Independent * Equipment Glucometer Oxygen Rolling Walker Shower Chair * Other Equipment Wears O2 24/7 with portable concentrator from [facility] Patient. * List name and contact numbers for known caregivers / representatives who currently or will assist patient after discharge: Wendy Bedolla - - [phone] Kang Sullivan son - [phone] * Verbal permission to speak to the caregivers and representatives has been obtained from the patient. Yes * Community resources currently utilized Home Health * Please name any agencies selected above. [facility] - DYLAN signed to resume [facility] in the ER. * Additional services required to return to the preadmission environment? No * Can the patient safely return to the preadmission environment? Yes * Has this patient been hospitalized within the prior 30 days at any hospital? No Coverage Notice Reviewer: [email or web address] Laurie Olivares Notice Issued Date-Time: 07/11/2018 10:01 Notice Type: IM Discharge Notice Notice Delivered To: Patient Relationship to Patient: Finger Buffs Assembler Name: Delivery Method: HAND - Hand Delivered Janet Days: Prior Verbal Notification: Recipient Understood Notice: Yes Recipient Signature: Yes Med Rec Note Co-signed by Attending: Coverage Notice Comment: Last DP export: 07/11/18 1:58 p Patient Name: MONIQUE BEDOLLA Page 46069 at 1518 All edits/amendments must be made on the electronic document DICTATION DATE: 07/11/181516 ACCOUNT DEVELOPMENT ASSOCIATE: JASMYN 07/11/18 151 RPT#: [id number] DC DATE:07/11/18 STATUS: DIS IN [facility] [address] [place] [address] END OF REPORT
== END 2018-07-11 12:26 | disposition home health service (06) | DRG 193 ==
LOC: D.ER 08:20 → D.M3 10:14 → D.EDHOLD 10:14 → D.M3 10:59
PROVIDERS: Family Medicine; ADMIT Internal Medicine Nephrology; ATTEND Internal Medicine Nephrology
DX: J10.1 Influenza due to other identified influenza virus with other respiratory manifestations (principal); J96.22 Acute and chronic respiratory failure with hypercapnia; J96.21 Acute and chronic respiratory failure with hypoxia; I50.33 Acute on chronic diastolic (congestive) heart failure; I24.8 Other forms of acute ischemic heart disease; J44.1 Chronic obstructive pulmonary disease with (acute) exacerbation; I42.9 Cardiomyopathy, unspecified; N17.9 Acute kidney failure, unspecified; I13.0 Hypertensive heart and chronic kidney disease with heart failure and stage 1 through stage 4 chronic kidney disease, or unspecified chronic kidney disease; I48.0 Paroxysmal atrial fibrillation; E78.5 Hyperlipidemia, unspecified; I25.10 Atherosclerotic heart disease of native coronary artery without angina pectoris; D50.9 Iron deficiency anemia, unspecified; E83.42 Hypomagnesemia; I08.1 Rheumatic disorders of both mitral and tricuspid valves; N18.9 Chronic kidney disease, unspecified; E11.22 Type 2 diabetes mellitus with diabetic chronic kidney disease; Z86.718 Personal history of other venous thrombosis and embolism; Z79.01 Long term (current) use of anticoagulants

== ENCOUNTER → 2018-07-16 13:07 | Outpatient (CLI) | payer MEDICARE, OTHER ==
[2018-07-09 10:43] VITALS: BMI 37.4
[~2018-07-16 13:07] MED LIST changes: +TAMIFLU75 MG PO
[2018-07-16 14:08] LABS: INR 2.87 (0.85-1.17); PROTIME 29.3 SECONDS (11.6-15.0)
== END | disposition home or self-care (01) ==
LOC: D.LABREF 13:07
PROVIDERS: ATTEND Family Medicine
DX: Z51.81 Encounter for therapeutic drug level monitoring (principal)

== ENCOUNTER → 2018-07-30 15:41 | Outpatient (CLI) | payer MEDICARE, OTHER ==
[2018-07-09 10:43] VITALS: BMI 37.4
[2018-07-30 16:51] LABS: INR 3.15 (0.85-1.17); PROTIME 31.6 SECONDS (11.6-15.0)
== END | disposition home or self-care (01) ==
LOC: D.LABREF 15:41
PROVIDERS: ATTEND Family Medicine
DX: Z51.81 Encounter for therapeutic drug level monitoring (principal); Z79.01 Long term (current) use of anticoagulants

== ENCOUNTER 2018-08-06 12:10 | Inpatient (IN) | payer MEDICARE, OTHER ==
[~2018-08-06] VITALS: Ht 190.5 cm; Wt 135.0 kg
[2018-08-06 12:38] LABS: BASOPHILS 0.4 % (0-2); EOSINOPHILS 3.1 % (0-7); HEMATOCRIT 34.2 % (42.0-54.0); HEMOGLOBIN 10.5 g/dL (13.5-17.5); IMMATURE GRANULOCYTES 0.3 % (0-5); LYMPHOCYTES 28.1 % (15-50); MCH 28.5 pg (26.0-34.0); MCHC 30.7 g/dL (31.0-37.0); MCV 92.9 fL (80.0-100.0); MEAN PLATELET VOLUME 8.7 fL (7.4-10.4); MONOCYTES 7.8 % (2-11); NEUTROPHILS 60.3 % (40-80); RBC 3.68 10x6/uL (4.20-6.10); RDW 15.3 % (11.5-14.5); WBC 7.2 10x3/uL (4.8-10.8)
[2018-08-06 12:43] LABS: PLATELET COUNT 215 10x3/uL (130-400)
[2018-08-06 12:56] LABS: ALBUMIN 3.2 g/dL (3.4-5.0); ALKALINE PHOSPHATASE 85 U/L (46-116); ALT (SGPT) 18 U/L (10-68); BILIRUBIN - TOTAL 0.22 mg/dL (0.2-1.3); CALC OSMOLALITY 284 mosm/kg (275-300); CALCIUM 8.7 mg/dL (8.5-10.1); CARBON DIOXIDE 36.6 mmol/L (21.0-32.0); CHLORIDE - SERUM 101 mmol/L (98-107); CREATININE - SERUM 1.3 mg/dL (0.6-1.3); GLUCOSE 95 mg/dL (74-106); POTASSIUM - SERUM 4.4 mmol/L (3.5-5.1); PROTEIN - SERUM 7.2 g/dL (6.4-8.2); SODIUM 142 mmol/L (136-145); UREA NITROGEN 17 mg/dL (7-18); eGFR NON AFRICAN AMERICAN 58 mL/min (90-120)
[2018-08-06 12:57] LABS: APTT 128.4 SECONDS (22.8-39.4)
[2018-08-06 12:59] LABS: INR 5.66 (0.85-1.17); PROTIME 50.3 SECONDS (11.6-15.0)
--- NOTE | 2018-08-06 13:00 | NUR ---
NOTIFIED BY LAB OF CRITICAL PROTIME OF 50.3, AND INR 5.66. TREATING PROVIDER NOTIFIED.
[2018-08-06 13:16] LABS: CKMB 1.1 U/L (0.0-3.6); CREATINE KINASE 40 UL (21-232); PRO BNP 2495 pg/mL (0-125); TROPONIN-I 0.022 ng/mL (0.000-0.060)
[2018-08-06 15:30] VITALS: BP 133/77
--- NOTE | 2018-08-06 15:31 | NUR ---
TO CT VIASTRETCHER WITH TECH
--- NOTE | 2018-08-06 17:42 | NUR ---
REPORT CALLED TO ROSEMARIE BRAVO VIA SBAR FORMAT.
[2018-08-06 18:02] VITALS: BP 145/65
[2018-08-06] MEDS ORDERED: COUMADIN5 MG PO (18:32)
--- NOTE | 2018-08-06 18:32 | MORECARE ---
CASE MANAGEMENT DISCHARGE SUMMARY PATIENT: MONIQUE BEDOLLA UNIT: [id number] ADM DATE: 08/06/18 AGE: 68 : 48 SEX: M ROOM/BED: D.2113 AUTHOR: CAT IGNACIO PHYSICIAN: REFERRING PHYSICIAN: RHEA SANCHEZ MD DATE OF SERVICE: 08/06/18 Discharge Plan Patient Name: MONIQUE BEDOLLA [facility] : 1950 Planned Disposition: Anticipated Discharge Date: Discharge Date: Expected LOS: Initial Reviewer: [email or web address] Initial Review Date: 08/06/2018 Generated: 08/06/18 7:32 pm Patient Name: MONIQUE BEDOLLA Page 43912 at 1832 All edits/amendments must be made on the electronic document DICTATION DATE: 08/06/181831 ASSISTANT BUYER: JASMYN 08/06/181831 RPT#: [id number] DC DATE: STATUS: ADM IN [facility] [address] [place] [address] END OF REPORT
--- NOTE | 2018-08-06 18:56 | MORECARE ---
CASE MANAGEMENT DISCHARGE SUMMARY PATIENT: MONIQUE BEDOLLA UNIT: [id number] ADM DATE: 08/06/18 AGE: 68 : 48 SEX: M ROOM/BED: D.[facility] AUTHOR: CAT IGNACIO PHYSICIAN: REFERRING PHYSICIAN: RHEA SANCHEZ MD DATE OF SERVICE: 08/06/18 Discharge Plan Patient Name: MONIQUE BEDOLLA Facility: [facility]:[place] : 1950 Planned Disposition: Anticipated Discharge Date: Discharge Date: Expected LOS: Initial Reviewer: [email or web address] Initial Review Date: 08/06/2018 Generated: 08/06/18 7:56 pm DCPIA - Discharge Planning Initial Assessment Updated by [email or web address]: Idalmis Mckeon on 08/06/18 6:53 pm * Is the patient Alert and Oriented? Yes * How many steps to enter\exit or inside your home? 6 front/7b * PCP Amparo Her * [facility]acy [facility] * Preadmission Environment Home with Family * ADLs Independent * Equipment Glucometer Nebulizer Oxygen Rolling Walker * Other Equipment None reported Walkers X2 * List name and contact numbers for known caregivers / representatives who currently or will assist patient after discharge: Jeffrey Bedolla (son) [phone] Call before Aneesh Bedolla (son) [phone] Call before Berna Bedolla () [phone] C [phone] H * Community resources currently utilized Home Health * Please name any agencies selected above. [facility] wound care * Additional services required to return to the preadmission environment? Yes * Can the patient safely return to the preadmission environment? Yes * Has this patient been hospitalized within the prior 30 days at any hospital? Yes Last DP export: 08/06/18 5:32 p Patient Name: MONIQUE BEDOLLA Page 78769 at 1856 All edits/amendments must be made on the electronic document DICTATION DATE: 08/06/181854 STUNT DRIVER: JASMYN 08/06/181854 RPT#: [id number] DC DATE: STATUS: ADM IN [facility] [address] [place] [address] END OF REPORT
--- NOTE | 2018-08-06 19:33 | MORECARE ---
CASE MANAGEMENT DISCHARGE SUMMARY PATIENT: MONIQUE BEDOLLA UNIT: [id number] ADM DATE: 08/06/18 AGE: 68 : 48 SEX: M ROOM/BED: D.2113 AUTHOR: SANDEE,DOC PHYSICIAN: REFERRING PHYSICIAN: RHEA SANCHEZ MD DATE OF SERVICE: 08/06/18 Discharge Plan Patient Name: MONIQUE BEDOLLA Facility: [facility]:[place] : 1950 Planned Disposition: Anticipated Discharge Date: Discharge Date: Expected LOS: Initial Reviewer: [email or web address] Initial Review Date: 08/06/2018 Generated: 08/06/18 8:33 pm Comments DCP- Discharge Planning Updated by [email or web address]: Idalmis Mckeon on 08/06/18 6:[address] CM met with patient @bedside in ER, to discuss dc plans/needs. Patient is alert/oriented, gives permission to complete CM assessment. PCP: shana Peña APRN. [facility]acy[facility]. Emergency contact: Jeffrey eBdolla (son) [phone], Aneesh Bedolla (son) [phone]. Per patient REQUEST sons be called prior to calling his , Berna Bedolla () C #[phone], Home #[phone]. Patient states he is Independent in his care at home and lives with , Berna. [facility]: [facility] for wound care on Saturday/Saturday--request instructions be obtained regarding his wound care to foot. DME: Walker X2, O2 24/7, UD, Glucometer, . States at this time, she does not require additional services and feels safe returning to her previous environment. Patient denies being hospitalized within the past 30 days. Idalmis Mckeon RN CM DCPIA - Discharge Planning Initial Assessment Updated by [email or web address]: Idalmis Mckeon on 08/06/18 6:53 pm * Is the patient Alert and Oriented? Yes * How many steps to enter\exit or inside your home? 6 front/7b * PCP Amparo Her * [facility] * Preadmission Environment Home with Family * ADLs Independent * Equipment Glucometer Nebulizer Oxygen Rolling Walker * Other Equipment None reported Walkers X2 * List name and contact numbers for known caregivers / representatives who currently or will assist patient after discharge: Jeffrey Bedolla (son) [phone] Call before Aneesh Bedolla (son) [phone] Call before Berna Bedolla () [phone] C [phone] H * Community resources currently utilized Home Health * Please name any agencies selected above. [facility] wound care * Additional services required to return to the preadmission environment? Yes * Can the patient safely return to the preadmission environment? Yes * Has this patient been hospitalized within the prior 30 days at any hospital? Yes Last DP export: 08/06/18 5:56 p Patient Name: MONIQUE BEDOLLA Page 79550 at 1933 All edits/amendments must be made on the electronic document DICTATION DATE: 08/06/181931 OFFICE ASST: JASMYN 08/06/181931 RPT#: [id number] DC DATE: STATUS: ADM IN [facility] [address] [place] [address] END OF REPORT
--- NOTE | 2018-08-06 19:40 | NUR ---
RESUMING PT CARE. PT ALERT SITTING CHAIR SIDE. NO C/O VOICED. NO S/S OF DISTRESS NOTED. CALL LIGHT IN REACH AT CHAIR SIDE. WILL CONTINUE TO MONITOR PT AND FOLLOW PLAN OF CARE.
[2018-08-06 20:00] VITALS: BP 116/64
[2018-08-07 00:30] VITALS: BP 122/56
--- NOTE | 2018-08-07 03:06 | NUR ---
I have reviewed this patient and I concur with the Shift Assessment completed by the Licensed Practical Nurse today this shift.
[2018-08-07 05:00] VITALS: BP 125/65
[2018-08-07 05:26] LABS: BASOPHILS 0.1 % (0-2); EOSINOPHILS 3.7 % (0-7); HEMATOCRIT 32.8 % (42.0-54.0); IMMATURE GRANULOCYTES 0.1 % (0-5); LYMPHOCYTES 26.8 % (15-50); MCH 28.3 pg (26.0-34.0); MCHC 30.5 g/dL (31.0-37.0); MCV 92.9 fL (80.0-100.0); MONOCYTES 7.9 % (2-11); NEUTROPHILS 61.4 % (40-80); PLATELET COUNT 204 10x3/uL (130-400); RBC 3.53 10x6/uL (4.20-6.10); RDW 15.5 % (11.5-14.5); WBC 6.8 10x3/uL (4.8-10.8)
[2018-08-07 05:39] LABS: ALBUMIN 2.9 g/dL (3.4-5.0); ALKALINE PHOSPHATASE 74 U/L (46-116); ALT (SGPT) 16 U/L (10-68); BILIRUBIN - TOTAL 0.32 mg/dL (0.2-1.3); CALC OSMOLALITY 283 mosm/kg (275-300); CALCIUM 8.6 mg/dL (8.5-10.1); CARBON DIOXIDE 37.6 mmol/L (21.0-32.0); CHLORIDE - SERUM 103 mmol/L (98-107); GLUCOSE 104 mg/dL (74-106); MAGNESIUM - SERUM 1.6 mg/dL (1.8-2.4); PHOSPHOROUS 3.5 mg/dL (2.5-4.9); PROTEIN - SERUM 6.5 g/dL (6.4-8.2); SODIUM 142 mmol/L (136-145); UREA NITROGEN 15 mg/dL (7-18); eGFR NON AFRICAN AMERICAN 78 mL/min (90-120)
[2018-08-07 05:50] LABS: INR 2.69 (0.85-1.17); PROTIME 27.9 SECONDS (11.6-15.0)
--- NOTE | 2018-08-07 07:30 | NUR ---
RECEIVED A/A/O X 4. SITTING UP IN BEDSIDE CHAIR. NO REQUESTS VOICED AT THIS TIME. WANTING TO KNOW IF WE CAN GET HIS AMBIEN AND NORCO ORDERED TODAY AND WILL TAKE CARE OF THIS FOR HIM. ASSESSMENT COMPLETED. WILL CONTINUE POC.
[2018-08-07] MEDS ORDERED: AMBIEN10 MG PO (08:55)
--- NOTE | 2018-08-07 09:24 | MORECARE ---
CASE MANAGEMENT DISCHARGE SUMMARY PATIENT: MONIQUE BEDOLLA UNIT: [id number] ADM DATE: 08/06/18 AGE: 68 : 48 SEX: M ROOM/BED: D.2113 AUTHOR: SANDEE,DOC PHYSICIAN: REFERRING PHYSICIAN: RHEA SANCHEZ MD DATE OF SERVICE: 08/07/18 Discharge Plan Patient Name: MONIQUE BEDOLLA Facility: [facility]:[place] : 1950 Planned Disposition: Home with Home Health Anticipated Discharge Date: Discharge Date: Expected LOS: Initial Reviewer: [email or web address] Initial Review Date: 08/06/2018 Generated: 08/07/18 10:24 am DCP- Discharge Planning Updated by [email or web address]: Idalmis Mckeon on 08/06/18 6:[address] CM met with patient @bedside in ER, to discuss dc plans/needs. Patient is alert/oriented, gives permission to complete CM assessment. PCP: Dr. Her, shana Salazar APRN. Pharmacy: [facility]. Emergency contact: Jeffrey Bedolla (son) [phone], Aneesh Bedolla (son) [phone]. Per patient REQUEST sons be called prior to calling his , Berna Bedolla () C #[phone], Home #[phone]. Patient states he is Independent in his care at home and lives with , Berna. [facility]: [facility] for wound care on Saturday/Saturday--request instructions be obtained regarding his wound care to foot. DME: Walker X2, O2 24/, UD, Glucometer, . States at this time, she does not require additional services and feels safe returning to her previous environment. Patient denies being hospitalized within the past 30 days. Idalmis Mckeon RN CM DCPIA - Discharge Planning Initial Assessment Updated by [email or web address]: Idalmis Mckeon on 08/06/18 6:53 pm * Is the patient Alert and Oriented? Yes * How many steps to enter\exit or inside your home? 6 front/7b * PCP Amparo Her * Pharm[facility] * Preadmission Environment Home with Family * ADLs Independent * Equipment Glucometer Nebulizer Oxygen Rolling Walker * Other Equipment None reported Walkers X2 * List name and contact numbers for known caregivers / representatives who currently or will assist patient after discharge: Jeffrey Bedolla (son) [phone] Call before Aneesh Bedolla (son) [phone] Call before Berna Bedolla () [phone] C [phone] H * Community resources currently utilized Home Health * Please name any agencies selected above. [facility] wound care * Additional services required to return to the preadmission environment? Yes * Can the patient safely return to the preadmission environment? Yes * Has this patient been hospitalized within the prior 30 days at any hospital? Yes Last DP export: 08/06/18 6:33 p Patient Name: MONIQUE BEDOLLA Page 19822 at 0924 All edits/amendments must be made on the electronic document DICTATION DATE: 08/07/18923 ARMATURE REPAIRER: JASMYN 08/07/18923 RPT#: [id number] DC DATE: STATUS: ADM IN [facility] [address] [place] [address] END OF REPORT
[2018-08-07 10:02] VITALS: BP 129/70
[2018-08-07 13:04] VITALS: Ht 190.5 cm; Wt 135.0 kg
--- NOTE | 2018-08-07 13:47 | NUR ---
INFORMED PT OF ORDERS RECIEVED FOR AAYUSH AND [place]O. NORCO ADMINISTERED AT THIS TIME.
--- NOTE | 2018-08-07 14:11 | NUR ---
I have reviewed this patient and I concur with the Shift Assessment completed by the Licensed Practical Nurse today this shift.
[2018-08-07 15:34] VITALS: BP 141/60
--- NOTE | 2018-08-07 16:26 | NUR ---
PT DECLINES OFFER FOR SCDS DUE TO SWELLING AND SORENESS IN HIS LEGS. GETS UP AD ZI TO BATHROOM AND AROUND HIS ROOM.
[2018-08-07 20:00] VITALS: BP 115/57
--- NOTE | 2018-08-07 20:00 | NUR ---
ROUNDS COMPLETED. VSS, AAOX4, NO S/S OF RR DISTRESS. EDEMA TO LOWER EXTREMITIES. FOOT DRESSING C/D/I. PT ON 3L OF O2 AT THIS TIME. WILL CTM. CL IN REACH, BED IN LOW, SR UP X2.
--- NOTE | 2018-08-07 21:13 | NUR ---
MEDS GIVEN. PT FSBS 155. PT REDUSED INSULIN, STATES " IT'S NOT TOO HIGH, I'LL BE ALRIGHT." PT ALSO REFUSED HIS CHOLESTYRAMINE, STATES "IT MAKES ME GO." WILL CPOC. PT CURRENTLY RESTING ON THE COUCH. WILL CTM.
[2018-08-08] VITALS (7 sets, daily range): BP systolic 113–132; BP diastolic 53–79
[2018-08-08 05:40] LABS: BASOPHILS 0.1 % (0-2); EOSINOPHILS 3.2 % (0-7); HEMOGLOBIN 10.1 g/dL (13.5-17.5); IMMATURE GRANULOCYTES 0.3 % (0-5); LYMPHOCYTES 26.1 % (15-50); MCH 28.5 pg (26.0-34.0); MCHC 30.6 g/dL (31.0-37.0); MEAN PLATELET VOLUME 9.1 fL (7.4-10.4); MONOCYTES 7.8 % (2-11); NEUTROPHILS 62.5 % (40-80); PLATELET COUNT 212 10x3/uL (130-400); RBC 3.55 10x6/uL (4.20-6.10); RDW 15.5 % (11.5-14.5); WBC 7.3 10x3/uL (4.8-10.8)
[2018-08-08 05:50] LABS: INR 1.99 (0.85-1.17); PROTIME 21.9 SECONDS (11.6-15.0)
[2018-08-08 06:06] LABS: ANION GAP 10.8 mmol/L (8-16); CALCIUM 8.7 mg/dL (8.5-10.1); CARBON DIOXIDE 34.3 mmol/L (21.0-32.0); CREATININE - SERUM 1.1 mg/dL (0.6-1.3); POTASSIUM - SERUM 4.1 mmol/L (3.5-5.1)
--- NOTE | 2018-08-08 07:10 | NUR ---
REPORT RECEIVED FROM ENGINEERING COORDINATOR AND PATIENT CARE ASSUMED. PATIENT AWAKE ALERT AND ORIENTED X 4. VSS. PATIENT DENIES ANY NEEDS OR PAIN. INFORMED PATIENT OF NEED OF STOOL SPECIMEN. HAT PLACED IN TOILET FOR SPECIMEN. WILL CONTINUE WITH PLAN OF CARE. CALL LIGHT IN REACH.
--- NOTE | 2018-08-08 09:00 | NUR ---
PATIENT STILL SITTING UP IN BEDSIDE CHAIR WATCHING TV. PATIENT DENIES ANY PAIN OR NEEDS. STOOL SPECIMEN OBTAINED AND SUBMITTED TO THE LAB. WILL CONTINUE TO MONITOR PATIENT. CALL LIGHT IN REACH.
--- NOTE | 2018-08-08 09:52 | MORECARE ---
CASE MANAGEMENT DISCHARGE SUMMARY PATIENT: MONIQUE BEDOLLA UNIT: [id number] ADM DATE: 08/07/18 AGE: 68 : 48 SEX: M ROOM/BED: D.2113 AUTHOR: SANDEE,DOC PHYSICIAN: REFERRING PHYSICIAN: RHEA SANCHEZ MD DATE OF SERVICE: 08/08/18 Discharge Plan Patient Name: MONIQUE BEDOLLA Facility: [facility]:[place] : 1950 Planned Disposition: Home with Home Health Anticipated Discharge Date: Discharge Date: Expected LOS: Initial Reviewer: [email or web address] Initial Review Date: 08/06/2018 Generated: 08/08/18 10:52 am DCP- Discharge Planning Updated by [email or web address]: Idalmis Mckeon on 08/06/18 6:[address] CM met with patient @bedside in ER, to discuss dc plans/needs. Patient is alert/oriented, gives permission to complete CM assessment. PCP: Dr. Her, shana Salazar APRN. Pharmacy: [facility]. Emergency contact: Jeffrey Bedolla (son) [phone], Aneesh Bedolla (son) [phone]. Per patient REQUEST sons be called prior to calling his , Berna Bedolla () C #[phone], Home #[phone]. Patient states he is Independent in his care at home and lives with , Berna. [facility]: [facility] for wound care on Saturday/Saturday--request instructions be obtained regarding his wound care to foot. DME: Walker X2, O2 24/7, UD, Glucometer, . States at this time, she does not require additional services and feels safe returning to her previous environment. Patient denies being hospitalized within the past 30 days. Idalmis Mckeon RN CM DCPIA - Discharge Planning Initial Assessment Updated by [email or web address]: Idalmis Mckeon on 08/06/18 6:53 pm * Is the patient Alert and Oriented? Yes * How many steps to enter\exit or inside your home? 6 front/7b * PCP Amparo Her * Pharmacy [facility] * Preadmission Environment Home with Family * ADLs Independent * Equipment Glucometer Nebulizer Oxygen Rolling Walker * Other Equipment None reported Walkers X2 * List name and contact numbers for known caregivers / representatives who currently or will assist patient after discharge: Jeffrey Bedolla (son) [phone] Call before Aneesh Bedolla (son) [phone] Call before Berna Bedolla () [phone] C [phone] H * Community resources currently utilized Home Health * Please name any agencies selected above. [facility] wound care * Additional services required to return to the preadmission environment? Yes * Can the patient safely return to the preadmission environment? Yes * Has this patient been hospitalized within the prior 30 days at any hospital? Yes Last DP export: 08/07/18 8:24 a Patient Name: MONIQUE BEDOLLA Page 57679 at 0952 All edits/amendments must be made on the electronic document DICTATION DATE: 08/08/18951 ELECTROCHEMIST: JASMYN 08/08/18951 RPT#: [id number] DC DATE: STATUS: ADM IN [facility] [address] [place] [address] END OF REPORT
--- NOTE | 2018-08-08 15:45 | NUR ---
PATIENT SITTING UP IN BEDSIDE CHAIR. VSS AND PATIENT IS STABLE. PATIENT DENIES ANY NEEDS OR PAIN. WILL CONTINUE TO MONITOR. CALL LIGHT IN REACH.
--- NOTE | 2018-08-08 17:44 | NUR ---
PATIENT SITTING UP IN BEDSIDE CHAIR. WOUND TO LEFT FOOT CLEANED, WOUND AG APPLIED COVERED WITH ADAPTIC. KERLIX WRAPPED AND SECURED WITH TAPE ALL PER ORDER.LEG SOCK AND FOOT SOCK RE-APPLIED. PATIENT TOLERATED WELL. DR BENDER TO ROOM FOLLOWEDE BY DR. SANCHEZ. NEW ORDERS RECIEVED. WILL CONTINUE TO MONITOR PATIENT. CALL LIGHT IN REACH.
--- NOTE | 2018-08-08 19:25 | NUR ---
SITTING IN RECLINER WITH LEGS ELEVATED. DRSG'S ON BOTH LEGS C/D/I. STATED THE RIGHT LEG DOES NOT HAVE A WOUND AND IS WRAPPED TO KEEP THE EDEMA DOWN. RR 20 EVEN NON-LABORED WITH 02 AT 3L/NC. HE IS ALERT/ORIENTED X4. IV IN L FA INTACT SL. HAS CALL LIGHT IN REACH. DENIES PAIN OR ANY NEEDS.
--- NOTE | 2018-08-08 21:35 | NUR ---
ADMIN SCHED MEDS, 4 UNITS REG INSULIN FOR BS 217. DID NOT WANT THE QUESTRAN, STATING HE HAD A BM THIS MORNING. REQUESTED LIGHTS OUT AND DOOR CLOSED TO SLEEP.
[2018-08-09 04:36] LABS: BASOPHILS 0.1 % (0-2); EOSINOPHILS 3.3 % (0-7); HEMATOCRIT 33.7 % (42.0-54.0); HEMOGLOBIN 10.2 g/dL (13.5-17.5); IMMATURE GRANULOCYTES 0.4 % (0-5); LYMPHOCYTES 30.7 % (15-50); MCH 28.1 pg (26.0-34.0); MCHC 30.3 g/dL (31.0-37.0); MCV 92.8 fL (80.0-100.0); MEAN PLATELET VOLUME 8.9 fL (7.4-10.4); MONOCYTES 7.1 % (2-11); NEUTROPHILS 58.4 % (40-80); PLATELET COUNT 206 10x3/uL (130-400); RBC 3.63 10x6/uL (4.20-6.10); RDW 15.4 % (11.5-14.5); WBC 7.4 10x3/uL (4.8-10.8)
[2018-08-09 04:51] LABS: INR 1.47 (0.85-1.17); PROTIME 17.2 SECONDS (11.6-15.0)
[2018-08-09 04:53] LABS: ANION GAP 8.1 mmol/L (8-16); CALCIUM 8.7 mg/dL (8.5-10.1); CARBON DIOXIDE 36.8 mmol/L (21.0-32.0); CREATININE - SERUM 1.3 mg/dL (0.6-1.3); POTASSIUM - SERUM 3.9 mmol/L (3.5-5.1)
--- NOTE | 2018-08-09 06:20 | NUR ---
SITTING IN RECLINER. ADMIN SCHED MEDS WITH SIPS OF WATER. DENIES ANY NEEDS OR DISCOMFORTS. HAS CALL LIGHT IN REACH.
--- NOTE | 2018-08-09 07:10 | NUR ---
REPORT RECEIVED FROM RECORDS COORDINATOR AND PATIENT CARE ASSUMED. PATIENT SITTING UP IN BEDSIDE CHAIR WITH EYES CLOSED AND BREATHING EVENLY. VSS. WILL CONTINUE WITH PLAN OF CARE. CALL LIGHT IN REACH.
[2018-08-09 08:48] VITALS: BP 107/55
--- NOTE | 2018-08-09 09:00 | NUR ---
PATIENT SITTING UP IN BEDSIDE CHAIR. AWAKE, ALERT AND ORIENTED X 4. ASSESSMENT COMPLETED. PATIENT DENIES ANY PAIN OR NEEDS. WILL CONTINUE TO MONITOR. CALL LIGHT IN REACH.
[2018-08-09 12:25] VITALS: BP 133/69
--- NOTE | 2018-08-09 15:51 | NUR ---
PATIENT SITTING UP IN BEDSIDE CHAIR WITH EYES CLOSED AND BREATHING EVENLY. WILL CONTINUE TO MONITOR. CALL LIGHT IN REACH.
[2018-08-09 15:59] VITALS: BP 134/68
--- NOTE | 2018-08-09 19:25 | NUR ---
SITTING IN RECLINER WATCHING TV. ORIENTED X 4. DENIES ANY NEEDS. REQUESTED PAIN MEDICATION WITH MED PASS FOR LEG PAIN LEVEL 5 ON NUMBER SCALE.IV IN L FA INTACT SL. ACKNOWLEDGES HE WILL BE NPO AT MIDNIGHT TONIGHT FOR EGD TOMORROW.
[2018-08-09 20:44] VITALS: BP 146/71
--- NOTE | 2018-08-09 20:45 | NUR ---
ADMIN SCHED MEDS, EYE DROPS AND NORCO 10MG PO PER REQUEST FOR C/O FOOT PAIN LEVEL 6 ON NUMBER SCALE. NO OTHER NEEDS VOICED.
--- NOTE | 2018-08-09 22:00 | NUR ---
RADIO PROGRAM DIRECTOR CHANGING BEDDING.
[2018-08-10 00:54] VITALS: BP 140/74
--- NOTE | 2018-08-10 02:00 | NUR ---
RESTING IN RECLINER WITH EYES CLOSED. RR 18 EVEN NON-LABORED ON 02 AT 3L/NC. TELEMETRY SHOWS 78 CAFIB. NO SIGNS OR SYMPTOMS OF DISCOMFORT. CALL LIGHT IN REACH.
[2018-08-10 04:00] VITALS: BP 136/65
--- NOTE | 2018-08-10 04:35 | NUR ---
WEB PRESS OPERATOR APPRENTICE PRESENT IN ROOM. NO NEEDS VOICED.
[2018-08-10 05:18] LABS: BASOPHILS 0.1 % (0-2); EOSINOPHILS 3.7 % (0-7); HEMATOCRIT 33.6 % (42.0-54.0); HEMOGLOBIN 10.3 g/dL (13.5-17.5); IMMATURE GRANULOCYTES 0.3 % (0-5); MCH 28.3 pg (26.0-34.0); MCHC 30.7 g/dL (31.0-37.0); MCV 92.3 fL (80.0-100.0); MEAN PLATELET VOLUME 9.3 fL (7.4-10.4); MONOCYTES 7.3 % (2-11); NEUTROPHILS 55.6 % (40-80); PLATELET COUNT 222 10x3/uL (130-400); RBC 3.64 10x6/uL (4.20-6.10); RDW 15.5 % (11.5-14.5); WBC 6.9 10x3/uL (4.8-10.8)
[2018-08-10 05:22] LABS: INR 1.29 (0.85-1.17); PROTIME 15.5 SECONDS (11.6-15.0)
[2018-08-10 05:30] LABS: CALCIUM 8.5 mg/dL (8.5-10.1); CARBON DIOXIDE 37.7 mmol/L (21.0-32.0); CREATININE - SERUM 1.1 mg/dL (0.6-1.3); POTASSIUM - SERUM 3.7 mmol/L (3.5-5.1)
--- NOTE | 2018-08-10 07:10 | NUR ---
REPORT RECEIVED FROM NETWORK DESIGNER AND PATIENT CARE ASSUMED. PATIENT SITTING UP IN BEDSIDE CHAIR AWAKE, ALERT AND ORIENTED X 4. O2 PER NC IN PLACE. PATIENT IS NPO AWAITING EGD. VSS. PATIENT DENIES ANY NEEDS OR PAIN. WILL CONTINUE WITH PLAN OF CARE.
--- NOTE | 2018-08-10 07:45 | NUR ---
CALL RECIEVED FROM GI TEAM TO PREMEDICATE PATIENT. PRE-MEDICATED PER MAR ORDER.
[2018-08-10 07:58] VITALS: BP 143/76
--- NOTE | 2018-08-10 08:00 | NUR ---
PATIENT TO GI LAB VIA HOSPITAL BED AND GI TEAM PERSONNEL. PATIENT IS STABLE AND VSS.
--- NOTE | 2018-08-10 09:10 | NUR ---
PATIENT RETURNED TO ROOM VIA HOSPITAL BED AND GI TEAM PERSONNEL. PATIENT IS AWAKE AND ALERT. PATIENT DENIES ANY NEEDS OR PAIN. PATIENT SITTING IN BED SIDE CHAIR WITH O2NC INFUSING AND CALL LIGHT IN REACH. BREAKFAST TRAY SERVED. PATIENT HAVING NO DIFFICULTY CHEWING OR SWALLOWING. WILL CONTINUE TO MONITOR. CALL LIGHT IN REACH.
[2018-08-10 11:22] VITALS: BP 135/71
--- NOTE | 2018-08-10 13:30 | NUR ---
PATIENT IS UNCHANGED AND VSS.
--- NOTE | 2018-08-10 16:00 | NUR ---
PATIENT SITTING UP IN BEDSIDE CHAIR WATCHING TV. PATIENT DENIES ANY NEEDS OR PAIN. CALL LIGHT IN REACH. WILL CONTINUE TO MONITOR.
[2018-08-10 16:10] VITALS: BP 136/58
--- NOTE | 2018-08-10 19:20 | NUR ---
SITTING IN RECLINER WATCHING TV. DENIES ANY NEEDS. REQUESTED PAIN MEDICATION WITH MED PASS FOR LEG/FOOT PAIN LEVEL 5 ON NUMBER SCALE. ASSESSMENTS STARTED PER NSG FLOWCHART. HAS CALL LIGHT IN REACH. REQUESTED DOOR CLOSED.
[2018-08-10 20:00] VITALS: BP 131/58
--- NOTE | 2018-08-10 21:20 | NUR ---
ADMIN SCHED MEDS AND NORCO 10MG FOR C/O LEG/FOOT PAIN LEVEL 6 ON NUMBER SCALE. CHECKED BS AT 127, NO INSULIN REQUIRED PER SLIDING SCALE. EMPTIED 1000CC URINE FROM HAT. NO OTHER NEEDS VOICED
[2018-08-11] VITALS: BP 106/64
--- NOTE | 2018-08-11 00:10 | NUR ---
CHEMIST TAKING VS. DENIES ANY NEEDS. HAS CALL LIGHT IN REACH.
[2018-08-11 04:00] VITALS: BP 133/55
--- NOTE | 2018-08-11 04:00 | NUR ---
RESTING IN RECLINER WITH EYES CLOSED. RR 18 EVEN NON-LABORED ON 02 AT 3L/NC. HAS CALL LIGHT IN REACH.
[2018-08-11 06:01] LABS: BASOPHILS 0.4 % (0-2); EOSINOPHILS 3.9 % (0-7); HEMATOCRIT 34.6 % (42.0-54.0); HEMOGLOBIN 10.6 g/dL (13.5-17.5); IMMATURE GRANULOCYTES 0.6 % (0-5); LYMPHOCYTES 31.3 % (15-50); MCH 28.6 pg (26.0-34.0); MCHC 30.6 g/dL (31.0-37.0); MCV 93.3 fL (80.0-100.0); MEAN PLATELET VOLUME 9.2 fL (7.4-10.4); MONOCYTES 7.2 % (2-11); NEUTROPHILS 56.6 % (40-80); PLATELET COUNT 234 10x3/uL (130-400); RBC 3.71 10x6/uL (4.20-6.10); RDW 15.6 % (11.5-14.5); WBC 7.2 10x3/uL (4.8-10.8)
[2018-08-11 06:16] LABS: ANION GAP 7.6 mmol/L (8-16); CALCIUM 8.6 mg/dL (8.5-10.1); CARBON DIOXIDE 38.1 mmol/L (21.0-32.0); CREATININE - SERUM 1.1 mg/dL (0.6-1.3); POTASSIUM - SERUM 3.7 mmol/L (3.5-5.1)
[2018-08-11 06:34] LABS: INR 1.21 (0.85-1.17); PROTIME 14.8 SECONDS (11.6-15.0)
--- NOTE | 2018-08-11 07:25 | NUR ---
Patient was scheduled for a Gastric Emptying Scan today, 08/11/18. Came to get him at 0725 for the exam. I explained the test and let him know he would have to lay on the imaging table for 1 hour. He stated he would be unable to lay on his back for that long. Offered to do the exam while he was laying in his bed and he also refused saying he could not do that. He refused the exam. Exam is cancelled. If he agrees at a later date, test will need to be re-ordered.
--- NOTE | 2018-08-11 07:45 | NUR ---
ASSESSMENT COMPLETED. ALERT AND ORIENTED. UP IN BEDSIDE CHAIR. [facility]. TELEMERTY SHOWS CAF. 02 AT 3 L/M PER NC. DRSG TO RIGHT LOWER LEG, CLEAN AND DRY. DRSG TO LEFT LOWE LEG CLEN AND DRY. LEFT FA SL. GEORGIE ANY NEEDS. CALL LIGHT IN REACH
[2018-08-11 07:53] VITALS: BP 135/65
[2018-08-11 11:19] VITALS: BP 139/60
--- NOTE | 2018-08-11 12:29 | NUR ---
UP IN BEDSIDE CHAIR FOR DIET. . GIVEN ZOFRAN FORNAUSEA.
[2018-08-11 14:46] VITALS: BP 125/65
--- NOTE | 2018-08-11 18:37 | NUR ---
UP IN BEDSIDE CHAIR. DENIES AANY NEEDS. TELEMERTY SHOWS CAF. WILLL MONITOR
--- NOTE | 2018-08-11 19:20 | NUR ---
ALERT/AWAKE ORIENTED X4. SITTING IN DAM OPERATOR WITH LEGS ELEVATED. RR 20 EVEN NON-LABORED ON 02 AT 3L/NC. SOME SAVOONGA NOTED. IV IN FA INTACT SL. DENIES PAIN OR ANY NEEDS. HAS CALL LIGHT IN REACH.
[2018-08-11 20:00] VITALS: BP 116/72
--- NOTE | 2018-08-11 22:48 | NUR ---
CHANGED LEFT FOOT DRSG PER ORDER. DIME SIZED WOUND ON LEFT SIDE OF FOOT UNDER TOES IN HEALING STAGE. PINKISH IN COLOR AND DRY.
[2018-08-12 00:59] VITALS: BP 108/55
--- NOTE | 2018-08-12 04:11 | NUR ---
SWITCHBOARD OPERATOR PRESENT IN ROOM. DENIES ANY NEEDS OR DISCOMFORTS.
[2018-08-12 05:49] VITALS: BP 105/49
[2018-08-12 07:19] LABS: ANION GAP 5.9 mmol/L (8-16); CALCIUM 8.5 mg/dL (8.5-10.1); CARBON DIOXIDE 38.9 mmol/L (21.0-32.0); CREATININE - SERUM 1.1 mg/dL (0.6-1.3); POTASSIUM - SERUM 3.8 mmol/L (3.5-5.1)
[2018-08-12 07:23] LABS: BASOPHILS 0.3 % (0-2); EOSINOPHILS 3.5 % (0-7); HEMATOCRIT 34.5 % (42.0-54.0); HEMOGLOBIN 10.5 g/dL (13.5-17.5); IMMATURE GRANULOCYTES 0.4 % (0-5); LYMPHOCYTES 26.8 % (15-50); MCH 28.2 pg (26.0-34.0); MCHC 30.4 g/dL (31.0-37.0); MCV 92.5 fL (80.0-100.0); MEAN PLATELET VOLUME 9.3 fL (7.4-10.4); MONOCYTES 7.9 % (2-11); NEUTROPHILS 61.1 % (40-80); PLATELET COUNT 240 10x3/uL (130-400); RBC 3.73 10x6/uL (4.20-6.10); RDW 15.5 % (11.5-14.5); WBC 7.1 10x3/uL (4.8-10.8)
--- NOTE | 2018-08-12 07:45 | NUR ---
ASSESSMENT COMPLETED. TELEMERTY SHOWS AFIB. O2 AT 3 L/M PER NC. LEFT FA SL.S QAWALANGIN. UP AB ZI. UP IN BEDSIDE CHAIR. WILL MINITOR
[2018-08-12 07:59] LABS: INR 1.16 (0.85-1.17); PROTIME 14.3 SECONDS (11.6-15.0)
[2018-08-12] MEDS ORDERED: CARAFATE1 G PO (10:20)
[2018-08-12 10:25] VITALS: BP 124/61
--- NOTE | 2018-08-12 12:25 | NUR ---
Nutrition follow-up: Diet: ADA consistent CHO; pt refused GES PO intake 100% of most meals Labs reviewed Wt: 297# PO intake remains good at this time. RDN following.
--- NOTE | 2018-08-12 13:36 | NUR ---
I have reviewed this patient and I concur with the Shift Assessment completed by the Licensed Practical Nurse today this shift.
--- NOTE | 2018-08-12 16:17 | MORECARE ---
CASE MANAGEMENT DISCHARGE SUMMARY PATIENT: MONIQUE BEDOLLA UNIT: [id number] ADM DATE: 08/07/18 AGE: 68 : 48 SEX: M ROOM/BED: D.2113 AUTHOR: SANDEE,DOC PHYSICIAN: REFERRING PHYSICIAN: RHEA SANCHEZ MD DATE OF SERVICE: 08/12/18 Discharge Plan Patient Name: MONIQUE BEDOLLA Facility: [facility]:[place] : 1950 Planned Disposition: Home with Home Health Anticipated Discharge Date: 08/12/18 Discharge Date: 08/12/2018 Expected LOS: 5 Initial Reviewer: [email or web address] Initial Review Date: 08/06/2018 Generated: 08/12/18 5:17 pm DCP- Discharge Planning Updated by [email or web address]: Idalmis Mckeon on 08/06/18 6:[address] CM met with patient @bedside in ER, to discuss dc plans/needs. Patient is alert/oriented, gives permission to complete CM assessment. PCP: Dr. Her, shana Salazar APRN. [facility]acy[facility]. Emergency contact: Jeffrey Bedolla (son) [phone], Aneesh Bedolla (son) [phone]. Per patient REQUEST sons be called prior to calling his , Berna Bedolla () C #[phone], Home #[phone]. Patient states he is Independent in his care at home and lives with , Berna. [facility]: [facility] for wound care on Saturday/Saturday--request instructions be obtained regarding his wound care to foot. DME: Walker X2, O2 24/7, UD, Glucometer, . States at this time, she does not require additional services and feels safe returning to her previous environment. Patient denies being hospitalized within the past 30 days. Idalmis Mckeon RN CM DCPIA - Discharge Planning Initial Assessment Updated by [email or web address]: Idalmis Mckeon on 08/06/18 6:53 pm * Is the patient Alert and Oriented? Yes * How many steps to enter\exit or inside your home? 6 front/7b * PCP Amparo Her * Pharmacy [facility] * Preadmission Environment Home with Family * ADLs Independent * Equipment Glucometer Nebulizer Oxygen Rolling Walker * Other Equipment None reported Walkers X2 * List name and contact numbers for known caregivers / representatives who currently or will assist patient after discharge: Jeffrey Bedolla (son) [phone] Call before Aneesh Bedolla (son) [phone] Call before Berna Bedolla () [phone] C [phone] H * Community resources currently utilized Home Health * Please name any agencies selected above. [facility] wound care * Additional services required to return to the preadmission environment? Yes * Can the patient safely return to the preadmission environment? Yes * Has this patient been hospitalized within the prior 30 days at any hospital? Yes Coverage Notice Reviewer: [email or web address] Laurie Patel Notice Issued Date-Time: 08/12/2018 11:37 Notice Type: Patient Choice Letter Notice Delivered To: Patient Relationship to Patient: Medical Practitioners Name: Delivery Method: HAND - Hand Delivered Janet Days: Prior Verbal Notification: Recipient Understood Notice: Yes Recipient Signature: Yes Med Rec Note Co-signed by Attending: Coverage Notice Comment: [facility] Reviewer: [id number] Laurie Patel Notice Issued Date-Time: 08/12/2018 11:37 Notice Type: IM Discharge Notice Notice Delivered To: Patient Relationship to Patient: Medical Practitioners Name: Delivery Method: HAND - Hand Delivered Janet Days: Prior Verbal Notification: Recipient Understood Notice: Yes Recipient Signature: Yes Med Rec Note Co-signed by Attending: Coverage Notice Comment: Last DP export: 08/08/18 8:52 a Patient Name: MONIQUE BEDOLLA Page [id number] at 1617 All edits/amendments must be made on the electronic document DICTATION DATE: 08/12/18 1616 PARKING ENFORCER: JASMYN 08/12/18 1616 RPT#: [id number] DC DATE:08/12/18 STATUS: DIS IN [facility] [address] [place] [address] END OF REPORT
--- NOTE | 2018-08-12 16:25 | MORECARE ---
CASE MANAGEMENT DISCHARGE SUMMARY PATIENT: MONIQUE BEDOLLA UNIT: [id number] ADM DATE: 08/07/18 AGE: 68 : 46 SEX: M ROOM/BED: D.2113 AUTHOR: SANDEE,DOC PHYSICIAN: REFERRING PHYSICIAN: RHEA SANCHEZ MD DATE OF SERVICE: 08/12/18 Discharge Plan Patient Name: MONIQUE BEDOLLA Facility: [facility]:[place] : 1950 Planned Disposition: Home with Home Health Anticipated Discharge Date: 08/12/18 Discharge Date: 08/12/2018 Expected LOS: 5 Initial Reviewer: [email or web address] Initial Review Date: 08/06/2018 Generated: 08/12/18 5:25 pm Comments DCP- Discharge Planning Updated by [email or web address]: Philip Patel on 08/12/18 3:[address] Patient Name: MONIQUE BEDOLLA Encounter No: [id number] : 1950 Primary Insurance: MEDICARE A & B Anticipated DC Date: 08-12-2018 Planned Disposition: Home with Home Health External Planned Provider: [facility] DCP follow-up note: CM MET WITH PT IN ROOM TO DISCUSS DISCHARGE NEEDS AND PLANNING. CM DISCUSSED AVAILABILITY OF HOME HEALTH, REHAB SERVICES AND MEDICAL EQUIPMENT. PT DENIES DISCHARGE NEEDS OTHER THAN HOME HEALTH RESUMPTION WITH [facility], SPOUSE TO TRANSPORT HOME AT DISCHARGE TODAY. IMPORTANT MESSAGE FROM MEDICARE PROVIDED AND EXPLAINED. CM CALLED [facility], , SPOKE TO VETO WHO TOOK REFERRAL INFORMATION AND WILL PLACE PT BACK ON SCHEDULE FOR RESUMPTION OF HOME HEALTH CARE TOMORROW. CM FAXED DISCHARGE INFORMATION TO [facility] AT [phone]. METER SETTER NURSE NOTIFIED. Philip Patel, CASE BHUMIKA DCP- Discharge Planning Updated by [email or web address]: Idalmis Mckeon on 08/06/18 6:[address] CM met with patient @bedside in ER, to discuss dc plans/needs. Patient is alert/oriented, gives permission to complete CM assessment. PCP: Dr. Her, shana Salazar APRN. Pharmacy: [facility]. Emergency contact: Jeffrey Shukri (son) [phone], Aneesh Shukri (son) [phone]. Per patient REQUEST sons be called prior to calling his , Berna Beodlla () C #[phone], Home #[phone]. Patient states he is Independent in his care at home and lives with , Berna. HHS: [facility] for wound care on Saturday/Saturday--request instructions be obtained regarding his wound care to foot. DME: Walker X2, O2 24/7, UD, Glucometer, . States at this time, she does not require additional services and feels safe returning to her previous environment. Patient denies being hospitalized within the past 30 days. Idalmis Mckeon RN CM DCPIA - Discharge Planning Initial Assessment Updated by [email or web address]: Idalmis Mckeon on 08/06/18 6:53 pm * Is the patient Alert and Oriented? Yes * How many steps to enter\exit or inside your home? 6 front/7b * PCP Amparo Her * Pharmacy [facility], [facility] * Preadmission Environment Home with Family * ADLs Independent * Equipment Glucometer Nebulizer Oxygen Rolling Walker * Other Equipment None reported Walkers X2 * List name and contact numbers for known caregivers / representatives who currently or will assist patient after discharge: Jeffrey Bedolla (son) [phone] Call before Aneesh Bedolla (son) [phone] Call before Berna Bedolal () [phone] C [phone] H * Community resources currently utilized Home Health * Please name any agencies selected above. [facility] wound care * Additional services required to return to the preadmission environment? Yes * Can the patient safely return to the preadmission environment? Yes * Has this patient been hospitalized within the prior 30 days at any hospital? Yes External Providers External Provider: [facility] Next Contact Date: 08/12/2018 Service Request Date: Service Type: Resolution: Reviewer: Comments: Coverage Notice Reviewer: [email or web address] - Philip Patel Notice Issued Date-Time: 08/12/2018 11:37 Notice Type: Patient Choice Letter Notice Delivered To: Patient Relationship to Patient: Estate Planning Director Name: Delivery Method: HAND - Hand Delivered Janet Days: Prior Verbal Notification: Recipient Understood Notice: Yes Recipient Signature: Yes Med Rec Note Co-signed by Attending: Coverage Notice Comment: [facility] Reviewer: [email or web address] Laurie Patel Notice Issued Date-Time: 08/12/2018 11:37 Notice Type: IM Discharge Notice Notice Delivered To: Patient Relationship to Patient: Estate Planning Director Name: Delivery Method: HAND - Hand Delivered Janet Days: Prior Verbal Notification: Recipient Understood Notice: Yes Recipient Signature: Yes Med Rec Note Co-signed by Attending: Coverage Notice Comment: Last DP export: 08/12/18 3:17 p Patient Name: MONIQUE BEDOLLA Page [id number] at 1625 All edits/amendments must be made on the electronic document DICTATION DATE: 08/12/181623 FELTMAKER: JASMYN 08/12/181623 RPT#: [id number] [place] DATE:08/12/18 STATUS: DIS IN [facility] [address] [place] [address] END OF REPORT
== END 2018-08-12 14:03 | disposition home health service (06) | DRG 314 ==
LOC: D.ER 12:10 → D.EDHOLD 17:01 → D.M2 17:01 → OBSVTIME 17:08 → D.M2 17:27 → D.SDCHOLD 08-12 13:21 → D.M2 08-12 13:24
PROVIDERS: Family Medicine; Internal Medicine Gastroenterology; Internal Medicine Pulmonary Disease; ADMIT Internal Medicine Nephrology; ATTEND Internal Medicine Nephrology
PROC: 0DB68ZX Excision of Stomach, Via Natural or Artificial Opening Endoscopic, Diagnostic (ICD-10-PCS; 2018-08-10)
PROC: 0DB58ZX Excision of Esophagus, Via Natural or Artificial Opening Endoscopic, Diagnostic (ICD-10-PCS; 2018-08-10)
PROC: 0DB98ZX Excision of Duodenum, Via Natural or Artificial Opening Endoscopic, Diagnostic (ICD-10-PCS; principal; 2018-08-10 07:36)
DX: I27.20 Pulmonary hypertension, unspecified (principal); J96.22 Acute and chronic respiratory failure with hypercapnia; I50.33 Acute on chronic diastolic (congestive) heart failure; J96.21 Acute and chronic respiratory failure with hypoxia; J98.11 Atelectasis; I48.92 Unspecified atrial flutter; J44.1 Chronic obstructive pulmonary disease with (acute) exacerbation; I42.9 Cardiomyopathy, unspecified; I11.0 Hypertensive heart disease with heart failure; I08.1 Rheumatic disorders of both mitral and tricuspid valves; I25.10 Atherosclerotic heart disease of native coronary artery without angina pectoris; E11.9 Type 2 diabetes mellitus without complications; F32.9 Major depressive disorder, single episode, unspecified; F41.9 Anxiety disorder, unspecified; E78.5 Hyperlipidemia, unspecified; D50.9 Iron deficiency anemia, unspecified; K20.9 Esophagitis, unspecified; K29.70 Gastritis, unspecified, without bleeding; K29.00 Acute gastritis without bleeding; K29.80 Duodenitis without bleeding; K21.0 Gastro-esophageal reflux disease with esophagitis

== ENCOUNTER → 2018-08-27 13:22 | Outpatient (CLI) | payer MEDICARE, OTHER ==
[2018-08-07 13:04] VITALS: BMI 37.1
[~2018-08-27 13:22] MED LIST changes: +CARAFATE1 G PO
[2018-08-27 14:38] LABS: INR 2.06 (0.85-1.17); PROTIME 22.5 SECONDS (11.6-15.0)
== END | disposition home or self-care (01) ==
LOC: D.LABREF 13:22
PROVIDERS: ATTEND Family Medicine
DX: Z51.81 Encounter for therapeutic drug level monitoring (principal); Z79.01 Long term (current) use of anticoagulants

== ENCOUNTER → 2018-09-10 13:08 | Outpatient (CLI) | payer MEDICARE, OTHER ==
[2018-08-07 13:04] VITALS: BMI 37.1
[2018-09-10 13:55] LABS: INR 2.71 (0.85-1.17)
== END | disposition home or self-care (01) ==
LOC: D.LABREF 13:08
PROVIDERS: ATTEND Family Medicine
DX: I48.91 Unspecified atrial fibrillation (principal); I50.9 Heart failure, unspecified

== ENCOUNTER → 2018-10-08 10:36 | Outpatient (CLI) | payer MEDICARE, OTHER ==
[2018-08-07 13:04] VITALS: BMI 37.1
[2018-10-08 10:54] LABS: INR 2.94 (0.85-1.17); PROTIME 29.9 SECONDS (11.6-15.0)
== END | disposition home or self-care (01) ==
LOC: D.LABREF 10:36
PROVIDERS: ATTEND Family Medicine
DX: Z51.81 Encounter for therapeutic drug level monitoring (principal); Z79.01 Long term (current) use of anticoagulants

== ENCOUNTER → 2018-11-05 17:17 | Outpatient (CLI) | payer MEDICARE, OTHER ==
[2018-08-07 13:04] VITALS: BMI 37.1
[2018-11-05 18:24] LABS: INR 2.27 (0.85-1.17); PROTIME 24.4 SECONDS (11.6-15.0)
== END | disposition home or self-care (01) ==
LOC: D.LABREF 17:17
PROVIDERS: ATTEND Family Medicine
DX: I48.91 Unspecified atrial fibrillation (principal)

== ENCOUNTER → 2018-12-03 15:52 | Outpatient (CLI) | payer MEDICARE, OTHER ==
[2018-08-07 13:04] VITALS: BMI 37.1
[2018-12-03 16:33] LABS: INR 2.49 (0.85-1.17); PROTIME 26.2 SECONDS (11.6-15.0)
== END | disposition home or self-care (01) ==
LOC: D.LABREF 15:52
PROVIDERS: ATTEND Family Medicine
DX: Z79.02 Long term (current) use of antithrombotics/antiplatelets (principal)

== ENCOUNTER → 2018-12-19 13:21 | Outpatient (CLI) | payer MEDICARE, OTHER ==
[2018-08-07 13:04] VITALS: BMI 37.1
[~2018-12-19 13:21] MED LIST changes: +ACIDOPHILUS-PE1 EACH PO; +COREG6.25 MG PO
== END | disposition home or self-care (01) ==
LOC: D.CT 13:21
PROVIDERS: ATTEND Thoracic Surgery (Cardiothoracic Vascular Surgery)
DX: I73.9 Peripheral vascular disease, unspecified (principal); I70.213 Atherosclerosis of native arteries of extremities with intermittent claudication, bilateral legs

== ENCOUNTER → 2018-12-25 11:18 | Outpatient (CLI) | payer MEDICARE, OTHER ==
[2018-08-07 13:04] VITALS: BMI 37.1
== END | disposition home or self-care (01) ==
LOC: D.RT 11:00
PROVIDERS: ATTEND Internal Medicine Pulmonary Disease
DX: J44.9 Chronic obstructive pulmonary disease, unspecified (principal)

== ENCOUNTER → 2019-01-02 16:48 | Outpatient (CLI) | payer MEDICARE, OTHER ==
[2018-08-07 13:04] VITALS: BMI 37.1
[2019-01-02 17:02] LABS: INR 3.17 (0.85-1.17); PROTIME 31.8 SECONDS (11.6-15.0)
== END | disposition home or self-care (01) ==
LOC: D.LABREF 16:48
PROVIDERS: ATTEND Family Medicine
DX: Z79.01 Long term (current) use of anticoagulants (principal)

== ENCOUNTER 2019-01-12 07:23 | Outpatient (CLI) | payer MEDICARE, OTHER ==
[~2019-01-12] VITALS: Ht 189.2 cm; Wt 131.4 kg
--- NOTE | ~2019-01-12 | HEMODYNAMI ---
PATIENT:MONIQUE BEDOLLA MEDICAL RECORD: [id number] : 46 [id number] ADMISSION DATE: 01/12/19 Generatedon:01/12/201912:47 Patient name: MONIQUE BEDOLLA Patient #: [id number] SSN: [id number] : 1950 Date of study: 01/12/2019 Page: Of Hemodynamic Procedure Report Patient Data Patient Demographics Procedure consent was obtained First Name: MONIQUE Gender: Male Last Name: GRAEME : 1950 Middle Initial: W Age: 68 year(s) Patient #: [id number] Race: Unknown SSN: [id number] Additional ID: [id number] Contact details Address: [address] [place] [address] State: [place] City: [facility] Zip code: [address] Past Medical History Allergies Allergen Reaction Date Comments Reported Other allergy 06/27/2016 POTASSIUM CHLORIDE Other allergy 10/22/2016 Potassium Other allergy 01/12/2019 citpro, dronedadrone, potassium chloride Admission Admission Data Admission Date: 01/12/2019 Admission Time: 7:23 Procedure Procedure Types Cath Procedure Diagnostic Procedure Peripheral Cath Diagnostic Procedure Abd/Extremity Extremities Bilat Lower Extremity Procedure Description Procedure Date Procedure Date: 01/12/2019 Procedure Start Time: 11:21 Procedure End Time: 12:46 Procedure Staff Name Function Joseph Mishra MD Performing Physician SUSAN SERVIN RT Wagon Driver Sofía Ross RN Nurse Kacie Vieyra RN Nurse Fabio Torres RT Scrub Procedure Data Cath Procedure Fluoroscopy Diagnostic fluoroscopy Total fluoroscopy Time: time: 18.6 min 18.6 min Diagnostic fluoroscopy Total fluoroscopy dose: dose: 2882 mGy 2882 mGy Contrast Material Contrast Material Type Amount (ml) Isovue 300 135 Entry Location Entry Primary Successful Side Size Upsize Upsize Entry Closure Succes sful Closure Location (Fr) 1 (Fr) 2 (Fr) Remarks Device Remarks Femoral Right 6 Fr 7 Fr Mynx artery Long Long Dietetic Aide 6Fr/7Fr Femoral Left 6 Fr 7 Fr Mynx artery Long Long Dietetic Aide 6Fr/7Fr Diagnostic catheters Device Type Used For End Catheter Placement Merit Impress KA2 5Fr 65CM catheter ([id number]) DIAGNOSTIC Pigtail 5Fr catheter ([id number]) Procedure Medications Medication Administration Route Dosage Fentanyl I.V. 50 mcg Versed I.V. 1 mg Heparin Flush Bag added to field 3 bags (1000units/500ml NS) Lidocaine 1% added to field 20 Versed I.V. 0.5 mg Fentanyl I.V. 25 mcg Fentanyl I.V. 25 mcg Versed I.V. 0.5 mg Heparin Bolus I.V. 5000 units Fentanyl I.V. 25 mcg Versed I.V. 0.5 mg Fentanyl I.V. 25 mcg Versed I.V. 0.5 mg Fentanyl I.V. 25 mcg Hemodynamics Rest Heart Rate: 95 (bpm) Snapshots Pre Cath Intra NCS Post Cath Vital Signs Time Heart Resp SPO2 etCO2 NIBP (mmHg) Rhythm Pain Sedation Rate (ipm) (%) (mmHg) Status Level (bpm) 11:12:59 102 16 96 35.4 No Cuff NSR 0 (11) 10(A) , No pain 11:16:36 81 21 95 28.6 161/104(139) NSR 0 (11) 10(A) , No pain 11:20:58 74 23 94 40.6 151/90(132) NSR 0 (11) 8(A) , No pain 11:25:18 88 21 93 39.1 152/95(136) NSR 0 (11) 8(A) , No pain 11:29:36 91 20 93 42.9 144/90(120) NSR 0 (11) 8(A) , No pain 11:33:54 83 18 94 41.4 152/92(135) NSR 0 (11) 8(A) , No pain 11:38:16 86 19 94 39.9 151/89(129) NSR 0 (11) 8(A) , No pain 11:42:35 84 19 94 42.2 159/91(131) NSR 0 (11) 8(A) , No pain 11:46:58 86 18 94 42.9 147/87(119) NSR 0 (11) 8(A) , No pain 11:51:17 75 19 94 44.5 152/89(132) NSR 0 (11) 8(A) , No pain 11:55:35 88 14 94 41.4 146/94(117) NSR 0 (11) 8(A) , No pain 11:59:53 82 16 94 45.9 149/89(126) NSR 0 (11) 8(A) , No pain 12:04:52 87 20 95 42.1 Measuring NSR 0 (11) 8(A) , No pain 12:05:25 95 19 94 43.7 162/83(124) NSR 0 (11) 8(A) , No pain 12:09:43 95 21 94 42.9 159/84(126) NSR 0 (11) 8(A) , No pain 12:14:05 87 20 94 40.6 148/100(121) NSR 0 (11) 8(A) , No pain 12:18:31 101 25 93 38.4 149/65(111) NSR 0 (11) 8(A) , No pain 12:22:49 87 20 93 41.4 156/89(138) NSR 0 (11) 8(A) , No pain 12:27:17 103 21 93 30.8 175/81(142) NSR 0 (11) 8(A) , No pain 12:31:32 89 19 93 36.8 169/110(135) NSR 0 (11) 8(A) , No pain 12:35:58 93 20 93 40.6 177/111(126) NSR 0 (11) 8(A) , No pain 12:38:56 95 21 92 39.1 163/105(124) NSR 0 (11) 8(A) , No pain 12:43:20 92 11 93 36.8 159/97(125) NSR 0 (11) 8(A) , No pain Medications Time Medication Route Dose Verified Delivered Reason Notes Effec tiveness by by 11:19:22 Fentanyl I.V. 50 Joseph Gore for [facility] [place] Tad Ross RN sedation 11:19:32 Versed I.V. 1 mg Joseph Gore for Tad Ross RN sedation 11:20:04 Heparin Flush added 3 Joseph Ruiz used for Bag to bags Tad Mishra procedure (1000units/500ml field MD ESP[place]ITO NS) 11:20:19 Lidocaine 1% added 20ml Joseph Ruiz used for to vial Tad Tad procedure field MD [place] 11:27:30 Versed I.V. 0.5 Joseph Ruiz for mg Tad Tad sedation MD [place] 11:27:42 Fentanyl I.V. 25 Joseph Ruiz for mcg Tad Tad sedation MD [place] 11:41:10 Fentanyl I.V. 25 Joseph Ruiz for mcg Tad Tad sedation MD [place] 11:47:39 Versed I.V. 0.5 Joseph Ruiz for mg Tad Tad sedation MD [place] 11:49:22 Heparin Bolus I.V. 5000 Joseph Ruiz used for units Tad Tad procedure MD [place] 12:06:27 Fentanyl I.V. 25 Joseph Ruiz for mcg Tad Tad sedation MD [place] 12:10:05 Versed I.V. 0.5 Joseph Ruiz for mg Tad Tad sedation MD [place] 12:13:34 Fentanyl I.V. 25 Joseph Ruiz for mcg Tad Tad sedation MD [place] 12:23:37 Versed I.V. 0.5 Joseph Ruiz for mg Tad Tad sedation MD [place] 12:29:32 Fentanyl I.V. 25 Joseph Ruiz for mcg Tad Tad sedation MD [place] Procedure Log Time Note 10:50:42 Sofía Ross RN sent for patient. Start room use. 10:50:44 Time tracking: Regular hours (M-F 7:00 - 5:00) 10:50:49 Plan of Care:Hemodynamics will remain stable., Cardiac rhythm will remain stable., Comfort level will be maintained., Respiratory function will remain adequate., Patient/ family verbilizes understanding of procedure., Procedure tolerated without complication., Recovers from procedure without complications.. 10:50:56 Patient received from Outpatients to IR Alert and oriented. Tansferred to table in Supine position. 10:51:10 Signed procedure consent form obtained from patient. 10:51:11 Warm blankets applied, and bassem hugger turned on for patient comfort. 10:51:12 Correct patient and procedure confirmed by team. 10:51:13 ECG and BP/O2 sat monitors applied to patient. 10:51:14 - 10:51:15 - 10:51:23 H&P Date Dictated: 01/12/2019 H&P Addendum completed by physician on day of procedure. (MUST COMPLETE FOR ALL OUTPATIENTS). 10:51:24 Pre-procedure instructions explained to patient. 10:51:25 Pre-op teaching completed and patient verbalized understanding. 10:51:36 Patient NPO since Midnight. 10:58:51 Patient allergic to Other allergycitpro, dronedadrone, potassium chloride 10:58:54 Is the patient allergic to Iodine/contrast media? No. 10:59:17 Is patient on blood thinner?Yes. Coumadin last dose 01/12/19 10:59:47 Patient diabetic? Yes. 10:59:48 If diabetic: On Metformin? Yes 11:00:33 If on Metformin: Last Dose? 01/11/2019 11:00:35 - 11:00:38 ----Pre-sedation anethsthesia assessment.---- 11:00:41 Snore? Yes 11:00:42 Sleep apnea? No 11:00:44 Deviated septum? No 11:00:45 Opens mouth fully? Yes 11:00:45 Sticks out tongue? Yes 11:00:50 Airway obstruction? Yes COPD 11:00:53 Dentures? No ? 11:00:55 - :27 IV patent on arrival in left forearm with 0.45%NaCl at KVO. 11::35 Pre procedure: right dorsailis pedis pulse Doppler ::38 Pre procedure: left dorsailis pedis pulse Doppler ::40 Pre procedure: right posterior tibial pulse Doppler ::43 Pre procedure: left posterior tibial pulse Doppler ::24 Bilateral groins area was prepped with chlora-prep and draped in steril e fashion :: Alarms reviewed by Ankit N. : Sharps counted by scrub and verified by RCarolNCarol 11::27 - ::38 Use device set IR Diagnostic 11:02:40 ACIST Syringe (69606) opened to sterile field. 11:02:41 ACIST Hand Control (13981) opened to sterile field. 11:02:41 ACIST Manifold (24300) opened to sterile field. 11:02:42 Bag Decanter () opened to sterile field. 11:02:42 Sterile Angiographic Pack opened to sterile field. 11:02:43 Tegaderm 4 x 4 (1626W) opened to sterile field. 11:03:[facility] 145 glide wire (B87759) opened to sterile field. 11:03:26 TUBING Contrast Injection High Pressure (MIW525F) opened to sterile field. 11:03:27 BENTSON 145cm wire (Q81243) opened to sterile field. 11:03:27 ESTEBAN 260 wire (X38718) opened to sterile field. 11:03:28 MICROPUNCTURE 4FR Cook (A18581) opened to sterile field. 11:03:28 SHEATH 6FR Dora (TTU244) opened to sterile field. 11:03:29 SHEATH 6FR Dora (ERF014) opened to sterile field. 11:03:36 - 11:12:08 Vital chart was started 11:12:09 Baseline sample Acquired. 11:12:10 Full Disclosure recording started 11:12:15 - 11:15:56 Physician arrived 11:16:50 --------ALL STOP TIME OUT------ :22 Fentanyl 50 mcg I.V. was administered by Sofía Ross RN; for sedation; 11::32 Versed 1 mg I.V. was administered by Sofía Ross RN; for sedation; :20:04 Heparin Flush Bag (1000units/500ml NS) 3 bags added to field was administered by Joseph Mishra MD; used for procedure; :19 Lidocaine 1% 20ml vial added to field was administered by Joseph chavez MD; used for procedure; ::42 Procedure started. 11:21:31 A Spongecell KA2 5Fr 65CM catheter ([id number]) opened to sterile field. 11::57 Local anesthetic to right femoral artery with Lidocaine 1% by Joseph Mishra MD.INITIAL ACCESS ONLY 11:22:38 Access obtained with 4Fr micropunture. 11:24:15 A 6 Fr Long sheath was inserted into the Right Femoral artery 11:27:30 Versed 0.5 mg I.V. was administered by Joseph Mishra MD; for sedation; :42 Fentanyl 25 mcg I.V. was administered by Joseph Mishra MD; for sedation; 11:30:00 A 6 Fr Long sheath was inserted into the Left Femoral artery 11:34:25 ESTEBAN 260 wire (V61409) opened to sterile field. 11:38:39 GLIDE WIRE ANGLE 180cm (MV8409) opened to sterile field. 11:41:10 Fentanyl 25 mcg I.V. was administered by Joseph Mishra MD; for sedation; 11:45:59 A DIAGNOSTIC Pigtail 5Fr catheter (050169F) was advanced over the wire . 11:46:00 Enteer Guidewire Stiff opened to sterile field. 11:46:01 Enteer Re-entry cath 3.75 opened to sterile field. 11:46:22 CHOICE PT Extra Support J 300cm guide wire ([id number]) opened to steril e field. 11:47:39 Versed 0.5 mg I.V. was administered by Joseph Mishra MD; for sedation; 11:49:22 Heparin Bolus 5000 units I.V. was administered by Joseph Mishra MD; used for procedure; 11:54:09 CXI Catheter 90cm (Z43659) opened to sterile field. 11:57:00 Inflate balloon Inflation number: 1 A Gallatin Plus 3 x 2 x 130 Balloon ([id number]) was prepped and advanced across the Undefined1, then inflated. 12:01:15 SHEATH 7FR Dora (UEZ321) opened to sterile field. 12:01:16 SHEATH 7FR Dora (WEX463) opened to sterile field. 12:04:33 Sheath upsized to a 7 Fr Long. 12:04:38 Sheath upsized to a 7 Fr Long. 12:06:27 Fentanyl 25 mcg I.V. was administered by Joseph Mishra MD; for sedation; 12:08:41 INFLATOR BasixTOUCH (CW5001) opened to sterile field. 12:08:43 INFLATOR BasixTOUCH (DY1354) opened to sterile field. 12:09:14 Inflate balloon Inflation number: 2 A Evercross 6 x 6 x 135 Balloon ([id number]) was prepped and advanced across the Undefined1 , then inflated . 12:09:38 Inflate balloon Inflation number: 1 A Evercross 6 x 4 x 135 Balloon ([id number]) was prepped and advanced across the Undefined2 , then inflated. 12:10:05 Versed 0.5 mg I.V. was administered by Joseph Mishra MD; for sedation; 12:13:34 Fentanyl 25 mcg I.V. was administered by Joseph Mishra MD; for sedation; 12:20:24 Place stent Inflation Number: 3 A ICAST COVERED STENT 9X59 was prepped and advanced across the Undefined2 . The stent was deployed at 0 RADHA for 0:00 (min:sec) . 12:20:55 Place stent Inflation Number: 4 A ICAST COVERED STENT 9 X59 was prepped and advanced across the Undefined1 . The stent was deployed at 0 RADHA for 0:00 (min:sec) . 12:21:41 Inflate balloon Inflation number: 3 A EVERCROSS 10 X 60 X 135 BALLOOON ([id number]) was prepped and advanced across the Undefined1 , then inflated . 12:22:05 Inflate balloon Inflation number: 2 A EVERCROSS 10 X 60 X 135 BALLOOON ([id number]) was prepped and advanced across the Undefined2 , then inflated.. 12:23:37 Versed 0.5 mg I.V. was administered by Joseph Mishra MD; for sedation; 12:29:32 Fentanyl 25 mcg I.V. was administered by Joseph Mishra MD; for sedation; 12:29:39 MYNX DESK MONITOR 6FR/7FR (KQ7773) opened to sterile field. 12:29:40 MYNX DESK MONITOR 6FR/7FR (PW9528) opened to sterile field. 12:30:03 Sheath removed intact; hemostasis achieved with Mynx Dietetic Aide 6Fr/7Fr to th e Right Femoral artery. 12:30:06 Sheath removed intact; hemostasis achieved with Mynx Dietetic Aide 6Fr/7Fr to th e Left Femoral artery. 12:34:04 Fluoroscopy time 18.60 minutes. 12:35:32 Flurop Dose total: 2882 12:35:32 Fluoroscopy dose: 2882 mGy 12:35:37 Contrast amount:Isovue 300 135ml. 12:35:40 Sharps counted by scrub and verified by R.N. 12:36:52 Post right femoral artery:stable 12:36:57 Post left femerol artery:stable 12:37:04 Post procedure instruction explained to patient.Patient verbalizes understanding. 12:37:06 Procedure and supply charges have been captured, reviewed, submitted an d are correct. 12:40:20 Procedure ended.(Physican Out) 12:45:17 Vital chart was stopped 12:46:20 Patient transfered to Outpatients with Bed. 12:46:24 Procedure ended. 12:46:24 Full Disclosure recording stopped Intervention Summary Intervention Notes Time ActionType Lesion and Equipment Used Action# Pressure Duration Attributes 11:57:00 Inflate Undefined1 Gallatin Plus 3 1 0 00:00 balloon x 2 x 130 Balloon ([id number]) 12:09:14 Inflate Undefined1 Evercross 6 x 6 2 0 00:00 balloon x 135 Balloon ([id number]) 12:09:38 Inflate Undefined2 Evercross 6 x 4 1 0 00:00 balloon x 135 Balloon ([id number]) 12:20:24 Place stent Undefined2 ICAST COVERED 3 0 00:00 STENT 9X59 12:20:55 Place stent Undefined1 ICAST COVERED 4 0 00:00 STENT 9 X59 12:21:41 Inflate Undefined1 EVERCROSS 10 X 3 0 00:00 balloon 60 X 135 BALLOOON ([id number]) 12:22:05 Inflate Undefined2 EVERCROSS 10 X 2 0 00:00 balloon 60 X 135 BALLOOON ([id number]) Device Usage Item Name Manufacture Quantity Catalog Number Hospital Part Current Minimal Lot# / Charge Number Stock Stock Serial# Code ACIST Syringe Acist 1 82023 382115 849035 356361 20 (47934) Medical Systems Inc ACIST Hand Acist 1 24041 408444 509811 506735 5 Control (75672) [employer] Systems Inc ACIST Manifold Acist 1 35989 450965 249033 706764 5 (08931) Medical Systems Inc Bag Decanter Microtek 1 2001S 810607 27435 880564 5 (2001S) Medical Inc. Sterile Cardinal 1 [id number] 193198 391859 5 Angiographic Health Pack Tegaderm 4 x 4 3M 1 1626W 950602 892293 080495 5 (1626W) ROADRUNNER .035 Cook Medical 1 G78260 055284 472789 073526 5 [id number] 145 glide wire (I93127) TUBING Contrast Merit 1 TCR790G 217343 267752 406950 5 Injection High Medical Pressure (WPZ469U) BENTSON 145cm Cook Medical 1 W57729 697268 770512 5 wire (J97104) ESTEBAN 260 wire Cook Medical 2 B31823 948026 05453 962736 5 (U74324) MICROPUNCTURE Cook Medical 1 P00167 978684 479191 927479 5 4FR Cook (C21602) SHEATH 6FR Terumo 2 VJX636 151956 554973 304404 40 Dora (RKR188) Merit Impress Merit 1 01188SW9 688121 617214 5 KA2 5Fr 65CM Medical catheter (90906ET9) GLIDE WIRE Terumo 1 ND6690 296346 005088 068443 5 ANGLE 180cm (EK1989) DIAGNOSTIC Cardinal 1 043265S 606353 645093 588277 5 Pigtail 5Fr Health catheter (821950C) Enteer Medtronic 1 JQK-JO-874-300 932282 216856 799729 1 [id number] Guidewire Stiff Enteer Re-entry Medtronic 1 QPN-328-33-135 722316 176360 776073 1 [id number] cath 3.75 CHOICE PT Extra Taopi 1 [id number] 740442 876800 178155 5 [id number] Support J 300cm Scientific guide wire ([id number]) CXI Catheter Cook Medical 1 L68443 090704 482852 394282 5 [id number] 90cm (N32601) Gallatin Plus 3 Medtronic 1 [id number] 910103 221901 514450 5 x 2 x 130 Balloon ([id number]) SHEATH 7FR Terumo 2 MXL097 641333 867786 644733 5 Dora (LZM599) INFLATOR Merit 2 CD7045 597846 824923 190999 5 Structured Polymers (EL2441) Evercross 6 x 6 Medtronic 1 [id number] 326503 465300 5 x 135 Balloon ([id number]) Evercross 6 x 4 Medtronic 1 [id number] 048862 971501 170245 5 x 135 Balloon ([id number]) EVERCROSS 10 X Medtronic 2 [id number] 350552 465632 1 60 X 135 BALLOOON ([id number]) MYNX DESK MONITOR Access 2 DJ6324 349953 464955 5 6FR/7FR Closure (FK6168) ICAST COVERED Unknown 1 0 0 STENT 9 X59 ICAST COVERED Unknown 1 0 0 STENT 9X59 Signature Audit [place] Stage Time Signature Unsigned Intra-Procedure 01/12/2019 SUSAN SERVIN RT 12:46:57 PM (R) Signatures Performing Physician : Signature : Joseph Mishra MD Date : Time : Nurse : Sofía Ross RN Signature : Date : Time : Nurse : Kacie Vieyra RN Signature : Date : Time : [place] [address] [place] [address]
[~2019-01-12 07:23] MED LIST changes: -ACIDOPHILUS-PE1 EACH PO; -COREG6.25 MG PO
[2019-01-12 07:51] LABS: BASOPHILS 0.3 % (0-2); EOSINOPHILS 4.2 % (0-7); HEMATOCRIT 34.1 % (42.0-54.0); HEMOGLOBIN 10.8 g/dL (13.5-17.5); IMMATURE GRANULOCYTES 0.3 % (0-5); LYMPHOCYTES 27.2 % (15-50); MCH 28.9 pg (26.0-34.0); MCHC 31.7 g/dL (31.0-37.0); MCV 91.2 fL (80.0-100.0); MEAN PLATELET VOLUME 8.7 fL (7.4-10.4); MONOCYTES 7.4 % (2-11); NEUTROPHILS 60.6 % (40-80); RBC 3.74 10x6/uL (4.20-6.10); RDW 16.1 % (11.5-14.5); WBC 6.2 10x3/uL (4.8-10.8)
[2019-01-12 07:54] LABS: ANION GAP 8.1 mmol/L (8-16); CALCIUM 7.9 mg/dL (8.5-10.1); CARBON DIOXIDE 36.8 mmol/L (21.0-32.0); CREATININE - SERUM 1.1 mg/dL (0.6-1.3); POTASSIUM - SERUM 3.9 mmol/L (3.5-5.1)
[2019-01-12 07:57] LABS: PLATELET COUNT 190 10x3/uL (130-400)
[2019-01-12 08:03] LABS: APTT 37.9 SECONDS (22.8-39.4); INR 1.88 (0.85-1.17); PROTIME 20.9 SECONDS (11.6-15.0)
[2019-01-12] MEDS ORDERED: ACIDOPHILUS-PE1 EACH PO (09:20)
[2019-01-12] MEDS ORDERED: COREG6.25 MG PO (09:22)
[2019-01-12] MEDS ORDERED: GLIMEPIRIDE4 MG PO (09:23)
[2019-01-12 09:34] VITALS: BP 141/65; Ht 189.2 cm; Wt 131.4 kg
--- NOTE | 2019-01-12 14:08 | NUR ---
1300 FREQUENT VS SHEET DONE
--- NOTE | 2019-01-12 17:20 | NUR ---
1530 VOIDED 350 ML URINE 1650 BM X1 IN BATHROOM LARGE AMT PUNGENT 1700 NO BLEEDING AT SITE IV REMOVED AND INSTRUCTIONS GIVEN TO PT AND 1710 D/C HOME IN W/C ON O2
== END 2019-01-12 17:10 | disposition home or self-care (01) ==
LOC: D.SP 07:23
PROVIDERS: ATTEND Radiology Diagnostic Radiology
DX: I70.0 Atherosclerosis of aorta (principal); I70.208 Unspecified atherosclerosis of native arteries of extremities, other extremity

== ENCOUNTER → 2019-01-30 14:10 | Outpatient (CLI) | payer MEDICARE, OTHER ==
[2019-01-12 09:34] VITALS: BMI 36.6
[~2019-01-30 14:10] MED LIST changes: +ACIDOPHILUS-PE1 EACH PO; +COREG6.25 MG PO
[2019-01-30 15:17] LABS: INR 3.05 (0.85-1.17); PROTIME 30.8 SECONDS (11.6-15.0)
== END | disposition home or self-care (01) ==
LOC: D.LABREF 14:10
PROVIDERS: ATTEND Family Medicine
DX: Z79.01 Long term (current) use of anticoagulants (principal)

== ENCOUNTER → 2019-02-09 10:52 | Outpatient (CLI) | payer MEDICARE, OTHER ==
[2019-01-12 09:34] VITALS: BMI 36.6
[2019-02-09 11:04] LABS: INR 3.9 (0.85-1.17); PROTIME 37.4 SECONDS (11.6-15.0)
== END | disposition home or self-care (01) ==
LOC: D.LABREF 10:52
PROVIDERS: ATTEND Family Medicine
DX: Z79.01 Long term (current) use of anticoagulants (principal)

== ENCOUNTER 2019-02-18 16:49 | Emergency (ER) | payer MEDICARE, OTHER ==
[~2019-02-18] VITALS: Ht 189.2 cm; Wt 134.5 kg
[2019-02-18 17:00] VITALS: BP 181/100; Ht 189.2 cm; Wt 134.5 kg
[2019-02-18 17:49] LABS: INR 4.52 (0.85-1.17)
== END 2019-02-18 18:19 | disposition home or self-care (01) ==
LOC: D.ER 16:49
PROVIDERS: Family Medicine
DX: S91.112A Laceration without foreign body of left great toe without damage to nail, initial encounter (principal); W45.8XXA Other foreign body or object entering through skin, initial encounter

== ENCOUNTER → 2019-02-24 14:09 | Outpatient (CLI) | payer MEDICARE, OTHER ==
[2019-02-18 17:00] VITALS: BMI 37.5
[2019-02-24 16:21] LABS: INR 2.61 (0.85-1.17); PROTIME 27.2 SECONDS (11.6-15.0)
== END | disposition home or self-care (01) ==
LOC: D.LABREF 14:09
PROVIDERS: ATTEND Family Medicine
DX: Z79.01 Long term (current) use of anticoagulants (principal)

== ENCOUNTER → 2019-08-11 18:08 | Outpatient (CLI) | payer MEDICARE, OTHER ==
[2019-02-18 17:00] VITALS: BMI 37.5
[2019-08-11 18:25] LABS: BASOPHILS 0.5 % (0-2); EOSINOPHILS 3.8 % (0-7); HEMATOCRIT 34.6 % (42.0-54.0); IMMATURE GRANULOCYTES 0.2 % (0-5); LYMPHOCYTES 25.8 % (15-50); MCH 27.5 pg (26.0-34.0); MCHC 28.9 g/dL (31.0-37.0); MCV 95.3 fL (80.0-100.0); MONOCYTES 9.8 % (2-11); NEUTROPHILS 59.9 % (40-80); PLATELET COUNT 277 10x3/uL (130-400); RBC 3.63 10x6/uL (4.20-6.10); RDW 18.5 % (11.5-14.5); WBC 6.4 10x3/uL (4.8-10.8)
[2019-08-11 18:34] LABS: ANION GAP 8.1 mmol/L (8-16); C-REACTIVE PROTEIN 3.1 mg/dL (0.0-0.9); CALCIUM 9.1 mg/dL (8.5-10.1); CARBON DIOXIDE 35.1 mmol/L (21.0-32.0); CREATININE - SERUM 1.5 mg/dL (0.6-1.3); POTASSIUM - SERUM 4.2 mmol/L (3.5-5.1)
[2019-08-11 19:39] LABS: ERYTHROCYTE SEDIMENTATION RATE 27 mm/hr (0-20)
== END | disposition home or self-care (01) ==
LOC: D.LABREF 18:08
PROVIDERS: ATTEND Family Medicine
DX: N18.9 Chronic kidney disease, unspecified (principal); I48.91 Unspecified atrial fibrillation; M86.9 Osteomyelitis, unspecified

== ENCOUNTER 2019-08-19 03:09 | Inpatient (IN) | payer MEDICARE, OTHER ==
[~2019-08-19] VITALS: Ht 189.2 cm; Wt 134.7 kg
[2019-08-19 03:30] LABS: BASOPHILS 0.1 % (0-2); EOSINOPHILS 0.8 % (0-7); HEMATOCRIT 32.5 % (42.0-54.0); HEMOGLOBIN 9.4 g/dL (13.5-17.5); IMMATURE GRANULOCYTES 0.3 % (0-5); LYMPHOCYTES 8.9 % (15-50); MCH 27.8 pg (26.0-34.0); MCHC 28.9 g/dL (31.0-37.0); MCV 96.2 fL (80.0-100.0); MEAN PLATELET VOLUME 8.1 fL (7.4-10.4); MONOCYTES 8.1 % (2-11); NEUTROPHILS 81.8 % (40-80); PLATELET COUNT 237 10x3/uL (130-400); RBC 3.38 10x6/uL (4.20-6.10); RDW 18.6 % (11.5-14.5); WBC 8.9 10x3/uL (4.8-10.8)
[2019-08-19 03:37] LABS: INR 1.32 (0.85-1.17); PROTIME 16.3 SECONDS (11.6-15.0)
[2019-08-19 03:38] LABS: APTT 40.9 SECONDS (22.8-39.4)
[2019-08-19 03:42] LABS: CALC OSMOLALITY 273 mosm/kg (275-300); CALCIUM 8.4 mg/dL (8.5-10.1); CARBON DIOXIDE 31.6 mmol/L (21.0-32.0); CHLORIDE - SERUM 97 mmol/L (98-107); CREATININE - SERUM 1.6 mg/dL (0.6-1.3); GLUCOSE 168 mg/dL (74-106); POTASSIUM - SERUM 4.6 mmol/L (3.5-5.1); SODIUM 133 mmol/L (136-145); UREA NITROGEN 24 mg/dL (7-18); eGFR NON AFRICAN AMERICAN 45 mL/min (90-120)
[2019-08-19 03:59] LABS: ALBUMIN 2.8 g/dL (3.4-5.0); ALKALINE PHOSPHATASE 80 U/L (30-120); ALT (SGPT) 24 U/L (10-68); BILIRUBIN - TOTAL 0.99 mg/dL (0.2-1.3); CKMB 0.8 U/L (0.0-3.6); CREATINE KINASE 36 UL (21-232); PRO BNP 4282 pg/mL (0-125); PROTEIN - SERUM 7.2 g/dL (6.4-8.2)
[2019-08-19] MEDS ORDERED: LASIX40 MG PO (04:04)
[2019-08-19] MEDS ORDERED: PROPAFENONE HC150 MG PO (04:05)
[2019-08-19] MEDS ORDERED: ELIQUIS5 MG PO (04:08)
--- NOTE | 2019-08-19 04:30 | NUR ---
PT ARRIVED TO THE FLOOR. ALERT AND ORIENTED. SHORTNESS OF BREATH. PT ON 4LO2 NASAL CANNULA. PT VERY WEAK. PT STATES NO PROBLEMS AT THIS TIME. LUNG SOUNDS CLEAR. BOWEL SOUNDS ACTIVE. BILATERAL LOWER LEG DRESSINGS PRESENT. ELENA ALARM PLACED. WILL CONTINUE PLAN OF CARE. CALL LIGHT IN REACH. BED LOWERED AND LOCKED. BED RAILS UPX2
--- NOTE | 2019-08-19 04:38 | NUR ---
ROCEPHIN COMPLETE AT THIS TIME.
[2019-08-19 04:57] VITALS: BMI 37.7
[2019-08-19 06:55] VITALS: BP 94/57
--- NOTE | 2019-08-19 06:59 | NUR ---
HERMAN PLACED. ATTEMPTS X1. PT TOLERATED WELL. CLEAR STRAW URINE. PLACED DUE TO PATIENT BEING ON LASIX AND EXTREME WEAKNESS. WILL CONTINUE PLAN OF CARE. CALL LIGHT IN REACH. ELENA ALARM ON.
--- NOTE | 2019-08-19 07:15 | NUR ---
REC'D IN WALKING ROUNDS PT OUT OF BED WITH ELENA ALARMING GOING INTO BATHROOM. THIS NURSE AND OFF GOING NURSE ASSISTED PT OUT OF BATHROOM AND BACK TO BED. THIS NURSE ENCOURAGE PT TO USE CALL LIGHT AND TO AWAIT ASSISTANCE DUE TO FALL RISK. PT STATED " WHEN YOU ARE THIS AGE AND YOU GOTTA GO YOU JUST GOTTA GET UP AND GO." ASSESSMENT COMPLETED. DRESSING NOTED TO BLE. C/L IN REACH AT BEDSIDE.
--- NOTE | 2019-08-19 09:10 | NUR ---
THIS NURSE WAS CALLED TO RESIDENT ROOM D/T RESIDENT HAVING FALLEN. UPON NURSE ENTERING ROOM OBSERVE PT SITTING ON FLOOR. THIS NURSE ASKED PT WHAT HAPPENED AND HE STATED THAT HE WAS TRYING TO GET BACK IN BED AND LOST HIS BALANCE AND FALL ON HIS BUTTOCK AFTER GETTING OFF BSC. NO APPARENT INJURIES NOTED. ALL FALL PRECAUTION WERE IN PLACE. NOTIFIED. ASSISTED BACK TO BED. ELENA ALARM ON. C/L IN REACH AT BEDSIDE.
[2019-08-19 09:21] VITALS: BP 126/46
[2019-08-19 10:42] VITALS: BMI 37.6
[2019-08-19 13:12] VITALS: Ht 189.2 cm; Wt 134.7 kg
[2019-08-19 13:45] VITALS: BP 121/48
[2019-08-19 17:06] VITALS: BP 105/42
[2019-08-19 20:00] VITALS: BP 102/45
[2019-08-19 22:41] LABS: BILIRUBIN NEGATIVE (NEGATIVE); GLUCOSE NEGATIVE (NEGATIVE); KETONE NEGATIVE (NEGATIVE); NITRITE NEGATIVE (NEGATIVE); SPECIFIC GRAVITY 1.015 (1.005-1.020); UROBILINOGEN NORMAL (NORMAL)
[2019-08-19 22:44] LABS: BACTERIA FEW /hpf (NEGATIVE); EPITHELIAL CELLS 0-5 /hpf (0-5)
--- NOTE | 2019-08-20 01:47 | NUR ---
SITTING UP IN CHAIR AT BEDSIDE , IV TO RIGHT WRIST. F/C IN PLACE AND PATEN WITH URINE TO BAG. UA COLLECTED THIS SHIFT. ALARM IN PLACE AND WORKING. DRESSING TO BLE IN TACT. NO NEEDE AT THIS TIME. CALL LIGHT IN REACH.
[2019-08-20 04:00] VITALS: BP 102/50
[2019-08-20 05:14] LABS: BASOPHILS 0.2 % (0-2); EOSINOPHILS 2.2 % (0-7); HEMATOCRIT 32.6 % (42.0-54.0); HEMOGLOBIN 9.4 g/dL (13.5-17.5); IMMATURE GRANULOCYTES 0.3 % (0-5); LYMPHOCYTES 22.8 % (15-50); MCH 27.7 pg (26.0-34.0); MCHC 28.8 g/dL (31.0-37.0); MCV 96.2 fL (80.0-100.0); MEAN PLATELET VOLUME 8.8 fL (7.4-10.4); MONOCYTES 13.6 % (2-11); NEUTROPHILS 60.9 % (40-80); PLATELET COUNT 245 10x3/uL (130-400); RBC 3.39 10x6/uL (4.20-6.10); RDW 18.9 % (11.5-14.5)
[2019-08-20 05:19] LABS: WBC 5.9 10x3/uL (4.8-10.8)
[2019-08-20 05:43] LABS: ALBUMIN 2.7 g/dL (3.4-5.0); ANION GAP 10.7 mmol/L (8-16); BILIRUBIN - TOTAL 0.87 mg/dL (0.2-1.3); CALCIUM 8.3 mg/dL (8.5-10.1); CREATININE - SERUM 1.3 mg/dL (0.6-1.3); PROTEIN - SERUM 7.3 g/dL (6.4-8.2)
[2019-08-20 05:49] LABS: POTASSIUM - SERUM 3.7 mmol/L (3.5-5.1)
[2019-08-20 08:48] VITALS: BP 110/49
--- NOTE | 2019-08-20 10:31 | NUR ---
HE IS SETTING UP IN THE CHAIR, EATING BREAKFAST. PAIN MED GIVEN.
[2019-08-20 12:13] VITALS: BP 82/50
--- NOTE | 2019-08-20 12:22 | NUR ---
BP 82/50 MANUAL, HE IS SETTING UP IN THE CHAIR AND HAS BEEN ALL DAY. HE STATES "I FEEL FINE, MAYBE A HEADACHE IF I THINK ABOUT IT". DR. SANCHEZ'S NURSE AWARE OF THIS, NEW ORDER RECEIVED.
[2019-08-20 13:01] VITALS: BP 89/42
--- NOTE | 2019-08-20 14:45 | NUR ---
D/'C THE HERMAN. URINAL BY THE BEDSIDE.
[2019-08-20 16:46] VITALS: BP 87/46
[2019-08-20 20:00] VITALS: BP 103/58
[2019-08-21] VITALS: BP 106/49
[2019-08-21 04:00] VITALS: BP 104/50
[2019-08-21 05:13] LABS: BASOPHILS 0.2 % (0-2); EOSINOPHILS 5.2 % (0-7); HEMATOCRIT 32.5 % (42.0-54.0); HEMOGLOBIN 9.2 g/dL (13.5-17.5); IMMATURE GRANULOCYTES 0.6 % (0-5); LYMPHOCYTES 30.3 % (15-50); MCH 27.5 pg (26.0-34.0); MCHC 28.3 g/dL (31.0-37.0); MCV 97.3 fL (80.0-100.0); MEAN PLATELET VOLUME 8.8 fL (7.4-10.4); MONOCYTES 11.6 % (2-11); NEUTROPHILS 52.1 % (40-80); PLATELET COUNT 269 10x3/uL (130-400); RBC 3.34 10x6/uL (4.20-6.10); RDW 18.8 % (11.5-14.5); WBC 5.4 10x3/uL (4.8-10.8)
[2019-08-21 05:28] LABS: ANION GAP 8.6 mmol/L (8-16); CALCIUM 8.4 mg/dL (8.5-10.1); CARBON DIOXIDE 35.2 mmol/L (21.0-32.0); CREATININE - SERUM 1.3 mg/dL (0.6-1.3); MAGNESIUM - SERUM 1.7 mg/dL (1.8-2.4); POTASSIUM - SERUM 3.8 mmol/L (3.5-5.1)
[2019-08-21 09:45] VITALS: BP 130/53
--- NOTE | 2019-08-21 09:53 | NUR ---
SETTING UP IN THE CHAIR, RATES PAIN 5/10. PRN GIVEN. USING THE WALKER TO GO TO THE BATHROOM.
--- NOTE | 2019-08-21 11:45 | NUR ---
NEW IV STARTED TO THE RIGHT ARM 22 G.
--- NOTE | 2019-08-21 13:23 | NUR ---
Nutrition Follow-up: Eating well. Requests additional protein and non-starchy vegetables with meals. Ok for regular solids and thin liquids per ST. Diet: Diabetic PO intake: 75-100% Wt: 297# (08/18) Last BM: 08/19 Labs noted: Glu 112, Ca 8.4, Mg 1.7 Meds noted: Questran, Protonix, Amaryl, Humulin, Lasix, Mag Sulfate -+extra protein & non-starchy vegetables with meals per pt request. -Monitor wt. -RD following.
[2019-08-21 13:53] VITALS: BP 111/42
[2019-08-21 18:10] VITALS: BP 145/56
[2019-08-21 20:00] VITALS: BP 116/53
[2019-08-22] VITALS: BP 121/62
[2019-08-22 04:00] VITALS: BP 113/44
[2019-08-22 05:59] LABS: BASOPHILS 0.3 % (0-2); EOSINOPHILS 3.8 % (0-7); HEMOGLOBIN 9.1 g/dL (13.5-17.5); IMMATURE GRANULOCYTES 0.3 % (0-5); LYMPHOCYTES 31.1 % (15-50); MCHC 29.4 g/dL (31.0-37.0); MCV 95.4 fL (80.0-100.0); MEAN PLATELET VOLUME 8.6 fL (7.4-10.4); MONOCYTES 9.4 % (2-11); NEUTROPHILS 55.1 % (40-80); PLATELET COUNT 280 10x3/uL (130-400); RBC 3.25 10x6/uL (4.20-6.10); RDW 18.4 % (11.5-14.5)
[2019-08-22 06:18] LABS: ANION GAP 10.7 mmol/L (8-16); CALCIUM 8.5 mg/dL (8.5-10.1); CARBON DIOXIDE 32.7 mmol/L (21.0-32.0); CREATININE - SERUM 1.3 mg/dL (0.6-1.3)
[2019-08-22 06:19] LABS: POTASSIUM - SERUM 4.4 mmol/L (3.5-5.1)
--- NOTE | 2019-08-22 08:00 | NUR ---
PATIENT PLACED IN CONTACT ISOLATION. QUESTIONS ASKED AND ANSWERED. PATIENT HAS CONCERNS ABOUT NOT HAVING HIS LOWER EXTREMITY WOUNDS LOOKED AT. CONCERNED ABOUT RIGHT ABD FOLD/GROIN AREA HAVING YEAST. IT IS RED AND WARM TO THE TOUCH. WILL NOTIFY DOCTORS ABOUT CONCERNS. SITTING UP IN CHAIR. CL IN REACH. NO FURTHER CONCERNS AT THIS TIME.
[2019-08-22 08:02] VITALS: BP 139/49
--- NOTE | 2019-08-22 11:01 | NUR ---
PATIENT SITTING UP IN CHAIR. NOTIFIED OF IV BEING COMPLETED. CL IN REACH. WCTM
[2019-08-22 13:58] VITALS: BP 96/48
--- NOTE | 2019-08-22 14:30 | NUR ---
PATIENT CO NOT FEELING "RIGHT." VS STABLE. BP WAS 119/59 HR 78 16 RESP 97.7 TEMP ORALLY. CALLED TELEMETRY THEY STATED PATIENT HAS BEEN RUNNING 69 CONTROLLED AFIB. EXPLAINED TO PATIENT THAT THEY CAN SEE HIS RHYTHYM AND THAT IT TAKES TIME TO RECOUP FROM BEING IN THE HOSPITAL. CL IN REACH. NO FURTHER NEEDS AT THIS TIME. WCTM
--- NOTE | 2019-08-22 16:26 | NUR ---
PATIENT HAD A RUN OF 6 VTACH. PATIENT ASYMPTOMATIC. CL IN REACH. WCTM
[2019-08-22 18:13] VITALS: BP 121/56
--- NOTE | 2019-08-22 19:00 | NUR ---
BEDSIDE REPORT RECEIVED AND CARE OF PT ASSUMED. PT SITTING UP IN CHAIR AT THIS TIME. DRESSINGS ON BLE. TELEMETRY IN PLACE. CONTACT ISOLATION FOR VRE IN URINE IN PLACE. WILL MONITOR FOR NEEDS.
[2019-08-22 20:00] VITALS: BP 116/36
--- NOTE | 2019-08-22 20:24 | NUR ---
HS MEDICATIONS GIVEN. FSBS 282 THIS CHECK REQUIRING COVERAGE WITH 6 UNITS OF INSULIN PER SLIDING SCALE.
[2019-08-23] VITALS (7 sets, daily range): BP systolic 103–114; BP diastolic 42–64
[2019-08-23 05:11] LABS: BASOPHILS 0.6 % (0-2); EOSINOPHILS 4.8 % (0-7); HEMATOCRIT 31.1 % (42.0-54.0); HEMOGLOBIN 8.9 g/dL (13.5-17.5); IMMATURE GRANULOCYTES 0.6 % (0-5); MCH 27.9 pg (26.0-34.0); MCHC 28.6 g/dL (31.0-37.0); MEAN PLATELET VOLUME 8.2 fL (7.4-10.4); PLATELET COUNT 254 10x3/uL (130-400); RBC 3.19 10x6/uL (4.20-6.10); RDW 18.1 % (11.5-14.5); WBC 5.2 10x3/uL (4.8-10.8)
[2019-08-23 05:13] LABS: MCV 97.5 fL (80.0-100.0)
[2019-08-23 05:28] LABS: ANION GAP 7.5 mmol/L (8-16); CALCIUM 8.6 mg/dL (8.5-10.1); CARBON DIOXIDE 34.9 mmol/L (21.0-32.0); CREATININE - SERUM 1.3 mg/dL (0.6-1.3); POTASSIUM - SERUM 4.4 mmol/L (3.5-5.1)
--- NOTE | 2019-08-23 14:23 | MORECARE ---
CASE MANAGEMENT DISCHARGE SUMMARY PATIENT: MONIQUE BEDOLLA UNIT: [id number] ADM DATE: 08/19/19 AGE: 69 : 46 SEX: M ROOM/BED: D.2230 AUTHOR: CAT IGNACIO PHYSICIAN: REFERRING PHYSICIAN: RHEA SANCHEZ MD DATE OF SERVICE: 08/23/19 Discharge Plan Patient Name: MONIQUE [facility]ED[facility]LL[facility] [facility] 1950 Planned Disposition: Inpatient Rehab Anticipated Discharge Date: Discharge Date: Expected LOS: Initial Reviewer: [email or web address] Initial Review Date: 08/19/2019 Generated: 08/23/19 3:23 pm DCPIA - Discharge Planning Initial Assessment Updated by [email or web address]: Siobhan Ma on 08/23/19 2:22 pm * Is the patient Alert and Oriented? Yes * PCP BERNAL * [facility] [place] [id number] * Preadmission Environment Home with Family * ADLs Independent * Equipment Nebulizer Oxygen Rolling Walker Walker * Other Equipment CONCENTRATOR * List name and contact numbers for known caregivers / representatives who currently or will assist patient after discharge: ARIAN () [phone] * Verbal permission to speak to the caregivers and representatives has been obtained from the patient. N/A * Community resources currently utilized Home Health * Please name any agencies selected above. [facility] * Additional services required to return to the preadmission environment? Yes * Can the patient safely return to the preadmission environment? No * Has this patient been hospitalized within the prior 30 days at any hospital? Yes Patient Name: MONIQUE BEDOLLA Page [id number] at 1423 All edits/amendments must be made on the electronic document DICTATION DATE: 08/23/19 142 SAP MOBILITY ARCHITECT: JASMYN 08/23/19 142 RPT#: [id number] DC DATE: STATUS: ADM IN [facility] [address] [place] [address] END OF REPORT
--- NOTE | 2019-08-23 14:29 | MORECARE ---
CASE MANAGEMENT DISCHARGE SUMMARY PATIENT: MONIQUE BEDOLLA UNIT: [id number] ADM DATE: 08/19/19 AGE: 69 : 48 SEX: M ROOM/BED: D.2230 AUTHOR: SANDEE,DOC PHYSICIAN: REFERRING PHYSICIAN: RHEA SANCHEZ MD DATE OF SERVICE: 08/23/19 Discharge Plan Patient Name: MONIQUE BEDOLLA Facility: [facility]:[place] : 1950 Planned Disposition: Inpatient Rehab Anticipated Discharge Date: Discharge Date: Expected LOS: Initial Reviewer: [email or web address] Initial Review Date: 08/19/2019 Generated: 08/23/19 3:29 pm Comments DCP- Discharge Planning Updated by [email or web address]: Siobhan Ma on 08/23/19 1:[address] Patient Name: MONIQUE BEDOLLA Admission Status: ER Accout number: [id number] Admission Date: 08-19-2019 : 1950 Admission Diagnosis:SHORTNESS OF BREATH Attending: RHEA SANCHEZ Current LOS: 4 Anticipated DC Date: Planned Disposition: Inpatient Rehab Primary Insurance: MEDICARE A & B Discharge Planning Comments: CM met with patient about discharge planning needs. Patient lives at home with his where he is independent with his care. He states that he was just discharged home a week ago from [facility] where he was there for 7 weeks for an infection in his toe. He has a walker x 2, glucometer, O2 concentrator and portable O2 Concentrator & Neb all from [facility] Patient. He would like to go to inpatient rehab at [facility] for strength and balance training. He is current with [facility] and is happy with them. IMM signed and explained. DYLAN signed for inpatient rehab at [facility], [facility] Patient. CM will continue to follow and assist for DC planning as needed Digitizer Operator: Siobhan Ma DCPIA - Discharge Planning Initial Assessment Updated by [id number]: Siobhan Ma on 08/23/19 2:22 pm * Is the patient Alert and Oriented? Yes * PCP BERNAL * [facility] * Preadmission Environment Home with Family * ADLs Independent * Equipment Nebulizer Oxygen Rolling Walker Walker * Other Equipment CONCENTRATOR * List name and contact numbers for known caregivers / representatives who currently or will assist patient after discharge: ARIAN () [phone] * Verbal permission to speak to the caregivers and representatives has been obtained from the patient. N/A * Community resources currently utilized Home Health * Please name any agencies selected above. [facility] * Additional services required to return to the preadmission environment? Yes * Can the patient safely return to the preadmission environment? No * Has this patient been hospitalized within the prior 30 days at any hospital? Yes Coverage Notice Reviewer: [id number] Ma Notice Issued Date-Time: 08/23/2019 14:10 Notice Type: IM Discharge Notice Notice Delivered To: Patient Relationship to Patient: Synthetic Plasterer Name: Delivery Method: HAND - Hand Delivered Janet Days: Prior Verbal Notification: Recipient Understood Notice: Yes Recipient Signature: Yes Med Rec Note Co-signed by Attending: Coverage Notice Comment: Reviewer: [id number] Ma Notice Issued Date-Time: 08/23/2019 14:10 Notice Type: Patient Choice Letter Notice Delivered To: Patient Relationship to Patient: Synthetic Plasterer Name: Delivery Method: HAND - Hand Delivered Janet Days: Prior Verbal Notification: Recipient Understood Notice: Yes Recipient Signature: Yes Med Rec Note Co-signed by Attending: Coverage Notice Comment: DYLAN INPATIENT REHAB [facility] PT Last DP export: 08/23/19 1:23 p Patient Name: MONIQUE BEDOLLA Page [id number] at 1429 All edits/amendments must be made on the electronic document DICTATION DATE: 08/23/191428 LEPIDOPTERIST: JASMYN 08/23/19 142 RPT#: [id number] DC DATE: STATUS: ADM IN [facility] [address] [place] [address] END OF REPORT
--- NOTE | 2019-08-23 19:00 | NUR ---
BEDSIDE REPORT RECEIVED AND CARE OF PT ASSUMED. PT SITTING UP IN BED WATCHING TV. IV TO RIGHT FA SALINE LOCKED. DRESSINGS TO BLE INTACT. TELEMETRY IN PLACE. WILL MONITOR FOR NEEDS.
--- NOTE | 2019-08-23 20:30 | NUR ---
HS MEDICATIONS GIVEN. FSBS 293 THIS CHECK REQUIRING COVERAGE WITH 6 UNITS OF INSULIN PER SLIDING SCALE. WILL CONTINUE TO MONITOR FOR NEEDS.
[2019-08-24 04:30] VITALS: BP 124/72
[2019-08-24 05:23] LABS: BASOPHILS 0.4 % (0-2); EOSINOPHILS 5.4 % (0-7); HEMOGLOBIN 8.9 g/dL (13.5-17.5); IMMATURE GRANULOCYTES 0.9 % (0-5); LYMPHOCYTES 35.1 % (15-50); MCH 27.2 pg (26.0-34.0); MCHC 27.8 g/dL (31.0-37.0); MCV 97.9 fL (80.0-100.0); MEAN PLATELET VOLUME 8.6 fL (7.4-10.4); MONOCYTES 8.8 % (2-11); NEUTROPHILS 49.4 % (40-80); PLATELET COUNT 278 10x3/uL (130-400); RBC 3.27 10x6/uL (4.20-6.10); WBC 5.6 10x3/uL (4.8-10.8)
[2019-08-24 05:34] LABS: ANION GAP 8.4 mmol/L (8-16); CALCIUM 8.6 mg/dL (8.5-10.1); CREATININE - SERUM 1.3 mg/dL (0.6-1.3); POTASSIUM - SERUM 4.4 mmol/L (3.5-5.1)
[2019-08-24 07:53] VITALS: BP 124/63
--- NOTE | 2019-08-24 08:33 | NUR ---
HE IS SETTING UP IN THE CHAIR, HAD BREAKFAST. HIS LEGS ARE WRAPPED, DRESSING FROM HOME. HAS NOT LET THE NURSING STAFF CHANGE THE DRESSINGS. HE IS AWARE OF A WOUND OF A WOUND CARE CONSULT.
--- NOTE | 2019-08-24 11:14 | NUR ---
Rehab Note- Acute Inpatient Rehab prescreen order received. Per PT on 08/22/2019 ambulating 250ft, and on 08/22 the patient was noted to be up with nursing. The patient is noted to be too functional at this time for inpatient acute rehab. Will follow at this time for any change in condition. Thank you for this referral! Aline Bullock RN Clinical Liaison, [facility] Rehab
[2019-08-24 12:35] VITALS: BP 105/48
--- NOTE | 2019-08-24 13:19 | NUR ---
Nutrition follow-up: Diet: ADA consistent CHO PO intake 100% all meals Labs reviewed; Glucose with poor control most of the time Wt: 297# +BM PO intake good at this time May consider adding long acting insulin 2/2 poor glucose control at this time. RDN following.
--- NOTE | 2019-08-24 15:25 | NUR ---
PT HAS LONG HISTORY OF VENOUS STASIS ULCERS ESPECIALLY ON LEFT LOWER LEG. BILATERAL LEGS ARE EDEMATOUS, DRY, SCALY AND HAVE A COBBLESTONE APPEARANCE. HE HAS NO ULCERS ON HIS LEGS AT THIS TIME. HE DOES HAVE A RUPTURED/DRY BLISTER ON THE LATERAL ASPECT OF HIS LEFT HEEL. THE TOP IS PEELING OFF TO REVEAL INTACT SKIN UNDERNEATH. HE STATES HE HAS HAD THIS WOUND FOR A "WHILE". WOUND CARE SPOKE WITH ISABEL HOUSTON AT [facility] AND THIS WAS VERIFIED. CURRENTLY THE DRESSING ON LEFT LEG IS CHANGED Q 3 DAYS. THE LEG IS CLEANSED, DRIED AND EUCERIN CREAM IS APPLIED. IT IS THEN COVERED WITH KERLIX AND A STOCKING. WHEN OPEN ULCERS APPEAR SILVADENE CREAM IS APPLIED TO THEM. WOUND CARE WILL CONTINUE MONITORING.
--- NOTE | 2019-08-24 15:47 | NUR ---
DRESSING TO THE LEFT LEG CHANGED PER LEIGHA HOUSTON, SKIN CARE NURSE. HIS LEG HAS DRY FLAKEY PATCHES FROM THE LEFT LOWER LEG (CALF) AREA.
[2019-08-24 17:13] VITALS: BP 107/52
[2019-08-24 20:05] VITALS: BP 117/72
--- NOTE | 2019-08-25 02:12 | NUR ---
REC'D CHGE OF SHIFT WALKING ROUNDS SITTING UP BEDSIDE CHAIR. AAO X3.DRSGS. TO BILAT. LOWER EXT.3+ EDEMA OBSERVED.WITH 3-4+ EDEMA FEET. ENCOURAGED IF GOING TO SIT UP CHAIR LONG PERIODS AT A TIME.ELEVATED FEET TO HELP DECREASE SWELLING IN FEET AND LOWER EXT.VOICES UNDERSTANDING.WILL CONTINUE TO MONITOR FOR ANY CHGES IN NEUROVASCULAR STATUS AND FOLLOW CURRENT PLAN OF CARE.
[2019-08-25 05:32] LABS: BASOPHILS 0.4 % (0-2); EOSINOPHILS 4.3 % (0-7); HEMATOCRIT 33.1 % (42.0-54.0); HEMOGLOBIN 9.3 g/dL (13.5-17.5); LYMPHOCYTES 31.1 % (15-50); MCH 27.7 pg (26.0-34.0); MCHC 28.1 g/dL (31.0-37.0); MCV 98.5 fL (80.0-100.0); MEAN PLATELET VOLUME 8.9 fL (7.4-10.4); NEUTROPHILS 54.2 % (40-80); PLATELET COUNT 321 10x3/uL (130-400); RBC 3.36 10x6/uL (4.20-6.10); WBC 6.7 10x3/uL (4.8-10.8)
[2019-08-25 05:45] LABS: ANION GAP 9.1 mmol/L (8-16); CALCIUM 8.9 mg/dL (8.5-10.1); CARBON DIOXIDE 36.4 mmol/L (21.0-32.0); CREATININE - SERUM 1.4 mg/dL (0.6-1.3); POTASSIUM - SERUM 4.5 mmol/L (3.5-5.1)
[2019-08-25 06:31] VITALS: BP 136/67
[2019-08-25 09:24] VITALS: BP 121/53
--- NOTE | 2019-08-25 09:53 | NUR ---
SETTING UP IN THE CHAIR, PRN GIVEN FOR PAIN. WEARING 3 LITERS NC.
[2019-08-25 12:59] VITALS: BP 116/49
[2019-08-25 16:38] VITALS: BP 125/59
[2019-08-25 20:00] VITALS: BP 125/63
--- NOTE | 2019-08-25 22:23 | MORECARE ---
CASE MANAGEMENT DISCHARGE SUMMARY PATIENT: MONIQUE BEDOLLA UNIT: [id number] ADM DATE: 08/19/19 AGE: 69 : 48 SEX: M ROOM/BED: D.2230 AUTHOR: SANDEE,DOC PHYSICIAN: REFERRING PHYSICIAN: RHEA SANCHEZ MD DATE OF SERVICE: 08/25/19 Discharge Plan Patient Name: MONIQUE BEDOLLA Facility: [facility]:[place] : 1950 Planned Disposition: Inpatient Rehab Anticipated Discharge Date: Discharge Date: Expected LOS: Initial Reviewer: [email or web address] Initial Review Date: 08/19/2019 Generated: 08/25/19 11:22 pm Comments DCP- Discharge Planning Updated by [email or web address]: Yoselin Mary on 08/25/19 9:[address] CM spoke with patient and he stated that he gets very SOB when ambulating and CM spoke with PT to see if he had difficulty ambulating. PT stated that patient only walked about 113ft today and fatigued easily. CM called and spoke with Aline in Rehab and they are going to re-evaluate. CM informed Rachel and Dr. Suárez. CM will continue to follow and assist as needed with discharge planning / needs. DCP- Discharge Planning Updated by [email or web address]: Siobhan Ma on 08/23/19 1:[address] Patient Name: MONIQUE BEDOLLA Admission Status: ER Accout number: [id number] Admission Date: 08-19-2019 : 1950 Admission Diagnosis:SHORTNESS OF BREATH Attending: RHEA SANCHEZ Current LOS: 4 Anticipated DC Date: Planned Disposition: Inpatient Rehab Primary Insurance: MEDICARE A & B Discharge Planning Comments: CM met with patient about discharge planning needs. Patient lives at home with his where he is independent with his care. He states that he was just discharged home a week ago from [facility] where he was there for 7 weeks for an infection in his toe. He has a walker x 2, glucometer, O2 concentrator and portable O2 Concentrator & Neb all from [facility] Patient. He would like to go to inpatient rehab at [facility] for strength and balance training. He is current with [facility] and is happy with them. IMM signed and explained. DYLAN signed for inpatient rehab at [facility], [place], [facility]. CM will continue to follow and assist for DC planning as needed Can Solderer: Siobhan Ma DCPIA - Discharge Planning Initial Assessment Updated by [id number]: Siobhan Ma on 08/23/19 2:22 pm * Is the patient Alert and Oriented? Yes * PCP BERNAL * [facility] * Preadmission Environment Home with Family * ADLs Independent * Equipment Nebulizer Oxygen Rolling Walker Walker * Other Equipment CONCENTRATOR * List name and contact numbers for known caregivers / representatives who currently or will assist patient after discharge: ARIAN () [phone] * Verbal permission to speak to the caregivers and representatives has been obtained from the patient. N/A * Community resources currently utilized Home Health * Please name any agencies selected above. [facility] * Additional services required to return to the preadmission environment? Yes * Can the patient safely return to the preadmission environment? No * Has this patient been hospitalized within the prior 30 days at any hospital? Yes Coverage Notice Reviewer: [email or web address] - Siobhan Ma Notice Issued Date-Time: 08/23/2019 14:10 Notice Type: IM Discharge Notice Notice Delivered To: Patient Relationship to Patient: Cane Pusher Name: Delivery Method: HAND - Hand Delivered Janet Days: Prior Verbal Notification: Recipient Understood Notice: Yes Recipient Signature: Yes Med Rec Note Co-signed by Attending: Coverage Notice Comment: Reviewer: [email or web address] Laurie Ma Notice Issued Date-Time: 08/23/2019 14:10 Notice Type: Patient Choice Letter Notice Delivered To: Patient Relationship to Patient: Cane Pusher Name: Delivery Method: HAND - Hand Delivered Janet Days: Prior Verbal Notification: Recipient Understood Notice: Yes Recipient Signature: Yes Med Rec Note Co-signed by Attending: Coverage Notice Comment: D[facility] INPATIENT REHAB [facility] PT Last DP export: 08/23/19 1:29 p Patient Name: MONIQUE BEDOLLA Page [id number] at 2223 All edits/amendments must be made on the electronic document DICTATION DATE: 08/25/192222 INSTRUCTIONAL PARAPROFESSIONAL: JASMYN 08/25/192222 RPT#: [id number] DC DATE: STATUS: ADM IN [facility] [address] [place] [address] END OF REPORT
[2019-08-26] VITALS: BP 142/67
--- NOTE | 2019-08-26 02:38 | NUR ---
I have reviewed this patient and I concur with the Shift Assessment completed by the Licensed Practical Nurse today this shift.
[2019-08-26 04:00] VITALS: BP 116/62
[2019-08-26 05:40] LABS: BASOPHILS 0.5 % (0-2); EOSINOPHILS 3.9 % (0-7); HEMATOCRIT 32.5 % (42.0-54.0); HEMOGLOBIN 9.2 g/dL (13.5-17.5); IMMATURE GRANULOCYTES 0.6 % (0-5); LYMPHOCYTES 28.4 % (15-50); MCH 27.6 pg (26.0-34.0); MCHC 28.3 g/dL (31.0-37.0); MCV 97.6 fL (80.0-100.0); MEAN PLATELET VOLUME 8.8 fL (7.4-10.4); MONOCYTES 7.1 % (2-11); NEUTROPHILS 59.5 % (40-80); PLATELET COUNT 324 10x3/uL (130-400); RBC 3.33 10x6/uL (4.20-6.10); RDW 17.7 % (11.5-14.5); WBC 6.3 10x3/uL (4.8-10.8)
[2019-08-26 05:57] LABS: ALBUMIN 2.7 g/dL (3.4-5.0); ANION GAP 8.3 mmol/L (8-16); BILIRUBIN - TOTAL 0.69 mg/dL (0.2-1.3); CARBON DIOXIDE 36.1 mmol/L (21.0-32.0); CREATININE - SERUM 1.4 mg/dL (0.6-1.3); POTASSIUM - SERUM 4.4 mmol/L (3.5-5.1); PROTEIN - SERUM 7.1 g/dL (6.4-8.2)
--- NOTE | 2019-08-26 08:00 | NUR ---
ASSESSMENT PER FLOW SHEET. PATIENT IS WITHOUT DISTRESS.ISOLATION MAINTAINED.CALL LIGHT IN REACH
[2019-08-26 08:54] VITALS: BP 148/68
[2019-08-26 13:48] VITALS: BP 113/45
[2019-08-26] MEDS ORDERED: ROCEPHIN 1 GM/D51 G1 IV (14:00)
[2019-08-26] MEDS ORDERED: ZITHROMAX250 MG PO (14:00)
[2019-08-26] MEDS ORDERED: ZYVOX PREMIX600 MG IV (14:01)
[2019-08-26] MEDS ORDERED: TUMS PO (14:02)
[2019-08-26] MEDS ORDERED: NYSTATIN1 PWD TOPICAL (14:03)
[2019-08-26] MEDS ORDERED: ZOFRAN INJ IV (14:03)
[2019-08-26] MEDS ORDERED: Eucerin CREAM TOPICAL (14:03)
[2019-08-26] MEDS ORDERED: SILVADENE20 GM TOPICAL (14:04)
[2019-08-26 17:28] VITALS: BP 128/57
[2019-08-26 20:00] VITALS: BP 128/70
[2019-08-27 04:00] VITALS: BP 126/68
[2019-08-27 05:44] LABS: BASOPHILS 0.3 % (0-2); EOSINOPHILS 3.4 % (0-7); HEMATOCRIT 34.8 % (42.0-54.0); HEMOGLOBIN 9.7 g/dL (13.5-17.5); IMMATURE GRANULOCYTES 0.6 % (0-5); MCH 27.6 pg (26.0-34.0); MCHC 27.9 g/dL (31.0-37.0); MCV 99.1 fL (80.0-100.0); MEAN PLATELET VOLUME 8.9 fL (7.4-10.4); MONOCYTES 7.4 % (2-11); NEUTROPHILS 55.3 % (40-80); PLATELET COUNT 334 10x3/uL (130-400); RBC 3.51 10x6/uL (4.20-6.10); WBC 6.9 10x3/uL (4.8-10.8)
[2019-08-27 06:05] LABS: ALBUMIN 2.9 g/dL (3.4-5.0); BILIRUBIN - TOTAL 0.73 mg/dL (0.2-1.3); CALCIUM 9.4 mg/dL (8.5-10.1); CARBON DIOXIDE 37.3 mmol/L (21.0-32.0); CREATININE - SERUM 1.3 mg/dL (0.6-1.3); POTASSIUM - SERUM 4.3 mmol/L (3.5-5.1); PROTEIN - SERUM 7.6 g/dL (6.4-8.2)
[2019-08-27 09:31] VITALS: BP 133/98
--- NOTE | 2019-08-27 11:52 | MORECARE ---
CASE MANAGEMENT DISCHARGE SUMMARY PATIENT: MONIQUE BEDOLLA UNIT: [id number] ADM DATE: 08/19/19 AGE: 69 : 48 SEX: M ROOM/BED: D.2230 AUTHOR: SANDEEDOC PHYSICIAN: REFERRING PHYSICIAN: RHEA SANCHEZ MD DATE OF SERVICE: 08/27/19 Discharge Plan Patient Name: MONIQUE BEDOLLA Facility: [facility]:[place] : 1950 Planned Disposition: Inpatient Rehab Anticipated Discharge Date: Discharge Date: Expected LOS: Initial Reviewer: [email or web address] Initial Review Date: 08/19/2019 Generated: 08/27/19 12:52 pm Comments DCP- Discharge Planning Updated by [id number]: Siobhan Ma on 08/27/19 10:[address] PATIENT WILL BE DISCHARGING TO INPATIENT REHAB AT [facility] TODAY, IMM SERVED AND EXPLAINED. CM TO FOLLOW AND ASSIST NEEDED DCP- Discharge Planning Updated by [id number]: Yoselin Mary on 08/25/19 9:[address] CM spoke with patient and he stated that he gets very SOB when ambulating and CM spoke with PT to see if he had difficulty ambulating. PT stated that patient only walked about 113ft today and fatigued easily. CM called and spoke with Aline in Rehab and they are going to re-evaluate. CM informed Rachel and Dr. Suárez. CM will continue to follow and assist as needed with discharge planning / needs. DCP- Discharge Planning Updated by [id number]: Siobhan Ma on 08/23/19 1:[address] Patient Name: MONIQUE BEDOLLA Admission Status: ER Accout number: [id number] Admission Date: 08-19-2019 : 1950 Admission Diagnosis:SHORTNESS OF BREATH Attending: RHEA SANCHEZ Current LOS: 4 Anticipated DC Date: Planned Disposition: Inpatient Rehab Primary Insurance: MEDICARE A & B Discharge Planning Comments: CM met with patient about discharge planning needs. Patient lives at home with his where he is independent with his care. He states that he was just discharged home a week ago from [facility] where he was there for 7 weeks for an infection in his toe. He has a walker x 2, glucometer, O2 concentrator and portable O2 Concentrator & Neb all from [facility]. He would like to go to inpatient rehab at [facility] for strength and balance training. He is current with [facility] and is happy with them. IMM signed and explained. DYLAN signed for inpatient rehab at [facility], [facility], [facility]. CM will continue to follow and assist for DC planning as needed Market Survey Representative: Siobhan Ma DCPIA - Discharge Planning Initial Assessment Updated by [email or web address]: Siobhan Ma on 08/23/19 2:22 pm * Is the patient Alert and Oriented? Yes * PCP BERNAL * Pharmacy [facility] * Preadmission Environment Home with Family * ADLs Independent * Equipment Nebulizer Oxygen Rolling Walker Walker * Other Equipment CONCENTRATOR * List name and contact numbers for known caregivers / representatives who currently or will assist patient after discharge: ARIAN () [phone] * Verbal permission to speak to the caregivers and representatives has been obtained from the patient. N/A * Community resources currently utilized Home Health * Please name any agencies selected above. [facility] * Additional services required to return to the preadmission environment? Yes * Can the patient safely return to the preadmission environment? No * Has this patient been hospitalized within the prior 30 days at any hospital? Yes Coverage Notice Reviewer: [id number] Ma Notice Issued Date-Time: 08/23/2019 14:10 Notice Type: IM Discharge Notice Notice Delivered To: Patient Relationship to Patient: Shipfitter Helper Name: Delivery Method: HAND - Hand Delivered Janet Days: Prior Verbal Notification: Recipient Understood Notice: Yes Recipient Signature: Yes Med Rec Note Co-signed by Attending: Coverage Notice Comment: Reviewer: [id number] Ma Notice Issued Date-Time: 08/23/2019 14:10 Notice Type: Patient Choice Letter Notice Delivered To: Patient Relationship to Patient: Shipfitter Helper Name: Delivery Method: HAND - Hand Delivered Janet Days: Prior Verbal Notification: Recipient Understood Notice: Yes Recipient Signature: Yes Med Rec Note Co-signed by Attending: Coverage Notice Comment: [facility] INPATIENT REHAB [facility] PT Reviewer: [id number] Laurie Ma Notice Issued Date-Time: 08/27/2019 10:25 Notice Type: IM Discharge Notice Notice Delivered To: Patient Relationship to Patient: Shipfitter Helper Name: Delivery Method: HAND - Hand Delivered Janet Days: Prior Verbal Notification: Recipient Understood Notice: Yes Recipient Signature: Yes Med Rec Note Co-signed by Attending: Coverage Notice Comment: Last DP export: 08/25/19 9:23 p Patient Name: MONIQUE BEDOLLA Page [id number] at 1152 All edits/amendments must be made on the electronic document DICTATION DATE: 08/27/19 1152 BRAKE MECHANIC: JASMYN 08/27/19 1152 RPT#: [id number] DC DATE: STATUS: ADM IN [facility] [address] [place] [address] END OF REPORT
[2019-08-27 13:29] VITALS: BP 125/58
--- NOTE | 2019-08-27 17:01 | NUR ---
REPORT TO YANCI ON REHAB
--- NOTE | 2019-08-27 17:11 | NUR ---
TO REHAB VIA WHEELCHAIR
--- NOTE | 2019-08-28 08:23 | MORECARE ---
CASE MANAGEMENT DISCHARGE SUMMARY PATIENT: MONIQUE BEDOLLA UNIT: [id number] ADM DATE: 08/19/19 AGE: 69 : 48 SEX: M ROOM/BED: D.2230 AUTHOR: SANDEE,DOC PHYSICIAN: REFERRING PHYSICIAN: RHEA SANCHEZ MD DATE OF SERVICE: 08/28/19 Discharge Plan Patient Name: MONIQUE BEDOLLA Facility: [facility]:[place] : 1950 Planned Disposition: Inpatient Rehab Anticipated Discharge Date: Discharge Date: 08/27/2019 Expected LOS: 0 Initial Reviewer: [id number] Initial Review Date: 08/19/2019 Generated: 08/28/19 9:22 am Comments DCP- Discharge Planning Updated by [id number]: Siobhan Ma on 08/27/19 10:[address] PATIENT WILL BE DISCHARGING TO INPATIENT REHAB AT [facility] TODAY, IMM SERVED AND EXPLAINED. CM TO FOLLOW AND ASSIST NEEDED DCP- Discharge Planning Updated by [id number]: Yoselin Mary on 08/25/19 9:[address] CM spoke with patient and he stated that he gets very SOB when ambulating and CM spoke with PT to see if he had difficulty ambulating. PT stated that patient only walked about 113ft today and fatigued easily. CM called and spoke with Aline in Rehab and they are going to re-evaluate. CM informed Rachel and Dr. Suárez. CM will continue to follow and assist as needed with discharge planning / needs. DCP- Discharge Planning Updated by [id number]: Siobhan Ma on 08/23/19 1:[address] Patient Name: MONIQUE BEDOLLA Admission Status: ER Accout number: [id number] Admission Date: 08-19-2019 : 1950 Admission Diagnosis:SHORTNESS OF BREATH Attending: RHEA SANCHEZ Current LOS: 4 Anticipated DC Date: Planned Disposition: Inpatient Rehab Primary Insurance: MEDICARE A & B Discharge Planning Comments: CM met with patient about discharge planning needs. Patient lives at home with his where he is independent with his care. He states that he was just discharged home a week ago from [facility] where he was there for 7 weeks for an infection in his toe. He has a walker x 2, glucometer, O2 concentrator and portable O2 Concentrator & Neb all from [facility]. He would like to go to inpatient rehab at [facility] for strength and balance training. He is current with [facility] and is happy with them. IMM signed and explained. DYLAN signed for inpatient rehab at [facility], [place], [facility]. CM will continue to follow and assist for DC planning as needed Hatchery Employee: Siobhan Ma DCPIA - Discharge Planning Initial Assessment Updated by [email or web address]: Siobhan Ma on 08/23/19 2:22 pm * Is the patient Alert and Oriented? Yes * PCP BERNAL * [facility] * Preadmission Environment Home with Family * ADLs Independent * Equipment Nebulizer Oxygen Rolling Walker Walker * Other Equipment CONCENTRATOR * List name and contact numbers for known caregivers / representatives who currently or will assist patient after discharge: ARIAN () [phone] * Verbal permission to speak to the caregivers and representatives has been obtained from the patient. N/A * Community resources currently utilized Home Health * Please name any agencies selected above. [facility] * Additional services required to return to the preadmission environment? Yes * Can the patient safely return to the preadmission environment? No * Has this patient been hospitalized within the prior 30 days at any hospital? Yes Coverage Notice Reviewer: [id number] Laurie Ma Notice Issued Date-Time: 08/23/2019 14:10 Notice Type: IM Discharge Notice Notice Delivered To: Patient Relationship to Patient: Resident Manager Name: Delivery Method: HAND - Hand Delivered Janet Days: Prior Verbal Notification: Recipient Understood Notice: Yes Recipient Signature: Yes Med Rec Note Co-signed by Attending: Coverage Notice Comment: Reviewer: [id number] Laurie Ma Notice Issued Date-Time: 08/23/2019 14:10 Notice Type: Patient Choice Letter Notice Delivered To: Patient Relationship to Patient: Resident Manager Name: Delivery Method: HAND - Hand Delivered Janet Days: Prior Verbal Notification: Recipient Understood Notice: Yes Recipient Signature: Yes Med Rec Note Co-signed by Attending: Coverage Notice Comment: [facility] INPATIENT REHAB [facility] PT Reviewer: [id number] Laurie Ma Notice Issued Date-Time: 08/27/2019 10:25 Notice Type: IM Discharge Notice Notice Delivered To: Patient Relationship to Patient: Resident Manager Name: Delivery Method: HAND - Hand Delivered Janet Days: Prior Verbal Notification: Recipient Understood Notice: Yes Recipient Signature: Yes Med Rec Note Co-signed by Attending: Coverage Notice Comment: Last DP export: 08/27/19 10:52 a Patient Name: MONIQUE BEDOLLA Page [phone] at 0823 All edits/amendments must be made on the electronic document DICTATION DATE: 08/28/19821 SHIP CARPENTER: JASMYN 08/28/19821 RPT#: [id number] DC DATE:08/27/19 STATUS: DIS IN [facility] [address] [place] [address] END OF REPORT
== END 2019-08-27 17:11 | DRG 291 ==
LOC: D.ER 03:09 → D.MS 03:52
PROVIDERS: Family Medicine; Family Medicine Adult Medicine; ADMIT Internal Medicine Nephrology; ATTEND Internal Medicine Nephrology
DX: I11.0 Hypertensive heart disease with heart failure (principal); J18.9 Pneumonia, unspecified organism; J96.02 Acute respiratory failure with hypercapnia; I48.20 Chronic atrial fibrillation, unspecified; N17.9 Acute kidney failure, unspecified; E87.1 Hypo-osmolality and hyponatremia; E44.0 Moderate protein-calorie malnutrition; I50.43 Acute on chronic combined systolic (congestive) and diastolic (congestive) heart failure; Z79.01 Long term (current) use of anticoagulants; D50.9 Iron deficiency anemia, unspecified; Z68.37 Body mass index [BMI] 37.0-37.9, adult; I25.10 Atherosclerotic heart disease of native coronary artery without angina pectoris; E11.51 Type 2 diabetes mellitus with diabetic peripheral angiopathy without gangrene; E11.40 Type 2 diabetes mellitus with diabetic neuropathy, unspecified

== ENCOUNTER 2019-08-27 17:36 | Inpatient (IN) | payer MEDICARE, OTHER ==
[~2019-08-27] VITALS: Ht 189.2 cm; Wt 134.7 kg
[~2019-08-27 17:36] MED LIST changes: +ELIQUIS5 MG PO; +Eucerin CREAM TOPICAL; +NYSTATIN1 PWD TOPICAL; +SILVADENE20 GM TOPICAL; +TUMS PO; +ZOFRAN INJ IV; +ZYVOX PREMIX600 MG IV
[2019-08-27 20:00] VITALS: BP 129/62
--- NOTE | 2019-08-27 20:00 | NUR ---
MASON RECEIVED SITTING UP CHAIR AT BEDSIDE. VITAL SIGNS DONE. RN TO ASSESS. CALL LIGHT WITHIN REACH. WILL CONTINUE TO MONITOR.
[2019-08-27 22:23] VITALS: BP 129/62; BMI 37.7
--- NOTE | 2019-08-27 22:56 | NUR ---
ADMISSION PAPERS SIGNED. BED/CHAIR ALARM WAIVER SIGNED. CALL LIGHT WITHIN REACH. WILL CONTINUE TO MONITOR.
--- NOTE | 2019-08-28 03:10 | NUR ---
I have reviewed this patient and I concur with the Shift Assessment completed by the Licensed Practical Nurse today this shift.
--- NOTE | 2019-08-28 04:49 | NUR ---
PATIENT AWAKE SITTING UP IN CHAIR READING NEWSPAPER. CALL LIGHT WITHIN REACH. WILL CONTINUE TO MONITOR.
--- NOTE | 2019-08-28 06:29 | NUR ---
PATIENT HAS HAD NO REACTION TO IV ANTIBIOTICS. CALL LIGHT WITHIN REACH. WILL CONTINUE TO MONITOR.
--- NOTE | 2019-08-28 07:45 | NUR ---
ALERT AND ORIENTED.DENIES NEEDS.4+ EDEMA TO BILAT LOWER EXTREMITIES.DRESSING INTACT TO LEFT LOWER LEG AND FOOT CLEAN AND DRY.CL IN EASY REACH.WILL CONTINUE WITH CURRENT PLAN OF CARE.
[2019-08-28 08:00] VITALS: BP 144/60
[2019-08-28 08:02] LABS: BASOPHILS 0.4 % (0-2); EOSINOPHILS 3.6 % (0-7); HEMATOCRIT 33.4 % (42.0-54.0); HEMOGLOBIN 9.7 g/dL (13.5-17.5); IMMATURE GRANULOCYTES 0.4 % (0-5); MCH 28.6 pg (26.0-34.0); MCV 98.5 fL (80.0-100.0); MEAN PLATELET VOLUME 8.7 fL (7.4-10.4); MONOCYTES 8.3 % (2-11); NEUTROPHILS 58.3 % (40-80); PLATELET COUNT 322 10x3/uL (130-400); RBC 3.39 10x6/uL (4.20-6.10); RDW 17.7 % (11.5-14.5); WBC 5.3 10x3/uL (4.8-10.8)
[2019-08-28 08:16] LABS: ANION GAP 7.5 mmol/L (8-16); CALCIUM 9.3 mg/dL (8.5-10.1); CARBON DIOXIDE 37.6 mmol/L (21.0-32.0); CREATININE - SERUM 1.3 mg/dL (0.6-1.3); POTASSIUM - SERUM 4.1 mmol/L (3.5-5.1)
--- NOTE | 2019-08-28 10:50 | NUR ---
PATIENT ADMITTED TO REHAB FROM ACUTE FLOOR. DR. BERNAL IS HIS PCP. DME AT HOME IS WALKER, O2, NEBULIZER FROM [facility] PATIENT. DISCHARGE PLANS ARE FOR HIM TO RETURN TO HIS HOME WITH HIS SPOUSE. WILL CONTINUE TO FOLLOW WITH PATIENT.
--- NOTE | 2019-08-28 10:53 | NUR ---
PATIENT IS A CLIENT OF [facility] AND WILL CONTINUE WITH THEM AT DISCHARGE.
[2019-08-28 13:59] VITALS: Ht 189.2 cm; Wt 134.7 kg
--- NOTE | 2019-08-28 20:00 | NUR ---
PATIENT RECEIVED SITTING UP IN CHAIR. ASSESSMENT & VITAL SIGNS DONE. CALL LIGHT WITHIN REACH. WILL CONTINUE TO MONITOR.
[2019-08-28 20:04] VITALS: BP 127/45
--- NOTE | 2019-08-29 01:34 | NUR ---
I have reviewed this patient and I concur with the Shift Assessment completed by the Licensed Practical Nurse today this shift.
--- NOTE | 2019-08-29 02:53 | NUR ---
PATIENT AWAKE SITTING IN CHAIR AT BEDSIDE WATCHING TV. PATIENT GIVEN CHOCOLATE PUDDING PER HIS REQUEST. CALL LIGHT WITHIN REACH. WILL CONTINUE TO MONITOR.
--- NOTE | 2019-08-29 08:00 | NUR ---
SITTING UP IN BEDSIDE CHAIR.REMAINS IN CONTACT ISOLATION FOR VRE IN URINE.ASSESSMENT COMPLETED .DENIES NEEDS.WILL CONTINUE WITH CURRENT PLAN OF CARE.
[2019-08-29 09:49] VITALS: BP 122/47
[2019-08-29 10:30] VITALS: BP 122/47
--- NOTE | 2019-08-29 18:58 | NUR ---
GREETED PATIENT AND INTROUDCED MYSELF HIS NURSE. PATIENT IS SITTING IN RECLINER AT THIS TIME WATCHING TV. O2 AT 3L IN USE VIA NC. RESPIRATIONS EVEN. NO S/S OF DISTRESS. STATES PAIN IS 4/10 IN LEFT FOOT AT THIS TIME. DENIES ANY FURTHER NEEDS AT THIS TIME. CALL LIGHT IN REACH. BED SIDE SHIFT REPORT COMPLETE FROM OFF GOING NURSE.
[2019-08-29 19:30] VITALS: BP 110/56
--- NOTE | 2019-08-29 23:55 | NUR ---
PT ASLEEP SITTING IN RECLINER. O2 AT 3L IN USE. RESPIRATIONS EVEN. NO S/S OF DISTRESS. CALL LIGHT IN REACH.
--- NOTE | 2019-08-30 06:16 | NUR ---
PT AWAKE AND SITTING ON THE SIDE OF THE BED DRINKING COFFEE. O2 AT 3L IN USE VIA NC. DENIES ANY FURTHER NEEDS AT THIS TIME. CALL LIGHT IN REACH.
--- NOTE | 2019-08-30 08:00 | NUR ---
SHIFT ASSMT COMPLETED.
[2019-08-30 08:11] VITALS: BP 142/67
--- NOTE | 2019-08-30 18:50 | NUR ---
GREETED PATIENT AND INTRODUCED MYSELF HIS NURSE. PATIENT IS CURRENTLY SITTING IN RECLINER. O2 AT 3L IN USE VIA NC. RESPIRATIONS EVEN. NO S/S DISTRESS. STATES PAIN IS 4/1O IN LEFT HEEL AT THIS TIME. CALL LIGHT IN REACH.
[2019-08-30 22:45] VITALS: BP 121/44
--- NOTE | 2019-08-31 03:06 | NUR ---
PT RESTING QUIETLY WITH EYES CLOSED. RESPIRATIONS EVEN. NO S/S. O2 A 3L IN USE. CALL LIGHT IN REACH.
--- NOTE | 2019-08-31 06:37 | NUR ---
PT AWAKE AND SITTING IN RECLINER WATCHING TV AND READING NEWPAPER. PT DENIES ANY NEEDS AT THIS TIME. CALL LIGHT IN REACH.
[2019-08-31 07:00] LABS: ANION GAP 8.3 mmol/L (8-16); BASOPHILS 0.4 % (0-2); CARBON DIOXIDE 36.3 mmol/L (21.0-32.0); CREATININE - SERUM 1.4 mg/dL (0.6-1.3); EOSINOPHILS 2.7 % (0-7); HEMATOCRIT 30.5 % (42.0-54.0); HEMOGLOBIN 8.5 g/dL (13.5-17.5); IMMATURE GRANULOCYTES 0.2 % (0-5); LYMPHOCYTES 30.7 % (15-50); MCH 28.1 pg (26.0-34.0); MCHC 27.9 g/dL (31.0-37.0); MCV 100.7 fL (80.0-100.0); MEAN PLATELET VOLUME 8.7 fL (7.4-10.4); MONOCYTES 6.6 % (2-11); NEUTROPHILS 59.4 % (40-80); PLATELET COUNT 223 10x3/uL (130-400); POTASSIUM - SERUM 4.6 mmol/L (3.5-5.1); RBC 3.03 10x6/uL (4.20-6.10); RDW 18.1 % (11.5-14.5); WBC 5.1 10x3/uL (4.8-10.8)
[2019-08-31 08:24] VITALS: BP 121/50
--- NOTE | 2019-08-31 13:20 | NUR ---
Nutrition Follow-up: Eating well. Diet: Diabetic PO intake: 75-100% Wt: 297# (08/27) Last BM: 08/29 per chart Labs reviewed Meds noted: Protonix, Januvia, Glucophage, Amaryl, Lasix, Questran, Tums -RD following.
--- NOTE | 2019-08-31 13:32 | NUR ---
SITTING UP IN WC IN ROOM. BLE HAVE DRESSINGS ON THEM. DENIES NEEDS OR C/O. CALL LIGHT IN REACH. ABLE TO MAKE NEDS KNOWN
[2019-08-31 20:00] VITALS: BP 142/69
--- NOTE | 2019-08-31 20:00 | NUR ---
PATIENT RECEIVED SITTING UP IN RECLINER. ASSESSMENT & VITAL SIGNS DONE. NO C/O PAIN OR DISTRESS. CALL LIGHT WITHIN REACH. WILL CONTINUE TO MONITOR.
--- NOTE | 2019-08-31 23:49 | NUR ---
I have reviewed this patient and I concur with the Shift Assessment completed by the Licensed Practical Nurse today this shift.
--- NOTE | 2019-09-01 01:16 | NUR ---
PATIENT SITTING UP IN CHAIR SLEEPING. 3LNC IN NOSE. CALL LIGHT WITHIN REACH. WILL CONTINUE TO MONITOR.
--- NOTE | 2019-09-01 08:00 | NUR ---
AWAKE AND STANDING IN DOORWAY WAITING ON BREAKFAST. DENIES NEEDS OR C/O. WALKS AROUND IN ROOM
[2019-09-01 08:23] VITALS: BP 123/60
--- NOTE | 2019-09-01 15:54 | NUR ---
SITTING UP IN RECLINER IN ROOM. IS COMPLIANT WITH ISOLATION RULES AND STAYS IN ROOM. DENIES C/O HE SAYS HE GETS A SOUR STOMACH OFTEN AND ASKS FOR TUMS. BLE ARE WRAPPED IN KAY WRAP.
--- NOTE | 2019-09-01 20:16 | NUR ---
PATIENT RECEIVED SITTING UP IN CHAIR. ASSESSMENT & VITAL SIGNS DONE. CALL LIGHT WITHIN REACH. WILL CONTINUE TO MONITOR.
[2019-09-01 21:58] VITALS: BP 136/35
--- NOTE | 2019-09-02 04:03 | NUR ---
I have reviewed this patient and I concur with the Shift Assessment completed by the Licensed Practical Nurse today this shift.
[2019-09-02 08:00] VITALS: BP 122/51
[2019-09-02 08:20] LABS: BASOPHILS 0.5 % (0-2); EOSINOPHILS 2.9 % (0-7); HEMATOCRIT 30.9 % (42.0-54.0); HEMOGLOBIN 8.7 g/dL (13.5-17.5); IMMATURE GRANULOCYTES 0.3 % (0-5); LYMPHOCYTES 22.5 % (15-50); MCH 28.2 pg (26.0-34.0); MCHC 28.2 g/dL (31.0-37.0); MCV 100.3 fL (80.0-100.0); MEAN PLATELET VOLUME 8.7 fL (7.4-10.4); MONOCYTES 7.8 % (2-11); PLATELET COUNT 219 10x3/uL (130-400); RBC 3.08 10x6/uL (4.20-6.10); RDW 17.7 % (11.5-14.5); WBC 6.5 10x3/uL (4.8-10.8)
[2019-09-02 08:31] LABS: ANION GAP 7.9 mmol/L (8-16); CALCIUM 9.1 mg/dL (8.5-10.1); CARBON DIOXIDE 35.8 mmol/L (21.0-32.0); CREATININE - SERUM 1.3 mg/dL (0.6-1.3); POTASSIUM - SERUM 4.7 mmol/L (3.5-5.1)
[2019-09-02] MEDS ORDERED: ZYVOX600 MG PO (08:41)
[2019-09-02] MEDS ORDERED: HYDROCODON-ACE1 EA10 PO (08:41)
--- NOTE | 2019-09-02 08:42 | RHP ---
PATIENT: MONIQUE BEDOLLA MEDICAL RECORD: [id number] ACCOUNT: [id number] LOCATION:[id number] : 48 ADMISSION DATE: 08/27/19 REHABILITATION HISTORY AND PHYSICAL EXAMINATION POST ADMISSION PHYSICIAN EXAMINATION ADMITTING DIAGNOSIS: Disuse myopathy. HISTORY OF PRESENT ILLNESS: The patient is a 69-year-old gentleman with history of CHF, stent to the right coronary artery, hypertension, flutter, pneumonia, COPD, presented to ED with shortness of breath and then worsening over the previous 3 days. Apparently, been having some problems, some chest congestion, productive cough. He is admitted to hospital with shortness of breath. He was found to have an elevated BNP and be in acute CHF. The patient had an echo done. He has been receiving PT and OT throughout his stay. He needs to be monitored closely for respiratory problems and increased shortness of breath, telemetry. He is on contact isolation. He has got pain control, we are monitoring some wounds that are healing. He has got proximal muscle weakness, balance deficits, decreased activity, tolerance, decreased range of motion, decreased strength, gait disturbance, limited safety awareness. He has medical complexity for falls. He needs cues for equipment. He has got an unsteady gait and balance. He fatigues easily. These are all barriers to his discharge home. He lives at home with his , was independent with ADLs and mobility prior to this, using a rolling walker. He is mod assist for his ADLs, mod assist for his mobility. He plans to return home at his prior level of functioning or better. COMORBIDITIES: Include pharyngeal dysphagia, acute hypercapnic respiratory failure, atrial fib. He has got a right lower lobe pneumonia, moderate protein-calorie malnutrition, hypertension, coronary artery disease, diabetes, peripheral vascular disease, arthritis, neuropathy, UTI, pleural effusion, and weakness. PAST MEDICAL HISTORY: Significant for neuropathy, weakness, glaucoma. He has got a history of diabetes, hypertension, known coronary artery disease, atrial fib, peripheral vascular disease, pneumonia, home O2 use, skin cancers, acid reflux, irritable bowel syndrome, arthritis and some nonhealing wounds, depression and anxiety. PAST SURGICAL HISTORY: Includes gallbladder surgery, tonsillectomy, adenoidectomy. He has had stent placement and hemorrhoids. ALLERGIES: CIPRO, MULTAQ, POTASSIUM. CURRENT MEDICATIONS: Include Eucerin cream. He is on Protonix 40 mg daily. He is on Silvadene ointment as needed. He is on lisinopril 20 mg daily, Flonase nasal spray daily, Nicolasa 180 mg daily, Zithromax 500 mg daily, metformin 1000 mg b.i.d. with meals, Januvia 50 mg b.i.d., Amaryl 4 mg b.i.d., carvedilol 12.5 mg b.i.d., Brovana 15 mcg b.i.d., budesonide 0.5 mg b.i.d., Rocephin 1 g every 24 hours p.r.n., Lasix 40 mg b.i.d., cholestyramine 1 packet t.i.d., zolpidem 10 mg at bedtime, Rythmol 150 mg b.i.d., Nystatin topical powder to apply t.i.d. He is on Zyvox 600 mg b.i.d., Eliquis 5 mg b.i.d., Zofran 4 mg every 4 hours p.r.n., Tums p.r.n., Thompson 10/325 one tab every 4 to 6 hours p.r.n. pain. HABITS: No alcohol or tobacco use. HISTORY AND PHYSICAL [id number] MONIQUE BEDOLLA FAMILY HISTORY: Noncontributory. SOCIAL HISTORY: The patient hopes to return back home and get back to his prior level of functioning. REVIEW OF SYSTEMS: GENERAL: Does complain of weakness and fatigue. HEENT: Denies cold, cough, or congestion. CARDIOVASCULAR: Denies any chest pain. PHYSICAL EXAMINATION: VITAL SIGNS: Stable, afebrile. GENERAL: A morbidly obese gentleman in no acute distress, alert upon exam. HEENT: Normocephalic and atraumatic. Mucosa moist. NECK: Supple. No lymphadenopathy. LUNGS: Clear in upper [place] with decreased breath sounds in the bases, especially on the right. HEART: Irregular rate and rhythm. ABDOMEN: Soft, benign, and nondistended. Positive bowel sounds times 4, noted to be obese. EXTREMITIES: No clubbing, cyanosis. Does have trace edema. NEUROLOGIC: He does have proximal muscle weakness. LABORATORY DATA: White count is 5.3, H&H of 9 and 33 and platelet count was noted to be 322. His sodium is 142, potassium 4.1, BUN and creatinine of 20 and 1.3 and blood sugar is noted to be 136. ASSESSMENT: A 69-year-old gentleman admitted to the rehab with a working diagnosis of disuse myopathy. The patient has potential to make improvement. We instituted the following multidisciplinary therapies including, but not limited to physical, occupational, respiratory, speech, nutritional services, prosthetics and orthotics. Given his complex medical condition and risks for more complications, rehabilitation services cannot be provided at a low level of care such a nursing home facility. PLAN: 1. Admit to [facility] for intensive inpatient therapy to include the following disciplines; A. Physical therapy to improve gait, all transfer skills and bed mobility to a modified independent level. B. Occupational therapy to improve activities of daily living. C. Case management to assist with discharge planning and placement options. D. Nutrition to assist with nutritional needs. E. Rehabilitation nursing to assist in monitoring the patient's underlying medical conditions and to assist with any type of bowel or bladder management. 2. The patient's current medication and medical care will be continued. 3. The patient will be placed on standard fall precautions. 4. The patient's estimated length of stay is approximately 7-10 days. 5. We will discuss the patient during care team staff meeting this week. TRANSINT:[id number] Voice Confirmation ID: [id number] DOCUMENT ID: [id number] MAUREEN notes whether there has been none or any medical/functional change since admission: HISTORY AND PHYSICAL [id number] MONIQUE BEDOLLA - No change since prescreen. MAUREEN attests patient continues to be appropriate for IRF: - Continues to be appropriate. JENNIFER VALDEZ MD at 0842 CC: [id number] DICTATION DATE: 08/28/19918 GASOLINE ENGINE ASSEMBLER: 08/28/19 1104 ADM IN [facility] [address] [place] [address]
--- NOTE | 2019-09-02 11:00 | NUR ---
PATIENT DISCHARGING HOME TODAY WITH FAMILY. [facility] WILL RESUME THERAPY AT HOME. NO COMPARE DATA REVIEWED PER PATIENT REQUEST. DYLAN SIGNED AND IMM SERVED AND EXPLAINED. NO NEW DME NEEDED AT THIS TIME. DR. BERNAL 09/03/19 @ 2:00. DISCHARGE INSTRUCTIONS FAXED TO PCP, HOME HEALTH AND REVIEWED WITH PATIENT PER PRIMARY NURSE.
== END 2019-09-02 12:00 | disposition home health service (06) | DRG 91 ==
LOC: D.REHAB 17:36
PROVIDERS: ADMIT Emergency Medicine; ATTEND Emergency Medicine
DX: G72.89 Other specified myopathies (principal); J18.9 Pneumonia, unspecified organism; J96.02 Acute respiratory failure with hypercapnia; I50.43 Acute on chronic combined systolic (congestive) and diastolic (congestive) heart failure; I48.20 Chronic atrial fibrillation, unspecified; N17.9 Acute kidney failure, unspecified; E87.1 Hypo-osmolality and hyponatremia; E44.0 Moderate protein-calorie malnutrition; Z79.01 Long term (current) use of anticoagulants; D50.9 Iron deficiency anemia, unspecified; E11.40 Type 2 diabetes mellitus with diabetic neuropathy, unspecified; I25.10 Atherosclerotic heart disease of native coronary artery without angina pectoris; E11.51 Type 2 diabetes mellitus with diabetic peripheral angiopathy without gangrene; K21.9 Gastro-esophageal reflux disease without esophagitis; F41.8 Other specified anxiety disorders; I11.0 Hypertensive heart disease with heart failure